=== PATIENT | female | born 1945 | race American Indian/Alaskan Native ===

== ENCOUNTER 2018-07-01 15:45 | Emergency (ER) | payer MEDICARE ==
[2018-07-01] MEDS ORDERED: Furosemide 40 MG Tab PO ONE (15:46)
[2018-07-01] MEDS ORDERED: Sodium Chloride 0.9% 10 ML Syringe FLUSH PRN (16:14)
[2018-07-01 16:41] LABS: ANION GAP 12.5; CHLORIDE,CL 98 mmol/L (101-111); SODIUM,NA 134 mmol/L (135-145)
--- NOTE | 2018-07-01 16:45 | CR ---
Clinical history: 73-year-old female complaining of shortness of breath. Interpretation: No acute new cardiopulmonary abnormality since 13 January 2012 exam. Normal cardiac silhouette without cephalization of flow signs of alveolar edema or dependent pleural fluid accumulation. No lung mass, hilar lymphadenopathy or focal lobar pneumonia. No atelectasis/collapse. No pneumothorax.
[2018-07-01] MEDS ORDERED: Furosemide 40 MG/4 ML VIAL IVPUSH ONE (16:53)
--- NOTE | 2018-07-01 17:31 | EDM.PDOC ---
ED HPI GENERAL MEDICAL PROBLEM - General Chief Complaint: Respiratory Problem Stated Complaint: [facility] Time Seen by Provider: 07/01/18 16:50 Source of Information: Reports: Patient History Limitations: Reports: No Limitations - History of Present Illness INITIAL COMMENTS - FREE TEXT/NARRATIVE: patient comes emergency department today from home with concerns of bilateral lower extremity swelling as well as cough and congestion. The patient has had lower extremity swelling for 2-3 months. She reports that she has very difficult time with depression and very rarely leaves the house and has not been seen for this. The swelling in her lower extremities has gotten worse over the past couple months. In the last month she has been more short of breath coughing and wheezing. She has not had any pain in her chest or palpitations but gets more short of breath with typical indoor physical activity. She denies any fatigue or malaise weakness dizziness lightheadedness. No syncope. No fever no chills. Her family has been trying to get her to be seen in the doctor's office for the last month but she refuses to leave the house. She has no abdominal pain nausea vomiting. No black or tarry stools. patient does have a history of COPDfor which she uses her Advair Diskus a couple of times a week. She has been using her albuterol every 6 hours good she's been so short of breath and coughing. Bilateral Lower Leg Pain Score (Numeric/FACES): 5 - Related Data Allergies Allergy/AdvReac Type Severity Reaction Status Date / Time aspirin Allergy Hives Verified 07/01/18 16:24 azithromycin [From Zithromax] Allergy UNKNOWN Verified 07/01/18 16:24 Penicillins Allergy Hives Verified 07/01/18 16:24 Home Meds: Home Meds Acetaminophen [Acetaminophen 8 Hour] 2 tab PO BID 07/01/18 [History] Albuterol [Ventolin HFA] 2 puff INH Q6H 07/01/18 [History] Cyanocobalamin (Vitamin B-12) [Cyanocobalamin Injection] 1,000 mcg IM ASDIRECTED 07/01/18 [History] DULoxetine HCl [Cymbalta] 60 mg PO DAILY 07/01/18 [History] Fluticasone/Salmeterol [Advair 250-50] 1 puff INH BID 07/01/18 [History] Zolpidem [Ambien] 10 mg PO BEDTIME 07/01/18 [History] buPROPion HCl [Wellbutrin Xl] 150 mg PO DAILY 07/01/18 [History] clonazePAM [Clonazepam] 1 mg PO BID 07/01/18 [History] Past Medical History Cardiovascular History: Reports: Heart Failure Respiratory History: Reports: Asthma, COPD Musculoskeletal History: Reports: Fibromyalgia Psychiatric History: Reports: Depression Hematologic History: Reports: B12 Deficiency ED ROS GENERAL - Review of Systems Review Of Systems: ROS reveals no pertinent complaints other than HPI. ED EXAM, GENERAL - Physical Exam Exam: See Below Exam Limited By: No Limitations General Appearance: Alert, No Apparent Distress Eye Exam: Bilateral Eye: EOMI, Normal Inspection Ears: Normal External Exam, Normal TMs Nose: Normal Inspection, Normal Mucosa Throat/Mouth: Normal Inspection, Normal Lips Head: Atraumatic, Normocephalic Neck: Normal Inspection, Supple, Non-Tender Respiratory/Chest: No Respiratory Distress, No Accessory Muscle Use, Chest Non- Tender, Decreased Breath Sounds (throughout), Wheezing (mild inspiratory and expiratory bilaterally). No: Respiratory Distress (she is able to speak in full sentences), Crackles, Rales, Rhonchi Cardiovascular: Normal Peripheral Pulses, Regular Rate, Rhythm Peripheral Pulses: 2+: Radial (L), Radial (R), Posterior Tibial (L), Posterior Tibial (R), Dorsalis Pedis (L), Dorsalis Pedis (R) GI/Abdominal: Normal Bowel Sounds, Soft, Non-Tender, No Organomegaly Back Exam: Normal Inspection, Full Range of Motion Extremities: Normal Range of Motion, Normal Capillary Refill, Pedal Edema ( there is 3+ pitting edema from the ankle up to the knees bilaterally.There is no increased warmth breaks in the skin. The area on her lower extremities is quite tender by palpation.) Neurological: Alert, Oriented, Normal Cognition, No Motor/Sensory Deficits Psychiatric: Normal Affect, Normal Mood Skin Exam: Warm, Dry, Intact, Normal Color, No Rash EKG INTERPRETATION EKG Date: 07/01/18 Time: 16:01 Rhythm: NSR Rate (Beats/Min): 75 [place]: Normal P-Wave: Present QRS: Normal ST-T: Normal QT: Normal Comparison: NA - No Prior EKG Course - Vital Signs Last Recorded V/S: Last Vital Signs Temp 37.5 C 07/01/18 15:46 Pulse 82 07/01/18 15:46 Resp 19 07/01/18 15:46 BP 170/80 H 07/01/18 15:46 Pulse Ox 97 07/01/18 15:46 - Orders/Labs/Meds Orders: Active Orders 24 hr Category Date Time Status EKG 12 Lead [EKG Documentation Completion] [RC] URGENT Care 07/01/18 16:14 Active Peripheral IV Care [RC] . DIRECTED Care 07/01/18 16:15 Active Peripheral IV Insertion Adult [OM.PC] Stat Oth 07/01/18 16:14 Ordered Labs: Laboratory Tests 07/01/18 07/01/18 07/01/18 Range/Units 16:10 16:10 16:10 WBC 7.2 (5.0-10.0) 10^3/uL RBC 4.28 (4.2-5.4) 10^6/uL Hgb 13.1 (12.0-16.0) g/dL Hct 39.9 (37.0-47.0) % MCV 93.2 (80-100) fL MCH 30.6 (27.0-34.0) pg MCHC 32.8 L (33.0-35.0) g/dL Plt Count 388 (150-450) 10^3/uL Neut % (Auto) 52.4 (42.2-75.2) % Lymph % (Auto) 37.2 (20.5-50.1) % [place] % (Auto) 7.5 (2-8) % Eos % (Auto) 2.8 (1.0-3.0) % Baso % (Auto) 0.1 (0.0-1.0) % D-Dimer, Quantitative (0-400) ng/mL Sodium 134 L (135-145) mmol/L Potassium 3.5 L (3.6-5.0) mmol/L Chloride 98 L (101-111) mmol/L Carbon Dioxide 27.0 (21.0-31.0) mmol/L Anion Gap 12.5 BUN 9 (7-18) mg/dL Creatinine 0.7 (0.6-1.3) mg/dL Est Cr Clr Drug Dosing 61.81 mL/min Estimated GFR (MDRD) > 60 BUN/Creatinine Ratio 12.85 Glucose 102 (74-105) mg/dL Lactic Acid 1.1 (0.5-2.2) mmol/L Calcium 8.6 (8.4-10.2) mg/dl Total Bilirubin 0.6 (0.2-1.0) mg/dL AST 16 (10-42) IU/L ALT 9 L (10-60) IU/L Alkaline Phosphatase 65 (42-121) IU/L Troponin I < 0.02 (0.00-0.02) ng/ml C-Reactive Protein (0.0-1.3) mg/dL B-Natriuretic Peptide 72 (0-100) pg/ml Total Protein 7.4 (6.7-8.2) g/dl Albumin 3.4 (3.2-5.5) g/dl Globulin 4.0 Albumin/Globulin Ratio 0.85 07/01/18 07/01/18 Range/Units 16:10 16:10 WBC (5.0-10.0) 10^3/uL RBC (4.2-5.4) 10^6/uL Hgb (12.0-16.0) g/dL Hct (37.0-47.0) % MCV (80-100) fL MCH (27.0-34.0) pg MCHC (33.0-35.0) g/dL Plt Count (150-450) 10^3/uL Neut % (Auto) (42.2-75.2) % Lymph % (Auto) (20.5-50.1) % [place] % (Auto) (2-8) % Eos % (Auto) (1.0-3.0) % Baso % (Auto) (0.0-1.0) % D-Dimer, Quantitative 269 (0-400) ng/mL Sodium (135-145) mmol/L Potassium (3.6-5.0) mmol/L Chloride (101-111) mmol/L Carbon Dioxide (21.0-31.0) mmol/L Anion Gap BUN (7-18) mg/dL Creatinine (0.6-1.3) mg/dL Est Cr Clr Drug Dosing mL/min Estimated GFR (MDRD) BUN/Creatinine Ratio Glucose (74-105) mg/dL Lactic Acid (0.5-2.2) mmol/L Calcium (8.4-10.2) mg/dl Total Bilirubin (0.2-1.0) mg/dL AST (10-42) IU/L ALT (10-60) IU/L Alkaline Phosphatase (42-121) IU/L Troponin I (0.00-0.02) ng/ml C-Reactive Protein 0.6 (0.0-1.3) mg/dL B-Natriuretic Peptide (0-100) pg/ml Total Protein (6.7-8.2) g/dl Albumin (3.2-5.5) g/dl Globulin Albumin/Globulin Ratio Meds: Medications Discontinued Medications Generic Name Dose Route Start Last Admin Trade Name Freq PRN Reason Stop Dose Admin Doxycycline Hyclate 100 mg 07/01/18 18:07 07/01/18 18:27 Vibramycin PO 07/01/18 18:08 100 mg ONETIME ONE Administration Furosemide 40 mg 07/01/18 16:53 07/01/18 17:22 Lasix IVPUSH 07/01/18 16:54 40 mg NOW ONE Administration Furosemide Confirm 07/01/18 18:21 07/01/18 18:31 Lasix Administered 07/01/18 18:22 Not Given Dose 40 mg .ROUTE .STK-MED ONE Prednisone 40 mg 07/01/18 18:04 07/01/18 18:26 Prednisone PO 07/01/18 18:05 40 mg ONETIME ONE Administration Sodium Chloride 10 ml 07/01/18 16:14 07/01/18 16:10 Saline Flush FLUSH 10 ml ASDIRECTED PRN Administration Keep Vein Open - Radiology Interpretation Free Text/Narrative:: chest x-ray negative per radiology no signs of congestive heart failure. - Re-Assessments/Exams Free Text/Narrative Re-Assessment/Exam: 07/01/18 patient was given a DuoNeb nebulizer with resolutions of her shortness of breath and cough. Her laboratory evaluation is rather unremarkable with a normal troponin as well as BNP. her blood pressure is minimally elevated. She was on a low pressure medication previously but it caused increased pedal edema so she stopped it and was never started on any other medication. I think we have 2 issues going on here. 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 I explained to her at length that she needs to use her Advair Diskus daily to control her symptoms of COPD. She should only be using her albuterol as needed and if she is using her underlying controller medication she should not be using her albuterol as much. The patient wishes not to stay in the hospital as it is very difficult for her to even leave the house. I feel that is fine at this time although she has some rather impressive lower extremity edema. Not sure what's causing this edema other than uncontrolled hypertension right heart failure. Her d-dimer is negative. This really seems like a long- term problem of the lower extremity edema that is just gotten out of control and not manage. I'm not finding any acute emergency issues at this time. We will send her home steroids antibiotics and guidance to use her controller medications for her exacerbation of her COPD. she was given Lasix in the emergency department and we will do a short course of Lasix at home. She needs to keep her legs elevated over the next couple of days to help with venous return.I will not start her on any blood pressure medications at this time I would like to see how she does with the Lasix. I will close follow-up in the clinic on Thursday to reevaluate her COPD exacerbation as well as her pedal edema.She needs laboratory evaluation at that time to evaluate her kidney status as well.The patient is comfortable with this plan and her questions are answered she is very happy with the plan and feels much better on discharge. Departure - Departure Time of Disposition: 18:05 Disposition: Home, Self-Care 01 Clinical Impression: Pedal edema, COPD exacerbation - Discharge Information Referrals: Betsy Villagomez MD [Primary Care Provider] - Forms: ED Department Discharge Additional Instructions: You must use your COPD controller medication every day the advair diskus. Use your albuterol on an add needed basis. With using your daily controller advair you wont need your albuterol as much. Doxycycline, 1 tablet twice daily for the next 7 days. RX given to the patient. Prednisone, 40mg once a day for the next 5 days. RX given to the patient. Start tomorrow. Lasix, 1 tablet daily for the next 4 days. RX given to the patient. Keep your feet elevated as possible over the next few days. Weight yourself daily. YOU MUST BEE SEEN in the clinic on thursday for a recheck in the ED if any problems over the weekend. Return to the ED if new or worsening symptoms. - My Orders Last 24 Hours: My Active Orders 07/01/18 16:14 EKG 12 Lead [EKG Documentation Completion] [RC] URGENT Peripheral IV Insertion Adult [OM.PC] Stat 07/01/18 16:15 Peripheral IV Care [RC] . DIRECTED - Assessment/Plan Last 24 Hours: My Active Orders 07/01/18 16:14 EKG 12 Lead [EKG Documentation Completion] [RC] URGENT Peripheral IV Insertion Adult [OM.PC] Stat 07/01/18 16:15 Peripheral IV Care [RC] . DIRECTED Assessment:: Mild COpd exacerbation in the presence of none compliance with medication regimen. Pedal edema Htn. Depression. Plan: You must use your COPD controller medication every day the advair diskus. Use your albuterol on an add needed basis. With using your daily controller advair you wont need your albuterol as much. Doxycycline, 1 tablet twice daily for the next 7 days. RX given to the patient. Prednisone, 40mg once a day for the next 5 days. RX given to the patient. Start tomorrow. Lasix, 1 tablet daily for the next 4 days. RX given to the patient. Keep your feet elevated as possible over the next few days. Weight yourself daily. YOU MUST BEE SEEN in the clinic on thursday for a recheck in the ED if any problems over the weekend. Return to the ED if new or worsening symptoms.
[2018-07-01] MEDS ORDERED: predniSONE 20 MG Tab PO ONE (18:04)
[2018-07-01] MEDS ORDERED: Doxycycline 100 MG Cap PO ONE (18:07)
[2018-07-01] MEDS ORDERED: Furosemide 40 MG Tab ONE (18:21)
== END 2018-07-01 18:44 | disposition home or self-care (01) ==
LOC: DL.ED 15:45
DX: J44.1 Chronic obstructive pulmonary disease with (acute) exacerbation (principal); R60.0 Localized edema; J44.9 Chronic obstructive pulmonary disease, unspecified; I50.9 Heart failure, unspecified; F32.9 Major depressive disorder, single episode, unspecified; I10 Essential (primary) hypertension; Z79.82 Long term (current) use of aspirin; Z88.1 Allergy status to other antibiotic agents; Z79.899 Other long term (current) drug therapy; Z91.19 Patient's noncompliance with other medical treatment and regimen
CPT/HCPCS: 36415; 71045; 80053; 83605; 83880; 84484; 85025; 85379; 86140; 93005; 96374; 99284-25; A9270-GY; J1940

== ENCOUNTER 2018-07-13 00:09 | Emergency (ER) | payer MEDICARE ==
[2018-07-13] MEDS ORDERED: Zolpidem 5 MG Tab PO ONE (00:10)
[2018-07-13] MEDS ORDERED: ClonazePAM 0.5 MG Tab PO ONE (01:08)
--- NOTE | 2018-07-13 01:21 | EDM.PDOCBH ---
ED HPI GENERAL MEDICAL PROBLEM - General Chief Complaint: Behavioral/Psych Stated Complaint: UNKNOWN-AMBULANCE Time Seen by Provider: 07/13/18 00:50 Source of Information: Reports: Patient, EMS, EMS Notes Reviewed, Family, RN, RN Notes Reviewed History Limitations: Reports: No Limitations - History of Present Illness INITIAL COMMENTS - FREE TEXT/NARRATIVE: Pt to ER per [facility] with c/o anxiety and difficulty breathing. Patient states she has been having a lot of trouble with depression and anxiety. She states she ran out of her medications, and missed her last appointment with her primary provider because is has been hard for her to leave the house. Patient states her has always done the shopping and things outside the house and has recently become very ill. She states this is a great stressor for her and causes a lot of her anxiety. Patient states she was in here about 1-2 weeks ago and was prescribed abx and states she is almost done with them. She was also prescribed Lasix for the swelling in her legs. Patient states she is afraid to take the medication because she thinks it sounds like lisinopril which she has adverse reactions to. Granddaughter present in the room and states they have been trying to encourage her to take the lasix and she refuses. Onset: Gradual Neck Pain Score (Numeric/FACES): 10 - Related Data Allergies Allergy/AdvReac Type Severity Reaction Status Date / Time aspirin Allergy Hives Verified 07/01/18 16:24 azithromycin [From Zithromax] Allergy UNKNOWN Verified 07/01/18 16:24 Penicillins Allergy Hives Verified 07/01/18 16:24 Home Meds: Home Meds Acetaminophen [Acetaminophen 8 Hour] 2 tab PO BID 07/01/18 [History] Albuterol [Ventolin HFA] 2 puff INH Q6H 07/01/18 [History] Cyanocobalamin (Vitamin B-12) [Cyanocobalamin Injection] 1,000 mcg IM ASDIRECTED 07/01/18 [History] DULoxetine HCl [Cymbalta] 60 mg PO DAILY 07/01/18 [History] Fluticasone/Salmeterol [Advair 250-50] 1 puff INH BID 07/01/18 [History] Zolpidem [Ambien] 10 mg PO BEDTIME 07/01/18 [History] buPROPion HCl [Wellbutrin Xl] 150 mg PO DAILY 07/01/18 [History] clonazePAM [Clonazepam] 1 mg PO BID 07/01/18 [History] Past Medical History Cardiovascular History: Reports: Heart Failure Respiratory History: Reports: Asthma, COPD Musculoskeletal History: Reports: Fibromyalgia Psychiatric History: Reports: Depression Hematologic History: Reports: B12 Deficiency Social & Family History - Tobacco Use Smoking Status *Q: Current Every Day Smoker Years of Tobacco use: 55 Packs/Tins Daily: 1 Second Hand Smoke Exposure: Yes - Recreational Drug Use Recreational Drug Use: No ED ROS GENERAL - Review of Systems Review Of Systems: ROS reveals no pertinent complaints other than HPI. ED EXAM, BEHAVIORAL HEALTH - Physical Exam Exam: See Below Exam Limited By: No Limitations General Appearance: Alert, WD/WN, No Apparent Distress, Anxious Eye Exam: Bilateral Eye: EOMI, Normal Inspection Ears: Normal External Exam, Hearing Grossly Normal Nose: Normal Inspection Throat/Mouth: Normal Inspection, Normal Voice, No Airway Compromise Head: Atraumatic, Normocephalic Neck: Normal Inspection, Supple, Non-Tender, Full Range of Motion Respiratory/Chest: No Respiratory Distress, No Accessory Muscle Use, Decreased Breath Sounds Cardiovascular: Normal Peripheral Pulses, Regular Rate, Rhythm, No Gallop, No JVD, No Murmur, No Rub, Other (left anterior chest wall pain with placement of stethoscope) GI/Abdominal: Normal Bowel Sounds, Soft, Non-Tender (Female) Exam: Deferred Rectal (Female) Exam: Deferred Back Exam: Normal Inspection, Full Range of Motion Extremities: Normal Inspection, Normal Range of Motion, Non-Tender, Normal Capillary Refill, Pedal Edema (+2 pitting edema to lower extrem bilaterally), Leg Pain (to touch) Neurological: Alert, Oriented x 3 Psychiatric: Alert, Depressed Mood, Tearful, Poor Eye Contact Skin Exam: Warm, Dry, Intact, Normal color, No rash COURSE, BEHAVIORAL HEALTH COMP - Course Vital Signs: Last Vital Signs Temp 98.7 F 07/13/18 00:09 Pulse 88 07/13/18 00:09 Resp 18 07/13/18 00:09 BP 188/80 H 07/13/18 00:09 Pulse Ox 100 07/13/18 00:09 Orders, Labs, Meds: Medications Discontinued Medications Generic Name Dose Route Start Last Admin Trade Name Freq PRN Reason Stop Dose Admin Clonazepam 0.5 mg 07/13/18 01:08 07/13/18 01:21 Klonopin PO 07/13/18 01:09 0.5 mg ONETIME ONE Administration Zolpidem Tartrate Confirm 07/13/18 01:25 07/13/18 01:41 Ambien Administered 07/13/18 01:26 Not Given Dose 5 mg .ROUTE .STK-MED ONE Departure - Departure Time of Disposition: 01:14 Disposition: Home, Self-Care 01 Condition: Fair Clinical Impression: Depressive disorder, Anxiety, Pedal edema - Discharge Information *PRESCRIPTION DRUG MONITORING PROGRAM REVIEWED*: No *COPY OF PRESCRIPTION DRUG MONITORING REPORT IN PATIENT SONALI: No Instructions: Generalized Anxiety Disorder, Adult, Major Depressive Disorder, Adult, [id number], Panic Attack, [id number], Living With Anxiety, Edema, [id number] Referrals: Betsy Villagomez MD [Primary Care Provider] - Forms: ED Department Discharge Additional Instructions: Take Ambien when you get home Follow up with Dr. Younger for your appointment on Thursday, it is very important that you get your medications refilled Take medications as prescribed.
[2018-07-13] MEDS ORDERED: Zolpidem 5 MG Tab ONE (01:25)
== END 2018-07-13 01:35 | disposition home or self-care (01) ==
LOC: DL.ED 00:09
DX: F32.9 Major depressive disorder, single episode, unspecified (principal); F41.9 Anxiety disorder, unspecified; R60.0 Localized edema; J44.9 Chronic obstructive pulmonary disease, unspecified; I50.9 Heart failure, unspecified; F17.210 Nicotine dependence, cigarettes, uncomplicated; Z79.899 Other long term (current) drug therapy; Z88.8 Allergy status to other drugs, medicaments and biological substances; Z88.1 Allergy status to other antibiotic agents; Z88.0 Allergy status to penicillin
CPT/HCPCS: 99284; A9270

== ENCOUNTER 2018-08-25 14:15 | Inpatient (IN) | payer MEDICARE, OTHER ==
--- NOTE | 2018-08-25 14:28 | EDM.PDOC ---
ED HPI GENERAL MEDICAL PROBLEM - General Chief Complaint: Respiratory Problem Stated Complaint: AMBULANCE Time Seen by Provider: 08/25/18 14:28 Source of Information: Reports: Patient, Family, Old Records, RN, RN Notes Reviewed History Limitations: Reports: No Limitations - History of Present Illness INITIAL COMMENTS - FREE TEXT/NARRATIVE: Pt arrives from home by ambulance with c/o cough with thick mucus production that has become yellowish-green, shortness of breath, and lethargy. The pt's daughter thought the pt was just less active due to grief from the loss of her in July. Pt continues to smoke, and has smoked since she was a "young girl". Denies fever, chills, N/V, or chest pain. She does admit to some sharp pains with coughing. Denies hemoptysis. She reports progressively worsening shortness of breath over the past week. 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, Breathing Treatments Generalized Pain Score (Numeric/FACES): 10 - Related Data Allergies Allergy/AdvReac Type Severity Reaction Status Date / Time aspirin Allergy Hives Verified 07/01/18 16:24 azithromycin [From Zithromax] Allergy UNKNOWN Verified 07/01/18 16:24 Penicillins Allergy Hives Verified 07/01/18 16:24 Home Meds: Home Meds Acetaminophen [Acetaminophen 8 Hour] 2 tab PO BID 07/01/18 [History] Albuterol [Ventolin HFA] 2 puff INH Q6H 07/01/18 [History] Cyanocobalamin (Vitamin B-12) [Cyanocobalamin Injection] 1,000 mcg IM ASDIRECTED 07/01/18 [History] DULoxetine HCl [Cymbalta] 60 mg PO DAILY 07/01/18 [History] Fluticasone/Salmeterol [Advair 250-50] 1 puff INH BID 07/01/18 [History] Zolpidem [Ambien] 10 mg PO BEDTIME 07/01/18 [History] buPROPion HCl [Wellbutrin Xl] 150 mg PO DAILY 07/01/18 [History] clonazePAM [Clonazepam] 1 mg PO BID 07/01/18 [History] Cholecalciferol (Vitamin D3) [Vitamin D3] 3,000 unit PO DAILY 08/25/18 [History] Cyclobenzaprine HCl 5 mg PO TID PRN 08/25/18 [History] Ubidecarenone [Coq-10] 100 mg PO DAILY 08/25/18 [History] Past Medical History Cardiovascular History: Reports: Heart Failure Respiratory History: Reports: Asthma, COPD Musculoskeletal History: Reports: Fibromyalgia Psychiatric History: Reports: Depression Hematologic History: Reports: B12 Deficiency Social & Family History - Family History Respiratory: Reports: TB (Grandparents) Oncologic: Reports: Lung (Mother) - Tobacco Use Smoking Status *Q: Current Every Day Smoker Tobacco Use Within Last Twelve Months: Cigarettes Years of Tobacco use: 50 Packs/Tins Daily: 1 - Alcohol Use Alcohol Use History: No - Recreational Drug Use Recreational Drug Use: No - Living Situation & Occupation Living situation: Reports: , with Family Occupation: Retired ED ROS GENERAL - Review of Systems Review Of Systems: ROS reveals no pertinent complaints other than HPI. ED EXAM, GENERAL - Physical Exam Exam: See Below Exam Limited By: No Limitations General Appearance: Lethargic, Mild Distress, Other (Chronically ill appearing) Eye Exam: Bilateral Eye: Normal Inspection Nose: Normal Inspection, Normal Mucosa, No Blood Throat/Mouth: Normal Lips, Normal Oropharynx, Normal Voice, No Airway Compromise , Other (Dry oral mucosa) Head: Atraumatic, Normocephalic Neck: Normal Inspection, Supple, Non-Tender, Full Range of Motion Respiratory/Chest: No Accessory Muscle Use, Decreased Breath Sounds, Crackles, Rhonchi, Wheezing Cardiovascular: Regular Rate, Rhythm, No Edema GI/Abdominal: Normal Bowel Sounds, Soft, Non-Tender, No Distention Back Exam: Normal Inspection Extremities: Normal Inspection Neurological: Alert, Oriented, No Motor/Sensory Deficits, Other (Generalized weakness/deconditioning) Psychiatric: Depressed Mood, Flat Affect Skin Exam: Warm, Dry, Intact, Pallor Course - Vital Signs Last Recorded V/S: Last Vital Signs Temp 37.7 C 08/25/18 14:16 Pulse 93 08/25/18 14:16 Resp 20 08/25/18 14:16 BP 142/64 H 08/25/18 14:16 Pulse Ox 92 L 08/25/18 14:31 - Orders/Labs/Meds Orders: Active Orders 24 hr Category Date Time Status Peripheral IV Care [RC] . DIRECTED Care 08/25/18 14:35 Active RT Aerosol Therapy [RC] ASDIRECTED Care 08/25/18 14:31 Active RT Aerosol Therapy [RC] ASDIRECTED Care 08/25/18 18:07 Active Chest 2V [CR] Stat Exams 08/25/18 15:32 Taken CULTURE BLOOD [BC] Stat Lab 08/25/18 14:48 Received CULTURE BLOOD [BC] Stat Lab 08/25/18 15:28 Received CULTURE SPUTUM + SMEAR [RM] Stat Lab 08/25/18 14:41 Received QUANTIFERON TB PLUS [REF] Stat Lab 08/25/18 17:25 Received UA RFX BEBE AND CULT IF INDIC [URIN] Stat Lab 08/25/18 14:32 Ordered Sodium Chloride 0.9% [Saline Flush] Med 08/25/18 14:32 Active 10 ml FLUSH ASDIRECTED PRN Blood Culture x2 Reflex Set [OM.PC] Stat Oth 08/25/18 14:32 Ordered Peripheral IV Insertion Adult [OM.PC] Stat Oth 08/25/18 14:32 Ordered Medication Orders Sodium Chloride (Saline Flush) 10 ml FLUSH ASDIRECTED PRN PRN Reason: Keep Vein Open Last Admin: 08/25/18 14:52 Dose: 10 ml Labs: Laboratory Tests 08/25/18 08/25/18 08/25/18 Range/Units 14:48 14:48 14:48 WBC 9.9 (5.0-10.0) 10^3/uL RBC 3.86 L (4.2-5.4) 10^6/uL Hgb 12.2 (12.0-16.0) g/dL Hct 37.1 (37.0-47.0) % MCV 96.1 (80-100) fL MCH 31.6 (27.0-34.0) pg MCHC 32.9 L (33.0-35.0) g/dL Plt Count 306 D (150-450) 10^3/uL Neut % (Auto) 76.5 H (42.2-75.2) % Lymph % (Auto) 13.0 L (20.5-50.1) % [place] % (Auto) 9.2 H (2-8) % Eos % (Auto) 1.2 (1.0-3.0) % Baso % (Auto) 0.1 (0.0-1.0) % Sodium 130 L (135-145) mmol/L Potassium 4.3 (3.6-5.0) mmol/L Chloride 93 L (101-111) mmol/L Carbon Dioxide 24.0 (21.0-31.0) mmol/L Anion Gap 17.3 BUN 8 (7-18) mg/dL Creatinine 0.6 (0.6-1.3) mg/dL Est Cr Clr Drug Dosing 72.11 mL/min Estimated GFR (MDRD) > 60 BUN/Creatinine Ratio 13.33 Glucose 94 (74-105) mg/dL Lactic Acid 0.8 (0.5-2.2) mmol/L Calcium 8.9 (8.4-10.2) mg/dl Total Bilirubin 0.5 (0.2-1.0) mg/dL AST 13 (10-42) IU/L ALT 9 L (10-60) IU/L Alkaline Phosphatase 68 (42-121) IU/L Lactate Dehydrogenase (91-180) IU/L Troponin I 0.00 (0.00-0.08) ng/mL Total Protein 7.9 (6.7-8.2) g/dl Albumin 3.8 (3.2-5.5) g/dl Globulin 4.1 Albumin/Globulin Ratio 0.93 08/25/18 Range/Units 14:48 WBC (5.0-10.0) 10^3/uL RBC (4.2-5.4) 10^6/uL Hgb (12.0-16.0) g/dL Hct (37.0-47.0) % MCV (80-100) fL MCH (27.0-34.0) pg MCHC (33.0-35.0) g/dL Plt Count (150-450) 10^3/uL Neut % (Auto) (42.2-75.2) % Lymph % (Auto) (20.5-50.1) % [place] % (Auto) (2-8) % Eos % (Auto) (1.0-3.0) % Baso % (Auto) (0.0-1.0) % Sodium (135-145) mmol/L Potassium (3.6-5.0) mmol/L Chloride (101-111) mmol/L Carbon Dioxide (21.0-31.0) mmol/L Anion Gap BUN (7-18) mg/dL Creatinine (0.6-1.3) mg/dL Est Cr Clr Drug Dosing mL/min Estimated GFR (MDRD) BUN/Creatinine Ratio Glucose (74-105) mg/dL Lactic Acid (0.5-2.2) mmol/L Calcium (8.4-10.2) mg/dl Total Bilirubin (0.2-1.0) mg/dL AST (10-42) IU/L ALT (10-60) IU/L Alkaline Phosphatase (42-121) IU/L Lactate Dehydrogenase 115 (91-180) IU/L Troponin I (0.00-0.08) ng/mL Total Protein (6.7-8.2) g/dl Albumin (3.2-5.5) g/dl Globulin Albumin/Globulin Ratio Meds: Medications Generic Name Dose Route Start Last Admin Trade Name Fredonta PRN Reason Stop Dose Admin Sodium Chloride 10 ml 08/25/18 14:32 08/25/18 14:52 Saline Flush FLUSH 10 ml ASDIRECTED PRN Administration Keep Vein Open Discontinued Medications Generic Name Dose Route Start Last Admin Trade Name Tellyq PRN Reason Stop Dose Admin Acetaminophen 650 mg 08/25/18 14:31 08/25/18 14:52 Tylenol PO 08/25/18 14:32 650 mg NOW ONE Administration Albuterol/Ipratropium 3 ml 08/25/18 14:30 08/25/18 14:46 Duoneb 3.0-0.5 Mg/3 Ml [facility] 08/25/18 14:31 3 ml ONETIME ONE Administration Albuterol/Ipratropium 3 ml 08/25/18 18:07 08/25/18 18:12 Duoneb 3.0-0.5 Mg/3 Ml NEB 08/25/18 18:08 3 ml ONETIME ONE Administration Levofloxacin/Dextrose 750 mg/ 150 mls @ 100 mls/hr 08/25/18 16:31 08/25/18 17 :16 Premix IV 08/25/18 18:00 100 mls/hr ONETIME ONE Administration Methylprednisolone Sodium Succinate 125 mg 08/25/18 14:30 08/25/18 14:51 Solu-Medrol IVPUSH 08/25/18 14:31 125 mg ONETIME ONE Administration - Radiology Interpretation Free Text/Narrative:: Chest XR: abnormal, RLL/subhilar infiltrate, nodule/mass lesions at RUL/RML, see Rad. report. CT Chest: Multilobar infiltrates, mass-like parenchymal lesion in superior RLL, atelectasis, hilar & mediastinal lymphadenopathy, see Rad. report. Departure - Departure Time of Disposition: 19:20 (admit to Dr. Higuera) Disposition: Admitted As Inpatient 66 Condition: Serious Clinical Impression: Acute exacerbation of chronic obstructive pulmonary disease (COPD), Mass of right lung Pneumonia Qualifiers: Pneumonia type: due to unspecified organism Laterality: bilateral Lung location : lower lobe of lung Qualified Code(s): J18.1 - Lobar pneumonia, unspecified organism - Discharge Information *PRESCRIPTION DRUG MONITORING PROGRAM REVIEWED*: No *COPY OF PRESCRIPTION DRUG MONITORING REPORT IN PATIENT SONALI: No Forms: ED Department Discharge - My Orders Last 24 Hours: My Active Orders 08/25/18 14:31 RT Aerosol Therapy [RC] ASDIRECTED 08/25/18 14:32 UA RFX BEBE AND CULT IF INDIC [URIN] Stat Sodium Chloride 0.9% [Saline Flush] 10 ml FLUSH ASDIRECTED PRN Blood Culture x2 Reflex Set [OM.PC] Stat Peripheral IV Insertion Adult [OM.PC] Stat 08/25/18 14:35 Peripheral IV Care [RC] . DIRECTED 08/25/18 14:41 CULTURE SPUTUM + SMEAR [RM] Stat 08/25/18 14:48 CULTURE BLOOD [BC] Stat 08/25/18 15:28 CULTURE BLOOD [BC] Stat 08/25/18 15:32 Chest 2V [CR] Stat 08/25/18 17:25 QUANTIFERON TB PLUS [REF] Stat 08/25/18 18:07 RT Aerosol Therapy [RC] ASDIRECTED - Assessment/Plan Last 24 Hours: My Active Orders 08/25/18 14:31 RT Aerosol Therapy [RC] ASDIRECTED 08/25/18 14:32 UA RFX BEBE AND CULT IF INDIC [URIN] Stat Sodium Chloride 0.9% [Saline Flush] 10 ml FLUSH ASDIRECTED PRN Blood Culture x2 Reflex Set [OM.PC] Stat Peripheral IV Insertion Adult [OM.PC] Stat 08/25/18 14:35 Peripheral IV Care [RC] . DIRECTED 08/25/18 14:41 CULTURE SPUTUM + SMEAR [RM] Stat 08/25/18 14:48 CULTURE BLOOD [BC] Stat 08/25/18 15:28 CULTURE BLOOD [BC] Stat 08/25/18 15:32 Chest 2V [CR] Stat 08/25/18 17:25 QUANTIFERON TB PLUS [REF] Stat 08/25/18 18:07 RT Aerosol Therapy [RC] ASDIRECTED
[2018-08-25] MEDS ORDERED: Albuterol/Ipratropium 3.0-0.5 MG/3 ML Neb Soln NEB ONE ×2 (14:30→18:07)
[2018-08-25] MEDS ORDERED: methylPREDNISolone Sodium Succinate 125 MG/2 ML SDV IVPUSH ONE (14:30)
[2018-08-25] MEDS ORDERED: Acetaminophen 325 MG Tab PO ONE (14:31)
[2018-08-25] MEDS ORDERED: Sodium Chloride 0.9% 10 ML Syringe FLUSH PRN (14:32)
[2018-08-25 15:31] LABS: ANION GAP 17.3; CHLORIDE,CL 93 mmol/L (101-111); SODIUM,NA 130 mmol/L (135-145)
[2018-08-25] MEDS ORDERED: Levofloxacin/Dextrose 5%-Water 750 MG in Premix Bag 1 BAG IV ONE (16:31)
--- NOTE | 2018-08-25 17:43 | CT ---
Clinical history: 73-year-old female smoker who has been "sick" ( 1 month ago) i.e. cough and hypoxia. Scan technique: Volume acquisition of data emergency unenhanced CT scan of the chest (bony thorax, lungs and mediastinum) obtained while the patient was lying supine on the Siemens multi slice scanner [place], [place]. All data archived in the PACS system for storage, reformatting axial/sagittal/coronal planes and study (lung/mediastinal windows). Interpretation: Markedly abnormal. 1. Multilobar, multinodular "infiltrates" involving the posterior segment right upper, lateral segment right middle, and superior segment right lower lobes (largest masslike parenchymal lesion in superior segment RLL measures 3 cm greatest diameter). 2. Platelike atelectasis in the posterior segment contralateral left lower lobe. 3. Hilar and mediastinal lymphadenopathy. Suggestion of cervical lymphadenopathy. No malignant effusions. 4. Normal cardiac silhouette. Thoracic aorta unremarkable. No pericardial effusion, cephalization of vascular flow, alveolar edema or dependent pleural effusion. Multilevel disc disease and chronic arthritic changes spine. No pathologic skeletal lesion. 5. Unenhanced upper abdominal viscera unremarkable. CONCLUSION: New abnormalities right lung since 01 July 2018 plain chest radiograph. Differential diagnosis includes alveolar cell carcinoma, tuberculosis, and chronic aspiration pneumonia with cystic bronchiectasis.
[2018-08-25] MEDS ORDERED: Cyclobenzaprine 10 MG Tab PO PRN (19:51)
[2018-08-25] MEDS ORDERED: Albuterol/Ipratropium 3.0-0.5 MG/3 ML Neb Soln NEB PRN (19:51)
--- NOTE | 2018-08-25 20:07 | PCM.HP ---
H&P History of Present Illness - General Date of Service: 08/25/18 Source of Information: Patient - History of Present Illness Initial Comments - Free Text/Narative: Presented with cough, moderate, acute on chronic, associated with yellow sputum denies fever. family concerned about more sleepiness h/o chronic pain, anxiety recently started flexeril for neck/back pain c/o sob noted hypoxemia 88% in ER no cp other than "pain all over" had recent leg swelling that has been improving Generalized Pain Score (Numeric/FACES): 10 - Related Data Allergies/Adverse Reactions: Allergies Allergy/AdvReac Type Severity Reaction Status Date / Time aspirin Allergy Hives Verified 07/01/18 16:24 azithromycin [From Zithromax] Allergy UNKNOWN Verified 07/01/18 16:24 Penicillins Allergy Hives Verified 07/01/18 16:24 Home Medications: Home Meds Acetaminophen [Acetaminophen 8 Hour] 2 tab PO BID 07/01/18 [History] Albuterol [Ventolin HFA] 2 puff INH Q6H 07/01/18 [History] Cyanocobalamin (Vitamin B-12) [Cyanocobalamin Injection] 1,000 mcg IM ASDIRECTED 07/01/18 [History] DULoxetine HCl [Cymbalta] 60 mg PO DAILY 07/01/18 [History] Fluticasone/Salmeterol [Advair 250-50] 1 puff INH BID 07/01/18 [History] Zolpidem [Ambien] 10 mg PO BEDTIME 07/01/18 [History] buPROPion HCl [Wellbutrin Xl] 150 mg PO DAILY 07/01/18 [History] clonazePAM [Clonazepam] 1 mg PO BID 07/01/18 [History] Cholecalciferol (Vitamin D3) [Vitamin D3] 3,000 unit PO DAILY 08/25/18 [History] Cyclobenzaprine HCl 5 mg PO TID PRN 08/25/18 [History] Potassium Chloride [Klor-Con 10] 10 meq PO DAILY 08/25/18 [History] Ubidecarenone [Coq-10] 100 mg PO DAILY 08/25/18 [History] Past Medical History Cardiovascular History: Reports: Heart Failure Respiratory History: Reports: Asthma, COPD Musculoskeletal History: Reports: Fibromyalgia Psychiatric History: Reports: Depression Hematologic History: Reports: B12 Deficiency - Infectious Disease History Infectious Disease History: Reports: Shingles - Past Surgical History Female Surgical History: Reports: Tubal Ligation Social & Family History - Family History Respiratory: Reports: TB (Grandparents) Oncologic: Reports: Lung (Mother) - Tobacco Use Smoking Status *Q: Current Every Day Smoker Years of Tobacco use: 50 Packs/Tins Daily: 1 Second Hand Smoke Exposure: Yes - Recreational Drug Use Recreational Drug Use: No - Living Situation & Occupation Living situation: Reports: , with Family Occupation: Retired H&P Review of Systems - Review of Systems: Review Of Systems: See Below General: Reports: Malaise, Weakness, Fatigue. Denies: Fever Pulmonary: Reports: Shortness of Breath, Cough, Sputum. Denies: Wheezing, Hemoptysis Cardiovascular: Reports: Dyspnea on Exertion. Denies: Palpitations Genitourinary: Denies: Dysuria Musculoskeletal: Reports: Neck Pain, Shoulder Pain, Back Pain, Muscle Pain, Muscle Stiffness. Denies: Joint Swelling Psychiatric: Reports: Depression. Denies: Confusion Neurological: Reports: Weakness. Denies: Seizure, Syncope, Trouble Speaking, Difficulty Walking Exam - Exam Exam: See Below - Vital Signs Vital Signs: Last Vital Signs Temp 37.7 C 08/25/18 14:16 Pulse 93 08/25/18 14:16 Resp 20 08/25/18 14:16 BP 142/64 H 08/25/18 14:16 Pulse Ox 92 L 08/25/18 14:31 Weight: 69.4 kg - Exam General: Alert, Oriented Neck: Supple Lungs: Normal Respiratory Effort, Rhonchi (b/l ). No: Wheezing Cardiovascular: Regular Rate, Regular Rhythm GI/Abdominal Exam: Normal Bowel Sounds, Soft, Non-Tender Extremities: Pedal Edema (1+ b/l) - Patient Data Lab Results Last 24 hrs: Laboratory Results - last 24 hr 08/25/18 08/25/18 08/25/18 Range/Units 14:48 14:48 14:48 WBC 9.9 (5.0-10.0) 10^3/uL RBC 3.86 L (4.2-5.4) 10^6/uL Hgb 12.2 (12.0-16.0) g/dL Hct 37.1 (37.0-47.0) % MCV 96.1 (80-100) fL MCH 31.6 (27.0-34.0) pg MCHC 32.9 L (33.0-35.0) g/dL Plt Count 306 D (150-450) 10^3/uL Neut % (Auto) 76.5 H (42.2-75.2) % Lymph % (Auto) 13.0 L (20.5-50.1) % [place] % (Auto) 9.2 H (2-8) % Eos % (Auto) 1.2 (1.0-3.0) % Baso % (Auto) 0.1 (0.0-1.0) % Sodium 130 L (135-145) mmol/L Potassium 4.3 (3.6-5.0) mmol/L Chloride 93 L (101-111) mmol/L Carbon Dioxide 24.0 (21.0-31.0) mmol/L Anion Gap 17.3 BUN 8 (7-18) mg/dL Creatinine 0.6 (0.6-1.3) mg/dL Est Cr Clr Drug Dosing 72.11 mL/min Estimated GFR (MDRD) > 60 BUN/Creatinine Ratio 13.33 Glucose 94 (74-105) mg/dL Lactic Acid 0.8 (0.5-2.2) mmol/L Calcium 8.9 (8.4-10.2) mg/dl Total Bilirubin 0.5 (0.2-1.0) mg/dL AST 13 (10-42) IU/L ALT 9 L (10-60) IU/L Alkaline Phosphatase 68 (42-121) IU/L Lactate Dehydrogenase (91-180) IU/L Troponin I 0.00 (0.00-0.08) ng/mL Total Protein 7.9 (6.7-8.2) g/dl Albumin 3.8 (3.2-5.5) g/dl Globulin 4.1 Albumin/Globulin Ratio 0.93 08/25/18 Range/Units 14:48 WBC (5.0-10.0) 10^3/uL RBC (4.2-5.4) 10^6/uL Hgb (12.0-16.0) g/dL Hct (37.0-47.0) % MCV (80-100) fL MCH (27.0-34.0) pg MCHC (33.0-35.0) g/dL Plt Count (150-450) 10^3/uL Neut % (Auto) (42.2-75.2) % Lymph % (Auto) (20.5-50.1) % [place] % (Auto) (2-8) % Eos % (Auto) (1.0-3.0) % Baso % (Auto) (0.0-1.0) % Sodium (135-145) mmol/L Potassium (3.6-5.0) mmol/L Chloride (101-111) mmol/L Carbon Dioxide (21.0-31.0) mmol/L Anion Gap BUN (7-18) mg/dL Creatinine (0.6-1.3) mg/dL Est Cr Clr Drug Dosing mL/min Estimated GFR (MDRD) BUN/Creatinine Ratio Glucose (74-105) mg/dL Lactic Acid (0.5-2.2) mmol/L Calcium (8.4-10.2) mg/dl Total Bilirubin (0.2-1.0) mg/dL AST (10-42) IU/L ALT (10-60) IU/L Alkaline Phosphatase (42-121) IU/L Lactate Dehydrogenase 115 (91-180) IU/L Troponin I (0.00-0.08) ng/mL Total Protein (6.7-8.2) g/dl Albumin (3.2-5.5) g/dl Globulin Albumin/Globulin Ratio Result Diagrams: 08/25/18 14:48 08/25/18 14:48 Brannon Results Last 24 hrs: Microbiology 08/25/18 14:45 Influenza Type A Antigen Screen - Final Nasal, Unspecified NEGATIVE INFLUENZA A VIRUS AG REFERENCE RANGE: NEGATIVE Influenza Type B Antigen Screen - Final NEGATIVE INFLUENZA B VIRUS AG REFERENCE RANGE: NEGATIVE Imaging Impressions Last 24 hrs: ct described multilobar infiltrates on right side - Problem List (1) Anxiety SNOMED Code(s): 73124028 ICD Code: F41.9 - ANXIETY DISORDER, UNSPECIFIED Status: Acute Current Visit: No (2) Depressive disorder SNOMED Code(s): 62079684 ICD Code: F32.9 - MAJOR DEPRESSIVE DISORDER, SINGLE EPISODE, UNSPECIFIED Status: Acute Current Visit: No (3) Pedal edema SNOMED Code(s): 082775701 ICD Code: R60.0 - LOCALIZED EDEMA Status: Acute Current Visit: No (4) Pneumonia SNOMED Code(s): 902944812 ICD Code: J18.9 - PNEUMONIA, UNSPECIFIED ORGANISM Status: Acute Current Visit: No Qualifiers: Pneumonia type: due to unspecified organism Laterality: bilateral Lung location: lower lobe of lung Qualified Code(s): J18.1 - Lobar pneumonia, unspecified organism Problem List Initiated/Reviewed/Updated: Yes Orders Last 24hrs: Active Orders 24 hr Category Date Time Status Peripheral IV Care [RC] . DIRECTED Care 08/25/18 14:35 Active RT Aerosol Therapy [RC] ASDIRECTED Care 08/25/18 14:31 Active RT Aerosol Therapy [RC] ASDIRECTED Care 08/25/18 18:07 Active RT Aerosol Therapy [RC] ASDIRECTED Care 08/25/18 19:51 Ordered RT Aerosol Therapy [RC] ASDIRECTED Care 08/25/18 19:54 Ordered Chest 2V [CR] Stat Exams 08/25/18 15:32 Taken BASIC METABOLIC PANEL,BMP [CHEM] AM Lab 08/26/18 05:15 Ordered CBC WITH AUTO DIFF [HEME] AM Lab 08/26/18 05:15 Ordered CULTURE BLOOD [BC] Stat Lab 08/25/18 14:48 Received CULTURE BLOOD [BC] Stat Lab 08/25/18 15:28 Received CULTURE SPUTUM + SMEAR [RM] Stat Lab 08/25/18 14:41 Received QUANTIFERON TB PLUS [REF] Stat Lab 08/25/18 17:25 Received UA RFX BRANNON AND CULT IF INDIC [URIN] Stat Lab 08/25/18 14:32 Ordered Albuterol/Ipratropium [DuoNeb 3.0-0.5 MG/3 ML] Med 08/25/18 19:51 Ordered 3 ml NEB Q4HRRT PRN Albuterol/Ipratropium [DuoNeb 3.0-0.5 MG/3 ML] Med 08/25/18 21:00 Ordered 3 ml NEB TID Budesonide [Pulmicort] Med 08/26/18 07:00 Ordered 0.5 mg NEB BIDRT Cyclobenzaprine HCl [Cyclobenzaprine HCl] Med 08/25/18 19:51 Ordered 2.5 mg PO TID PRN DULoxetine HCl [Cymbalta] Med 08/26/18 09:00 Ordered 60 mg PO DAILY Levofloxacin/Dextrose 5%-Water [Levaquin in D5W 750 MG/ Med 08/26/18 20:00 Ordered 150 ML] 750 mg Premix Bag 1 bag IV Q24H Nicotine [Habitrol] Med 08/26/18 09:00 Ordered 14 mg TRDERM DAILY Sodium Chloride 0.9% [Saline Flush] Med 08/25/18 14:32 Active 10 ml FLUSH ASDIRECTED PRN Zolpidem Med 08/25/18 19:51 Ordered 10 mg PO BEDTIME PRN buPROPion [Wellbutrin XL] Med 08/26/18 09:00 Ordered 150 mg PO DAILY clonazePAM [Clonazepam] Med 08/25/18 21:00 Ordered 1 mg PO BID Blood Culture x2 Reflex Set [OM.PC] Stat Oth 08/25/18 14:32 Ordered Peripheral IV Insertion Adult [OM.PC] Stat Oth 08/25/18 14:32 Ordered Medication Orders Albuterol/Ipratropium (Duoneb 3.0-0.5 Mg/3 Ml) 3 ml NEB Q4HRRT PRN PRN Reason: sob Albuterol/Ipratropium (Duoneb 3.0-0.5 Mg/3 Ml) 3 ml NEB TID BLAZE Budesonide (Pulmicort) 0.5 mg NEB BIDRT BLAZE Bupropion HCl (Wellbutrin Xl) 150 mg PO DAILY BLAZE Levofloxacin/Dextrose 750 mg/ (Premix) 150 mls @ 100 mls/hr IV Q24H BLAZE Nicotine (Habitrol) 14 mg TRDERM DAILY BLAZE Non-Formulary Medication (Clonazepam [Clonazepam]) 1 mg PO BID BLAZE Non-Formulary Medication (Cyclobenzaprine Hcl [Cyclobenzaprine Hcl]) 2.5 mg PO TID PRN PRN Reason: Pain Non-Formulary Medication (Duloxetine Hcl [Cymbalta]) 60 mg PO DAILY BLAZE Non-Formulary Medication (Zolpidem) 10 mg PO BEDTIME PRN PRN Reason: Sleep Sodium Chloride (Saline Flush) 10 ml FLUSH ASDIRECTED PRN PRN Reason: Keep Vein Open Last Admin: 08/25/18 14:52 Dose: 10 ml Assessment/Plan Comment:: 73 you with h/o prolonged smoking depression, anxiety, chronic pain presented with sob, cough, yellow sputum # pneumonia community acquired obtain blood cx obtain sputum cx less likely TB - quantiferon pending started on Lvofloxacin #lung infiltrates f/up with imaging after Pneumonia treatment to ensure resolution #h/o copd with h/o smoking treat with pulmicort, scheduled and prn duoneb nicotine patch # chronic pain, depression cont cymbalta, clonazepam, tylenol decrease flexeril re: sleepiness #leg edema use compression stocking #heparin sq for dvt prophylaxis
[2018-08-25] MEDS ORDERED: Ondansetron 4 MG Tab.DIS PO PRN (20:13)
[2018-08-25] MEDS ORDERED: Ibuprofen 400 MG Tab PO PRN (20:13)
[2018-08-25] MEDS: ClonazePAM 0.5 MG Tab PO SCH (21:50)
[2018-08-25] MEDS: Heparin Sodium 5,000 Units/ML Vial SUBCUT SCH (21:53)
[2018-08-25] MEDS: Albuterol/Ipratropium 3.0-0.5 MG/3 ML Neb Soln NEB SCH (21:53)
[2018-08-26] MEDS: Zolpidem 5 MG Tab PO PRN ×2 (00:22→22:34)
[2018-08-26] MEDS: Acetaminophen 325 MG Tab PO PRN ×2 (00:31→09:20)
[2018-08-26] MEDS: Heparin Sodium 5,000 Units/ML Vial SUBCUT SCH ×3 (06:28→21:37)
[2018-08-26 06:40] LABS: ANION GAP 15.6; CHLORIDE,CL 92 mmol/L (101-111); SODIUM,NA 125 mmol/L (135-145)
[2018-08-26] MEDS: Albuterol/Ipratropium 3.0-0.5 MG/3 ML Neb Soln NEB SCH ×3 (07:11→21:22)
[2018-08-26] MEDS: Budesonide 0.5 MG/2 ML Neb Susp NEB SCH ×2 (07:11→17:51)
[2018-08-26] MEDS: ClonazePAM 0.5 MG Tab PO SCH ×2 (09:15→21:24)
[2018-08-26] MEDS: DULoxetine 30 MG Cap PO SCH (09:15)
[2018-08-26] MEDS: buPROPion 150 MG Tab.ER PO SCH (09:16)
[2018-08-26] MEDS: Nicotine 14 MG/24 Hr Patch TRDERM SCH (09:17)
--- NOTE | 2018-08-26 09:51 | PCM.PN ---
- General Info Date of Service: 08/26/18 Subjective Update: Overnight remained stable No fever Continues to have cough and sputum production Feeling weak Has remained on oxygen Functional Status: Reports: Tolerating Diet - Review of Systems General: Reports: Weakness, Fatigue, Malaise. Denies: Fever Pulmonary: Reports: Shortness of Breath, Cough, Sputum, Wheezing. Denies: Hemoptysis Cardiovascular: Denies: Chest Pain, Edema Neurological: Denies: Confusion - Patient Data Vitals - Most Recent: Last Vital Signs Temp 36.8 C 08/26/18 08:00 Pulse 72 08/26/18 08:00 Resp 18 08/26/18 08:00 BP 118/54 L 08/26/18 08:00 Pulse Ox 96 08/26/18 08:00 Weight - Most Recent: 67.449 kg I&O - Last 24 Hours: Intake & Output 08/25/18 08/26/18 08/26/18 22:59 06:59 14:59 Intake Total 300 260 Balance 300 260 Lab Results Last 24 Hours: Laboratory Results - last 24 hr 08/25/18 08/25/18 08/25/18 Range/Units 14:48 14:48 14:48 WBC 9.9 (5.0-10.0) 10^3/uL RBC 3.86 L (4.2-5.4) 10^6/uL Hgb 12.2 (12.0-16.0) g/dL Hct 37.1 (37.0-47.0) % MCV 96.1 (80-100) fL MCH 31.6 (27.0-34.0) pg MCHC 32.9 L (33.0-35.0) g/dL Plt Count 306 D (150-450) 10^3/uL Neut % (Auto) 76.5 H (42.2-75.2) % Lymph % (Auto) 13.0 L (20.5-50.1) % [place] % (Auto) 9.2 H (2-8) % Eos % (Auto) 1.2 (1.0-3.0) % Baso % (Auto) 0.1 (0.0-1.0) % Sodium 130 L (135-145) mmol/L Potassium 4.3 (3.6-5.0) mmol/L Chloride 93 L (101-111) mmol/L Carbon Dioxide 24.0 (21.0-31.0) mmol/L Anion Gap 17.3 BUN 8 (7-18) mg/dL Creatinine 0.6 (0.6-1.3) mg/dL Est Cr Clr Drug Dosing 72.11 mL/min Estimated GFR (MDRD) > 60 BUN/Creatinine Ratio 13.33 Glucose 94 (74-105) mg/dL Lactic Acid 0.8 (0.5-2.2) mmol/L Calcium 8.9 (8.4-10.2) mg/dl Total Bilirubin 0.5 (0.2-1.0) mg/dL AST 13 (10-42) IU/L ALT 9 L (10-60) IU/L Alkaline Phosphatase 68 (42-121) IU/L Lactate Dehydrogenase (91-180) IU/L Troponin I 0.00 (0.00-0.08) ng/mL Total Protein 7.9 (6.7-8.2) g/dl Albumin 3.8 (3.2-5.5) g/dl Globulin 4.1 Albumin/Globulin Ratio 0.93 08/25/18 08/26/18 08/26/18 Range/Units 14:48 05:55 05:55 WBC 6.1 (5.0-10.0) 10^3/uL RBC 3.31 L (4.2-5.4) 10^6/uL Hgb 10.5 L D (12.0-16.0) g/dL Hct 31.6 L (37.0-47.0) % MCV 95.5 (80-100) fL MCH 31.7 (27.0-34.0) pg MCHC 33.2 (33.0-35.0) g/dL Plt Count 308 (150-450) 10^3/uL Neut % (Auto) 86.9 H (42.2-75.2) % Lymph % (Auto) 10.3 L (20.5-50.1) % [place] % (Auto) 2.8 (2-8) % Eos % (Auto) 0.0 L (1.0-3.0) % Baso % (Auto) 0.0 (0.0-1.0) % Sodium 125 L (135-145) mmol/L Potassium 4.6 (3.6-5.0) mmol/L Chloride 92 L (101-111) mmol/L Carbon Dioxide 22.0 (21.0-31.0) mmol/L Anion Gap 15.6 BUN 15 (7-18) mg/dL Creatinine 0.7 (0.6-1.3) mg/dL Est Cr Clr Drug Dosing 61.81 mL/min Estimated GFR (MDRD) > 60 BUN/Creatinine Ratio Glucose 121 H (74-105) mg/dL Lactic Acid (0.5-2.2) mmol/L Calcium 8.2 L (8.4-10.2) mg/dl Total Bilirubin (0.2-1.0) mg/dL AST (10-42) IU/L ALT (10-60) IU/L Alkaline Phosphatase (42-121) IU/L Lactate Dehydrogenase 115 (91-180) IU/L Troponin I (0.00-0.08) ng/mL Total Protein (6.7-8.2) g/dl Albumin (3.2-5.5) g/dl Globulin Albumin/Globulin Ratio Brannon Results Last 24 Hours: Microbiology 08/25/18 14:41 Gram Stain - Final Sputum - Expectorated 08/25/18 14:45 Influenza Type A Antigen Screen - Final Nasal, Unspecified NEGATIVE INFLUENZA A VIRUS AG REFERENCE RANGE: NEGATIVE Influenza Type B Antigen Screen - Final NEGATIVE INFLUENZA B VIRUS AG REFERENCE RANGE: NEGATIVE Med Orders - Current: Current Medications Acetaminophen (Tylenol) 650 mg PO Q6H PRN PRN Reason: pain, fever Last Admin: 08/26/18 09:20 Dose: 650 mg Albuterol/Ipratropium (Duoneb 3.0-0.5 Mg/3 Ml) 3 ml NEB Q4HRRT PRN PRN Reason: sob Albuterol/Ipratropium (Duoneb 3.0-0.5 Mg/3 Ml) 3 ml NEB TIDRT [facility] Last Admin: 08/26/18 07:11 Dose: 3 ml Budesonide (Pulmicort) 0.5 mg NEB BIDRT [facility] Last Admin: 08/26/18 07:11 Dose: 0.5 mg Bupropion HCl (Wellbutrin Xl) 150 mg PO DAILY [facility] Last Admin: 08/26/18 09:16 Dose: 150 mg Clonazepam (Klonopin) 1 mg PO BID [facility] Last Admin: 08/26/18 09:15 Dose: 1 mg Cyclobenzaprine HCl (Flexeril) 2.5 mg PO TID PRN PRN Reason: Muscle Spasm Last Admin: 08/26/18 00:34 Dose: 2.5 mg Docusate Sodium (Colace) 100 mg PO BID PRN PRN Reason: Constipation Duloxetine HCl (Cymbalta) 60 mg PO DAILY [facility] Last Admin: 08/26/18 09:15 Dose: 60 mg Heparin Sodium (Porcine) (Heparin Sodium) 5,000 units SUBCUT Q8HR [facility] Last Admin: 08/26/18 06:28 Dose: 5,000 units Levofloxacin/Dextrose 750 mg/ (Premix) 150 mls @ 100 mls/hr IV Q24H [facility] Methylprednisolone Sodium Succinate (Solu-Medrol) 40 mg IVPUSH Q8H [facility] Nicotine (Habitrol) 14 mg TRDERM DAILY [facility] Last Admin: 08/26/18 09:17 Dose: 14 mg Ondansetron HCl (Zofran Odt) 4 mg PO Q4H PRN PRN Reason: nausea, able to take PO Sodium Chloride (Saline Flush) 10 ml FLUSH ASDIRECTED PRN PRN Reason: Keep Vein Open Last Admin: 08/25/18 14:52 Dose: 10 ml Sodium Chloride (Saline Flush) 10 ml FLUSH ASDIRECTED PRN PRN Reason: Keep Vein Open Zolpidem Tartrate (Ambien) 10 mg PO BEDTIME PRN PRN Reason: Sleep Last Admin: 08/26/18 00:22 Dose: 10 mg Discontinued Medications Acetaminophen (Tylenol) 650 mg PO NOW ONE Stop: 08/25/18 14:32 Last Admin: 08/25/18 14:52 Dose: 650 mg Albuterol/Ipratropium (Duoneb 3.0-0.5 Mg/3 Ml) 3 ml NEB ONETIME ONE Stop: 08/25/18 14:31 Last Admin: 08/25/18 14:46 Dose: 3 ml Albuterol/Ipratropium (Duoneb 3.0-0.5 Mg/3 Ml) 3 ml NEB ONETIME ONE Stop: 08/25/18 18:08 Last Admin: 08/25/18 18:12 Dose: 3 ml Levofloxacin/Dextrose 750 mg/ (Premix) 150 mls @ 100 mls/hr IV ONETIME ONE Stop: 08/25/18 18:00 Last Admin: 08/25/18 17:16 Dose: 100 mls/hr Ibuprofen (Motrin) 400 mg PO Q6H PRN PRN Reason: Pain (moderate 4-6) Methylprednisolone Sodium Succinate (Solu-Medrol) 125 mg IVPUSH ONETIME ONE Stop: 08/25/18 14:31 Last Admin: 08/25/18 14:51 Dose: 125 mg - Exam Quality Assessment: Supplemental Oxygen General: Alert, Oriented Neck: Supple Lungs: Normal Respiratory Effort, Wheezing Cardiovascular: Regular Rate, Regular Rhythm GI/Abdominal Exam: Normal Bowel Sounds, Soft, Non-Tender Extremities: Pedal Edema (Trace) - Problem List & Annotations (1) Anxiety SNOMED Code(s): 86921888 Code(s): F41.9 - ANXIETY DISORDER, UNSPECIFIED Status: Acute Current Visit: No (2) Depressive disorder SNOMED Code(s): 70960966 Code(s): F32.9 - MAJOR DEPRESSIVE DISORDER, SINGLE EPISODE, UNSPECIFIED Status: Acute Current Visit: No (3) Pedal edema SNOMED Code(s): 513470616 Code(s): R60.0 - LOCALIZED EDEMA Status: Acute Current Visit: No (4) Pneumonia SNOMED Code(s): 252653531 Code(s): J18.9 - PNEUMONIA, UNSPECIFIED ORGANISM Status: Acute Current Visit: No Qualifiers: Pneumonia type: due to unspecified organism Laterality: bilateral Lung location: lower lobe of lung Qualified Code(s): J18.1 - Lobar pneumonia, unspecified organism (5) COPD exacerbation SNOMED Code(s): 364785996 Code(s): J44.1 - CHRONIC OBSTRUCTIVE PULMONARY DISEASE W (ACUTE) EXACERBATION Status: Acute Current Visit: Yes - Problem List Review Problem List Initiated/Reviewed/Updated: Yes - My Orders Last 24 Hours: My Active Orders 08/25/18 19:51 RT Aerosol Therapy [RC] ASDIRECTED Albuterol/Ipratropium [DuoNeb 3.0-0.5 MG/3 ML] 3 ml NEB Q4HRRT PRN Cyclobenzaprine [Flexeril] 2.5 mg PO TID PRN Zolpidem [Ambien] 10 mg PO BEDTIME PRN 08/25/18 19:54 RT Aerosol Therapy [RC] ASDIRECTED 08/25/18 20:07 Acetaminophen [Tylenol] 650 mg PO Q6H PRN 08/25/18 20:08 Patient Status [ADT] Routine Oxygen Therapy [RC] PRN VTE/DVT Education [RC] PER UNIT ROUTINE Vital Signs [RC] 00,04,08,12,16,20 Resuscitation Status Routine 08/25/18 20:13 Up With Assistance [RC] ASDIRECTED Docusate Sodium [Colace] 100 mg PO BID PRN Ondansetron [Zofran ODT] 4 mg PO Q4H PRN Sodium Chloride 0.9% [Saline Flush] 10 ml FLUSH ASDIRECTED PRN Saline Lock Insert [OM.PC] Routine 08/25/18 20:16 Antiembolic Hose [OM.PC] Per Unit Routine 08/25/18 20:17 Antiembolic Devices [RC] PER UNIT ROUTINE 08/25/18 21:00 Albuterol/Ipratropium [DuoNeb 3.0-0.5 MG/3 ML] 3 ml NEB TIDRT ClonazePAM [KlonoPIN] 1 mg PO BID 08/25/18 22:00 Heparin Sodium 5,000 units SUBCUT Q8HR 08/26/18 07:00 Budesonide [Pulmicort] 0.5 mg NEB BIDRT 08/26/18 09:00 DULoxetine [Cymbalta] 60 mg PO DAILY Nicotine [Habitrol] 14 mg TRDERM DAILY buPROPion [Wellbutrin XL] 150 mg PO DAILY 08/26/18 09:45 methylPREDNISolone Sod Succ [Solu-MEDROL] 40 mg IVPUSH Q8H 08/26/18 16:00 Levofloxacin/Dextrose 5%-Water [Levaquin in D5W 750 MG/150 ML] 750 mg Premix Bag 1 bag IV Q24H 08/27/18 05:15 BASIC METABOLIC PANEL,BMP [CHEM] AM CBC WITH AUTO DIFF [HEME] AM - Plan Plan:: 73 you with h/o prolonged smoking depression, anxiety, chronic pain presented with sob, cough, yellow sputum # pneumonia community acquired blood cx: Pending sputum cx: Pending less likely TB - quantiferon pending started on Levofloxacin #lung infiltrates f/up with imaging after Pneumonia treatment to ensure resolution #h/o copd with h/o smoking treat with pulmicort, scheduled and prn duoneb Still continues to have wheezing Start Solu-Medrol nicotine patch # chronic pain, depression cont cymbalta, clonazepam, tylenol decreased flexeril re: sleepiness # Hyponatremia Will give a dose of Lasix and salt supplement #leg edema use compression stocking #heparin sq for dvt prophylaxis When I dictate something with Luciana.
[2018-08-26] MEDS: Sodium Chloride 0.9% 10 ML Syringe FLUSH PRN ×5 (10:15→21:34)
[2018-08-26] MEDS: methylPREDNISolone Sodium Succinate 40 MG/1 ML SDV IVPUSH SCH ×3 (10:18→21:28)
[2018-08-26] MEDS: Sodium Chloride 1 GM Tab PO SCH ×2 (12:09→21:24)
[2018-08-26] MEDS: Furosemide 20 MG Tab PO SCH (12:09)
[2018-08-26] MEDS: Levofloxacin/Dextrose 5%-Water 750 MG in Premix Bag 1 BAG IV SCH (15:43)
[2018-08-26] MEDS: Check Patch TRDERM SCH (21:25)
[2018-08-27] MEDS: Heparin Sodium 5,000 Units/ML Vial SUBCUT SCH ×3 (06:07→21:26)
[2018-08-27] MEDS: Sodium Chloride 0.9% 10 ML Syringe FLUSH PRN ×4 (06:33→21:22)
[2018-08-27] MEDS: methylPREDNISolone Sodium Succinate 40 MG/1 ML SDV IVPUSH SCH ×3 (06:33→21:28)
[2018-08-27 06:56] LABS: ANION GAP 16.2; CHLORIDE,CL 93 mmol/L (101-111); SODIUM,NA 128 mmol/L (135-145)
[2018-08-27] MEDS: Albuterol/Ipratropium 3.0-0.5 MG/3 ML Neb Soln NEB SCH ×3 (07:24→20:55)
[2018-08-27] MEDS: Budesonide 0.5 MG/2 ML Neb Susp NEB SCH ×2 (07:24→18:12)
[2018-08-27] MEDS: Nicotine 14 MG/24 Hr Patch TRDERM SCH (09:24)
[2018-08-27] MEDS: buPROPion 150 MG Tab.ER PO SCH (09:24)
[2018-08-27] MEDS: ClonazePAM 0.5 MG Tab PO SCH ×2 (09:24→20:54)
[2018-08-27] MEDS: Furosemide 20 MG Tab PO SCH (09:25)
[2018-08-27] MEDS: Sodium Chloride 1 GM Tab PO SCH ×2 (09:25→20:54)
[2018-08-27] MEDS: DULoxetine 30 MG Cap PO SCH (09:25)
--- NOTE | 2018-08-27 12:17 | PCM.PN ---
- General Info Date of Service: 08/27/18 Subjective Update: Overnight remained stable low graded fever Continues to have cough and sputum production - yellow, less thick Feeling weak Has remained on oxygen Functional Status: Reports: Tolerating Diet - Review of Systems General: Reports: Fever (low grade) Pulmonary: Reports: Shortness of Breath Cardiovascular: Denies: Edema Genitourinary: Denies: Dysuria Neurological: Denies: Confusion - Patient Data Vitals - Most Recent: Last Vital Signs Temp 36.9 C 08/27/18 08:35 Pulse 73 08/27/18 08:35 Resp 20 08/27/18 08:35 BP 131/61 08/27/18 08:35 Pulse Ox 96 08/27/18 08:35 Weight - Most Recent: 66.497 kg I&O - Last 24 Hours: Intake & Output 08/26/18 08/27/18 08/27/18 22:59 06:59 14:59 Intake Total 800 100 200 Output Total 700 Balance 100 100 200 Lab Results Last 24 Hours: Laboratory Results - last 24 hr 08/27/18 08/27/18 Range/Units 06:06 06:06 WBC 5.9 (5.0-10.0) 10^3/uL RBC 3.42 L (4.2-5.4) 10^6/uL Hgb 10.8 L (12.0-16.0) g/dL Hct 32.2 L (37.0-47.0) % MCV 94.2 (80-100) fL MCH 31.6 (27.0-34.0) pg MCHC 33.5 (33.0-35.0) g/dL Plt Count 355 (150-450) 10^3/uL Neut % (Auto) 81.0 H (42.2-75.2) % Lymph % (Auto) 12.2 L (20.5-50.1) % [place] % (Auto) 6.8 (2-8) % Eos % (Auto) 0.0 L (1.0-3.0) % Baso % (Auto) 0.0 (0.0-1.0) % Sodium 128 L (135-145) mmol/L Potassium 4.2 (3.6-5.0) mmol/L Chloride 93 L (101-111) mmol/L Carbon Dioxide 23.0 (21.0-31.0) mmol/L Anion Gap 16.2 BUN 17 (7-18) mg/dL Creatinine 0.6 (0.6-1.3) mg/dL Est Cr Clr Drug Dosing 72.11 mL/min Estimated GFR (MDRD) > 60 Glucose 138 H (74-105) mg/dL Calcium 8.6 (8.4-10.2) mg/dl Brannon Results Last 24 Hours: Microbiology 08/25/18 14:41 Gram Stain - Final Sputum - Expectorated Sputum Culture - Preliminary Normal Janelle 08/25/18 15:28 Aerobic Blood Culture - Preliminary Blood - Venous - Lab Draw NO GROWTH AFTER 1 DAY Anaerobic Blood Culture - Preliminary NO GROWTH AFTER 1 DAY 08/25/18 14:48 Aerobic Blood Culture - Preliminary Blood - Venous NO GROWTH AFTER 1 DAY Anaerobic Blood Culture - Preliminary NO GROWTH AFTER 1 DAY Med Orders - Current: Current Medications Acetaminophen (Tylenol) 650 mg PO Q6H PRN PRN Reason: pain, fever Last Admin: 08/26/18 09:20 Dose: 650 mg Albuterol/Ipratropium (Duoneb 3.0-0.5 Mg/3 Ml) 3 ml NEB Q4HRRT PRN PRN Reason: sob Albuterol/Ipratropium (Duoneb 3.0-0.5 Mg/3 Ml) 3 ml NEB TIDRT [facility] Last Admin: 08/27/18 07:24 Dose: 3 ml Budesonide (Pulmicort) 0.5 mg NEB BIDRT [facility] Last Admin: 08/27/18 07:24 Dose: 0.5 mg Bupropion HCl (Wellbutrin Xl) 150 mg PO DAILY [facility] Last Admin: 08/27/18 09:24 Dose: 150 mg Clonazepam (Klonopin) 1 mg PO BID [facility] Last Admin: 08/27/18 09:24 Dose: 1 mg Cyclobenzaprine HCl (Flexeril) 2.5 mg PO TID PRN PRN Reason: Muscle Spasm Last Admin: 08/26/18 00:34 Dose: 2.5 mg Docusate Sodium (Colace) 100 mg PO BID PRN PRN Reason: Constipation Duloxetine HCl (Cymbalta) 60 mg PO DAILY [facility] Last Admin: 08/27/18 09:25 Dose: 60 mg Furosemide (Lasix) 20 mg PO DAILY [facility] Last Admin: 08/27/18 09:25 Dose: 20 mg Heparin Sodium (Porcine) (Heparin Sodium) 5,000 units SUBCUT Q8HR [facility] Last Admin: 08/27/18 06:07 Dose: 5,000 units Levofloxacin/Dextrose 750 mg/ (Premix) 150 mls @ 100 mls/hr IV Q24H [facility] Last Infusion: 08/26/18 17:15 Dose: Infused Methylprednisolone Sodium Succinate (Solu-Medrol) 40 mg IVPUSH Q8HR [facility] Last Admin: 08/27/18 06:33 Dose: 40 mg Miscellaneous Information (Check Patch) 1 ea TRDERM BEDTIME [facility] Last Admin: 08/26/18 21:25 Dose: Not Given Nicotine (Habitrol) 14 mg TRDERM DAILY [facility] Last Admin: 08/27/18 09:24 Dose: 14 mg Ondansetron HCl (Zofran Odt) 4 mg PO Q4H PRN PRN Reason: nausea, able to take PO Sodium Chloride (Saline Flush) 10 ml FLUSH ASDIRECTED PRN PRN Reason: Keep Vein Open Last Admin: 08/27/18 06:38 Dose: 10 ml Sodium Chloride (Sodium Chloride) 1 gm PO BID [facility] Last Admin: 08/27/18 09:25 Dose: 1 gm Zolpidem Tartrate (Ambien) 10 mg PO BEDTIME PRN PRN Reason: Sleep Last Admin: 08/26/18 22:34 Dose: 10 mg Discontinued Medications Acetaminophen (Tylenol) 650 mg PO NOW ONE Stop: 08/25/18 14:32 Last Admin: 08/25/18 14:52 Dose: 650 mg Albuterol/Ipratropium (Duoneb 3.0-0.5 Mg/3 Ml) 3 ml NEB ONETIME ONE Stop: 08/25/18 14:31 Last Admin: 08/25/18 14:46 Dose: 3 ml Albuterol/Ipratropium (Duoneb 3.0-0.5 Mg/3 Ml) 3 ml NEB ONETIME ONE Stop: 08/25/18 18:08 Last Admin: 08/25/18 18:12 Dose: 3 ml Levofloxacin/Dextrose 750 mg/ (Premix) 150 mls @ 100 mls/hr IV ONETIME ONE Stop: 08/25/18 18:00 Last Admin: 08/25/18 17:16 Dose: 100 mls/hr Ibuprofen (Motrin) 400 mg PO Q6H PRN PRN Reason: Pain (moderate 4-6) Methylprednisolone Sodium Succinate (Solu-Medrol) 125 mg IVPUSH ONETIME ONE Stop: 08/25/18 14:31 Last Admin: 08/25/18 14:51 Dose: 125 mg Sodium Chloride (Saline Flush) 10 ml FLUSH ASDIRECTED PRN PRN Reason: Keep Vein Open Last Admin: 08/25/18 14:52 Dose: 10 ml - Exam General: Alert, Oriented Neck: Supple Lungs: Normal Respiratory Effort, Rhonchi, Wheezing Cardiovascular: Regular Rate, Regular Rhythm GI/Abdominal Exam: Normal Bowel Sounds, Soft, Non-Tender Extremities: No Pedal Edema Skin: Warm, Dry Neurological: No New Focal Deficit Psy/Mental Status: Alert, Normal Affect, Normal Mood - Problem List & Annotations (1) Anxiety SNOMED Code(s): 91258284 Code(s): F41.9 - ANXIETY DISORDER, UNSPECIFIED Status: Acute Current Visit: No (2) Depressive disorder SNOMED Code(s): 90984610 Code(s): F32.9 - MAJOR DEPRESSIVE DISORDER, SINGLE EPISODE, UNSPECIFIED Status: Acute Current Visit: No (3) Pedal edema SNOMED Code(s): 491636713 Code(s): R60.0 - LOCALIZED EDEMA Status: Acute Current Visit: No (4) Pneumonia SNOMED Code(s): 025415319 Code(s): J18.9 - PNEUMONIA, UNSPECIFIED ORGANISM Status: Acute Current Visit: No Qualifiers: Pneumonia type: due to unspecified organism Laterality: bilateral Lung location: lower lobe of lung Qualified Code(s): J18.1 - Lobar pneumonia, unspecified organism (5) COPD exacerbation SNOMED Code(s): 283923193 Code(s): J44.1 - CHRONIC OBSTRUCTIVE PULMONARY DISEASE W (ACUTE) EXACERBATION Status: Acute Current Visit: Yes - Problem List Review Problem List Initiated/Reviewed/Updated: Yes - My Orders Last 24 Hours: My Active Orders 08/26/18 16:00 Levofloxacin/Dextrose 5%-Water [Levaquin in D5W 750 MG/150 ML] 750 mg Premix Bag 1 bag IV Q24H 08/26/18 21:00 Check Patch 1 ea TRDERM BEDTIME - Plan Plan:: 73 you with h/o prolonged smoking depression, anxiety, chronic pain presented with sob, cough, yellow sputum # pneumonia community acquired blood cx: Pending sputum cx: neg less likely TB - quantiferon pending started on Levofloxacin #lung infiltrates f/up with imaging after Pneumonia treatment to ensure resolution #h/o copd with h/o smoking treat with pulmicort, scheduled and prn duoneb Still continues to have mild wheezing cont Solu-Medrol nicotine patch # chronic pain, depression cont cymbalta, clonazepam, tylenol decreased flexeril re: sleepiness # Hyponatremia treat with Lasix and salt supplement #leg edema use compression stocking, lasix #heparin sq for dvt prophylaxis
[2018-08-27] MEDS: Levofloxacin/Dextrose 5%-Water 750 MG in Premix Bag 1 BAG IV SCH (16:00)
[2018-08-27] MEDS: Check Patch TRDERM SCH (20:53)
[2018-08-27] MEDS: Docusate Sodium 100 MG Cap PO PRN (20:54)
[2018-08-27] MEDS: Acetaminophen 325 MG Tab PO PRN (21:21)
[2018-08-28] MEDS: Zolpidem 5 MG Tab PO PRN (00:33)
[2018-08-28] MEDS: methylPREDNISolone Sodium Succinate 40 MG/1 ML SDV IVPUSH SCH (05:53)
[2018-08-28] MEDS: Sodium Chloride 0.9% 10 ML Syringe FLUSH PRN ×2 (05:53→16:16)
[2018-08-28] MEDS: Heparin Sodium 5,000 Units/ML Vial SUBCUT SCH ×3 (06:01→22:03)
[2018-08-28] MEDS: Budesonide 0.5 MG/2 ML Neb Susp NEB SCH ×2 (07:08→18:15)
[2018-08-28] MEDS: Albuterol/Ipratropium 3.0-0.5 MG/3 ML Neb Soln NEB SCH ×3 (07:08→22:04)
[2018-08-28 07:11] LABS: ANION GAP 16.1; CHLORIDE,CL 92 mmol/L (101-111); SODIUM,NA 128 mmol/L (135-145)
[2018-08-28] MEDS: Nicotine 14 MG/24 Hr Patch TRDERM SCH (09:03)
[2018-08-28] MEDS: buPROPion 150 MG Tab.ER PO SCH (09:03)
[2018-08-28] MEDS: Furosemide 20 MG Tab PO SCH (09:03)
[2018-08-28] MEDS: ClonazePAM 0.5 MG Tab PO SCH ×2 (09:04→22:04)
[2018-08-28] MEDS: DULoxetine 30 MG Cap PO SCH (09:04)
[2018-08-28] MEDS: Sodium Chloride 1 GM Tab PO SCH ×2 (09:04→22:04)
[2018-08-28] MEDS: Acetaminophen 325 MG Tab PO PRN (09:08)
--- NOTE | 2018-08-28 11:42 | PCM.PN ---
- General Info Date of Service: 08/28/18 Subjective Update: Overnight remained stable minimal fever Continues to have cough and sputum production - yellow, less thick Feeling weak Has remained on low dose oxygen Functional Status: Reports: Pain Controlled, Tolerating Diet - Review of Systems General: Reports: Fever Pulmonary: Reports: Cough, Sputum. Denies: Shortness of Breath, Hemoptysis Cardiovascular: Denies: Chest Pain Gastrointestinal: Reports: Abdominal Pain Neurological: Denies: Confusion Psychiatric: Reports: Depression - Patient Data Vitals - Most Recent: Last Vital Signs Temp 37.1 C 08/28/18 08:28 Pulse 68 08/28/18 08:28 Resp 20 08/28/18 08:28 BP 124/57 L 08/28/18 08:28 Pulse Ox 97 08/28/18 08:28 Weight - Most Recent: 66.497 kg I&O - Last 24 Hours: Intake & Output 08/27/18 08/28/18 08/28/18 22:59 06:59 14:59 Intake Total 430 600 320 Balance 430 600 320 Lab Results Last 24 Hours: Laboratory Results - last 24 hr 08/28/18 08/28/18 Range/Units 06:31 06:31 WBC 6.2 (5.0-10.0) 10^3/uL RBC 3.31 L (4.2-5.4) 10^6/uL Hgb 10.4 L (12.0-16.0) g/dL Hct 31.3 L (37.0-47.0) % MCV 94.6 (80-100) fL MCH 31.4 (27.0-34.0) pg MCHC 33.2 (33.0-35.0) g/dL Plt Count 363 (150-450) 10^3/uL Neut % (Auto) 78.7 H (42.2-75.2) % Lymph % (Auto) 14.3 L (20.5-50.1) % [place] % (Auto) 7.0 (2-8) % Eos % (Auto) 0.0 L (1.0-3.0) % Baso % (Auto) 0.0 (0.0-1.0) % Sodium 128 L (135-145) mmol/L Potassium 4.1 (3.6-5.0) mmol/L Chloride 92 L (101-111) mmol/L Carbon Dioxide 24.0 (21.0-31.0) mmol/L Anion Gap 16.1 BUN 16 (7-18) mg/dL Creatinine 0.6 (0.6-1.3) mg/dL Est Cr Clr Drug Dosing 72.11 mL/min Estimated GFR (MDRD) > 60 Glucose 124 H (74-105) mg/dL Calcium 8.7 (8.4-10.2) mg/dl Brannon Results Last 24 Hours: Microbiology 08/25/18 15:28 Aerobic Blood Culture - Preliminary Blood - Venous - Lab Draw NO GROWTH AFTER 2 DAYS Anaerobic Blood Culture - Preliminary NO GROWTH AFTER 2 DAYS 08/25/18 14:48 Aerobic Blood Culture - Preliminary Blood - Venous NO GROWTH AFTER 2 DAYS Anaerobic Blood Culture - Preliminary NO GROWTH AFTER 2 DAYS Med Orders - Current: Current Medications Acetaminophen (Tylenol) 650 mg PO Q6H PRN PRN Reason: pain, fever Last Admin: 08/28/18 09:08 Dose: 650 mg Albuterol/Ipratropium (Duoneb 3.0-0.5 Mg/3 Ml) 3 ml NEB Q4HRRT PRN PRN Reason: sob Albuterol/Ipratropium (Duoneb 3.0-0.5 Mg/3 Ml) 3 ml NEB TIDRT [facility] Last Admin: 08/28/18 07:08 Dose: 3 ml Budesonide (Pulmicort) 0.5 mg NEB BIDRT [facility] Last Admin: 08/28/18 07:08 Dose: 0.5 mg Bupropion HCl (Wellbutrin Xl) 150 mg PO DAILY [facility] Last Admin: 08/28/18 09:03 Dose: 150 mg Clonazepam (Klonopin) 1 mg PO BID [facility] Last Admin: 08/28/18 09:04 Dose: 1 mg Cyclobenzaprine HCl (Flexeril) 2.5 mg PO TID PRN PRN Reason: Muscle Spasm Last Admin: 08/26/18 00:34 Dose: 2.5 mg Docusate Sodium (Colace) 100 mg PO BID PRN PRN Reason: Constipation Last Admin: 08/27/18 20:54 Dose: 100 mg Duloxetine HCl (Cymbalta) 60 mg PO DAILY [facility] Last Admin: 08/28/18 09:04 Dose: 60 mg Furosemide (Lasix) 20 mg PO DAILY [facility] Last Admin: 08/28/18 09:03 Dose: 20 mg Heparin Sodium (Porcine) (Heparin Sodium) 5,000 units SUBCUT Q8HR [facility] Last Admin: 08/28/18 06:01 Dose: 5,000 units Levofloxacin/Dextrose 750 mg/ (Premix) 150 mls @ 100 mls/hr IV Q24H [facility] Last Infusion: 08/27/18 17:35 Dose: Infused Methylprednisolone Sodium Succinate (Solu-Medrol) 40 mg IVPUSH Q8HR [facility] Last Admin: 08/28/18 05:53 Dose: 40 mg Miscellaneous Information (Check Patch) 1 ea TRDERM BEDTIME [facility] Last Admin: 08/27/18 20:53 Dose: Not Given Nicotine (Habitrol) 14 mg TRDERM DAILY [facility] Last Admin: 08/28/18 09:03 Dose: 14 mg Ondansetron HCl (Zofran Odt) 4 mg PO Q4H PRN PRN Reason: nausea, able to take PO Sodium Chloride (Saline Flush) 10 ml FLUSH ASDIRECTED PRN PRN Reason: Keep Vein Open Last Admin: 08/28/18 05:53 Dose: 10 ml Sodium Chloride (Sodium Chloride) 1 gm PO BID [facility] Last Admin: 08/28/18 09:04 Dose: 1 gm Zolpidem Tartrate (Ambien) 10 mg PO BEDTIME PRN PRN Reason: Sleep Last Admin: 08/28/18 00:33 Dose: 10 mg Discontinued Medications Acetaminophen (Tylenol) 650 mg PO NOW ONE Stop: 08/25/18 14:32 Last Admin: 08/25/18 14:52 Dose: 650 mg Albuterol/Ipratropium (Duoneb 3.0-0.5 Mg/3 Ml) 3 ml NEB ONETIME ONE Stop: 08/25/18 14:31 Last Admin: 08/25/18 14:46 Dose: 3 ml Albuterol/Ipratropium (Duoneb 3.0-0.5 Mg/3 Ml) 3 ml NEB ONETIME ONE Stop: 08/25/18 18:08 Last Admin: 08/25/18 18:12 Dose: 3 ml Levofloxacin/Dextrose 750 mg/ (Premix) 150 mls @ 100 mls/hr IV ONETIME ONE Stop: 08/25/18 18:00 Last Admin: 08/25/18 17:16 Dose: 100 mls/hr Ibuprofen (Motrin) 400 mg PO Q6H PRN PRN Reason: Pain (moderate 4-6) Methylprednisolone Sodium Succinate (Solu-Medrol) 125 mg IVPUSH ONETIME ONE Stop: 08/25/18 14:31 Last Admin: 08/25/18 14:51 Dose: 125 mg Sodium Chloride (Saline Flush) 10 ml FLUSH ASDIRECTED PRN PRN Reason: Keep Vein Open Last Admin: 08/25/18 14:52 Dose: 10 ml - Exam Quality Assessment: Supplemental Oxygen General: Alert, Oriented Neck: Supple Lungs: Normal Respiratory Effort, Decreased Breath Sounds Cardiovascular: Regular Rate, Regular Rhythm GI/Abdominal Exam: Normal Bowel Sounds, Soft, Non-Tender Extremities: No Pedal Edema Neurological: No New Focal Deficit Psy/Mental Status: Alert, Depressed - Problem List & Annotations (1) Anxiety SNOMED Code(s): 53842122 Code(s): F41.9 - ANXIETY DISORDER, UNSPECIFIED Status: Acute Current Visit: No (2) Depressive disorder SNOMED Code(s): 59713118 Code(s): F32.9 - MAJOR DEPRESSIVE DISORDER, SINGLE EPISODE, UNSPECIFIED Status: Acute Current Visit: No (3) Pedal edema SNOMED Code(s): 031869919 Code(s): R60.0 - LOCALIZED EDEMA Status: Acute Current Visit: No (4) Pneumonia SNOMED Code(s): 747872233 Code(s): J18.9 - PNEUMONIA, UNSPECIFIED ORGANISM Status: Acute Current Visit: No Qualifiers: Pneumonia type: due to unspecified organism Laterality: bilateral Lung location: lower lobe of lung Qualified Code(s): J18.1 - Lobar pneumonia, unspecified organism (5) COPD exacerbation SNOMED Code(s): 763409053 Code(s): J44.1 - CHRONIC OBSTRUCTIVE PULMONARY DISEASE W (ACUTE) EXACERBATION Status: Acute Current Visit: Yes - Problem List Review Problem List Initiated/Reviewed/Updated: Yes - Plan Plan:: 73 you with h/o prolonged smoking depression, anxiety, chronic pain presented with sob, cough, yellow sputum # pneumonia community acquired blood cx: Pending sputum cx: neg less likely TB - quantiferon pending continue on Levofloxacin #lung infiltrates f/up with imaging after Pneumonia treatment to ensure resolution #h/o copd with h/o smoking treat with pulmicort, scheduled and prn duoneb no more wheezing switch Solu-Medrol to prednisone PO nicotine patch # chronic pain, depression cont cymbalta, clonazepam, tylenol decreased flexeril re: sleepiness # Hyponatremia treat with Lasix and salt supplement #leg edema use compression stocking, lasix #heparin sq for dvt prophylaxis
[2018-08-28] MEDS ORDERED: Cyanocobalamin (Vitamin B12) 1,000 MCG/ML SDV IM ONE (11:45)
[2018-08-28] MEDS: Levofloxacin/Dextrose 5%-Water 750 MG in Premix Bag 1 BAG IV SCH (16:15)
[2018-08-28] MEDS: Check Patch TRDERM SCH (22:11)
[2018-08-29] MEDS: Acetaminophen 325 MG Tab PO PRN ×2 (01:10→08:41)
[2018-08-29] MEDS: Zolpidem 5 MG Tab PO PRN (01:11)
[2018-08-29] MEDS: Heparin Sodium 5,000 Units/ML Vial SUBCUT SCH ×2 (05:53→15:22)
[2018-08-29] MEDS: Budesonide 0.5 MG/2 ML Neb Susp NEB SCH (07:10)
[2018-08-29] MEDS: Albuterol/Ipratropium 3.0-0.5 MG/3 ML Neb Soln NEB SCH ×2 (07:10→15:22)
[2018-08-29] MEDS ORDERED: predniSONE 20 MG Tab PO SCH (08:00)
[2018-08-29] MEDS: DULoxetine 30 MG Cap PO SCH (08:39)
[2018-08-29] MEDS: ClonazePAM 0.5 MG Tab PO SCH (08:39)
[2018-08-29] MEDS: Docusate Sodium 100 MG Cap PO PRN (08:40)
[2018-08-29] MEDS: Furosemide 20 MG Tab PO SCH (08:40)
[2018-08-29] MEDS: Sodium Chloride 1 GM Tab PO SCH (08:40)
[2018-08-29] MEDS: buPROPion 150 MG Tab.ER PO SCH (08:40)
[2018-08-29] MEDS: Nicotine 14 MG/24 Hr Patch TRDERM SCH (08:41)
--- NOTE | 2018-08-29 11:59 | PCM.DCSUM1 ---
Discharge Summary - Hospital Course Free Text/Narrative:: 73 you with h/o prolonged smoking depression, anxiety, chronic pain presented with sob, cough, yellow sputum # pneumonia community acquired blood cx: neg sputum cx: neg less likely TB - quantiferon pending treated with Levofloxacin #lung infiltrates f/up with imaging after Pneumonia treatment to ensure resolution #h/o copd with h/o smoking treated with pulmicort, duoneb no more wheezing switched Solu-Medrol to prednisone PO cont symbicort, albuterol at home smoking cessation # chronic pain, depression cont cymbalta, clonazepam, tylenol stopped flexeril # Hyponatremia, edema treat with Lasix and salt supplement #leg edema use compression stocking, lasix Diagnosis: Stroke: No - Discharge Data Discharge Date: 08/29/18 Discharge Disposition: Home, Self-Care 01 Condition: Stable - Discharge Diagnosis/Problem(s) (1) Anxiety SNOMED Code(s): 41326779 ICD Code: F41.9 - ANXIETY DISORDER, UNSPECIFIED Status: Acute Current Visit: No (2) Depressive disorder SNOMED Code(s): 26649882 ICD Code: F32.9 - MAJOR DEPRESSIVE DISORDER, SINGLE EPISODE, UNSPECIFIED Status: Acute Current Visit: No (3) Pedal edema SNOMED Code(s): 194824593 ICD Code: R60.0 - LOCALIZED EDEMA Status: Acute Current Visit: No (4) Pneumonia SNOMED Code(s): 703847732 ICD Code: J18.9 - PNEUMONIA, UNSPECIFIED ORGANISM Status: Acute Current Visit: No Qualifiers: Pneumonia type: due to unspecified organism Laterality: bilateral Lung location: lower lobe of lung Qualified Code(s): J18.1 - Lobar pneumonia, unspecified organism (5) COPD exacerbation SNOMED Code(s): 710444390 ICD Code: J44.1 - CHRONIC OBSTRUCTIVE PULMONARY DISEASE W (ACUTE) EXACERBATION Status: Acute Current Visit: Yes - Discharge Plan *PRESCRIPTION DRUG MONITORING PROGRAM REVIEWED*: No *COPY OF PRESCRIPTION DRUG MONITORING REPORT IN PATIENT SONALI: No Prescriptions/Med Rec: Budesonide/Formoterol [Symbicort 160-4.5 MCG] 1 puff INH BID #1 inhaler Furosemide [Lasix] 20 mg PO DAILY #30 tablet Levofloxacin 750 mg PO DAILY #5 tablet predniSONE 10 mg PO WITHBREAKFAST #10 tablet Sodium Chloride 1 gm PO BID #60 tablet Home Medications: Home Meds Acetaminophen [Acetaminophen 8 Hour] 2 tab PO BID 07/01/18 [History] Cyanocobalamin (Vitamin B-12) [Cyanocobalamin Injection] 1,000 mcg IM ASDIRECTED 07/01/18 [History] DULoxetine HCl [Cymbalta] 60 mg PO DAILY 07/01/18 [History] Fluticasone/Salmeterol [Advair 250-50] 1 puff INH BID 07/01/18 [History] Zolpidem [Ambien] 10 mg PO BEDTIME 07/01/18 [History] buPROPion HCl [Wellbutrin Xl] 150 mg PO DAILY 07/01/18 [History] clonazePAM [Clonazepam] 1 mg PO BID 07/01/18 [History] Cholecalciferol (Vitamin D3) [Vitamin D3] 3,000 unit PO DAILY 08/25/18 [History] Potassium Chloride [Klor-Con 10] 10 meq PO DAILY 08/25/18 [History] Ubidecarenone [Coq-10] 100 mg PO DAILY 08/25/18 [History] Albuterol [Ventolin HFA] 2 puff INH Q6H PRN #1 08/29/18 [Rx] Budesonide/Formoterol [Symbicort 160-4.5 MCG] 1 puff INH BID #1 inhaler [Rx] Furosemide [Lasix] 20 mg PO DAILY #30 tablet 08/29/18 [Rx] Levofloxacin 750 mg PO DAILY #5 tablet 08/29/18 [Rx] Sodium Chloride 1 gm PO BID #60 tablet 08/29/18 [Rx] predniSONE 10 mg PO WITHBREAKFAST #10 tablet 08/29/18 [Rx] Patient Handouts: Chronic Obstructive Pulmonary Disease Exacerbation, Easy-to- Read, Steps to Quit Smoking, [id number], Coping With Loss, Adult, Community- Acquired Pneumonia, Adult, [id number] Referrals: PCP,None [Primary Care Provider] - (dr. Villagomez in 2-3 days) - Discharge Summary/Plan Comment DC Time >30 min.: No - General Info Date of Service: 08/29/18 Admission Dx/Problem (Free Text: pneumonia Subjective Update: Overnight remained stable no fever minimal cough stronger off oxygen - Patient Data Vitals - Most Recent: Last Vital Signs Temp 36.4 C 08/29/18 08:05 Pulse 82 08/29/18 08:05 Resp 20 08/29/18 08:05 BP 114/59 L 08/29/18 08:05 Pulse Ox 92 L 08/29/18 08:05 Weight - Most Recent: 68.492 kg I&O - Last 24 hours: Intake & Output 08/28/18 08/29/18 08/29/18 22:59 06:59 14:59 Intake Total 600 600 Balance 600 600 Lab Results - Last 24 hrs: Laboratory Results - last 24 hr 08/25/18 Range/Units 17:25 TB (QFT) Gold In Tube Negative (Negative) TB Test (QFT) Nil 0.04 IU/mL TB Test (QFT) Mitogen >10.00 IU/mL TB Test (QFT) Antigen 0.03 IU/mL TB Test (QFT) 0.02 IU/mL TB Positive Criteria Comment BEBE Results - Last 24 hrs: Microbiology 08/25/18 14:41 Gram Stain - Final Sputum - Expectorated Sputum Culture - Final Normal Janelle 08/25/18 15:28 Aerobic Blood Culture - Preliminary Blood - Venous - Lab Draw NO GROWTH AFTER 3 DAYS Anaerobic Blood Culture - Preliminary NO GROWTH AFTER 3 DAYS 08/25/18 14:48 Aerobic Blood Culture - Preliminary Blood - Venous NO GROWTH AFTER 3 DAYS Anaerobic Blood Culture - Preliminary NO GROWTH AFTER 3 DAYS Med Orders - Current: Current Medications Acetaminophen (Tylenol) 650 mg PO Q6H PRN PRN Reason: pain, fever Last Admin: 08/29/18 08:41 Dose: 650 mg Albuterol/Ipratropium (Duoneb 3.0-0.5 Mg/3 Ml) 3 ml NEB Q4HRRT PRN PRN Reason: sob Last Admin: 08/29/18 01:10 Dose: 3 ml Albuterol/Ipratropium (Duoneb 3.0-0.5 Mg/3 Ml) 3 ml NEB TIDRT [facility] Last Admin: 08/29/18 07:10 Dose: 3 ml Budesonide (Pulmicort) 0.5 mg NEB BIDRT [facility] Last Admin: 08/29/18 07:10 Dose: 0.5 mg Bupropion HCl (Wellbutrin Xl) 150 mg PO DAILY [facility] Last Admin: 08/29/18 08:40 Dose: 150 mg Clonazepam (Klonopin) 1 mg PO BID [facility] Last Admin: 08/29/18 08:39 Dose: 1 mg Cyclobenzaprine HCl (Flexeril) 2.5 mg PO TID PRN PRN Reason: Muscle Spasm Last Admin: 08/26/18 00:34 Dose: 2.5 mg Docusate Sodium (Colace) 100 mg PO BID PRN PRN Reason: Constipation Last Admin: 08/29/18 08:40 Dose: 100 mg Duloxetine HCl (Cymbalta) 60 mg PO DAILY [facility] Last Admin: 08/29/18 08:39 Dose: 60 mg Furosemide (Lasix) 20 mg PO DAILY [facility] Last Admin: 08/29/18 08:40 Dose: 20 mg Heparin Sodium (Porcine) (Heparin Sodium) 5,000 units SUBCUT Q8HR [facility] Last Admin: 08/29/18 05:53 Dose: 5,000 units Levofloxacin/Dextrose 750 mg/ (Premix) 150 mls @ 100 mls/hr IV Q24H [facility] Last Infusion: 08/28/18 17:45 Dose: Infused Miscellaneous Information (Check Patch) 1 ea TRDERM BEDTIME [facility] Last Admin: 08/28/18 22:11 Dose: 1 ea Nicotine (Habitrol) 14 mg TRDERM DAILY [facility] Last Admin: 08/29/18 08:41 Dose: 14 mg Ondansetron HCl (Zofran Odt) 4 mg PO Q4H PRN PRN Reason: nausea, able to take PO Prednisone (Prednisone) 40 mg PO WITHBREAKFAST [facility] Last Admin: 08/29/18 08:40 Dose: 40 mg Sodium Chloride (Saline Flush) 10 ml FLUSH ASDIRECTED PRN PRN Reason: Keep Vein Open Last Admin: 08/28/18 16:16 Dose: 10 ml Sodium Chloride (Sodium Chloride) 1 gm PO BID [facility] Last Admin: 08/29/18 08:40 Dose: 1 gm Zolpidem Tartrate (Ambien) 10 mg PO BEDTIME PRN PRN Reason: Sleep Last Admin: 08/29/18 01:11 Dose: 10 mg Discontinued Medications Acetaminophen (Tylenol) 650 mg PO NOW ONE Stop: 08/25/18 14:32 Last Admin: 08/25/18 14:52 Dose: 650 mg Albuterol/Ipratropium (Duoneb 3.0-0.5 Mg/3 Ml) 3 ml NEB ONETIME ONE Stop: 08/25/18 14:31 Last Admin: 08/25/18 14:46 Dose: 3 ml Albuterol/Ipratropium (Duoneb 3.0-0.5 Mg/3 Ml) 3 ml NEB ONETIME ONE Stop: 08/25/18 18:08 Last Admin: 08/25/18 18:12 Dose: 3 ml Cyanocobalamin (Vitamin B12) 1,000 mcg IM ONETIME ONE Stop: 08/28/18 11:46 Last Admin: 08/28/18 12:21 Dose: 1,000 mcg Levofloxacin/Dextrose 750 mg/ (Premix) 150 mls @ 100 mls/hr IV ONETIME ONE Stop: 08/25/18 18:00 Last Admin: 08/25/18 17:16 Dose: 100 mls/hr Ibuprofen (Motrin) 400 mg PO Q6H PRN PRN Reason: Pain (moderate 4-6) Methylprednisolone Sodium Succinate (Solu-Medrol) 125 mg IVPUSH ONETIME ONE Stop: 08/25/18 14:31 Last Admin: 08/25/18 14:51 Dose: 125 mg Methylprednisolone Sodium Succinate (Solu-Medrol) 40 mg IVPUSH Q8HR BLAZE Last Admin: 08/28/18 05:53 Dose: 40 mg Sodium Chloride (Saline Flush) 10 ml FLUSH ASDIRECTED PRN PRN Reason: Keep Vein Open Last Admin: 08/25/18 14:52 Dose: 10 ml - Exam General: Reports: Alert, Oriented Lungs: Reports: Clear to Auscultation, Normal Respiratory Effort. Denies: Wheezing Cardiovascular: Reports: Regular Rate, Regular Rhythm GI/Abdominal Exam: Normal Bowel Sounds, Soft, Non-Tender Extremities: No Pedal Edema
== END 2018-08-29 13:55 | disposition home or self-care (01) | DRG 194 ==
LOC: DL.ED 14:15 → DL.MS 19:28 → UNDOADMIN 19:28 → DL.MS 20:08
PROVIDERS: ADMIT Internal Medicine; ATTEND Internal Medicine
DX: J18.1 Lobar pneumonia, unspecified organism (principal); J44.1 Chronic obstructive pulmonary disease with (acute) exacerbation; E87.1 Hypo-osmolality and hyponatremia; F41.9 Anxiety disorder, unspecified; G89.29 Other chronic pain; F32.9 Major depressive disorder, single episode, unspecified; J44.9 Chronic obstructive pulmonary disease, unspecified; M79.7 Fibromyalgia; I50.9 Heart failure, unspecified; E53.8 Deficiency of other specified B group vitamins; F17.210 Nicotine dependence, cigarettes, uncomplicated; Z79.899 Other long term (current) drug therapy; Z88.6 Allergy status to analgesic agent; Z88.0 Allergy status to penicillin
CPT/HCPCS: 36415; 71046; 71250; 80048; 80053; 83605; 83615; 84484; 85025; 86480; 87040; 87070; 87205; 87804; 94010; 94640; 96365; 96375; 99284; 99285-25; A4217; A9270-GY; J1644; J1956; J2920; J2930; J3420; J7620-GY

== ENCOUNTER 2018-10-20 12:54 | Emergency (ER) | payer MEDICARE, OTHER ==
[2018-10-20] MEDS ORDERED: Albuterol/Ipratropium 3.0-0.5 MG/3 ML Neb Soln NEB ONE (13:09)
--- NOTE | 2018-10-20 13:09 | EDM.PDOC ---
ED HPI GENERAL MEDICAL PROBLEM - General Chief Complaint: Respiratory Problem Stated Complaint: CONFUSED, COUGH, WHEEZING Time Seen by Provider: 10/20/18 13:09 Source of Information: Reports: Patient, EMS, Old Records, RN, RN Notes Reviewed History Limitations: Reports: No Limitations - History of Present Illness INITIAL COMMENTS - FREE TEXT/NARRATIVE: Pt arrives from home by ambulance with c/o productive cough, shortness of breath , wheezing, and subjective fevers (pt did not measure her temperature). Pt's daughter reports the symptoms began a few days ago, but this morning the pt was confused and "delirious" so she called 911. Pt denies chest pain, edema, N/V, or orthopnea. She admits to decreased appetite. Pt states Hx of COPD, and pneumonia. She continues to smoke cigarettes. Onset: Unknown/Unsure Duration: Day(s): (3-5), Constant, Getting Worse Location: Reports: Chest Quality: Reports: Other (Denies pain) Severity: Severe Improves with: Reports: None Worsens with: Reports: Other (Activity/exertion) Treatments [employer]: Reports: Breathing Treatments - Related Data Allergies Allergy/AdvReac Type Severity Reaction Status Date / Time aspirin Allergy Hives Verified 07/01/18 16:24 azithromycin [From Zithromax] Allergy UNKNOWN Verified 07/01/18 16:24 Penicillins Allergy Hives Verified 07/01/18 16:24 Home Meds: Home Meds Acetaminophen [Acetaminophen 8 Hour] 2 tab PO BID 07/01/18 [History] Cyanocobalamin (Vitamin B-12) [Cyanocobalamin Injection] 1,000 mcg IM ASDIRECTED 07/01/18 [History] DULoxetine HCl [Cymbalta] 60 mg PO DAILY 07/01/18 [History] Fluticasone/Salmeterol [Advair 250-50] 1 puff INH BID 07/01/18 [History] Zolpidem [Ambien] 10 mg PO BEDTIME 07/01/18 [History] buPROPion HCl [Wellbutrin Xl] 150 mg PO DAILY 07/01/18 [History] clonazePAM [Clonazepam] 1 mg PO BID 07/01/18 [History] Cholecalciferol (Vitamin D3) [Vitamin D3] 3,000 unit PO DAILY 08/25/18 [History] Potassium Chloride [Klor-Con 10] 10 meq PO DAILY 08/25/18 [History] Ubidecarenone [Coq-10] 100 mg PO DAILY 08/25/18 [History] Albuterol [Ventolin HFA] 2 puff INH Q6H PRN #1 08/29/18 [Rx] Budesonide/Formoterol [Symbicort 160-4.5 MCG] 1 puff INH BID #1 inhaler [Rx] Furosemide [Lasix] 20 mg PO DAILY #30 tablet 08/29/18 [Rx] Levofloxacin 750 mg PO DAILY #5 tablet 08/29/18 [Rx] Sodium Chloride 1 gm PO BID #60 tablet 08/29/18 [Rx] predniSONE 10 mg PO WITHBREAKFAST #10 tablet 08/29/18 [Rx] Past Medical History Cardiovascular History: Reports: Heart Failure Respiratory History: Reports: Asthma, COPD, Pneumonia, Recurrent Musculoskeletal History: Reports: Fibromyalgia Psychiatric History: Reports: Depression Hematologic History: Reports: B12 Deficiency - Infectious Disease History Infectious Disease History: Reports: Shingles - Past Surgical History Female Surgical History: Reports: Tubal Ligation Social & Family History - Family History Family Medical History: Noncontributory Respiratory: Reports: TB (Grandparents) Oncologic: Reports: Lung (Mother) - Tobacco Use Smoking Status *Q: Current Every Day Smoker Tobacco Use Within Last Twelve Months: Cigarettes Years of Tobacco use: 61 Packs/Tins Daily: 1 Used Tobacco, but Quit: No Smoking Cessation Information Provided To Patient: Patient Refused Second Hand Smoke Exposure: Yes - Living Situation & Occupation Living situation: Reports: , with Family Occupation: Retired ED ROS GENERAL - Review of Systems Review Of Systems: ROS reveals no pertinent complaints other than HPI. ED EXAM, GENERAL - Physical Exam Exam: See Below Exam Limited By: No Limitations General Appearance: Alert, No Apparent Distress, Other (Chronically ill, but non -toxic appearing) Eye Exam: Bilateral Eye: Normal Inspection Nose: Normal Inspection, Normal Mucosa, No Blood Throat/Mouth: Normal Lips, Normal Oropharynx, Normal Voice, No Airway Compromise , Other (Dry oral mucus membranes) Head: Atraumatic, Normocephalic Neck: Normal Inspection, Supple, Non-Tender, Full Range of Motion Respiratory/Chest: No Accessory Muscle Use, Chest Non-Tender, Respiratory Distress (Increased work of breathing), Decreased Breath Sounds, Crackles, Rhonchi (Rt chest), Wheezing, Prolonged Expiration. No: Rales, Stridor Cardiovascular: Regular Rate, Rhythm, No Edema GI/Abdominal: Normal Bowel Sounds, Soft, Non-Tender, No Organomegaly, No Distention, No Abnormal Bruit, No Mass Back Exam: Normal Inspection Extremities: Normal Inspection, Normal Range of Motion, Non-Tender, Normal Capillary Refill, No Pedal Edema Neurological: Alert, Oriented (to person, place, and month), No Motor/Sensory Deficits Psychiatric: Depressed Mood, Flat Affect Skin Exam: Warm, Dry, Intact, Normal Color, No Rash EKG INTERPRETATION EKG Date: 10/20/18 Time: 13:36 Rhythm: Other (SR) Rate (Beats/Min): 96 [place]: LAD-Left Angwin Deviation P-Wave: Present QRS: Other (LAFB, late precordial R/S transition) ST-T: Normal QT: Normal Comparison: No Change EKG Interpretation Comments: No acute ischemic changes. Course - Vital Signs Last Recorded V/S: Last Vital Signs Temp 97.8 F 10/20/18 12:57 Pulse 98 10/20/18 13:46 Resp 26 H 10/20/18 12:57 BP 123/63 10/20/18 12:57 Pulse Ox 99 10/20/18 12:57 - Orders/Labs/Meds Orders: Active Orders 24 hr Category Date Time Status Blood Glucose Check, Bedside [RC] ONETIME Care 10/20/18 13:11 Active EKG 12 Lead [EKG Documentation Completion] [RC] STAT Care 10/20/18 13:10 Active Peripheral IV Care [RC] . DIRECTED Care 10/20/18 13:10 Active RT Aerosol Therapy [RC] ASDIRECTED Care 10/20/18 13:09 Active RT Aerosol Therapy [RC] ASDIRECTED Care 10/20/18 13:51 Active CULTURE BLOOD [BC] Stat Lab 10/20/18 13:23 Received CULTURE BLOOD [BC] Stat Lab 10/20/18 13:26 Received CULTURE SPUTUM + SMEAR [RM] Stat Lab 10/20/18 14:15 Received DRUG SCREEN URINE BIORAD [URCHEM] Stat Lab 10/20/18 13:10 Ordered UA RFX BEBE AND CULT IF INDIC [URIN] Stat Lab 10/20/18 13:10 Ordered Levofloxacin/Dextrose 5%-Water [Levaquin in D5W 500 MG/ Med 10/20/18 15:24 Ordered 100 ML] 500 mg Premix Bag 1 bag IV ONETIME Sodium Chloride 0.9% [Saline Flush] Med 10/20/18 13:10 Active 10 ml FLUSH ASDIRECTED PRN Blood Culture x2 Reflex Set [OM.PC] Stat Oth 10/20/18 13:10 Ordered Peripheral IV Insertion Adult [OM.PC] Stat Oth 10/20/18 13:10 Ordered Medication Orders Sodium Chloride (Saline Flush) 10 ml FLUSH ASDIRECTED PRN PRN Reason: Keep Vein Open Last Admin: 10/20/18 14:00 Dose: 10 ml Labs: Laboratory Tests 10/20/18 10/20/18 10/20/18 Range/Units 13:23 13:23 13:23 WBC 11.2 H (5.0-10.0) 10^3/uL RBC 3.83 L (4.2-5.4) 10^6/uL Hgb 12.2 D (12.0-16.0) g/dL Hct 36.5 L (37.0-47.0) % MCV 95.3 (80-100) fL MCH 31.9 (27.0-34.0) pg MCHC 33.4 (33.0-35.0) g/dL Plt Count 340 (150-450) 10^3/uL Neut % (Auto) 78.3 H (42.2-75.2) % Lymph % (Auto) 7.8 L (20.5-50.1) % [place] % (Auto) 13.5 H (2-8) % Eos % (Auto) 0.4 L (1.0-3.0) % Baso % (Auto) 0.0 (0.0-1.0) % ABG pH (7.35-7.45) ABG pCO2 (35-45) mmHg ABG pO2 (70-100) mmHg ABG HCO3 (22-26) mmol/L ABG O2 Saturation (95-100) % ABG Base Excess ((-2)-(+3)) mmol/L O2 Delivery Device Sodium 124 L (135-145) mmol/L Potassium 3.7 (3.6-5.0) mmol/L Chloride 90 L (101-111) mmol/L Carbon Dioxide 22.0 (21.0-31.0) mmol/L Anion Gap 15.7 BUN 9 (7-18) mg/dL Creatinine 0.6 (0.6-1.3) mg/dL Est Cr Clr Drug Dosing TNP Estimated GFR (MDRD) > 60 BUN/Creatinine Ratio 15.00 Glucose 102 (74-105) mg/dL Lactic Acid (0.5-2.2) mmol/L Calcium 8.8 (8.4-10.2) mg/dl Total Bilirubin 0.7 (0.2-1.0) mg/dL AST 18 (10-42) IU/L ALT 12 (10-60) IU/L Alkaline Phosphatase 83 (42-121) IU/L Ammonia 9 L (11-35) umol/L Troponin I < 0.02 (0.00-0.02) ng/ml Total Protein 7.4 (6.7-8.2) g/dl Albumin 3.5 (3.2-5.5) g/dl Globulin 3.9 Albumin/Globulin Ratio 0.90 Ethyl Alcohol < 5 mg/dL 10/20/18 10/20/18 Range/Units 13:23 14:45 WBC (5.0-10.0) 10^3/uL RBC (4.2-5.4) 10^6/uL Hgb (12.0-16.0) g/dL Hct (37.0-47.0) % MCV (80-100) fL MCH (27.0-34.0) pg MCHC (33.0-35.0) g/dL Plt Count (150-450) 10^3/uL Neut % (Auto) (42.2-75.2) % Lymph % (Auto) (20.5-50.1) % [place] % (Auto) (2-8) % Eos % (Auto) (1.0-3.0) % Baso % (Auto) (0.0-1.0) % ABG pH 7.37 (7.35-7.45) ABG pCO2 39 (35-45) mmHg ABG pO2 81 (70-100) mmHg ABG HCO3 22.0 (22-26) mmol/L ABG O2 Saturation 97 (95-100) % ABG Base Excess -2 ((-2)-(+3)) mmol/L O2 Delivery Device Nasal cannula Sodium (135-145) mmol/L Potassium (3.6-5.0) mmol/L Chloride (101-111) mmol/L Carbon Dioxide (21.0-31.0) mmol/L Anion Gap BUN (7-18) mg/dL Creatinine (0.6-1.3) mg/dL Est Cr Clr Drug Dosing Estimated GFR (MDRD) BUN/Creatinine Ratio Glucose (74-105) mg/dL Lactic Acid 0.7 (0.5-2.2) mmol/L Calcium (8.4-10.2) mg/dl Total Bilirubin (0.2-1.0) mg/dL AST (10-42) IU/L ALT (10-60) IU/L Alkaline Phosphatase (42-121) IU/L Ammonia (11-35) umol/L Troponin I (0.00-0.02) ng/ml Total Protein (6.7-8.2) g/dl Albumin (3.2-5.5) g/dl Globulin Albumin/Globulin Ratio Ethyl Alcohol mg/dL Meds: Medications Generic Name Dose Route Start Last Admin Trade Name Freq PRN Reason Stop Dose Admin Sodium Chloride 10 ml 10/20/18 13:10 10/20/18 14:00 Saline Flush FLUSH 10 ml ASDIRECTED PRN Administration Keep Vein Open Discontinued Medications Generic Name Dose Route Start Last Admin Trade Name Freq PRN Reason Stop Dose Admin Albuterol 7.5 mg 10/20/18 13:51 10/20/18 14:00 Proventil Neb Soln NEB 10/20/18 13:52 7.5 mg ONETIME ONE Administration Albuterol/Ipratropium 3 ml 10/20/18 13:09 10/20/18 13:30 Duoneb 3.0-0.5 Mg/3 Ml NEB 10/20/18 13:10 3 ml ONETIME ONE Administration Sodium Chloride 1,000 mls @ 999 mls/hr 10/20/18 13:11 10/20/18 14:05 Normal Saline IV 10/20/18 14:11 999 mls/hr .BOLUS ONE Administration Methylprednisolone Sodium Succinate 125 mg 10/20/18 13:11 10/20/18 14:11 Solu-Medrol IVPUSH 10/20/18 13:12 125 mg ONETIME ONE Administration - Radiology Interpretation Free Text/Narrative:: [facility] [place] [facility] Final Radiology Report Call: [phone] assistance Online chat: [email or web address] Name: TOPHER FISHER Age: 73Years F Date: 10/20/2018 SSN: -- : 1945 Study: XR CHEST 1 VIEW FRONTAL Requesting Physician: CRISTINA LOZANO Images: 1 Addl Studies: Provided Clinical History: Contrast: Contrast Medium: Contrast Amount: Contrast Method: Page 1 of 2 EXAM: XR Chest, 1 View EXAM DATE/TIME: 10/20/2018 2:25 PM CLINICAL HISTORY: 73 years old, female; Cough and fever and wheezing and other: COPD TECHNIQUE: Imaging protocol: XR of the chest, 1 view. Other technique: Frontal portable upright view of the chest. COMPARISON: CR Chest 2V 08/25/2018 3:[address] - Chest wo Cont 08/25/2018 5:07:07 PM FINDINGS: Tubes, catheters and devices: EKG leads are present overlying the chest. Lungs: Improved but incompletely resolved RIGHT lung infiltrates. Mild LEFT medial basilar subsegmental atelectasis. The pulmonary vasculature is less congested and better defined. Pleural space: No pleural effusion. No pneumothorax. Heart/Mediastinum: The heart is normal in size and contour. Mediastinum: Stable. Bones/joints: Stable. IMPRESSION: 1. Improved but incompletely resolved RIGHT lung infiltrates. Additional followup recommended. 2. Mild LEFT medial basilar subsegmental atelectasis. 3. Improved pulmonary vascular congestion. TOPHER FISHER | Final Radiology Report CONFIDENTIALITY STATEMENT This report is intended only for use by the referring physician, and only in accordance with law. If you received this in error, call [phone]. Page 2 of 2 Thank you for allowing us to participate in the care of your patient. Dictated and Authenticated by: James Enrique MD 10/20/2018 2:34 PM Central Time ([place] & [place]) - Re-Assessments/Exams Free Text/Narrative Re-Assessment/Exam: 10/20/18 15:26 Pt initially accepted for admission by Dr. Fritz, who then changed his mind and decided the pt should be transferred to a higher level of care. Departure - Departure Time of Disposition: 15:24 Disposition: DC/Tfer to [facility] 02 Condition: Serious, Critical Clinical Impression: Acute exacerbation of chronic obstructive pulmonary disease (COPD) Acute and chronic respiratory failure ([id number]) Qualifiers: Respiratory failure complication: hypoxia Qualified Code(s): J96.21 - Acute and chronic respiratory failure with hypoxia - Discharge Information *PRESCRIPTION DRUG MONITORING PROGRAM REVIEWED*: No *COPY OF PRESCRIPTION DRUG MONITORING REPORT IN PATIENT SONALI: No Forms: ED Department Discharge, Interfacility Transfer EMTALA - My Orders Last 24 Hours: My Active Orders 10/20/18 13:09 RT Aerosol Therapy [RC] ASDIRECTED 10/20/18 13:10 EKG 12 Lead [EKG Documentation Completion] [RC] STAT Peripheral IV Care [RC] . DIRECTED DRUG SCREEN URINE BIORAD [URCHEM] Stat UA RFX BEBE AND CULT IF INDIC [URIN] Stat Sodium Chloride 0.9% [Saline Flush] 10 ml FLUSH ASDIRECTED PRN Blood Culture x2 Reflex Set [OM.PC] Stat Peripheral IV Insertion Adult [OM.PC] Stat 10/20/18 13:11 Blood Glucose Check, Bedside [RC] ONETIME 10/20/18 13:23 CULTURE BLOOD [BC] Stat 10/20/18 13:26 CULTURE BLOOD [BC] Stat 10/20/18 13:51 RT Aerosol Therapy [RC] ASDIRECTED 10/20/18 14:15 CULTURE SPUTUM + SMEAR [RM] Stat 10/20/18 15:24 Levofloxacin/Dextrose 5%-Water [Levaquin in D5W 500 MG/100 ML] 500 mg Premix Bag 1 bag IV ONETIME - Assessment/Plan Last 24 Hours: My Active Orders 10/20/18 13:09 RT Aerosol Therapy [RC] ASDIRECTED 10/20/18 13:10 EKG 12 Lead [EKG Documentation Completion] [RC] STAT Peripheral IV Care [RC] . DIRECTED DRUG SCREEN URINE BIORAD [URCHEM] Stat UA RFX BEBE AND CULT IF INDIC [URIN] Stat Sodium Chloride 0.9% [Saline Flush] 10 ml FLUSH ASDIRECTED PRN Blood Culture x2 Reflex Set [OM.PC] Stat Peripheral IV Insertion Adult [OM.PC] Stat 10/20/18 13:11 Blood Glucose Check, Bedside [RC] ONETIME 10/20/18 13:23 CULTURE BLOOD [BC] Stat 10/20/18 13:26 CULTURE BLOOD [BC] Stat 10/20/18 13:51 RT Aerosol Therapy [RC] ASDIRECTED 10/20/18 14:15 CULTURE SPUTUM + SMEAR [RM] Stat 10/20/18 15:24 Levofloxacin/Dextrose 5%-Water [Levaquin in D5W 500 MG/100 ML] 500 mg Premix Bag 1 bag IV ONETIME
[2018-10-20] MEDS ORDERED: Sodium Chloride 0.9% 10 ML Syringe FLUSH PRN (13:10)
[2018-10-20] MEDS ORDERED: methylPREDNISolone Sodium Succinate 125 MG/2 ML SDV IVPUSH ONE (13:11)
[2018-10-20] MEDS ORDERED: Sodium Chloride 0.9% 1,000 ML IV ONE (13:11)
[2018-10-20] MEDS ORDERED: Albuterol 0.083% 2.5 MG/3 ML Neb Soln NEB ONE (13:51)
[2018-10-20 13:55] LABS: ANION GAP 15.7; CHLORIDE,CL 90 mmol/L (101-111); SODIUM,NA 124 mmol/L (135-145)
[2018-10-20 14:48] LABS: BASE EXCESS ARTERIAL -2 mmol/L ((-2)-(+3)); O2 DELIVERY DEVICE NASAL CANNULA; O2 SATURATION ARTERIAL 97 % (95-100); PCO2 ARTERIAL 39 mmHg (35-45); PO2 ARTERIAL 81 mmHg (70-100)
[2018-10-20] MEDS ORDERED: Levofloxacin/Dextrose 5%-Water 500 MG in Premix Bag 1 BAG IV ONE (15:24)
== END 2018-10-20 16:00 ==
LOC: DL.ED 12:54
DX: J96.21 Acute and chronic respiratory failure with hypoxia (principal); J44.1 Chronic obstructive pulmonary disease with (acute) exacerbation; F17.210 Nicotine dependence, cigarettes, uncomplicated; Z88.8 Allergy status to other drugs, medicaments and biological substances; Z88.1 Allergy status to other antibiotic agents; Z88.0 Allergy status to penicillin
CPT/HCPCS: 36415; 36600; 71045; 80053; 80305-QW; 81001; 82140; 82803; 82962; 83605; 84484; 85025; 87040; 87070; 87086; 87205; 93005; 94640; 96361; 96365; 96375; 99285-25; A4217; G0480; J1956; J2930; J7030; J7613-GY; J7620-GY

== ENCOUNTER 2019-08-27 21:10 | Emergency (ER) | payer MEDICARE, OTHER ==
--- NOTE | 2019-08-27 21:50 | EDM.PDOC ---
ED HPI GENERAL MEDICAL PROBLEM - General Stated Complaint: AMBULANCE Time Seen by Provider: 08/27/19 21:10 Source of Information: Reports: EMS History Limitations: Reports: Altered Mental Status - History of Present Illness INITIAL COMMENTS - FREE TEXT/NARRATIVE: ED via [facility]. Patient reported to have fallen from 3 foot stool while hanging curtain, initially alert then unresponsive, responding to pain on arrival of EMS. Reported to have periods of alert and oriented enroute then unresponsive. C/o pain to neck with movement. Not on anticoag, No hx ETOH use, witnessed fall and unresponsive period by daughter. [facility] initially called for [facility] fro tiered response then called [facility] to notify they would be bringing patient to ED. [facility] here on arrival of patient. Patient on long board and c collared. Lethargic No respiratory distress, moaning, slow to respond to command, Off long board with tx to ED cart. - Related Data Allergies Allergy/AdvReac Type Severity Reaction Status Date / Time aspirin Allergy Hives Verified 08/27/19 22:38 azithromycin [From Zithromax] Allergy UNKNOWN Verified 08/27/19 22:38 Penicillins Allergy Hives Verified 08/27/19 22:38 Home Meds: Home Meds Acetaminophen [Acetaminophen 8 Hour] 2 tab PO BID 07/01/18 [History] Cyanocobalamin (Vitamin B-12) [Cyanocobalamin Injection] 1,000 mcg IM ASDIRECTED 07/01/18 [History] DULoxetine HCl [Cymbalta] 60 mg PO DAILY 07/01/18 [History] Fluticasone/Salmeterol [Advair 250-50] 1 puff INH BID 07/01/18 [History] Zolpidem [Ambien] 10 mg PO BEDTIME 07/01/18 [History] buPROPion HCL [Wellbutrin Xl] 150 mg PO DAILY 07/01/18 [History] clonazePAM [Clonazepam] 1 mg PO BID 07/01/18 [History] Cholecalciferol (Vitamin D3) [Vitamin D3] 3,000 unit PO DAILY 08/25/18 [History] Potassium Chloride [Klor-Con 10] 10 meq PO DAILY 08/25/18 [History] Ubidecarenone [Coq-10] 100 mg PO DAILY 08/25/18 [History] Albuterol [Ventolin HFA] 2 puff INH Q6H PRN #1 08/29/18 [Rx] Budesonide/Formoterol [Symbicort 160-4.5 MCG] 1 puff INH BID #1 inhaler [Rx] Furosemide [Lasix] 20 mg PO DAILY #30 tablet 08/29/18 [Rx] Levofloxacin 750 mg PO DAILY #5 tablet 08/29/18 [Rx] Sodium Chloride 1 gm PO BID #60 tablet 08/29/18 [Rx] predniSONE 10 mg PO WITHBREAKFAST #10 tablet 08/29/18 [Rx] Past Medical History HEENT History: Reports: Impaired Vision Cardiovascular History: Reports: Heart Failure Respiratory History: Reports: Asthma, COPD, Pneumonia, Recurrent Gastrointestinal History: Reports: None Genitourinary History: Reports: None 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 Musculoskeletal History: Reports: Fibromyalgia Neurological History: Reports: None Psychiatric History: Reports: Depression Endocrine/Metabolic History: Reports: None Hematologic History: Reports: B12 Deficiency Immunologic History: Reports: None Oncologic (Cancer) History: Reports: None - Infectious Disease History Infectious Disease History: Reports: Shingles - Past Surgical History Female Surgical History: Reports: Tubal Ligation Social & Family History - Family History Family Medical History: Noncontributory Respiratory: Reports: TB Oncologic: Reports: Lung - Living Situation & Occupation Living situation: Reports: , with Family Occupation: Retired Review of Systems - Review of Systems Review Of Systems: Unable To Obtain Reason Not Obtained: altered mental state ED EXAM, GENERAL - Physical Exam Exam: See Below Exam Limited By: No Limitations General Appearance: Obese Eye Exam: Right Eye: PERRL (left slightly sluggish, slight irregular shape), Bilateral Eye: EOMI Ears: Normal External Exam, Normal Canal Nose: Normal Inspection Throat/Mouth: Normal Inspection, Normal Lips Head: Normocephalic, Facial Tenderness (light swelling and early discoloration to left upper cheek bluish tint lower portion upper eyelid) Respiratory/Chest: No Respiratory Distress, Lungs Clear, Other (reare loose cough) Cardiovascular: Normal Peripheral Pulses, Regular Rate, Rhythm, Other ( compression socks bilateral, 1+) GI/Abdominal: Normal Bowel Sounds, Soft, Pelvis Stable. No: Distended, Guarding Back Exam: Paraspinal Tenderness (cervical upper back) Extremities: Other (moaning with palpation of left shoulder) Neurological: Slow to Respond, Other (weak hand grasp bilateral , slow to follow command, rare verbalization occasional moaning, ) Skin Exam: Warm, Dry, Intact, Normal Color Course - Orders/Labs/Meds Labs: Laboratory Tests 08/27/19 08/27/19 08/27/19 Range/Units 21:18 21:22 21:22 WBC 6.9 (5.0-10.0) 10^3/uL RBC 3.77 L (4.2-5.4) 10^6/uL Hgb 11.8 L (12.0-16.0) g/dL Hct 35.9 L (37.0-47.0) % MCV 95.2 (80-100) fL MCH 31.3 (27.0-34.0) pg MCHC 32.9 L (33.0-35.0) g/dL Plt Count 295 (150-450) 10^3/uL Neut % (Auto) 60.4 (42.2-75.2) % Lymph % (Auto) 25.4 (20.5-50.1) % [place] % (Auto) 11.1 H (2-8) % Eos % (Auto) 3.0 (1.0-3.0) % Baso % (Auto) 0.1 (0.0-1.0) % PT 9.7 (9.0-12.0) SEC INR 1.0 (0.9-1.2) Sodium (136-145) mmol/L Potassium (3.5-5.1) mmol/L Chloride (98-107) mmol/L Carbon Dioxide (21-32) mmol/L Anion Gap (7-13) mEq/L BUN (7-18) mg/dL Creatinine (0.55-1.02) mg/dL Est Cr Clr Drug Dosing Estimated GFR (MDRD) BUN/Creatinine Ratio (No establ ref range) Glucose (74-99) mg/dL Calcium (8.5-10.1) mg/dL Total Bilirubin (0.2-1.0) mg/dL AST (15-37) U/L ALT (14-59) U/L Alkaline Phosphatase (46-116) U/L Troponin I (0.000-0.056) ng/mL B-Natriuretic Peptide (0-100) pg/ml Total Protein (6.4-8.2) g/dL Albumin (3.4-5.0) g/dL Globulin Albumin/Globulin Ratio Amylase (25-115) U/L Lipase (73-393) U/L SARS-CoV-2 RNA (RT-PCR) Negative (NEGATIVE) 08/27/19 08/27/19 Range/Units 21:22 21:22 WBC (5.0-10.0) 10^3/uL RBC (4.2-5.4) 10^6/uL Hgb (12.0-16.0) g/dL Hct (37.0-47.0) % MCV (80-100) fL MCH (27.0-34.0) pg MCHC (33.0-35.0) g/dL Plt Count (150-450) 10^3/uL Neut % (Auto) (42.2-75.2) % Lymph % (Auto) (20.5-50.1) % [place] % (Auto) (2-8) % Eos % (Auto) (1.0-3.0) % Baso % (Auto) (0.0-1.0) % PT (9.0-12.0) SEC INR (0.9-1.2) Sodium 137 (136-145) mmol/L Potassium 3.9 (3.5-5.1) mmol/L Chloride 100 (98-107) mmol/L Carbon Dioxide 31 (21-32) mmol/L Anion Gap 9.9 (7-13) mEq/L BUN 8 (7-18) mg/dL Creatinine 0.76 (0.55-1.02) mg/dL Est Cr Clr Drug Dosing TNP Estimated GFR (MDRD) > 60 BUN/Creatinine Ratio 10.5 (No establ ref range) Glucose 80 (74-99) mg/dL Calcium 8.9 (8.5-10.1) mg/dL Total Bilirubin 0.2 (0.2-1.0) mg/dL AST 16 (15-37) U/L ALT 16 (14-59) U/L Alkaline Phosphatase 73 (46-116) U/L Troponin I 0.026 (0.000-0.056) ng/mL B-Natriuretic Peptide 46 (0-100) pg/ml Total Protein 7.0 (6.4-8.2) g/dL Albumin 3.7 (3.4-5.0) g/dL Globulin 3.3 Albumin/Globulin Ratio 1.1 Amylase 47 (25-115) U/L Lipase 109 (73-393) U/L SARS-CoV-2 RNA (RT-PCR) (NEGATIVE) - Re-Assessments/Exams Free Text/Narrative Re-Assessment/Exam: [facility]. Accepting patient. Tx via [facility]. Request tx not be delayed for imaging. Pat remains in C collar. GCS 12. VS stable pupils unchanged, continues slow responses, rare verbalization. Departure - Departure Time of Disposition: 21:45 Disposition: DC/Tfer to Acute Hospital 02 Condition: Undetermined Clinical Impression: Altered mental status Qualifiers: Altered mental status type: transient alteration of awareness Qualified Code(s) : R40.4 - Transient alteration of awareness Fall at home Qualifiers: Encounter type: initial encounter Qualified Code(s): W19.XXXA - Unspecified fall, initial encounter; Y92.009 - Unspecified place in unspecified non- institutional (private) residence as the place of occurrence of the external cause - Discharge Information Referrals: PCP,None [Primary Care Provider] - Forms: ED Department Discharge Sepsis Event Note - Focused Exam Date Exam was Performed: 08/28/19 Time Exam was Performed: 05:22
[2019-08-27 21:58] LABS: ANION GAP 9.9 mEq/L (7-13); CHLORIDE,CL 100 mmol/L (98-107); SODIUM,NA 137 mmol/L (136-145)
== END 2019-08-27 21:45 ==
LOC: DL.ED 21:10
DX: R41.82 Altered mental status, unspecified (principal); I50.9 Heart failure, unspecified; J44.9 Chronic obstructive pulmonary disease, unspecified; F32.9 Major depressive disorder, single episode, unspecified; Z88.6 Allergy status to analgesic agent; Z88.0 Allergy status to penicillin; Z88.1 Allergy status to other antibiotic agents; Z79.899 Other long term (current) drug therapy; W19.XXXA Unspecified fall, initial encounter; Y92.009 Unspecified place in unspecified non-institutional (private) residence as the place of occurrence of the external cause
CPT/HCPCS: 36415; 80053; 82150; 82962; 83690; 83880; 84484; 85025; 85610; 99285; U0002; 99284

== ENCOUNTER 2019-10-04 04:32 | Emergency (ER) | payer MEDICARE, OTHER ==
--- NOTE | 2019-10-04 05:02 | EDM.PDOC ---
ED HPI GENERAL MEDICAL PROBLEM - General Chief Complaint: Lower Extremity Injury/Pain Stated Complaint: AMBULANCE Time Seen by Provider: 10/04/19 04:50 Source of Information: Reports: Patient History Limitations: Reports: No Limitations - History of Present Illness INITIAL COMMENTS - FREE TEXT/NARRATIVE: This 74 yo female patient was brought to the ED by [facility] due to 1) left lower extremity pain for about 1 month, 2) left lower extremity swelling for about 1 month, 3) shortness of breath which is chronic, 4) anxiety with a change in medications about 1 month ago, 5) elevated blood pressure which has been looked at by EMS and 6) depression. The patient reports she has been seen by her provider at [facility] about 1 month ago and evaluated for left leg swelling and pain (including lab work, an x-ray and ultrasound). The patient reports she has not been back to the [facility] since that time. The patient reports she did take Tylenol at about 0300 today, but continues to have pain. The patient reports she has had shortness of breath, but used her inhaler and now feels pretty good. The patient reports she has anxiety and feels like she is going through withdrawals from stopping Trazodone about 1 month ago. The patient reports the ambulance has been to her house numerous times and have advised her that her blood pressure is elevated. The patient reports she lives with her sister and has been having difficulties since her passed. The patient reports she fell about 1 month ago, was sent to [facility] and has been nervous about falling since that time. Onset: Unknown/Unsure Duration: Constant Location: Reports: Chest (shortness of breath), Lower Extremity, Left (swelling , redness and pain), Generalized (anxiety) Quality: Reports: Ache (left lower leg) Severity: Moderate Improves with: Reports: None Worsens with: Reports: None Context: Reports: Other Associated Symptoms: Reports: Shortness of Breath (intermittent) Left Leg Pain Score (Numeric/FACES): 10 - Related Data Allergies Allergy/AdvReac Type Severity Reaction Status Date / Time aspirin Allergy Hives Verified 10/04/19 04:37 azithromycin [From Zithromax] Allergy UNKNOWN Verified 10/04/19 04:37 Penicillins Allergy Hives Verified 10/04/19 04:37 Home Meds: Home Meds Acetaminophen [Acetaminophen 8 Hour] 2 tab PO BID 07/01/18 [History] Cyanocobalamin (Vitamin B-12) [Cyanocobalamin Injection] 1,000 mcg IM ASDIRECTED 07/01/18 [History] DULoxetine HCl [Cymbalta] 60 mg PO DAILY 07/01/18 [History] Fluticasone/Salmeterol [Advair 250-50] 1 puff INH BID 07/01/18 [History] Zolpidem [Ambien] 10 mg PO BEDTIME 07/01/18 [History] buPROPion HCL [Wellbutrin Xl] 150 mg PO DAILY 07/01/18 [History] clonazePAM [Clonazepam] 1 mg PO BID 07/01/18 [History] Cholecalciferol (Vitamin D3) [Vitamin D3] 3,000 unit PO DAILY 08/25/18 [History] Potassium Chloride [Klor-Con 10] 10 meq PO DAILY 08/25/18 [History] Ubidecarenone [Coq-10] 100 mg PO DAILY 08/25/18 [History] Albuterol [Ventolin HFA] 2 puff INH Q6H PRN #1 08/29/18 [Rx] Budesonide/Formoterol [Symbicort 160-4.5 MCG] 1 puff INH BID #1 inhaler [Rx] Furosemide [Lasix] 20 mg PO DAILY #30 tablet 08/29/18 [Rx] Levofloxacin 750 mg PO DAILY #5 tablet 08/29/18 [Rx] Sodium Chloride 1 gm PO BID #60 tablet 08/29/18 [Rx] predniSONE 10 mg PO WITHBREAKFAST #10 tablet 08/29/18 [Rx] Past Medical History HEENT History: Reports: Impaired Vision Cardiovascular History: Reports: Heart Failure Respiratory History: Reports: Asthma, COPD, Pneumonia, Recurrent Gastrointestinal History: Reports: None Genitourinary History: Reports: None 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 Musculoskeletal History: Reports: Fibromyalgia Neurological History: Reports: None Psychiatric History: Reports: Anxiety, Depression Endocrine/Metabolic History: Reports: None Hematologic History: Reports: B12 Deficiency Immunologic History: Reports: None Oncologic (Cancer) History: Reports: None - Infectious Disease History Infectious Disease History: Reports: Shingles - Past Surgical History Female Surgical History: Reports: Tubal Ligation Social & Family History - Family History Family Medical History: Noncontributory Respiratory: Reports: TB Oncologic: Reports: Lung - Tobacco Use Smoking Status *Q: Current Every Day Smoker Years of Tobacco use: 60 Packs/Tins Daily: 0.5 - Caffeine Use Caffeine Use: Reports: Coffee, Soda - Recreational Drug Use Recreational Drug Use: No - Living Situation & Occupation Living situation: Reports: , with Family Occupation: Retired Review of Systems - Review of Systems Review Of Systems: Comprehensive ROS is negative, except as noted in HPI. ED EXAM, GENERAL - Physical Exam Exam: See Below Exam Limited By: No Limitations General Appearance: Alert, WD/WN, Anxious, Moderate Distress Eye Exam: Bilateral Eye: EOMI, Normal Inspection, PERRL Ears: Normal External Exam, Normal Canal, Hearing Grossly Normal, Normal TMs Nose: Normal Inspection, Normal Mucosa, No Blood Throat/Mouth: Normal Inspection, Normal Lips Head: Atraumatic Neck: Normal Inspection, Supple, Full Range of Motion Respiratory/Chest: No Respiratory Distress, Lungs Clear, Normal Breath Sounds, No Accessory Muscle Use, Chest Non-Tender Cardiovascular: Normal Peripheral Pulses, Regular Rate, Rhythm, No Gallop, No JVD, No Murmur, No Rub GI/Abdominal: Normal Bowel Sounds, Soft, Non-Tender, No Organomegaly, No Distention, No Abnormal Bruit (Female) Exam: Deferred Rectal (Female) Exam: Deferred Extremities: Leg Pain (left lower leg), Redness (left lower leg) Neurological: Alert, Oriented, CN II-XII Intact, Normal Cognition Psychiatric: Anxious Skin Exam: Warm, Dry, Intact, Erythema (left lower leg) Lymphatic: No Adenopathy Course - Vital Signs Last Recorded V/S: Last Vital Signs Temp 36.9 C 10/04/19 04:37 Pulse 68 10/04/19 04:37 Resp 16 10/04/19 04:37 BP 172/67 H 10/04/19 04:37 Pulse Ox 99 10/04/19 04:37 - Orders/Labs/Meds Orders: Active Orders 24 hr Category Date Time Status CULTURE BLOOD [BC] Stat Lab 10/04/19 05:01 Received CULTURE STREP A CONFIRMATION [RM] Stat Lab 10/04/19 05:06 Results CULTURE URINE [RM] Urgent Lab 10/04/19 05:17 Received STREP SCRN A RAPID W CULT CONF [RM] Stat Lab 10/04/19 05:06 Results Labs: Laboratory Tests 10/04/19 10/04/19 10/04/19 Range/Units 05:01 05:01 05:01 WBC 5.5 (5.0-10.0) 10^3/uL RBC 3.35 L (4.2-5.4) 10^6/uL Hgb 10.5 L (12.0-16.0) g/dL Hct 31.5 L (37.0-47.0) % MCV 94.0 (80-100) fL MCH 31.3 (27.0-34.0) pg MCHC 33.3 (33.0-35.0) g/dL Plt Count 333 (150-450) 10^3/uL Neut % (Auto) 64.3 (42.2-75.2) % Lymph % (Auto) 21.8 (20.5-50.1) % [place] % (Auto) 12.2 H (2-8) % Eos % (Auto) 1.5 (1.0-3.0) % Baso % (Auto) 0.2 (0.0-1.0) % D-Dimer, Quantitative (0-400) ng/mL Sodium 131 L (136-145) mmol/L Potassium 3.6 (3.5-5.1) mmol/L Chloride 96 L (98-107) mmol/L Carbon Dioxide 28 (21-32) mmol/L Anion Gap 10.6 (7-13) mEq/L BUN 7 (7-18) mg/dL Creatinine 0.80 (0.55-1.02) mg/dL Est Cr Clr Drug Dosing 53.28 mL/min Estimated GFR (MDRD) > 60 BUN/Creatinine Ratio 8.8 (No establ ref range) Glucose 88 (74-99) mg/dL Lactic Acid 1.0 (0.4-2.0) mmol/L Calcium 8.4 L (8.5-10.1) mg/dL Total Bilirubin 0.3 (0.2-1.0) mg/dL AST 22 (15-37) U/L ALT 20 (14-59) U/L Alkaline Phosphatase 67 (46-116) U/L Total Protein 6.9 (6.4-8.2) g/dL Albumin 3.3 L (3.4-5.0) g/dL Globulin 3.6 Albumin/Globulin Ratio 0.92 Urine Color (YELLOW) Urine Appearance (CLEAR) Urine pH (5.0-9.0) Ur Specific [place] (1.005-1.030) Urine Protein (NEGATIVE) Urine Glucose (UA) (NEGATIVE) Urine Ketones (NEGATIVE) Urine Occult Blood (NEGATIVE) Urine Nitrite (NEGATIVE) Urine Bilirubin (NEGATIVE) Urine Urobilinogen (0.2-1.0) mg/dL Ur Leukocyte Esterase (NEGATIVE) Urine RBC /HPF Urine WBC (0-5/HPF) /HPF Ur Epithelial Cells (NOT SEEN) /HPF Urine Bacteria (0-FEW/HPF) /HPF Urine Mucus (NOT SEEN) /LPF 10/04/19 10/04/19 Range/Units 05:01 05:17 WBC (5.0-10.0) 10^3/uL RBC (4.2-5.4) 10^6/uL Hgb (12.0-16.0) g/dL Hct (37.0-47.0) % MCV (80-100) fL MCH (27.0-34.0) pg MCHC (33.0-35.0) g/dL Plt Count (150-450) 10^3/uL Neut % (Auto) (42.2-75.2) % Lymph % (Auto) (20.5-50.1) % [place] % (Auto) (2-8) % Eos % (Auto) (1.0-3.0) % Baso % (Auto) (0.0-1.0) % D-Dimer, Quantitative 194 (0-400) ng/mL Sodium (136-145) mmol/L Potassium (3.5-5.1) mmol/L Chloride (98-107) mmol/L Carbon Dioxide (21-32) mmol/L Anion Gap (7-13) mEq/L BUN (7-18) mg/dL Creatinine (0.55-1.02) mg/dL Est Cr Clr Drug Dosing mL/min Estimated GFR (MDRD) BUN/Creatinine Ratio (No establ ref range) Glucose (74-99) mg/dL Lactic Acid (0.4-2.0) mmol/L Calcium (8.5-10.1) mg/dL Total Bilirubin (0.2-1.0) mg/dL AST (15-37) U/L ALT (14-59) U/L Alkaline Phosphatase (46-116) U/L Total Protein (6.4-8.2) g/dL Albumin (3.4-5.0) g/dL Globulin Albumin/Globulin Ratio Urine Color Light yellow (YELLOW) Urine Appearance Slightly cloudy (CLEAR) Urine pH 6.5 (5.0-9.0) Ur Specific [place] 1.010 (1.005-1.030) Urine Protein Negative (NEGATIVE) Urine Glucose (UA) Negative (NEGATIVE) Urine Ketones Negative (NEGATIVE) Urine Occult Blood Negative (NEGATIVE) Urine Nitrite Negative (NEGATIVE) Urine Bilirubin Negative (NEGATIVE) Urine Urobilinogen 0.2 (0.2-1.0) mg/dL Ur Leukocyte Esterase Trace H (NEGATIVE) Urine RBC Not seen /HPF Urine WBC 0-5 (0-5/HPF) /HPF Ur Epithelial Cells Few (NOT SEEN) /HPF Urine Bacteria Rare (0-FEW/HPF) /HPF Urine Mucus Few H (NOT SEEN) /LPF Meds: Medications Discontinued Medications Generic Name Dose Route Start Last Admin Trade Name Freq PRN Reason Stop Dose Admin Cephalexin 500 mg 10/04/19 05:45 Keflex PO 10/04/19 05:46 ONETIME ONE Departure - Departure Time of Disposition: 05:46 Disposition: Home, Self-Care 01 Condition: Fair Clinical Impression: Anxiety, Cellulitis of left lower extremity - Discharge Information *PRESCRIPTION DRUG MONITORING PROGRAM REVIEWED*: Not Applicable *COPY OF PRESCRIPTION DRUG MONITORING REPORT IN PATIENT SONALI: Not Applicable Instructions: Cellulitis, Adult, [id number], Living With Anxiety Forms: ED Department Discharge Care Plan Goals: The patient was advised of the examination and lab results during the visit. The patient was encouraged to take her medications as prescribed. The patient was advised to follow-up with her primary care facility for continued evaluation and further treatment. The patient was given an oral dose of Keflex while in the ED and discharged with a script for Keflex (500 mg) to take 1 by mouth 3 times per day for 10 days for cellulitis in her left lower extremity. If the patient has any additional symptoms or concerns, the patient should either return to the emergency department or visit her primary care facility. Sepsis Event Note (ED) - Evaluation Sepsis Screening Result: No Definite Risk - Focused Exam Vital Signs: Vital Signs Temp Pulse Resp BP Pulse Ox 10/04/19 04:37 36.9 C 68 16 172/67 H 99 - My Orders Last 24 Hours: My Active Orders 10/04/19 05:01 CULTURE BLOOD [BC] Stat 10/04/19 05:06 CULTURE STREP A CONFIRMATION [RM] Stat STREP SCRN A RAPID W CULT CONF [RM] Stat 10/04/19 05:17 CULTURE URINE [RM] Urgent - Assessment/Plan Last 24 Hours: My Active Orders 10/04/19 05:01 CULTURE BLOOD [BC] Stat 10/04/19 05:06 CULTURE STREP A CONFIRMATION [RM] Stat STREP SCRN A RAPID W CULT CONF [RM] Stat 10/04/19 05:17 CULTURE URINE [RM] Urgent
[2019-10-04 05:29] LABS: ANION GAP 10.6 mEq/L (7-13); CHLORIDE,CL 96 mmol/L (98-107); SODIUM,NA 131 mmol/L (136-145)
[2019-10-04] MEDS ORDERED: Cephalexin 500 MG Cap PO ONE (05:45)
== END 2019-10-04 06:38 | disposition home or self-care (01) ==
LOC: DL.ED 04:32
DX: L03.116 Cellulitis of left lower limb (principal); F41.9 Anxiety disorder, unspecified; I50.9 Heart failure, unspecified; J44.9 Chronic obstructive pulmonary disease, unspecified; F32.9 Major depressive disorder, single episode, unspecified; F17.210 Nicotine dependence, cigarettes, uncomplicated; Z88.0 Allergy status to penicillin; Z88.1 Allergy status to other antibiotic agents; Z88.8 Allergy status to other drugs, medicaments and biological substances; Z79.899 Other long term (current) drug therapy
CPT/HCPCS: 36415; 80053; 81001; 83605; 85025; 85379; 87040; 87081; 87086; 87430; 99283; A9270

== ENCOUNTER 2019-12-21 13:17 | Observation (INO) | payer MEDICARE, OTHER ==
--- NOTE | 2019-12-21 13:17 | EDM.PDOC ---
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 EMS reports a substantial amount of blood loss from the scalp wound. The fall was reported to have only been from about 18" of the floor, but she struck the left occipital scalp on the corner of a coffee table. Pt is not on blood thinners or Aspirin. Denies LOC, N/V, visual changes, seizures, motor or sensory deficits. Pt also c/o shortness of breath, but she states that she has COPD that is severe. Onset: Today, Sudden Location: Reports: Head, Neck Quality: Reports: Ache Severity: Moderate Improves with: Reports: None Worsens with: Reports: None Context: Reports: Other (Fall) Associated Symptoms: Reports: No Other Symptoms Generalized Pain Score (Numeric/FACES): 5 - Related Data Allergies Allergy/AdvReac Type Severity Reaction Status Date / Time aspirin Allergy Hives Verified 12/21/19 13:31 azithromycin [From Zithromax] Allergy UNKNOWN Verified 12/21/19 13:31 Penicillins Allergy Hives Verified 12/21/19 13:31 Home Meds: Home Meds Acetaminophen [Acetaminophen 8 Hour] 650 mg PO BID 07/01/18 [History] Cyanocobalamin (Vitamin B-12) [Cyanocobalamin Injection] 1,000 mcg IM ASDIRECTED 07/01/18 [History] DULoxetine HCl [Cymbalta] 60 mg PO BID 07/01/18 [History] Fluticasone/Salmeterol [Advair 250-50] 1 puff INH BID 07/01/18 [History] Zolpidem [Ambien] 10 mg PO BEDTIME 07/01/18 [History] buPROPion HCL [Wellbutrin Xl] 150 mg PO DAILY 07/01/18 [History] clonazePAM [Clonazepam] 1 mg PO BID 07/01/18 [History] Cholecalciferol (Vitamin D3) [Vitamin D3] 3,000 unit PO DAILY 08/25/18 [History] Potassium Chloride [Klor-Con 10] 10 meq PO DAILY 08/25/18 [History] Ubidecarenone [Coq-10] 100 mg PO DAILY 08/25/18 [History] Albuterol [Ventolin HFA] 2 puff INH Q6H PRN #1 08/29/18 [Rx] Budesonide/Formoterol [Symbicort 160-4.5 MCG] 1 puff INH BID #1 inhaler 08/29/18 [Rx] Furosemide [Lasix] 20 mg PO DAILY #30 tablet 08/29/18 [Rx] Levofloxacin 750 mg PO DAILY #5 tablet 08/29/18 [Rx] Sodium Chloride 1 gm PO BID #60 tablet 08/29/18 [Rx] predniSONE 10 mg PO WITHBREAKFAST #10 tablet 08/29/18 [Rx] hydrOXYzine HCL [Atarax] 25 mg PO TID PRN 12/21/19 [History] Past Medical History HEENT History: Reports: Impaired Vision Cardiovascular History: Reports: Heart Failure Respiratory History: Reports: Asthma, COPD, Pneumonia, Recurrent Gastrointestinal History: Reports: None Genitourinary History: Reports: None POWERED BRIDGE SPECIALIST History: Reports: None Musculoskeletal History: Reports: Fibromyalgia Neurological History: Reports: None Psychiatric History: Reports: Depression Endocrine/Metabolic History: Reports: None Hematologic History: Reports: B12 Deficiency Immunologic History: Reports: None Oncologic (Cancer) History: Reports: None - Infectious Disease History Infectious Disease History: Reports: Shingles - Past Surgical History Female Surgical History: Reports: Tubal Ligation Social & Family History - Family History Family Medical History: Noncontributory Respiratory: Reports: TB Oncologic: Reports: Lung - Tobacco Use Smoking Status *Q: Current Every Day Smoker Tobacco Use Within Last Twelve Months: Cigarettes Years of Tobacco use: 55 - Alcohol Use Alcohol Use History: No - Recreational Drug Use Recreational Drug Use: No - Living Situation & Occupation Living situation: Reports: , with Family Occupation: Retired ED ROS GENERAL - Review of Systems Review Of Systems: Comprehensive ROS is negative, except as noted in HPI. ED EXAM, GENERAL - Physical Exam Exam: See Below Exam Limited By: No Limitations General Appearance: Alert, No Apparent Distress, Other (Chronically ill appearing) Eye Exam: Bilateral Eye: EOMI, Normal Inspection, PERRL Ears: Normal External Exam, Normal Canal, Hearing Grossly Normal, Normal TMs Nose: Normal Inspection, Normal Mucosa, No Blood Throat/Mouth: Normal Lips, Normal Oropharynx, Normal Voice, No Airway Compromise, Other (poor dentition, several missing teeth) Head: Normocephalic, Other (2.0cm laceration to depth of deep subcutaneous tissue at left occipital scalp with persistent active bleeding) Neck: Normal Inspection, Supple, Non-Tender, Full Range of Motion, Other (C- spine cleared by CT scan, C-collar removed by RN at 1439HRS.) Respiratory/Chest: No Respiratory Distress, No Accessory Muscle Use, Chest Non- Tender, Decreased Breath Sounds, Other (coarse breath sounds) Cardiovascular: Regular Rate, Rhythm GI/Abdominal: Normal Bowel Sounds, Soft, Non-Tender Back Exam: Normal Inspection, Full Range of Motion Extremities: Normal Inspection, Normal Range of Motion, Non-Tender, Normal Capillary Refill, No Pedal Edema Neurological: Alert, Oriented, CN II-XII Intact, Normal Cognition, No Motor/Sensory Deficits Psychiatric: Depressed Mood, Flat Affect Skin Exam: Warm, Dry ED GENERAL MEDICAL PROCEDURES - Laceration/Wound Repair Left Occipital Head Lac/wound length in cm: 2.0 Appearance: Linear, Clean Distal NVT: Neuro & Vascular Intact Anesthetic Type: Local Local Anesthesia - Lidocaine (Xylocaine): 1% with EPI Local Anesthetic Volume: Other (10cc) Skin Prep: Chlorhexidine (Hibiciens), Saline, Sterile Drape Saline irrigation (cc's): 1,000 Exploration/Debridement/Repair: Wound Explored, In a Bloodless Field, Explored to Base, Minimal Debridement, Minimally Undermined, No Foreign Material Found Closed with: Sutures Suture Size: 2-0 # of Sutures: 6 Suture Type: Prolene, Running Drain Placement: No Sterile Dressing Applied: Nurse Tetanus Status Addressed: Yes Complications: No EKG INTERPRETATION EKG Date: 12/21/19 Time: 14:19 Rhythm: Other (SR) Rate (Beats/Min): 90 [place]: LAD-Left [place] Deviation P-Wave: Present QRS: Other (LAFB) ST-T: Other (Borderline Ant/Lat. nonspecific changes.) QT: Prolonged (Borderline prolonged QT) Comparison: NA - No Prior EKG Course - Vital Signs Last Recorded V/S: Last Vital Signs Temp 96.1 F L 09/02/20 15:25 Pulse 96 12/21/19 15:25 Resp 18 12/21/19 15:25 BP 83/59 L 12/21/19 15:25 Pulse Ox 91 L 12/21/19 14:16 - Orders/Labs/Meds Orders: Active Orders 24 hr Category Date Time Status Blood Glucose Check, Bedside [RC] ONETIME Care 12/21/19 13:31 Active EKG 12 Lead [EKG Documentation Completion] [RC] STAT Care 12/21/19 13:30 Active Peripheral IV Care [RC] . DIRECTED Care 12/21/19 13:31 Active RT Aerosol Therapy [RC] ASDIRECTED Care 12/21/19 14:16 Active Vaccines to be Administered [RC] PER UNIT ROUTINE Care 12/21/19 14:16 Active Verify Patient Consent Obtain [RC] ASDIRECTED Care 12/21/19 13:46 Active RED BLOOD CELLS LP [BBK] Stat Lab 12/21/19 13:27 Results TYPE AND SCREEN [BBK] Stat Lab 12/21/19 13:27 Results Sodium Chloride 0.9% [Saline Flush] Med 12/21/19 13:30 Active 10 ml FLUSH ASDIRECTED PRN Blood Transfusion Reflex Orders [OM.PC] Routine Oth 12/21/19 13:28 Ordered Blood Transfusion Reflex Orders [OM.PC] Routine Oth 12/21/19 13:45 Ordered Peripheral IV Insertion Adult [OM.PC] Stat Oth 12/21/19 13:30 Ordered Transfuse Red Blood Cells [COMM] Stat Oth 12/21/19 13:45 Ordered Medication Orders Sodium Chloride (Saline Flush) 10 ml FLUSH ASDIRECTED PRN PRN Reason: Keep Vein Open Last Admin: 12/21/19 14:14 Dose: 10 ml Documented by: SJ Labs: Laboratory Tests 12/21/19 12/21/19 12/21/19 Range/Units 13:27 13:27 13:27 WBC 5.4 (5.0-10.0) 10^3/uL RBC 2.39 L (4.2-5.4) 10^6/uL Hgb 7.4 L D (12.0-16.0) g/dL Hct 22.4 L (37.0-47.0) % MCV 93.7 (80-100) fL MCH 31.0 (27.0-34.0) pg MCHC 33.0 (33.0-35.0) g/dL Plt Count 352 (150-450) 10^3/uL Neut % (Auto) 68.2 (42.2-75.2) % Lymph % (Auto) 19.0 L (20.5-50.1) % [place] % (Auto) 11.5 H (2-8) % Eos % (Auto) 1.1 (1.0-3.0) % Baso % (Auto) 0.2 (0.0-1.0) % PT 9.6 (9.0-12.0) SEC INR 1.0 (0.9-1.2) APTT 39.8 H (22.0-34.0) SEC ABG pH (7.35-7.45) ABG pCO2 (35-45) mmHg ABG pO2 (70-100) mmHg ABG HCO3 (22-26) mmol/L ABG O2 Saturation (95-100) % ABG Base Excess ((-2)-(+3)) mmol/L Arian Test O2 Delivery Device Sodium 130 L (136-145) mmol/L Potassium 3.5 (3.5-5.1) mmol/L Chloride 97 L (98-107) mmol/L Carbon Dioxide 27 (21-32) mmol/L Anion Gap 9.5 (7-13) mEq/L BUN 12 (7-18) mg/dL Creatinine 0.98 (0.55-1.02) mg/dL Est Cr Clr Drug Dosing 43.49 mL/min Estimated GFR (MDRD) 55 BUN/Creatinine Ratio 12.2 (No establ ref range) Glucose 134 H (74-99) mg/dL Calcium 7.8 L (8.5-10.1) mg/dL Total Bilirubin 0.2 (0.2-1.0) mg/dL AST 15 (15-37) U/L ALT 15 (14-59) U/L Alkaline Phosphatase 55 (46-116) U/L B-Natriuretic Peptide 36 (0-100) pg/ml Total Protein 5.7 L (6.4-8.2) g/dL Albumin 2.5 L (3.4-5.0) g/dL Globulin 3.2 Albumin/Globulin Ratio 0.78 Urine Color (YELLOW) Urine Appearance (CLEAR) Urine pH (5.0-9.0) Ur Specific [place] (1.005-1.030) Urine Protein (NEGATIVE) Urine Glucose (UA) (NEGATIVE) Urine Ketones (NEGATIVE) Urine Occult Blood (NEGATIVE) Urine Nitrite (NEGATIVE) Urine Bilirubin (NEGATIVE) Urine Urobilinogen (0.2-1.0) mg/dL Ur Leukocyte Esterase (NEGATIVE) Urine Opiates Screen (NEGATIVE) Ur Oxycodone Screen (NEGATIVE) Urine Methadone Screen (NEGATIVE) Ur Barbiturates Screen (NEGATIVE) U Tricyclic Antidepress (NEGATIVE) Ur Phencyclidine Scrn (NEGATIVE) Ur Amphetamine Screen (NEGATIVE) U Methamphetamines Scrn (NEGATIVE) Urine MDMA Screen (NEGATIVE) U Benzodiazepines Scrn (NEGATIVE) Urine Cocaine Screen (NEGATIVE) U Marijuana (THC) Screen (NEGATIVE) Ethyl Alcohol < 3 (0) mg/dL Blood Type Gel Antibody Screen Crossmatch 12/21/19 12/21/19 12/21/19 Range/Units 13:27 14:13 14:47 WBC (5.0-10.0) 10^3/uL RBC (4.2-5.4) 10^6/uL Hgb (12.0-16.0) g/dL Hct (37.0-47.0) % MCV (80-100) fL MCH (27.0-34.0) pg MCHC (33.0-35.0) g/dL Plt Count (150-450) 10^3/uL Neut % (Auto) (42.2-75.2) % Lymph % (Auto) (20.5-50.1) % [place] % (Auto) (2-8) % Eos % (Auto) (1.0-3.0) % Baso % (Auto) (0.0-1.0) % PT (9.0-12.0) SEC INR (0.9-1.2) APTT (22.0-34.0) SEC ABG pH 7.40 (7.35-7.45) ABG pCO2 34 L (35-45) mmHg ABG pO2 171 H (70-100) mmHg ABG HCO3 20.7 L (22-26) mmol/L ABG O2 Saturation 101 H (95-100) % ABG Base Excess -3 L ((-2)-(+3)) mmol/L Arian Test Performed O2 Delivery Device Non rebr mask Sodium (136-145) mmol/L Potassium (3.5-5.1) mmol/L Chloride (98-107) mmol/L Carbon Dioxide (21-32) mmol/L Anion Gap (7-13) mEq/L BUN (7-18) mg/dL Creatinine (0.55-1.02) mg/dL Est Cr Clr Drug Dosing mL/min Estimated GFR (MDRD) BUN/Creatinine Ratio (No establ ref range) Glucose (74-99) mg/dL Calcium (8.5-10.1) mg/dL Total Bilirubin (0.2-1.0) mg/dL AST (15-37) U/L ALT (14-59) U/L Alkaline Phosphatase (46-116) U/L B-Natriuretic Peptide (0-100) pg/ml Total Protein (6.4-8.2) g/dL Albumin (3.4-5.0) g/dL Globulin Albumin/Globulin Ratio Urine Color Yellow (YELLOW) Urine Appearance Clear (CLEAR) Urine pH 6.0 (5.0-9.0) Ur Specific [place] 1.015 (1.005-1.030) Urine Protein Negative (NEGATIVE) Urine Glucose (UA) Negative (NEGATIVE) Urine Ketones Negative (NEGATIVE) Urine Occult Blood Negative (NEGATIVE) Urine Nitrite Negative (NEGATIVE) Urine Bilirubin Negative (NEGATIVE) Urine Urobilinogen 0.2 (0.2-1.0) mg/dL Ur Leukocyte Esterase Negative (NEGATIVE) Urine Opiates Screen (NEGATIVE) Ur Oxycodone Screen (NEGATIVE) Urine Methadone Screen (NEGATIVE) Ur Barbiturates Screen (NEGATIVE) U Tricyclic Antidepress (NEGATIVE) Ur Phencyclidine Scrn (NEGATIVE) Ur Amphetamine Screen (NEGATIVE) U Methamphetamines Scrn (NEGATIVE) Urine MDMA Screen (NEGATIVE) U Benzodiazepines Scrn (NEGATIVE) Urine Cocaine Screen (NEGATIVE) U Marijuana (THC) Screen (NEGATIVE) Ethyl Alcohol (0) mg/dL Blood Type A POSITIVE Gel Antibody Screen Negative Crossmatch See Detail 12/21/19 Range/Units 14:47 WBC (5.0-10.0) 10^3/uL RBC (4.2-5.4) 10^6/uL Hgb (12.0-16.0) g/dL Hct (37.0-47.0) % MCV (80-100) fL MCH (27.0-34.0) pg MCHC (33.0-35.0) g/dL Plt Count (150-450) 10^3/uL Neut % (Auto) (42.2-75.2) % Lymph % (Auto) (20.5-50.1) % [place] % (Auto) (2-8) % Eos % (Auto) (1.0-3.0) % Baso % (Auto) (0.0-1.0) % PT (9.0-12.0) SEC INR (0.9-1.2) APTT (22.0-34.0) SEC ABG pH (7.35-7.45) ABG pCO2 (35-45) mmHg ABG pO2 (70-100) mmHg ABG HCO3 (22-26) mmol/L ABG O2 Saturation (95-100) % ABG Base Excess ((-2)-(+3)) mmol/L Arian Test O2 Delivery Device Sodium (136-145) mmol/L Potassium (3.5-5.1) mmol/L Chloride (98-107) mmol/L Carbon Dioxide (21-32) mmol/L Anion Gap (7-13) mEq/L BUN (7-18) mg/dL Creatinine (0.55-1.02) mg/dL Est Cr Clr Drug Dosing mL/min Estimated GFR (MDRD) BUN/Creatinine Ratio (No establ ref range) Glucose (74-99) mg/dL Calcium (8.5-10.1) mg/dL Total Bilirubin (0.2-1.0) mg/dL AST (15-37) U/L ALT (14-59) U/L Alkaline Phosphatase (46-116) U/L B-Natriuretic Peptide (0-100) pg/ml Total Protein (6.4-8.2) g/dL Albumin (3.4-5.0) g/dL Globulin Albumin/Globulin Ratio Urine Color (YELLOW) Urine Appearance (CLEAR) Urine pH (5.0-9.0) Ur Specific [place] (1.005-1.030) Urine Protein (NEGATIVE) Urine Glucose (UA) (NEGATIVE) Urine Ketones (NEGATIVE) Urine Occult Blood (NEGATIVE) Urine Nitrite (NEGATIVE) Urine Bilirubin (NEGATIVE) Urine Urobilinogen (0.2-1.0) mg/dL Ur Leukocyte Esterase (NEGATIVE) Urine Opiates Screen Negative (NEGATIVE) Ur Oxycodone Screen Negative (NEGATIVE) Urine Methadone Screen Negative (NEGATIVE) Ur Barbiturates Screen Negative (NEGATIVE) U Tricyclic Antidepress Negative (NEGATIVE) Ur Phencyclidine Scrn Negative (NEGATIVE) Ur Amphetamine Screen Negative (NEGATIVE) U Methamphetamines Scrn Negative (NEGATIVE) Urine MDMA Screen Negative (NEGATIVE) U Benzodiazepines Scrn Negative (NEGATIVE) Urine Cocaine Screen Negative (NEGATIVE) U Marijuana (THC) Screen Negative (NEGATIVE) Ethyl Alcohol (0) mg/dL Blood Type Gel Antibody Screen Crossmatch Hemoccult Stool: negative Meds: Medications Generic Name Dose Route Start Last Admin Trade Name Freq PRN Reason Stop Dose Admin Sodium Chloride 10 ml 12/21/19 13:30 12/21/19 14:14 Saline Flush FLUSH 10 ml ASDIRECTED PRN Administration Keep Vein Open Discontinued Medications Generic Name Dose Route Start Last Admin Trade Name Freq PRN Reason Stop Dose Admin Acetaminophen 650 mg 12/21/19 13:45 12/21/19 14:11 Tylenol PO 12/21/19 13:46 650 mg NOW ONE Administration Albuterol/Ipratropium 3 ml 12/21/19 14:16 12/21/19 14:42 Duoneb 3.0-0.5 Mg/3 Ml NEB 12/21/19 14:17 3 ml ONETIME ONE Administration Diphtheria/Tetanus/Acell Pertussis 0.5 ml 12/21/19 14:15 12/21/19 14:42 Adacel IM 12/21/19 14:16 0.5 ml .ONCE ONE Administration Sodium Chloride 1,000 mls @ 999 mls/hr 12/21/19 13:27 12/21/19 15:05 Normal Saline IV 12/21/19 14:27 Infused .BOLUS ONE Infusion Lidocaine/Epinephrine 20 ml 12/21/19 15:14 12/21/19 15:39 Xylocaine 1% With Epinephrine 1:100,000 INJECT 12/21/19 15:15 20 ml ONETIME ONE Administration Methylprednisolone Sodium Succinate 125 mg 12/21/19 13:45 12/21/19 14:11 Solu-Medrol IV 12/21/19 13:46 125 mg ONETIME ONE Administration Tranexamic Acid 500 mg 12/21/19 13:35 12/21/19 13:37 Cyklokapron TOP 12/21/19 13:36 500 mg ONETIME ONE Administration Tranexamic Acid Confirm 12/21/19 13:36 12/21/19 13:43 Cyklokapron Administered 12/21/19 13:37 Not Given Dose 1,000 mg .ROUTE .STK-MED ONE - Radiology Interpretation Free Text/Narrative:: CT Head: no acute I.C. hemorrhage per Rad. report. CT C-Spine: no acute fractures per Rad. report. XR Chest: no acute process per Rad. report. - Re-Assessments/Exams Free Text/Narrative Re-Assessment/Exam: 12/21/19 15:55 Pt with significant blood loss from scalp laceration. Initially hypotensive, now 111/88, and 91/71. Stool hemoccult negative. Head and C-spine CT clear. I see no indication to transfer the pt at this time. Plan to admit to observation with Dr. Higuera accepting. Departure - Departure Time of Disposition: 15:57 (admitted to Dr. Higuera) Disposition: Refer to Observation Condition: Fair Clinical Impression: Anemia due to acute blood loss, History of chronic obstructive pulmonary disease Scalp laceration Qualifiers: Encounter type: initial encounter Qualified Code(s): S01.01XA - Laceration without foreign body of scalp, initial encounter Fall as cause of accidental injury at home as place of occurrence Qualifiers: Encounter type: initial encounter Qualified Code(s): W19.XXXA - Unspecified fall, initial encounter; Y92.009 - Unspecified place in unspecified non- institutional (private) residence as the place of occurrence of the external cause - Discharge Information *PRESCRIPTION DRUG MONITORING PROGRAM REVIEWED*: Not Applicable *COPY OF PRESCRIPTION DRUG MONITORING REPORT IN PATIENT SONALI: Not Applicable Forms: ED Department Discharge Sepsis Event Note (ED) - Focused Exam Vital Signs: Vital Signs Temp Temp Pulse Resp BP Pulse Ox Pulse Ox 12/21/19 15:25 96.1 F L 96 18 83/59 L 12/21/19 15:10 96.7 F L 91 18 111/88 12/21/19 14:56 96.3 F L 94 18 104/87 12/21/19 14:16 94 20 92/49 L 90 L 91 L 12/21/19 13:20 96.1 F L 104 H 20 59/41 L 88 L - My Orders Last 24 Hours: My Active Orders 12/21/19 13:27 RED BLOOD CELLS LP [BBK] Stat TYPE AND SCREEN [BBK] Stat 12/21/19 13:28 Blood Transfusion Reflex Orders [OM.PC] Routine 12/21/19 13:30 EKG 12 Lead [EKG Documentation Completion] [RC] STAT Sodium Chloride 0.9% [Saline Flush] 10 ml FLUSH ASDIRECTED PRN Peripheral IV Insertion Adult [OM.PC] Stat 12/21/19 13:31 Blood Glucose Check, Bedside [RC] ONETIME Peripheral IV Care [RC] . DIRECTED 12/21/19 13:45 Blood Transfusion Reflex Orders [OM.PC] Routine Transfuse Red Blood Cells [COMM] Stat 12/21/19 13:46 Verify Patient Consent Obtain [RC] ASDIRECTED 12/21/19 14:16 RT Aerosol Therapy [RC] ASDIRECTED Vaccines to be Administered [RC] PER UNIT ROUTINE - Assessment/Plan Last 24 Hours: My Active Orders 12/21/19 13:27 RED BLOOD CELLS LP [BBK] Stat TYPE AND SCREEN [BBK] Stat 12/21/19 13:28 Blood Transfusion Reflex Orders [OM.PC] Routine 12/21/19 13:30 EKG 12 Lead [EKG Documentation Completion] [RC] STAT Sodium Chloride 0.9% [Saline Flush] 10 ml FLUSH ASDIRECTED PRN Peripheral IV Insertion Adult [OM.PC] Stat 12/21/19 13:31 Blood Glucose Check, Bedside [RC] ONETIME Peripheral IV Care [RC] . DIRECTED 12/21/19 13:45 Blood Transfusion Reflex Orders [OM.PC] Routine Transfuse Red Blood Cells [COMM] Stat 12/21/19 13:46 Verify Patient Consent Obtain [RC] ASDIRECTED 12/21/19 14:16 RT Aerosol Therapy [RC] ASDIRECTED Vaccines to be Administered [RC] PER UNIT ROUTINE
[2019-12-21] MEDS ORDERED: Sodium Chloride 0.9% 1,000 ML IV ONE (13:27)
[2019-12-21] MEDS ORDERED: Sodium Chloride 0.9% 10 ML Syringe FLUSH PRN (13:30)
[2019-12-21] MEDS ORDERED: methylPREDNISolone Sodium Succinate 125 MG/2 ML SDV IV ONE (13:45)
[2019-12-21] MEDS ORDERED: Acetaminophen 325 MG Tab PO ONE (13:45)
[2019-12-21 13:54] LABS: ANION GAP 9.5 mEq/L (7-13); CHLORIDE,CL 97 mmol/L (98-107); SODIUM,NA 130 mmol/L (136-145)
[2019-12-21 14:12] LABS: PTT,PARTIAL THROMBOPLSTIN TIME 39.8 SEC (22.0-34.0)
[2019-12-21] MEDS ORDERED: Diphtheria,Pertussis(Acell),Tetanus Vaccine 0.5 ML SDV IM ONE (14:15)
[2019-12-21] MEDS ORDERED: Albuterol/Ipratropium 3.0-0.5 MG/3 ML Neb Soln NEB ONE (14:16)
--- NOTE | 2019-12-21 14:25 | CT ---
EXAMINATION: Head wo Cont SEX: Female AGE: 74 years CLINICAL HISTORY: 74-year-old female injured in fall (posterior scalp laceration with large blood loss). Scan technique: Volume acquisition of data emergency unenhanced CT scan of the head and brain obtained with patient lying supine Siemens multislice scanner [place], [place]. All data archived in the PACS system for storage, reformatting axial/sagittal/coronal planes and study (bone/brain windows). Positional/rotational artifact present. Comparison CT head December 2018. Interpretation: 1. Large compression bandage posterior laterally on the left. No sign of underlying skull fracture, brain contusion or intracranial contrecoup injury. No extracerebral/intracranial epidural or subdural hematoma. 2. Decreased attenuation periventricular white matter particularly left cerebral hemisphere (ischemic infarcts that appear to been present on previous comparison exam 28 December 2018.). 3. Atrophy. No new evidence supratentorial or posterior fossa mass lesion. No hydrocephalus. 4. No sign of acute intracerebral, intraventricular or subarachnoid bleed. 5. Cerebellum and brainstem unremarkable. 6. No foreign bodies. Large retention cyst right maxillary antrum. Otherwise symmetric clear pneumatization of the paranasal and mastoid sinuses. CONCLUSION: No sign of skull fracture or closed head injury. Large bandage over the convexity bony calvarium, posterior laterally on the left.
--- NOTE | 2019-12-21 14:27 | CR ---
EXAMINATION: Chest 1V Frontal SEX: Female AGE: 74 years CLINICAL HISTORY: 74-year-old female COPD, shortness of breath and recent fall (head injury). Interpretation: No acute new cardiopulmonary abnormality identified in the interval since 28 December 2018 exam. Normal cardiac silhouette. External monitor technician leads. No pulmonary vascular congestion, cephalization of flow, alveolar edema or dependent effusion. No lung mass or hilar lymphadenopathy. No focal lobar infiltrate, atelectasis or collapse. No pneumothorax or pneumomediastinum. CONCLUSION: No acute new cardiopulmonary abnormality.
--- NOTE | 2019-12-21 14:32 | CT ---
EXAMINATION: Cervical Spine wo Cont SEX: Female AGE: 74 years CLINICAL HISTORY: 74-year-old hypoxic female with COPD, head injury and neck pain associated with fall. Scan technique: Volume acquisition of data emergency unenhanced CT scan of the cervical spine obtained with patient lying supine on the Siemens multislice scanner [facility]. All data archived in the PACS system for storage, reformatting axial/sagittal/coronal planes and study. Interpretation: Straightening of usual cervical lordosis and mild anterolisthesis C3 vertebral body. Asymmetric exuberant reactive sclerosis and arthritic degenerative changes articulating facets C2-C3, C3-4 upper cervical spine, on the right. Dense reactive atlantoaxial sclerosis. Chronic disc disease i.e. interspace narrowing and hypertrophic marginal spondylosis C5-6, C6-7 levels. No prevertebral soft tissue swelling, cervical fracture, jumped locked facet or other signs of dislocation. 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 No sign of acute cervical fracture or dislocation (mild spondylolisthesis C3).
[2019-12-21 14:46] LABS: O2 DELIVERY DEVICE NON REBR MASK
[2019-12-21 14:47] LABS: ALLEN TEST PERFORMED; BASE EXCESS ARTERIAL -3 mmol/L ((-2)-(+3)); BICARBONATE,ARTERIAL 20.7 mmol/L (22-26); O2 SATURATION ARTERIAL 101 % (95-100); PCO2 ARTERIAL 34 mmHg (35-45); PO2 ARTERIAL 171 mmHg (70-100)
[2019-12-21] MEDS ORDERED: Lidocaine 1% with EPINEPHrine 1:100,000 20 ML MDV INJECT ONE (15:14)
[2019-12-21] MEDS ORDERED: Non-Formulary Medication 1 Each (Zolpidem 10 MG) PO PRN (16:40)
[2019-12-21] MEDS ORDERED: Albuterol/Ipratropium 3.0-0.5 MG/3 ML Neb Soln NEB PRN (16:48)
[2019-12-21] MEDS ORDERED: Ondansetron 4 MG Tab.DIS PO PRN (16:55)
[2019-12-21] MEDS ORDERED: Ibuprofen 400 MG Tab PO PRN (16:55)
[2019-12-21] MEDS ORDERED: Ondansetron 4 MG/2 ML SDV IVPUSH PRN (16:55)
--- NOTE | 2019-12-21 17:04 | PCM.HP ---
H&P History of Present Illness - General Date of Service: 12/21/19 Admit Problem/Dx: Admission Diagnosis/Problem Admission Diagnosis/Problem Anemia Source of Information: Patient - History of Present Illness Initial Comments - Free Text/Narative: History of COPD, chronic pain, anxiety. The patient presented after a fall. Apparently was laying on the sole fall and fell off of that. The height was not very much but there was a side table that she heat to the back of the head. Developed significant bleeding. Required stitches in the emergency room. Noted to have significant anemia. The patient reports lightheadedness when getting up. Oxygen saturations were low in the emergency room. Generalized Pain Score (Numeric/FACES): 5 - Related Data Allergies/Adverse Reactions: Allergies Allergy/AdvReac Type Severity Reaction Status Date / Time aspirin Allergy Hives Verified 12/21/19 13:31 azithromycin [From Zithromax] Allergy UNKNOWN Verified 12/21/19 13:31 Penicillins Allergy Hives Verified 12/21/19 13:31 Home Medications: Home Meds Acetaminophen [Acetaminophen 8 Hour] 650 mg PO BID 07/01/18 [History] Cyanocobalamin (Vitamin B-12) [Cyanocobalamin Injection] 1,000 mcg IM ASDIRECTED 07/01/18 [History] DULoxetine HCl [Cymbalta] 60 mg PO BID 07/01/18 [History] Fluticasone/Salmeterol [Advair 250-50] 1 puff INH BID 07/01/18 [History] Zolpidem [Ambien] 10 mg PO BEDTIME 07/01/18 [History] buPROPion HCL [Wellbutrin Xl] 150 mg PO DAILY 07/01/18 [History] clonazePAM [Clonazepam] 1 mg PO BID 07/01/18 [History] Cholecalciferol (Vitamin D3) [Vitamin D3] 3,000 unit PO DAILY 08/25/18 [History] Potassium Chloride [Klor-Con 10] 10 meq PO DAILY 08/25/18 [History] Ubidecarenone [Coq-10] 100 mg PO DAILY 08/25/18 [History] Albuterol [Ventolin HFA] 2 puff INH Q6H PRN #1 08/29/18 [Rx] Budesonide/Formoterol [Symbicort 160-4.5 MCG] 1 puff INH BID #1 inhaler 08/29/18 [Rx] Furosemide [Lasix] 20 mg PO DAILY #30 tablet 08/29/18 [Rx] Levofloxacin 750 mg PO DAILY #5 tablet 08/29/18 [Rx] Sodium Chloride 1 gm PO BID #60 tablet 08/29/18 [Rx] predniSONE 10 mg PO WITHBREAKFAST #10 tablet 08/29/18 [Rx] hydrOXYzine HCL [Atarax] 25 mg PO TID PRN 12/21/19 [History] Past Medical History HEENT History: Reports: Impaired Vision Cardiovascular History: Reports: Heart Failure Respiratory History: Reports: Asthma, COPD, Pneumonia, Recurrent Gastrointestinal History: Reports: None Genitourinary History: Reports: None 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 Musculoskeletal History: Reports: Fibromyalgia Neurological History: Reports: None Psychiatric History: Reports: Depression Endocrine/Metabolic History: Reports: None Hematologic History: Reports: B12 Deficiency Immunologic History: Reports: None Oncologic (Cancer) History: Reports: None - Infectious Disease History Infectious Disease History: Reports: Shingles - Past Surgical History Female Surgical History: Reports: Tubal Ligation Social & Family History - Family History Family Medical History: Noncontributory Respiratory: Reports: TB Oncologic: Reports: Lung - Tobacco Use Smoking Status *Q: Current Every Day Smoker Years of Tobacco use: 40 Packs/Tins Daily: 0.5 - Caffeine Use Caffeine Use: Reports: None - Recreational Drug Use Recreational Drug Use: No - Living Situation & Occupation Living situation: Reports: , with Family Occupation: Retired H&P Review of Systems - Review of Systems: Review Of Systems: See Below General: Denies: Fever, Chills Pulmonary: Reports: Cough (Occasional). Denies: Shortness of Breath, Wheezing Cardiovascular: Reports: Edema, Lightheadedness. Denies: Chest Pain, Palpitations Gastrointestinal: Denies: Abdominal Pain Genitourinary: Denies: Hematuria Musculoskeletal: Reports: Neck Pain, Back Pain Psychiatric: Reports: Depression. Denies: Confusion Hematologic/Lymphatic: Reports: Anemia Exam - Exam Exam: See Below - Vital Signs Vital Signs: Last Vital Signs Temp 96.3 F L 12/21/19 16:30 Pulse 100 12/21/19 16:30 Resp 18 12/21/19 16:30 BP 116/62 12/21/19 16:30 Pulse Ox 88 L 12/21/19 16:30 Weight: 145 lb 12.8 oz - Exam General: Alert, Oriented HEENT: Other (Sutured laceration) Lungs: Normal Respiratory Effort, Decreased Breath Sounds. No: Wheezing Cardiovascular: Regular Rate, Regular Rhythm GI/Abdominal Exam: Normal Bowel Sounds, Soft, Non-Tender Extremities: Pedal Edema (1+ bilateral) Neuro Extensive - Mental Status: Alert, Oriented x3, Normal Mood/Affect - Patient Data Lab Results Last 24 hrs: Laboratory Results - last 24 hr 12/21/19 12/21/19 12/21/19 Range/Units 13:27 13:27 13:27 WBC 5.4 (5.0-10.0) 10^3/uL RBC 2.39 L (4.2-5.4) 10^6/uL Hgb 7.4 L D (12.0-16.0) g/dL Hct 22.4 L (37.0-47.0) % MCV 93.7 (80-100) fL MCH 31.0 (27.0-34.0) pg MCHC 33.0 (33.0-35.0) g/dL Plt Count 352 (150-450) 10^3/uL Neut % (Auto) 68.2 (42.2-75.2) % Lymph % (Auto) 19.0 L (20.5-50.1) % Dawes % (Auto) 11.5 H (2-8) % Eos % (Auto) 1.1 (1.0-3.0) % Baso % (Auto) 0.2 (0.0-1.0) % PT 9.6 (9.0-12.0) SEC INR 1.0 (0.9-1.2) APTT 39.8 H (22.0-34.0) SEC ABG pH (7.35-7.45) ABG pCO2 (35-45) mmHg ABG pO2 (70-100) mmHg ABG HCO3 (22-26) mmol/L ABG O2 Saturation (95-100) % ABG Base Excess ((-2)-(+3)) mmol/L Arian Test O2 Delivery Device Sodium 130 L (136-145) mmol/L Potassium 3.5 (3.5-5.1) mmol/L Chloride 97 L (98-107) mmol/L Carbon Dioxide 27 (21-32) mmol/L Anion Gap 9.5 (7-13) mEq/L BUN 12 (7-18) mg/dL Creatinine 0.98 (0.55-1.02) mg/dL Est Cr Clr Drug Dosing 43.49 mL/min Estimated GFR (MDRD) 55 BUN/Creatinine Ratio 12.2 (No establ ref range) Glucose 134 H (74-99) mg/dL Calcium 7.8 L (8.5-10.1) mg/dL Total Bilirubin 0.2 (0.2-1.0) mg/dL AST 15 (15-37) U/L ALT 15 (14-59) U/L Alkaline Phosphatase 55 (46-116) U/L B-Natriuretic Peptide 36 (0-100) pg/ml Total Protein 5.7 L (6.4-8.2) g/dL Albumin 2.5 L (3.4-5.0) g/dL Globulin 3.2 Albumin/Globulin Ratio 0.78 Urine Color (YELLOW) Urine Appearance (CLEAR) Urine pH (5.0-9.0) Ur Specific Peel (1.005-1.030) Urine Protein (NEGATIVE) Urine Glucose (UA) (NEGATIVE) Urine Ketones (NEGATIVE) Urine Occult Blood (NEGATIVE) Urine Nitrite (NEGATIVE) Urine Bilirubin (NEGATIVE) Urine Urobilinogen (0.2-1.0) mg/dL Ur Leukocyte Esterase (NEGATIVE) Urine Opiates Screen (NEGATIVE) Ur Oxycodone Screen (NEGATIVE) Urine Methadone Screen (NEGATIVE) Ur Barbiturates Screen (NEGATIVE) U Tricyclic Antidepress (NEGATIVE) Ur Phencyclidine Scrn (NEGATIVE) Ur Amphetamine Screen (NEGATIVE) U Methamphetamines Scrn (NEGATIVE) Urine MDMA Screen (NEGATIVE) U Benzodiazepines Scrn (NEGATIVE) Urine Cocaine Screen (NEGATIVE) U Marijuana (THC) Screen (NEGATIVE) Ethyl Alcohol < 3 (0) mg/dL Blood Type Gel Antibody Screen Crossmatch 12/21/19 12/21/19 12/21/19 Range/Units 13:27 14:13 14:47 WBC (5.0-10.0) 10^3/uL RBC (4.2-5.4) 10^6/uL Hgb (12.0-16.0) g/dL Hct (37.0-47.0) % MCV (80-100) fL MCH (27.0-34.0) pg MCHC (33.0-35.0) g/dL Plt Count (150-450) 10^3/uL Neut % (Auto) (42.2-75.2) % Lymph % (Auto) (20.5-50.1) % Dawes % (Auto) (2-8) % Eos % (Auto) (1.0-3.0) % Baso % (Auto) (0.0-1.0) % PT (9.0-12.0) SEC INR (0.9-1.2) APTT (22.0-34.0) SEC ABG pH 7.40 (7.35-7.45) ABG pCO2 34 L (35-45) mmHg ABG pO2 171 H (70-100) mmHg ABG HCO3 20.7 L (22-26) mmol/L ABG O2 Saturation 101 H (95-100) % ABG Base Excess -3 L ((-2)-(+3)) mmol/L Arian Test Performed O2 Delivery Device Non rebr mask Sodium (136-145) mmol/L Potassium (3.5-5.1) mmol/L Chloride (98-107) mmol/L Carbon Dioxide (21-32) mmol/L Anion Gap (7-13) mEq/L BUN (7-18) mg/dL Creatinine (0.55-1.02) mg/dL Est Cr Clr Drug Dosing mL/min Estimated GFR (MDRD) BUN/Creatinine Ratio (No establ ref range) Glucose (74-99) mg/dL Calcium (8.5-10.1) mg/dL Total Bilirubin (0.2-1.0) mg/dL AST (15-37) U/L ALT (14-59) U/L Alkaline Phosphatase (46-116) U/L B-Natriuretic Peptide (0-100) pg/ml Total Protein (6.4-8.2) g/dL Albumin (3.4-5.0) g/dL Globulin Albumin/Globulin Ratio Urine Color Yellow (YELLOW) Urine Appearance Clear (CLEAR) Urine pH 6.0 (5.0-9.0) Ur Specific Peel 1.015 (1.005-1.030) Urine Protein Negative (NEGATIVE) Urine Glucose (UA) Negative (NEGATIVE) Urine Ketones Negative (NEGATIVE) Urine Occult Blood Negative (NEGATIVE) Urine Nitrite Negative (NEGATIVE) Urine Bilirubin Negative (NEGATIVE) Urine Urobilinogen 0.2 (0.2-1.0) mg/dL Ur Leukocyte Esterase Negative (NEGATIVE) Urine Opiates Screen (NEGATIVE) Ur Oxycodone Screen (NEGATIVE) Urine Methadone Screen (NEGATIVE) Ur Barbiturates Screen (NEGATIVE) U Tricyclic Antidepress (NEGATIVE) Ur Phencyclidine Scrn (NEGATIVE) Ur Amphetamine Screen (NEGATIVE) U Methamphetamines Scrn (NEGATIVE) Urine MDMA Screen (NEGATIVE) U Benzodiazepines Scrn (NEGATIVE) Urine Cocaine Screen (NEGATIVE) U Marijuana (THC) Screen (NEGATIVE) Ethyl Alcohol (0) mg/dL Blood Type A POSITIVE Gel Antibody Screen Negative Crossmatch See Detail 12/21/19 Range/Units 14:47 WBC (5.0-10.0) 10^3/uL RBC (4.2-5.4) 10^6/uL Hgb (12.0-16.0) g/dL Hct (37.0-47.0) % MCV (80-100) fL MCH (27.0-34.0) pg MCHC (33.0-35.0) g/dL Plt Count (150-450) 10^3/uL Neut % (Auto) (42.2-75.2) % Lymph % (Auto) (20.5-50.1) % Dawes % (Auto) (2-8) % Eos % (Auto) (1.0-3.0) % Baso % (Auto) (0.0-1.0) % PT (9.0-12.0) SEC INR (0.9-1.2) APTT (22.0-34.0) SEC ABG pH (7.35-7.45) ABG pCO2 (35-45) mmHg ABG pO2 (70-100) mmHg ABG HCO3 (22-26) mmol/L ABG O2 Saturation (95-100) % ABG Base Excess ((-2)-(+3)) mmol/L Arian Test O2 Delivery Device Sodium (136-145) mmol/L Potassium (3.5-5.1) mmol/L Chloride (98-107) mmol/L Carbon Dioxide (21-32) mmol/L Anion Gap (7-13) mEq/L BUN (7-18) mg/dL Creatinine (0.55-1.02) mg/dL Est Cr Clr Drug Dosing mL/min Estimated GFR (MDRD) BUN/Creatinine Ratio (No establ ref range) Glucose (74-99) mg/dL Calcium (8.5-10.1) mg/dL Total Bilirubin (0.2-1.0) mg/dL AST (15-37) U/L ALT (14-59) U/L Alkaline Phosphatase (46-116) U/L B-Natriuretic Peptide (0-100) pg/ml Total Protein (6.4-8.2) g/dL Albumin (3.4-5.0) g/dL Globulin Albumin/Globulin Ratio Urine Color (YELLOW) Urine Appearance (CLEAR) Urine pH (5.0-9.0) Ur Specific Peel (1.005-1.030) Urine Protein (NEGATIVE) Urine Glucose (UA) (NEGATIVE) Urine Ketones (NEGATIVE) Urine Occult Blood (NEGATIVE) Urine Nitrite (NEGATIVE) Urine Bilirubin (NEGATIVE) Urine Urobilinogen (0.2-1.0) mg/dL Ur Leukocyte Esterase (NEGATIVE) Urine Opiates Screen Negative (NEGATIVE) Ur Oxycodone Screen Negative (NEGATIVE) Urine Methadone Screen Negative (NEGATIVE) Ur Barbiturates Screen Negative (NEGATIVE) U Tricyclic Antidepress Negative (NEGATIVE) Ur Phencyclidine Scrn Negative (NEGATIVE) Ur Amphetamine Screen Negative (NEGATIVE) U Methamphetamines Scrn Negative (NEGATIVE) Urine MDMA Screen Negative (NEGATIVE) U Benzodiazepines Scrn Negative (NEGATIVE) Urine Cocaine Screen Negative (NEGATIVE) U Marijuana (THC) Screen Negative (NEGATIVE) Ethyl Alcohol (0) mg/dL Blood Type Gel Antibody Screen Crossmatch Result Diagrams: 12/21/19 13:27 12/21/19 13:27 Brannon Results Last 24 hrs: Microbiology 12/21/19 15:00 Stool Occult Blood (BRANNON) - Final Stool / Feces NEGATIVE OCCULT BLOOD REFERENCE RANGE: NEGATIVE - Problem List (1) COPD (chronic obstructive pulmonary disease) SNOMED Code(s): 07662732 ICD Code: J44.9 - CHRONIC OBSTRUCTIVE PULMONARY DISEASE, UNSPECIFIED Status: Resolved Current Visit: Yes (2) Hyponatremia SNOMED Code(s): 94505899 ICD Code: E87.1 - HYPO-OSMOLALITY AND HYPONATREMIA Status: Acute Current Visit: Yes (3) Anemia due to acute blood loss SNOMED Code(s): 911121883 ICD Code: D62 - ACUTE POSTHEMORRHAGIC ANEMIA Status: Acute Current Visit: Yes (4) Fall as cause of accidental injury at home as place of occurrence SNOMED Code(s): 27392268 ICD Code: W19.XXXA - UNSPECIFIED FALL, INITIAL ENCOUNTER; Y92.009 - UNSP P LACE IN UNSP NON-INSTITUT (PRIVATE) RESIDENCE PLACE Status: Acute Current Visit: Yes Qualifiers: Encounter type: initial encounter Qualified Code(s): W19.XXXA - Unspecified fall, initial encounter; Y92.009 - Unspecified place in unspecified non- institutional (private) residence as the place of occurrence of the external cause (5) Scalp laceration SNOMED Code(s): 372886763 ICD Code: S01.01XA - LACERATION WITHOUT FOREIGN BODY OF SCALP, INITIAL ENCOUNTER Status: Acute Current Visit: Yes Qualifiers: Encounter type: initial encounter Qualified Code(s): S01.01XA - Laceration without foreign body of scalp, initial encounter (6) Anxiety SNOMED Code(s): 86102183 ICD Code: F41.9 - ANXIETY DISORDER, UNSPECIFIED Status: Acute Current Visit: No Problem List Initiated/Reviewed/Updated: Yes Orders Last 24hrs: Active Orders 24 hr Category Date Time Status Patient Status [ADT] Routine ADT 12/21/19 16:55 Active Antiembolic Devices [RC] PER UNIT ROUTINE Care 12/21/19 16:57 Active Oxygen Therapy [RC] PRN Care 12/21/19 16:55 Active RT Aerosol Therapy [RC] ASDIRECTED Care 12/21/19 14:16 Active RT Aerosol Therapy [RC] ASDIRECTED Care 12/21/19 16:48 Active RT Aerosol Therapy [RC] ASDIRECTED Care 12/21/19 16:53 Active Up With Assistance [RC] ASDIRECTED Care 12/21/19 16:55 Active VTE/DVT Education [RC] PER UNIT ROUTINE Care 12/21/19 16:55 Active Vital Signs [RC] Q4H Care 12/21/19 16:55 Active Regular Diet [DIET] Diet 12/21/19 Dinner Active BASIC METABOLIC PANEL,BMP [CHEM] AM Lab 12/22/19 05:11 Ordered CBC WITH AUTO DIFF [HEME] AM Lab 12/22/19 05:11 Ordered RED BLOOD CELLS LP [BBK] Stat Lab 12/21/19 13:27 Results TYPE AND SCREEN [BBK] Stat Lab 12/21/19 13:27 Results Acetaminophen [TylenoL] Med 12/21/19 16:55 Ordered 650 mg PO Q4H PRN Albuterol/Ipratropium [DuoNeb 3.0-0.5 MG/3 ML] Med 12/21/19 16:48 Ordered 3 ml NEB Q4HRRT PRN Albuterol/Ipratropium [DuoNeb 3.0-0.5 MG/3 ML] Med 12/21/19 21:00 Ordered 3 ml NEB TID Budesonide [Pulmicort] Med 12/21/19 18:00 Ordered 0.5 mg NEB BIDRT DULoxetine HCl [Cymbalta] Med 12/21/19 21:00 Ordered 60 mg PO BID Furosemide [Lasix] Med 12/22/19 09:00 Ordered 20 mg PO DAILY Heparin Sodium Med 12/21/19 22:00 Ordered 5,000 units SUBCUT Q8HR Ibuprofen [Motrin] Med 12/21/19 16:55 Ordered 400 mg PO Q6H PRN Ondansetron [Zofran ODT] Med 12/21/19 16:55 Ordered 4 mg PO Q6H PRN Ondansetron [Zofran] Med 12/21/19 16:55 Ordered 4 mg IVPUSH Q6H PRN Sodium Chloride Med 12/21/19 21:00 Ordered 1 gm PO BID Sodium Chloride 0.9% [Saline Flush] Med 12/21/19 13:30 Active 10 ml FLUSH ASDIRECTED PRN Zolpidem Med 12/21/19 16:40 Ordered 10 mg PO BEDTIME PRN buPROPion [Wellbutrin XL] Med 12/22/19 09:00 Ordered 150 mg PO DAILY clonazePAM [Clonazepam] Med 12/21/19 21:00 Ordered 1 mg PO BID Blood Transfusion Reflex Orders [OM.PC] Routine Oth 12/21/19 13:28 Ordered Blood Transfusion Reflex Orders [OM.PC] Routine Oth 12/21/19 13:45 Ordered Peripheral IV Insertion Adult [OM.PC] Stat Oth 12/21/19 13:30 Ordered Sequential Compression Device [OM.PC] Per Unit Routine Oth 12/21/19 16:57 Ordered Transfuse Red Blood Cells [COMM] Stat Oth 12/21/19 13:45 Ordered Resuscitation Status Routine Resus Stat 12/21/19 16:55 Ordered Medication Orders Acetaminophen (Tylenol) 650 mg PO Q4H PRN PRN Reason: Pain (Mild 1-3)/fever Albuterol/Ipratropium (Duoneb 3.0-0.5 Mg/3 Ml) 3 ml NEB Q4HRRT PRN PRN Reason: sob Albuterol/Ipratropium (Duoneb 3.0-0.5 Mg/3 Ml) 3 ml NEB TID BLAZE Budesonide (Pulmicort) 0.5 mg NEB BIDRT BLAZE Bupropion HCl (Wellbutrin Xl) 150 mg PO DAILY BLAZE Furosemide (Lasix) 20 mg PO DAILY BLAZE Heparin Sodium (Porcine) (Heparin Sodium) 5,000 units SUBCUT Q8HR BLAZE Ibuprofen (Motrin) 400 mg PO Q6H PRN PRN Reason: Pain (moderate 4-6) Non-Formulary Medication (Zolpidem) 10 mg PO BEDTIME PRN PRN Reason: Sleep Non-Formulary Medication (Duloxetine Hcl [Cymbalta]) 60 mg PO BID BLAZE Non-Formulary Medication (Clonazepam [Clonazepam]) 1 mg PO BID BLAZE Ondansetron HCl (Zofran Odt) 4 mg PO Q6H PRN PRN Reason: nausea, able to take PO Ondansetron HCl (Zofran) 4 mg IVPUSH Q6H PRN PRN Reason: Nausea/Vomiting Sodium Chloride (Saline Flush) 10 ml FLUSH ASDIRECTED PRN PRN Reason: Keep Vein Open Last Admin: 12/21/19 14:14 Dose: 10 ml Documented by: SJ Sodium Chloride (Sodium Chloride) 1 gm PO BID [facility] Assessment/Plan Comment:: Presented after a fall The patient reported lightheadedness [facility]ell [facility], hit head on the side table Required lacerations in the emergency room No apparent intracranial injury Will need suture removal in 2 weeks Severe symptomatic anemia with lightheadedness Acute blood loss component with scallop bleeding 2 units of PRBC will be transfused Consent obtained in the emergency room Fall No apparent head and neck injury other than laceration Laceration was repaired in the emergency room Hyponatremia with associated lower extremity edema With history of chronic hyponatremia Continue sodium supplement Continue Lasix The patient received IV fluids Well be receiving blood Well recheck electrolytes and sodium in the morning Hypoxemia Suspect chronic hypoxemic respiratory failure due to COPD Well supplement oxygen as needed We will evaluate for possible home oxygen need COPD Use Pulmicort, DuoNeb nebulizers Depression, anxiety, chronic pain Continue clonazepam, Cymbalta Will have physical and occupational therapy see the patient to ensure safe discharge
[2019-12-21] MEDS: Budesonide 0.5 MG/2 ML Neb Susp NEB SCH (19:28)
[2019-12-21] MEDS ORDERED: Albuterol/Ipratropium 3.0-0.5 MG/3 ML Neb Soln NEB SCH (21:00)
[2019-12-21] MEDS ORDERED: CLONAZEPAM 1 MG PO SCH (21:00)
[2019-12-21] MEDS: DULoxetine 30 MG Cap PO SCH (22:07)
[2019-12-21] MEDS: Heparin Sodium 5,000 Units/ML Vial SUBCUT SCH (22:08)
[2019-12-21] MEDS: Albuterol/Ipratropium 3.0-0.5 MG/3 ML Neb Soln NEB SCH (22:08)
[2019-12-21] MEDS: Sodium Chloride 1 GM Tab PO SCH (22:08)
[2019-12-22] MEDS: Acetaminophen 325 MG Tab PO PRN ×2 (02:44→11:24)
[2019-12-22] MEDS: Heparin Sodium 5,000 Units/ML Vial SUBCUT SCH (06:19)
[2019-12-22 07:06] LABS: ANION GAP 11.1 mEq/L (7-13); CHLORIDE,CL 100 mmol/L (98-107); SODIUM,NA 133 mmol/L (136-145)
[2019-12-22] MEDS: Budesonide 0.5 MG/2 ML Neb Susp NEB SCH (07:15)
[2019-12-22] MEDS: Albuterol/Ipratropium 3.0-0.5 MG/3 ML Neb Soln NEB SCH (07:15)
[2019-12-22] MEDS: ClonazePAM 0.5 MG Tab PO SCH ×2 (07:57→07:59)
[2019-12-22] MEDS ORDERED: Sodium Chloride 0.9% 10 ML Syringe FLUSH PRN (08:59)
[2019-12-22] MEDS ORDERED: Nicotine 14 MG/24 Hr Patch TRDERM SCH (09:00)
[2019-12-22] MEDS ORDERED: buPROPion 150 MG Tab.ER PO SCH (09:00)
[2019-12-22] MEDS ORDERED: Potassium Chloride 10 MEQ Tab.ER PO SCH (09:00)
[2019-12-22] MEDS ORDERED: Furosemide 20 MG Tab PO SCH (09:00)
[2019-12-22] MEDS: DULoxetine 30 MG Cap PO SCH (09:59)
[2019-12-22] MEDS: Sodium Chloride 1 GM Tab PO SCH (10:00)
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
== END 2019-12-22 13:30 | disposition home or self-care (01) ==
LOC: DL.ED 13:17 → DL.MS 15:59 → UNDOADMOB 15:59 → DL.MS 16:55
PROVIDERS: ADMIT Internal Medicine; ATTEND Internal Medicine
DX: R42 Dizziness and giddiness (principal); S01.01XA Laceration without foreign body of scalp, initial encounter; I50.9 Heart failure, unspecified; J44.9 Chronic obstructive pulmonary disease, unspecified; M79.7 Fibromyalgia; R60.0 Localized edema; R09.02 Hypoxemia; F17.210 Nicotine dependence, cigarettes, uncomplicated; G89.29 Other chronic pain; F41.9 Anxiety disorder, unspecified; F32.9 Major depressive disorder, single episode, unspecified; E87.1 Hypo-osmolality and hyponatremia; D62 Acute posthemorrhagic anemia; Z88.6 Allergy status to analgesic agent; Z88.1 Allergy status to other antibiotic agents; Z88.0 Allergy status to penicillin; Z79.899 Other long term (current) drug therapy; Z23 Encounter for immunization; W17.89XA Other fall from one level to another, initial encounter; Y92.009 Unspecified place in unspecified non-institutional (private) residence as the place of occurrence of the external cause
CPT/HCPCS: 12001; 36415; 36430; 36600; 70450; 71045; 72125; 80048; 80053; 80305; 80307; 81003; 82272; 82803; 82962; 83880; 85025; 85610; 85730; 86850; 86900; 86901; 86920; 86922; 90471; 90715; 93005; 94640; 96361; 96372; 96374; 97162; 97165; 99285; A9270; G0378; J1644; J2930; J7030; P9016; J7620-GY

== ENCOUNTER 2019-12-28 15:35 | Observation (INO) | payer MEDICARE, OTHER ==
--- NOTE | 2019-12-28 15:28 | EDM.PDOC ---
ED HPI GENERAL MEDICAL PROBLEM - General Chief Complaint: Neuro Symptoms/Deficits Stated Complaint: STROKE - AMBULANCE Time Seen by Provider: 12/28/19 15:28 Source of Information: Reports: Patient, EMS, Old Records, RN, RN Notes Reviewed History Limitations: Reports: Altered Mental Status - History of Present Illness INITIAL COMMENTS - FREE TEXT/NARRATIVE: Pt arrives to ER from home by ambulance with c/o "possible stroke". Family reported calling 911 due to right sided facial droop. Pt states she fell early this morning and family helped her back into bed. She states her right elbow hurts to move since falling this morning. Family states she also falls frequent, and has fallen at least four times since being d/c'd home on 12/22/19. EMS stated pt told them she took "some Benadryl" about one hour ago and now is feeling very drowsy. Denies drugs, alcohol, or narcotic pain medication use. Denies lateralizing motor weakness or numbness, headache, acute visual changes, diffi culty with speech or swallowing, slurred speech, chest pain, or palpitations. Onset: Unknown/Unsure Duration: Constant Location: Reports: Face, Generalized Improves with: Reports: None Worsens with: Reports: None Associated Symptoms: Reports: No Other Symptoms Right Elbow Pain Score (Numeric/FACES): 0 - Related Data Allergies Allergy/AdvReac Type Severity Reaction Status Date / Time aspirin Allergy Hives Verified 12/21/19 17:02 azithromycin [From Zithromax] Allergy UNKNOWN Verified 12/21/19 17:02 Penicillins Allergy Hives Verified 12/21/19 17:02 Home Meds: Home Meds Acetaminophen [Acetaminophen 8 Hour] 650 mg PO BID 07/01/18 [History] Cyanocobalamin (Vitamin B-12) [Cyanocobalamin Injection] 1,000 mcg IM Q30D 07/01/18 [History] DULoxetine HCl [Cymbalta] 60 mg PO BID 07/01/18 [History] buPROPion HCL [Wellbutrin Xl] 150 mg PO DAILY 07/01/18 [History] clonazePAM [Clonazepam] 1 mg PO BID 07/01/18 [History] Cholecalciferol (Vitamin D3) [Vitamin D3] 3,000 unit PO DAILY 08/25/18 [History] Potassium Chloride [Klor-Con 10] 10 meq PO DAILY 08/25/18 [History] Ubidecarenone [Coq-10] 100 mg PO DAILY 08/25/18 [History] Albuterol [Ventolin HFA] 2 puff INH Q6H PRN #1 08/29/18 [Rx] Budesonide/Formoterol [Symbicort 160-4.5 MCG] 1 puff INH BID #1 inhaler 08/29/18 [Rx] Furosemide [Lasix] 20 mg PO DAILY #30 tablet 08/29/18 [Rx] Levofloxacin 750 mg PO DAILY #5 tablet 08/29/18 [Rx] Sodium Chloride 1 gm PO BID #60 tablet 08/29/18 [Rx] predniSONE 10 mg PO WITHBREAKFAST #10 tablet 08/29/18 [Rx] hydrOXYzine HCL [hydrOXYzine] 25 mg PO TID PRN 12/21/19 [History] Past Medical History HEENT History: Reports: Impaired Vision Cardiovascular History: Reports: Heart Failure Respiratory History: Reports: Asthma, COPD, Pneumonia, Recurrent Gastrointestinal History: Reports: None Genitourinary History: Reports: None FREIGHT REPRESENTATIVE History: Reports: None Musculoskeletal History: Reports: Fibromyalgia Neurological History: Reports: None Psychiatric History: Reports: Depression Endocrine/Metabolic History: Reports: None Hematologic History: Reports: B12 Deficiency Immunologic History: Reports: None Oncologic (Cancer) History: Reports: None - Infectious Disease History Infectious Disease History: Reports: Shingles - Past Surgical History Female Surgical History: Reports: Tubal Ligation Social & Family History - Family History Family Medical History: Noncontributory Respiratory: Reports: TB Oncologic: Reports: Lung - Caffeine Use Caffeine Use: Reports: None - Living Situation & Occupation Living situation: Reports: , with Family Occupation: Retired ED ROS GENERAL - Review of Systems Review Of Systems: Comprehensive ROS is negative, except as noted in HPI. ED EXAM, NEURO - Physical Exam Exam: See Below Exam Limited By: Other (Drowsiness) General Appearance: No Apparent Distress, Lethargic Eye Exam: Bilateral Eye: Abnormal Pupil (Right pupil 2mm, Left pupil 3+mm, both reactive to light), Vision Changes (subjective blurred vision, not acute per pt.) Ears: Normal External Exam, Hearing Grossly Normal Nose: Normal Inspection, Normal Mucosa, No Blood Throat/Mouth: Normal Lips, Normal Voice, No Airway Compromise Head Exam: Atraumatic, Normocephalic Neck: Normal Inspection, Supple, Non-Tender, Full Range of Motion Respiratory/Chest: No Respiratory Distress, Lungs Clear, No Accessory Muscle Use, Chest Non-Tender, Decreased Breath Sounds Cardiovascular: Normal Peripheral Pulses, Regular Rate, Rhythm GI/Abdominal: Normal Bowel Sounds, Soft, Non-Tender Neurological: Normal Dorsiflexion, CN II-XII Intact, No Motor/Sensory Deficits, Oriented x 3, Other (Generalized weakness. Sedate, but answers questions appropriately.) Extremities: Normal Range of Motion, No Pedal Edema, Normal Capillary Refill, Arm Pain (Mildly tender at right elbow with full ROM, no visible swelling or bruising.). No: Joint Swelling Psychiatric: Depressed Mood, Flat Affect Skin Exam: Warm, Dry, Intact, No Rash, Pallor. No: Ecchymosis, Jaundice, Petechiae, Rash EKG INTERPRETATION EKG Date: 12/28/19 Time: 15:39 Rhythm: Other (sinus rhythm) Rate (Beats/Min): 80 [place]: Normal P-Wave: Present QRS: Other (left anterior fascicular block.) ST-T: Other (nonspecific T abnormalities, lateral leads.) QT: Normal Comparison: No Change Course - Vital Signs Last Recorded V/S: Last Vital Signs Temp 96.8 F L 12/28/19 15:28 Pulse 82 12/28/19 15:28 Resp 15 12/28/19 15:28 BP 103/55 L 12/28/19 15:28 Pulse Ox 100 12/28/19 15:28 - Orders/Labs/Meds Orders: Active Orders 24 hr Category Date Time Status Blood Glucose Check, Bedside [RC] ONETIME Care 12/28/19 15:28 Active EKG 12 Lead [EKG Documentation Completion] [RC] STAT Care 12/28/19 15:32 Active NIH Stroke Scale [RC] ASDIRECTED Care 12/28/19 15:34 Active Peripheral IV Care [RC] . DIRECTED Care 12/28/19 15:33 Active Sodium Chloride 0.9% [Normal Saline] 1,000 ml Med 12/28/19 16:45 Active IV ASDIRECTED Sodium Chloride 0.9% [Saline Flush] Med 12/28/19 15:32 Active 10 ml FLUSH ASDIRECTED PRN Peripheral IV Insertion Adult [OM.PC] Stat Oth 12/28/19 15:32 Ordered Medication Orders Sodium Chloride (Normal Saline) 1,000 mls @ 150 mls/hr IV ASDIRECTED BLAZE Last Admin: 12/28/19 17:21 Dose: 150 mls/hr Documented by: MENDOZA Sodium Chloride (Saline Flush) 10 ml FLUSH ASDIRECTED PRN PRN Reason: Keep Vein Open Labs: Laboratory Tests 12/28/19 12/28/19 12/28/19 Range/Units 15:31 15:46 15:46 WBC 5.6 (5.0-10.0) 10^3/uL RBC 2.82 L (4.2-5.4) 10^6/uL Hgb 8.4 L (12.0-16.0) g/dL Hct 25.8 L (37.0-47.0) % MCV 91.5 D (80-100) fL MCH 29.8 (27.0-34.0) pg MCHC 32.6 L (33.0-35.0) g/dL Plt Count 314 D (150-450) 10^3/uL Neut % (Auto) 75.2 (42.2-75.2) % Lymph % (Auto) 14.8 L (20.5-50.1) % [place] % (Auto) 7.1 (2-8) % Eos % (Auto) 2.7 (1.0-3.0) % Baso % (Auto) 0.2 (0.0-1.0) % PT 9.8 (9.0-12.0) SEC INR 1.0 (0.9-1.2) APTT 41.2 H (22.0-34.0) SEC Sodium (136-145) mmol/L Potassium (3.5-5.1) mmol/L Chloride (98-107) mmol/L Carbon Dioxide (21-32) mmol/L Anion Gap (7-13) mEq/L BUN (7-18) mg/dL Creatinine (0.55-1.02) mg/dL Est Cr Clr Drug Dosing mL/min Estimated GFR (MDRD) BUN/Creatinine Ratio (No establ ref range) Glucose (74-99) mg/dL POC Glucose 62 L (83-110) mg/dl Calcium (8.5-10.1) mg/dL Total Bilirubin (0.2-1.0) mg/dL AST (15-37) U/L ALT (14-59) U/L Alkaline Phosphatase (46-116) U/L Troponin I (0.000-0.056) ng/mL Total Protein (6.4-8.2) g/dL Albumin (3.4-5.0) g/dL Globulin Albumin/Globulin Ratio Urine Color (YELLOW) Urine Appearance (CLEAR) Urine pH (5.0-9.0) Ur Specific [place] (1.005-1.030) Urine Protein (NEGATIVE) Urine Glucose (UA) (NEGATIVE) Urine Ketones (NEGATIVE) Urine Occult Blood (NEGATIVE) Urine Nitrite (NEGATIVE) Urine Bilirubin (NEGATIVE) Urine Urobilinogen (0.2-1.0) mg/dL Ur Leukocyte Esterase (NEGATIVE) Urine Opiates Screen (NEGATIVE) Ur Oxycodone Screen (NEGATIVE) Urine Methadone Screen (NEGATIVE) Ur Barbiturates Screen (NEGATIVE) U Tricyclic Antidepress (NEGATIVE) Ur Phencyclidine Scrn (NEGATIVE) Ur Amphetamine Screen (NEGATIVE) U Methamphetamines Scrn (NEGATIVE) Urine MDMA Screen (NEGATIVE) U Benzodiazepines Scrn (NEGATIVE) Urine Cocaine Screen (NEGATIVE) U Marijuana (THC) Screen (NEGATIVE) Ethyl Alcohol (0) mg/dL 12/28/19 12/28/19 12/28/19 Range/Units 15:46 16:03 17:08 WBC (5.0-10.0) 10^3/uL RBC (4.2-5.4) 10^6/uL Hgb (12.0-16.0) g/dL Hct (37.0-47.0) % MCV (80-100) fL MCH (27.0-34.0) pg MCHC (33.0-35.0) g/dL Plt Count (150-450) 10^3/uL Neut % (Auto) (42.2-75.2) % Lymph % (Auto) (20.5-50.1) % [place] % (Auto) (2-8) % Eos % (Auto) (1.0-3.0) % Baso % (Auto) (0.0-1.0) % PT (9.0-12.0) SEC INR (0.9-1.2) APTT (22.0-34.0) SEC Sodium 128 L (136-145) mmol/L Potassium 3.5 (3.5-5.1) mmol/L Chloride 94 L (98-107) mmol/L Carbon Dioxide 28 (21-32) mmol/L Anion Gap 9.5 (7-13) mEq/L BUN 8 (7-18) mg/dL Creatinine 0.91 (0.55-1.02) mg/dL Est Cr Clr Drug Dosing 54.71 mL/min Estimated GFR (MDRD) > 60 BUN/Creatinine Ratio 8.8 (No establ ref range) Glucose 242 H (74-99) mg/dL POC Glucose 149 H (83-110) mg/dl Calcium 7.9 L (8.5-10.1) mg/dL Total Bilirubin 0.2 (0.2-1.0) mg/dL AST 13 L (15-37) U/L ALT 14 (14-59) U/L Alkaline Phosphatase 64 (46-116) U/L Troponin I < 0.017 (0.000-0.056) ng/mL Total Protein 6.0 L (6.4-8.2) g/dL Albumin 2.6 L (3.4-5.0) g/dL Globulin 3.4 Albumin/Globulin Ratio 0.76 Urine Color Yellow (YELLOW) Urine Appearance Clear (CLEAR) Urine pH 6.5 (5.0-9.0) Ur Specific [place] 1.010 (1.005-1.030) Urine Protein Negative (NEGATIVE) Urine Glucose (UA) 100 H (NEGATIVE) Urine Ketones Negative (NEGATIVE) Urine Occult Blood Negative (NEGATIVE) Urine Nitrite Negative (NEGATIVE) Urine Bilirubin Negative (NEGATIVE) Urine Urobilinogen 0.2 (0.2-1.0) mg/dL Ur Leukocyte Esterase Negative (NEGATIVE) Urine Opiates Screen (NEGATIVE) Ur Oxycodone Screen (NEGATIVE) Urine Methadone Screen (NEGATIVE) Ur Barbiturates Screen (NEGATIVE) U Tricyclic Antidepress (NEGATIVE) Ur Phencyclidine Scrn (NEGATIVE) Ur Amphetamine Screen (NEGATIVE) U Methamphetamines Scrn (NEGATIVE) Urine MDMA Screen (NEGATIVE) U Benzodiazepines Scrn (NEGATIVE) Urine Cocaine Screen (NEGATIVE) U Marijuana (THC) Screen (NEGATIVE) Ethyl Alcohol < 3 (0) mg/dL 12/28/19 Range/Units 17:08 WBC (5.0-10.0) 10^3/uL RBC (4.2-5.4) 10^6/uL Hgb (12.0-16.0) g/dL Hct (37.0-47.0) % MCV (80-100) fL MCH (27.0-34.0) pg MCHC (33.0-35.0) g/dL Plt Count (150-450) 10^3/uL Neut % (Auto) (42.2-75.2) % Lymph % (Auto) (20.5-50.1) % [place] % (Auto) (2-8) % Eos % (Auto) (1.0-3.0) % Baso % (Auto) (0.0-1.0) % PT (9.0-12.0) SEC INR (0.9-1.2) APTT (22.0-34.0) SEC Sodium (136-145) mmol/L Potassium (3.5-5.1) mmol/L Chloride (98-107) mmol/L Carbon Dioxide (21-32) mmol/L Anion Gap (7-13) mEq/L BUN (7-18) mg/dL Creatinine (0.55-1.02) mg/dL Est Cr Clr Drug Dosing mL/min Estimated GFR (MDRD) BUN/Creatinine Ratio (No establ ref range) Glucose (74-99) mg/dL POC Glucose (83-110) mg/dl Calcium (8.5-10.1) mg/dL Total Bilirubin (0.2-1.0) mg/dL AST (15-37) U/L ALT (14-59) U/L Alkaline Phosphatase (46-116) U/L Troponin I (0.000-0.056) ng/mL Total Protein (6.4-8.2) g/dL Albumin (3.4-5.0) g/dL Globulin Albumin/Globulin Ratio Urine Color (YELLOW) Urine Appearance (CLEAR) Urine pH (5.0-9.0) Ur Specific [place] (1.005-1.030) Urine Protein (NEGATIVE) Urine Glucose (UA) (NEGATIVE) Urine Ketones (NEGATIVE) Urine Occult Blood (NEGATIVE) Urine Nitrite (NEGATIVE) Urine Bilirubin (NEGATIVE) Urine Urobilinogen (0.2-1.0) mg/dL Ur Leukocyte Esterase (NEGATIVE) Urine Opiates Screen Negative (NEGATIVE) Ur Oxycodone Screen Negative (NEGATIVE) Urine Methadone Screen Negative (NEGATIVE) Ur Barbiturates Screen Negative (NEGATIVE) U Tricyclic Antidepress Negative (NEGATIVE) Ur Phencyclidine Scrn Negative (NEGATIVE) Ur Amphetamine Screen Negative (NEGATIVE) U Methamphetamines Scrn Negative (NEGATIVE) Urine MDMA Screen Negative (NEGATIVE) U Benzodiazepines Scrn Negative (NEGATIVE) Urine Cocaine Screen Negative (NEGATIVE) U Marijuana (THC) Screen Negative (NEGATIVE) Ethyl Alcohol (0) mg/dL Meds: Medications Generic Name Dose Route Start Last Admin Trade Name Freq PRN Reason Stop Dose Admin Sodium Chloride 1,000 mls @ 150 mls/hr 12/28/19 16:45 12/28/19 17:21 Normal Saline IV 150 mls/hr ASDIRECTED BLAZE Administration Sodium Chloride 10 ml 12/28/19 15:32 Saline Flush FLUSH ASDIRECTED PRN Keep Vein Open Discontinued Medications Generic Name Dose Route Start Last Admin Trade Name Freq PRN Reason Stop Dose Admin Dextrose/Water 50 ml 12/28/19 15:31 12/28/19 15:34 Dextrose 50% In Water IVPUSH 12/28/19 15:32 50 ml ONETIME ONE Administration Dextrose/Water Confirm 12/28/19 15:32 12/28/19 16:27 Dextrose 50% In Water Administered 12/28/19 15:33 Not Given Dose 50 ml .ROUTE .STK-MED ONE - Radiology Interpretation Free Text/Narrative:: [facility] Final Radiology Report Call: [phone] assistance Online chat: [email or web address] Name: TOPHER FISHER Age: 74Years F Date: 12/28/2019 SSN: -- : [id number] Study: CT HEAD WO CONT Requesting Physician: CRISTINA LOZANO Images: 134 Addl Studies: Provided Clinical History: STROKE CODE: acute Rt facial droop Contrast: Without Contrast Medium: Contrast Amount: Contrast Method: Page 1 of 2 PROCEDURE INFORMATION: Exam: CT Head Without Contrast Exam date and time: 12/28/2019 3:28 PM Age: 74 years old Clinical indication: Pain; Headache; Additional info: Stroke code: Acute RT facial droop TECHNIQUE: Imaging protocol: Computed tomography of the head without contrast. Radiation optimization: All CT scans at this facility use at least one of these dose optimization techniques: automated exposure control; mA and/or kV adjustment per patient size (includes targeted exams where dose is matched to clinical indication); or iterative reconstruction. Other technique: STROKE PROTOCOL was implemented. COMPARISON: CT Head wo Cont 12/21/2019 1:40 PM FINDINGS: Brain: There is nonspecific white matter disease, likely related to chronic ischemic demyelination. No intracranial hemorrhage is seen. No acute arterial territory stroke is noted. Ventricles: Normal. No ventriculomegaly. Bones/joints: Unremarkable. No acute fracture. Sinuses: Retention cyst in the right maxillary sinus. Mastoid air cells: Visualized mastoid air cells are well aerated. Soft tissues: Unremarkable. IMPRESSION: No intracranial hemorrhage is seen. No acute arterial territory stroke is noted. ASSESSMENT: ASPECTS ([place] Stroke Program Early CT Score) is 10. TOPHER FISHER | Final Radiology Report CONFIDENTIALITY STATEMENT This report is intended only for use by the referring physician, and only in accordance with law. If you received this in error, call [phone]. Page 2 of 2 Thank you for allowing us to participate in the care of your patient. Dictated and Authenticated by: Socrates Dumas MD 12/28/2019 3:48 PM Central Time ([place] & [place]) Departure - Departure Time of Disposition: 19:01 (admitted to Dr. Daigle) Disposition: Refer to Observation Condition: Undetermined Clinical Impression: Frequent falls, Sedated due to medication - Discharge Information *PRESCRIPTION DRUG MONITORING PROGRAM REVIEWED*: No *COPY OF PRESCRIPTION DRUG MONITORING REPORT IN PATIENT SONALI: No Forms: ED Department Discharge Sepsis Event Note (ED) - Focused Exam Vital Signs: Vital Signs Temp Pulse Resp BP Pulse Ox 12/28/19 15:28 96.8 F L 82 15 103/55 L 100 - My Orders Last 24 Hours: My Active Orders 12/28/19 15:28 Blood Glucose Check, Bedside [RC] ONETIME 12/28/19 15:32 EKG 12 Lead [EKG Documentation Completion] [RC] STAT Sodium Chloride 0.9% [Saline Flush] 10 ml FLUSH ASDIRECTED PRN Peripheral IV Insertion Adult [OM.PC] Stat 12/28/19 15:33 Peripheral IV Care [RC] . DIRECTED 12/28/19 15:34 NIH Stroke Scale [RC] ASDIRECTED 12/28/19 16:45 Sodium Chloride 0.9% [Normal Saline] 1,000 ml IV ASDIRECTED - Assessment/Plan Last 24 Hours: My Active Orders 12/28/19 15:28 Blood Glucose Check, Bedside [RC] ONETIME 12/28/19 15:32 EKG 12 Lead [EKG Documentation Completion] [RC] STAT Sodium Chloride 0.9% [Saline Flush] 10 ml FLUSH ASDIRECTED PRN Peripheral IV Insertion Adult [OM.PC] Stat 12/28/19 15:33 Peripheral IV Care [RC] . DIRECTED 12/28/19 15:34 NIH Stroke Scale [RC] ASDIRECTED 12/28/19 16:45 Sodium Chloride 0.9% [Normal Saline] 1,000 ml IV ASDIRECTED
[~2019-12-28 15:35] MED LIST: 50% Dextrose in Water 50 ML Syringe IVPUSH ONE; 50% Dextrose in Water 50 ML Syringe ONE; Heparin Sodium 5,000 Units/ML Vial SUBCUT ONE; Omeprazole 20 MG Cap.CR PO ONE
--- NOTE | 2019-12-28 15:48 | CT ---
PROCEDURE INFORMATION: Exam: CT Head Without Contrast Exam date and time: 12/28/2019 3:28 PM Age: 74 years old Clinical indication: Pain; Headache; Additional info: Stroke code: Acute RT facial droop TECHNIQUE: Imaging protocol: Computed tomography of the head without contrast. Radiation optimization: All CT scans at this facility use at least one of these dose optimization techniques: automated exposure control; mA and/or kV adjustment per patient size (includes targeted exams where dose is matched to clinical indication); or iterative reconstruction. Other technique: STROKE PROTOCOL was implemented. COMPARISON: CT Head wo Cont 12/21/2019 1:40 PM FINDINGS: Brain: There is nonspecific white matter disease, likely related to chronic ischemic demyelination. No intracranial hemorrhage is seen. No acute arterial territory stroke is noted. Ventricles: Normal. No ventriculomegaly. Bones/joints: Unremarkable. No acute fracture. Sinuses: Retention cyst in the right maxillary sinus. Mastoid air cells: Visualized mastoid air cells are well aerated. Soft tissues: Unremarkable. IMPRESSION: No intracranial hemorrhage is seen. No acute arterial territory stroke is noted. ASSESSMENT: ASPECTS ([place] Stroke Program Early CT Score) is 10.
[2019-12-28 16:22] LABS: ANION GAP 9.5 mEq/L (7-13); CHLORIDE,CL 94 mmol/L (98-107); SODIUM,NA 128 mmol/L (136-145)
[2019-12-28 16:37] LABS: PTT,PARTIAL THROMBOPLSTIN TIME 41.2 SEC (22.0-34.0)
[2019-12-28] MEDS: Sodium Chloride 0.9% 1,000 ML IV SCH (17:21)
[2019-12-28] MEDS ORDERED: Ondansetron 4 MG/2 ML SDV IVPUSH PRN (19:24)
[2019-12-28] MEDS ORDERED: Lactated Ringers 1,000 ML IV SCH (19:30)
--- NOTE | 2019-12-28 21:59 | PCM.HP ---
H&P History of Present Illness - General Date of Service: 12/28/19 Admit Problem/Dx: Admission Diagnosis/Problem Admission Diagnosis/Problem Weakness Source of Information: Patient, EMS Notes Reviewed - History of Present Illness Initial Comments - Free Text/Narative: This is a 74-year-old female with medical history of COPD, congestive heart failure, hypertension. The patient was recently in the hospital because of of recurrent falls at which point she sustained a scalp laceration that resulted in significant bleeding. The patient had to be transfused with multiple units of packed red blood cell. This evening, patient was stated to have developed droopy right side of the face. Family felt that she probably was coming down with a stroke and called 911. She told EMS she had taken some Benadryl earlier. Patient was stated to have had a fall elevated today also. She tells me that she feels d [place] especially when she stands up on that often results in a fall. This has been going on for more than 2 years. Denies headache or blurring of vision. Denies chest pain. No dysuria and no frequency or micturition. No diarrhea or constipation Right Elbow Pain Score (Numeric/FACES): 0 - Related Data Allergies/Adverse Reactions: Allergies Allergy/AdvReac Type Severity Reaction Status Date / Time aspirin Allergy Hives Verified 12/28/19 19:55 azithromycin [From Zithromax] Allergy UNKNOWN Verified 12/28/19 19:55 Penicillins Allergy Hives Verified 12/28/19 19:55 Home Medications: Home Meds Acetaminophen [Acetaminophen 8 Hour] 650 mg PO BID 07/01/18 [History] Cyanocobalamin (Vitamin B-12) [Cyanocobalamin Injection] 1,000 mcg IM Q30D 07/01/18 [History] DULoxetine HCl [Cymbalta] 60 mg PO BID 07/01/18 [History] buPROPion HCL [Wellbutrin Xl] 150 mg PO DAILY 07/01/18 [History] Cholecalciferol (Vitamin D3) [Vitamin D3] 3,000 unit PO DAILY 08/25/18 [History] Albuterol [Ventolin HFA] 2 puff INH Q6H PRN #1 08/29/18 [Rx] Budesonide/Formoterol [Symbicort 160-4.5 MCG] 1 puff INH BID #1 inhaler 08/29/18 [Rx] Furosemide [Lasix] 20 mg PO DAILY #30 tablet 08/29/18 [Rx] hydrOXYzine HCL [hydrOXYzine] 25 mg PO TID PRN 12/21/19 [History] Pantoprazole Sodium [Protonix] 20 mg PO DAILY 12/28/19 [History] Past Medical History HEENT History: Reports: Impaired Vision Cardiovascular History: Reports: Heart Failure Respiratory History: Reports: Asthma, COPD, Pneumonia, Recurrent Gastrointestinal History: Reports: None Genitourinary History: Reports: None 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 Musculoskeletal History: Reports: Fibromyalgia Neurological History: Reports: None Psychiatric History: Reports: Anxiety, Depression Endocrine/Metabolic History: Reports: None Hematologic History: Reports: B12 Deficiency Immunologic History: Reports: None Oncologic (Cancer) History: Reports: None - Infectious Disease History Infectious Disease History: Reports: Shingles - Past Surgical History Female Surgical History: Reports: Tubal Ligation Social & Family History - Family History Family Medical History: Noncontributory Respiratory: Reports: TB Oncologic: Reports: Lung - Tobacco Use Smoking Status *Q: Current Every Day Smoker Years of Tobacco use: 54 Packs/Tins Daily: 0.5 Used Tobacco, but Quit: No Second Hand Smoke Exposure: No - Caffeine Use Caffeine Use: Reports: None - Recreational Drug Use Recreational Drug Use: No - Living Situation & Occupation Living situation: Reports: , with Family Occupation: Retired H&P Review of Systems - Review of Systems: Review Of Systems: See Below General: Reports: Malaise, Weakness HEENT: Reports: No Symptoms Pulmonary: Reports: No Symptoms Cardiovascular: Reports: No Symptoms Gastrointestinal: Reports: No Symptoms Genitourinary: Reports: No Symptoms Musculoskeletal: Reports: No Symptoms Exam - Exam Exam: See Below - Vital Signs Vital Signs: Last Vital Signs Temp 35.6 C L 12/28/19 20:20 Pulse 75 12/28/19 20:20 Resp 18 12/28/19 20:20 BP 143/50 H 12/28/19 20:20 Pulse Ox 100 12/28/19 20:20 Weight: 65.045 kg - Exam General: Alert, Oriented, Cooperative HEENT: PERRLA, Hearing Intact, Mucosa Moist & [place], Nares Patent, Normal Nasal Septum, Posterior Pharynx Clear, Conjunctiva Clear, EOMI, EACs Clear, TMs Clear Lungs: Clear to Auscultation, Normal Respiratory Effort Cardiovascular: Regular Rate, Regular Rhythm GI/Abdominal Exam: Normal Bowel Sounds, Soft, Non-Tender, No Organomegaly, No Distention, No Abnormal Bruit, No Mass, Pelvis Stable Back Exam: Normal Inspection, Full Range of Motion, NT - Patient Data Lab Results Last 24 hrs: Laboratory Results - last 24 hr 12/28/19 12/28/19 12/28/19 Range/Units 15:31 15:46 15:46 WBC 5.6 (5.0-10.0) 10^3/uL RBC 2.82 L (4.2-5.4) 10^6/uL Hgb 8.4 L (12.0-16.0) g/dL Hct 25.8 L (37.0-47.0) % MCV 91.5 D (80-100) fL MCH 29.8 (27.0-34.0) pg MCHC 32.6 L (33.0-35.0) g/dL Plt Count 314 D (150-450) 10^3/uL Neut % (Auto) 75.2 (42.2-75.2) % Lymph % (Auto) 14.8 L (20.5-50.1) % [place] % (Auto) 7.1 (2-8) % Eos % (Auto) 2.7 (1.0-3.0) % Baso % (Auto) 0.2 (0.0-1.0) % PT 9.8 (9.0-12.0) SEC INR 1.0 (0.9-1.2) APTT 41.2 H (22.0-34.0) SEC Sodium (136-145) mmol/L Potassium (3.5-5.1) mmol/L Chloride (98-107) mmol/L Carbon Dioxide (21-32) mmol/L Anion Gap (7-13) mEq/L BUN (7-18) mg/dL Creatinine (0.55-1.02) mg/dL Est Cr Clr Drug Dosing mL/min Estimated GFR (MDRD) BUN/Creatinine Ratio (No establ ref range) Glucose (74-99) mg/dL POC Glucose 62 L (83-110) mg/dl Calcium (8.5-10.1) mg/dL Total Bilirubin (0.2-1.0) mg/dL AST (15-37) U/L ALT (14-59) U/L Alkaline Phosphatase (46-116) U/L Troponin I (0.000-0.056) ng/mL Total Protein (6.4-8.2) g/dL Albumin (3.4-5.0) g/dL Globulin Albumin/Globulin Ratio Urine Color (YELLOW) Urine Appearance (CLEAR) Urine pH (5.0-9.0) Ur Specific [place] (1.005-1.030) Urine Protein (NEGATIVE) Urine Glucose (UA) (NEGATIVE) Urine Ketones (NEGATIVE) Urine Occult Blood (NEGATIVE) Urine Nitrite (NEGATIVE) Urine Bilirubin (NEGATIVE) Urine Urobilinogen (0.2-1.0) mg/dL Ur Leukocyte Esterase (NEGATIVE) Urine Opiates Screen (NEGATIVE) Ur Oxycodone Screen (NEGATIVE) Urine Methadone Screen (NEGATIVE) Ur Barbiturates Screen (NEGATIVE) U Tricyclic Antidepress (NEGATIVE) Ur Phencyclidine Scrn (NEGATIVE) Ur Amphetamine Screen (NEGATIVE) U Methamphetamines Scrn (NEGATIVE) Urine MDMA Screen (NEGATIVE) U Benzodiazepines Scrn (NEGATIVE) Urine Cocaine Screen (NEGATIVE) U Marijuana (THC) Screen (NEGATIVE) Ethyl Alcohol (0) mg/dL 12/28/19 12/28/19 12/28/19 Range/Units 15:46 16:03 17:08 WBC (5.0-10.0) 10^3/uL RBC (4.2-5.4) 10^6/uL Hgb (12.0-16.0) g/dL Hct (37.0-47.0) % MCV (80-100) fL MCH (27.0-34.0) pg MCHC (33.0-35.0) g/dL Plt Count (150-450) 10^3/uL Neut % (Auto) (42.2-75.2) % Lymph % (Auto) (20.5-50.1) % [place] % (Auto) (2-8) % Eos % (Auto) (1.0-3.0) % Baso % (Auto) (0.0-1.0) % PT (9.0-12.0) SEC INR (0.9-1.2) APTT (22.0-34.0) SEC Sodium 128 L (136-145) mmol/L Potassium 3.5 (3.5-5.1) mmol/L Chloride 94 L (98-107) mmol/L Carbon Dioxide 28 (21-32) mmol/L Anion Gap 9.5 (7-13) mEq/L BUN 8 (7-18) mg/dL Creatinine 0.91 (0.55-1.02) mg/dL Est Cr Clr Drug Dosing 54.71 mL/min Estimated GFR (MDRD) > 60 BUN/Creatinine Ratio 8.8 (No establ ref range) Glucose 242 H (74-99) mg/dL POC Glucose 149 H (83-110) mg/dl Calcium 7.9 L (8.5-10.1) mg/dL Total Bilirubin 0.2 (0.2-1.0) mg/dL AST 13 L (15-37) U/L ALT 14 (14-59) U/L Alkaline Phosphatase 64 (46-116) U/L Troponin I < 0.017 (0.000-0.056) ng/mL Total Protein 6.0 L (6.4-8.2) g/dL Albumin 2.6 L (3.4-5.0) g/dL Globulin 3.4 Albumin/Globulin Ratio 0.76 Urine Color Yellow (YELLOW) Urine Appearance Clear (CLEAR) Urine pH 6.5 (5.0-9.0) Ur Specific [place] 1.010 (1.005-1.030) Urine Protein Negative (NEGATIVE) Urine Glucose (UA) 100 H (NEGATIVE) Urine Ketones Negative (NEGATIVE) Urine Occult Blood Negative (NEGATIVE) Urine Nitrite Negative (NEGATIVE) Urine Bilirubin Negative (NEGATIVE) Urine Urobilinogen 0.2 (0.2-1.0) mg/dL Ur Leukocyte Esterase Negative (NEGATIVE) Urine Opiates Screen (NEGATIVE) Ur Oxycodone Screen (NEGATIVE) Urine Methadone Screen (NEGATIVE) Ur Barbiturates Screen (NEGATIVE) U Tricyclic Antidepress (NEGATIVE) Ur Phencyclidine Scrn (NEGATIVE) Ur Amphetamine Screen (NEGATIVE) U Methamphetamines Scrn (NEGATIVE) Urine MDMA Screen (NEGATIVE) U Benzodiazepines Scrn (NEGATIVE) Urine Cocaine Screen (NEGATIVE) U Marijuana (THC) Screen (NEGATIVE) Ethyl Alcohol < 3 (0) mg/dL 12/28/19 12/28/19 Range/Units 17:08 20:25 WBC (5.0-10.0) 10^3/uL RBC (4.2-5.4) 10^6/uL Hgb (12.0-16.0) g/dL Hct (37.0-47.0) % MCV (80-100) fL MCH (27.0-34.0) pg MCHC (33.0-35.0) g/dL Plt Count (150-450) 10^3/uL Neut % (Auto) (42.2-75.2) % Lymph % (Auto) (20.5-50.1) % [place] % (Auto) (2-8) % Eos % (Auto) (1.0-3.0) % Baso % (Auto) (0.0-1.0) % PT (9.0-12.0) SEC INR (0.9-1.2) APTT (22.0-34.0) SEC Sodium (136-145) mmol/L Potassium (3.5-5.1) mmol/L Chloride (98-107) mmol/L Carbon Dioxide (21-32) mmol/L Anion Gap (7-13) mEq/L BUN (7-18) mg/dL Creatinine (0.55-1.02) mg/dL Est Cr Clr Drug Dosing mL/min Estimated GFR (MDRD) BUN/Creatinine Ratio (No establ ref range) Glucose (74-99) mg/dL POC Glucose (83-110) mg/dl Calcium (8.5-10.1) mg/dL Total Bilirubin (0.2-1.0) mg/dL AST (15-37) U/L ALT (14-59) U/L Alkaline Phosphatase (46-116) U/L Troponin I < 0.017 (0.000-0.056) ng/mL Total Protein (6.4-8.2) g/dL Albumin (3.4-5.0) g/dL Globulin Albumin/Globulin Ratio Urine Color (YELLOW) Urine Appearance (CLEAR) Urine pH (5.0-9.0) Ur Specific [place] (1.005-1.030) Urine Protein (NEGATIVE) Urine Glucose (UA) (NEGATIVE) Urine Ketones (NEGATIVE) Urine Occult Blood (NEGATIVE) Urine Nitrite (NEGATIVE) Urine Bilirubin (NEGATIVE) Urine Urobilinogen (0.2-1.0) mg/dL Ur Leukocyte Esterase (NEGATIVE) Urine Opiates Screen Negative (NEGATIVE) Ur Oxycodone Screen Negative (NEGATIVE) Urine Methadone Screen Negative (NEGATIVE) Ur Barbiturates Screen Negative (NEGATIVE) U Tricyclic Antidepress Negative (NEGATIVE) Ur Phencyclidine Scrn Negative (NEGATIVE) Ur Amphetamine Screen Negative (NEGATIVE) U Methamphetamines Scrn Negative (NEGATIVE) Urine MDMA Screen Negative (NEGATIVE) U Benzodiazepines Scrn Negative (NEGATIVE) Urine Cocaine Screen Negative (NEGATIVE) U Marijuana (THC) Screen Negative (NEGATIVE) Ethyl Alcohol (0) mg/dL Result Diagrams: 12/28/19 15:46 12/28/19 15:46 Problem List Initiated/Reviewed/Updated: Yes Orders Last 24hrs: Active Orders 24 hr Category Date Time Status Patient Status [ADT] Routine ADT 12/28/19 19:24 Active Cardiac Monitoring [RC] , Care 12/28/19 19:29 Active Oxygen Therapy [RC] PRN Care 12/28/19 19:24 Active Peripheral IV Care [RC] Care 12/28/19 15:33 Active RT Post Treatment Assessment [RC] Click to Edit Care 12/28/19 21:52 Ordered RT Pre-Treatment Assessment [RC] Click to Edit Care 12/28/19 21:52 Ordered Up With Assistance [RC] ASDIRECTED Care 12/28/19 19:24 Active VTE/DVT Education [RC] PER UNIT ROUTINE Care 12/28/19 19:24 Active Vital Signs [RC] 00,04,08,12,16,20 Care 12/28/19 19:24 Active Regular Diet [DIET] Diet 12/28/19 Dinner Active TROPONIN I [CHEM] Q6H Lab 12/29/19 01:24 Ordered Acetaminophen [Acetaminophen 8 Hour] Med 12/29/19 09:00 Ordered 650 mg PO BID Albuterol [Proventil HFA] Med 12/28/19 21:52 Ordered 2 puff INH Q6H PRN Budesonide/Formoterol Med 12/29/19 09:00 Ordered 1 puff INH BID Cholecalciferol (Vitamin D3) [Vitamin D3] Med 12/29/19 09:00 Ordered 3,000 unit PO DAILY Cyanocobalamin (Vitamin B12) [Vitamin B12] Med 12/28/19 22:00 Ordered 1,000 mcg IM Q30D DULoxetine HCl [Cymbalta] Med 12/29/19 09:00 Ordered 60 mg PO BID Furosemide [Lasix] Med 12/29/19 09:00 Ordered 20 mg PO DAILY Heparin Sodium Med 12/28/19 22:00 Active 5,000 units SUBCUT Q8HR Lactated Ringers [Ringers, Lactated] 1,000 ml Med 12/28/19 19:30 Active IV ASDIRECTED Ondansetron [Zofran] Med 12/28/19 19:24 Active 4 mg IVPUSH Q6H PRN Pantoprazole Sodium [Protonix] Med 12/29/19 09:00 Ordered 20 mg PO DAILY Sodium Chloride 0.9% [Normal Saline] 1,000 ml Med 12/28/19 16:45 Active IV ASDIRECTED Sodium Chloride 0.9% [Saline Flush] Med 12/28/19 15:32 Active 10 ml FLUSH ASDIRECTED PRN buPROPion [Wellbutrin XL] Med 12/29/19 09:00 Ordered 150 mg PO DAILY hydrOXYzine HCL [Atarax] Med 12/28/19 21:52 Ordered 25 mg PO TID PRN Peripheral IV Insertion Adult [OM.PC] Stat Oth 12/28/19 15:32 Ordered Resuscitation Status Routine Resus Stat 12/28/19 19:24 Ordered Medication Orders Albuterol (Proventil Hfa) gm INH Q6H PRN PRN Reason: Shortness of Breath Bupropion HCl (Wellbutrin Xl) 150 mg PO DAILY BLAZE Cyanocobalamin (Vitamin B12) 1,000 mcg IM Q30D BLAZE Furosemide (Lasix) 20 mg PO DAILY BLAZE Heparin Sodium (Porcine) (Heparin Sodium) 5,000 units SUBCUT Q8HR BLAZE Hydroxyzine HCl (Atarax) 25 mg PO TID PRN PRN Reason: Anxiety Sodium Chloride (Normal Saline) 1,000 mls @ 150 mls/hr IV ASDIRECTED BLAZE Last Admin: 12/28/19 17:21 Dose: 150 mls/hr Documented by: [email or web address] Lactated Ringer's (Ringers, Lactated) 1,000 mls @ 75 mls/hr IV ASDIRECTED BLAZE Last Admin: 12/28/19 20:16 Dose: 75 mls/hr Documented by: DEBI Non-Formulary Medication (Acetaminophen [Acetaminophen 8 Hour]) 650 mg PO BID [facility] Non-Formulary Medication (Budesonide/Formoterol) 1 puff INH BID [facility] Non-Formulary Medication (Duloxetine Hcl [Cymbalta]) 60 mg PO BID [facility] Non-Formulary Medication (Pantoprazole Sodium [Protonix]) 20 mg PO DAILY [facility] Non-Formulary Medication (Cholecalciferol (Vitamin D3) [Vitamin D3]) 3,000 unit PO DAILY [facility]ZE Ondansetron HCl (Zofran) 4 mg IVPUSH Q6H PRN PRN Reason: Nausea/Vomiting Sodium Chloride (Saline Flush) 10 ml FLUSH ASDIRECTED PRN PRN Reason: Keep Vein Open Assessment/Plan Comment:: #. Recurrent falls Patient has fallen multiple times Reason for this is not obvious. States that she feels dizzy prior to the falls. Raises concern about orthostatic hypotension #. Anemia Hemoglobin is at 8.4 She denies active bleeding Blood and locked a few days ago and required transfusion of packed red blood cell #. Hyponatremia Serum sodium at 128 It is unclear how much discomfort. For #. History of congestive heart failure Does not appear decompensated at this point #. COPD Bronchodilators Plan: Admit patient to medical floor DuoNeb 3 times a day Albuterol every 4 hours Consult physical therapy Consult occupational therapy Check orthostatic vital signs Fall precautions Obtain repeat basic metabolic panel Intravenous normal saline going at 50 mL an hour
[2019-12-28] MEDS ORDERED: Cyanocobalamin (Vitamin B12) 1,000 MCG/ML SDV IM SCH (22:00)
[2019-12-28] MEDS ORDERED: Sodium Chloride 0.9% 250 ML IV SCH (22:15)
[2019-12-28] MEDS: hydrOXYzine HCl 25 MG Tab PO PRN (22:27)
[2019-12-28] MEDS: Heparin Sodium 5,000 Units/ML Vial SUBCUT SCH (22:27)
[2019-12-29 01:43] LABS: ANION GAP 8.8 mEq/L (7-13); CHLORIDE,CL 99 mmol/L (98-107); SODIUM,NA 134 mmol/L (136-145)
[2019-12-29] MEDS: Heparin Sodium 5,000 Units/ML Vial SUBCUT SCH ×3 (07:34→22:33)
[2019-12-29] MEDS: Omeprazole 20 MG Cap.CR PO SCH (07:35)
[2019-12-29] MEDS: Albuterol 6.7 GM Inhaler INH PRN (07:38)
[2019-12-29] MEDS: Sodium Chloride 0.9% 1,000 ML IV SCH (08:54)
[2019-12-29] MEDS: buPROPion 150 MG Tab.ER PO SCH (08:56)
[2019-12-29] MEDS: Cholecalciferol (Vitamin D3) 25 MCG Tab PO SCH (08:56)
[2019-12-29] MEDS: DULoxetine 30 MG Cap PO SCH ×3 (08:56→23:19)
[2019-12-29] MEDS: Furosemide 20 MG Tab PO SCH (08:58)
[2019-12-29] MEDS ORDERED: Acetaminophen 325 MG Tab PO SCH (09:00)
[2019-12-29] MEDS ORDERED: Non-Formulary Medication 1 Each (Budesonide/Formoterol 1 PUFF) INH SCH (09:00)
--- NOTE | 2019-12-29 10:00 | PCM.PN ---
- General Info Date of Service: 12/29/19 Subjective Update: Patient has multiple complaints related. She complains of pain right upper extremity which she describes as achy in nature. Also complains of pain at the back of her head. Still has sutures in place from her recent fall. No fever and no chills. Denies chest pain - Review of Systems General: Reports: Malaise Pulmonary: Reports: No Symptoms Cardiovascular: Reports: No Symptoms Gastrointestinal: Reports: No Symptoms Musculoskeletal: Reports: No Symptoms Skin: Reports: No Symptoms - Patient Data Vitals - Most Recent: Last Vital Signs Temp 37.0 C 12/29/19 08:03 Pulse 89 12/29/19 08:03 Resp 20 12/29/19 08:03 BP 143/65 H 12/29/19 08:03 Pulse Ox 98 12/29/19 08:03 Orthostatic Blood Pressure [ 129/53 Standing] Orthostatic Blood Pressure [ 134/57 Sitting] Orthostatic Blood Pressure [ 134/54 Supine] Weight - Most Recent: 65.034 kg I&O - Last 24 Hours: Intake & Output 12/28/19 12/29/19 12/29/19 22:59 06:59 14:59 Intake Total 1540 510 175 Output Total 800 450 500 Balance 740 60 -325 Lab Results Last 24 Hours: Laboratory Results - last 24 hr 12/28/19 12/28/19 12/28/19 Range/Units 15:31 15:46 15:46 WBC 5.6 (5.0-10.0) 10^3/uL RBC 2.82 L (4.2-5.4) 10^6/uL Hgb 8.4 L (12.0-16.0) g/dL Hct 25.8 L (37.0-47.0) % MCV 91.5 D (80-100) fL MCH 29.8 (27.0-34.0) pg MCHC 32.6 L (33.0-35.0) g/dL Plt Count 314 D (150-450) 10^3/uL Neut % (Auto) 75.2 (42.2-75.2) % Lymph % (Auto) 14.8 L (20.5-50.1) % Fleming % (Auto) 7.1 (2-8) % Eos % (Auto) 2.7 (1.0-3.0) % Baso % (Auto) 0.2 (0.0-1.0) % PT 9.8 (9.0-12.0) SEC INR 1.0 (0.9-1.2) APTT 41.2 H (22.0-34.0) SEC Sodium (136-145) mmol/L Potassium (3.5-5.1) mmol/L Chloride (98-107) mmol/L Carbon Dioxide (21-32) mmol/L Anion Gap (7-13) mEq/L BUN (7-18) mg/dL Creatinine (0.55-1.02) mg/dL Est Cr Clr Drug Dosing mL/min Estimated GFR (MDRD) BUN/Creatinine Ratio (No establ ref range) Glucose (74-99) mg/dL POC Glucose 62 L (83-110) mg/dl Calcium (8.5-10.1) mg/dL Total Bilirubin (0.2-1.0) mg/dL AST (15-37) U/L ALT (14-59) U/L Alkaline Phosphatase (46-116) U/L Troponin I (0.000-0.056) ng/mL Total Protein (6.4-8.2) g/dL Albumin (3.4-5.0) g/dL Globulin Albumin/Globulin Ratio Urine Color (YELLOW) Urine Appearance (CLEAR) Urine pH (5.0-9.0) Ur Specific [place] (1.005-1.030) Urine Protein (NEGATIVE) Urine Glucose (UA) (NEGATIVE) Urine Ketones (NEGATIVE) Urine Occult Blood (NEGATIVE) Urine Nitrite (NEGATIVE) Urine Bilirubin (NEGATIVE) Urine Urobilinogen (0.2-1.0) mg/dL Ur Leukocyte Esterase (NEGATIVE) Urine Opiates Screen (NEGATIVE) Ur Oxycodone Screen (NEGATIVE) Urine Methadone Screen (NEGATIVE) Ur Barbiturates Screen (NEGATIVE) U Tricyclic Antidepress (NEGATIVE) Ur Phencyclidine Scrn (NEGATIVE) Ur Amphetamine Screen (NEGATIVE) U Methamphetamines Scrn (NEGATIVE) Urine MDMA Screen (NEGATIVE) U Benzodiazepines Scrn (NEGATIVE) Urine Cocaine Screen (NEGATIVE) U Marijuana (THC) Screen (NEGATIVE) Ethyl Alcohol (0) mg/dL 12/28/19 12/28/19 12/28/19 Range/Units 15:46 16:03 17:08 WBC (5.0-10.0) 10^3/uL RBC (4.2-5.4) 10^6/uL Hgb (12.0-16.0) g/dL Hct (37.0-47.0) % MCV (80-100) fL MCH (27.0-34.0) pg MCHC (33.0-35.0) g/dL Plt Count (150-450) 10^3/uL Neut % (Auto) (42.2-75.2) % Lymph % (Auto) (20.5-50.1) % Fleming % (Auto) (2-8) % Eos % (Auto) (1.0-3.0) % Baso % (Auto) (0.0-1.0) % PT (9.0-12.0) SEC INR (0.9-1.2) APTT (22.0-34.0) SEC Sodium 128 L (136-145) mmol/L Potassium 3.5 (3.5-5.1) mmol/L Chloride 94 L (98-107) mmol/L Carbon Dioxide 28 (21-32) mmol/L Anion Gap 9.5 (7-13) mEq/L BUN 8 (7-18) mg/dL Creatinine 0.91 (0.55-1.02) mg/dL Est Cr Clr Drug Dosing 54.71 mL/min Estimated GFR (MDRD) > 60 BUN/Creatinine Ratio 8.8 (No establ ref range) Glucose 242 H (74-99) mg/dL POC Glucose 149 H (83-110) mg/dl Calcium 7.9 L (8.5-10.1) mg/dL Total Bilirubin 0.2 (0.2-1.0) mg/dL AST 13 L (15-37) U/L ALT 14 (14-59) U/L Alkaline Phosphatase 64 (46-116) U/L Troponin I < 0.017 (0.000-0.056) ng/mL Total Protein 6.0 L (6.4-8.2) g/dL Albumin 2.6 L (3.4-5.0) g/dL Globulin 3.4 Albumin/Globulin Ratio 0.76 Urine Color Yellow (YELLOW) Urine Appearance Clear (CLEAR) Urine pH 6.5 (5.0-9.0) Ur Specific [place] 1.010 (1.005-1.030) Urine Protein Negative (NEGATIVE) Urine Glucose (UA) 100 H (NEGATIVE) Urine Ketones Negative (NEGATIVE) Urine Occult Blood Negative (NEGATIVE) Urine Nitrite Negative (NEGATIVE) Urine Bilirubin Negative (NEGATIVE) Urine Urobilinogen 0.2 (0.2-1.0) mg/dL Ur Leukocyte Esterase Negative (NEGATIVE) Urine Opiates Screen (NEGATIVE) Ur Oxycodone Screen (NEGATIVE) Urine Methadone Screen (NEGATIVE) Ur Barbiturates Screen (NEGATIVE) U Tricyclic Antidepress (NEGATIVE) Ur Phencyclidine Scrn (NEGATIVE) Ur Amphetamine Screen (NEGATIVE) U Methamphetamines Scrn (NEGATIVE) Urine MDMA Screen (NEGATIVE) U Benzodiazepines Scrn (NEGATIVE) Urine Cocaine Screen (NEGATIVE) U Marijuana (THC) Screen (NEGATIVE) Ethyl Alcohol < 3 (0) mg/dL 12/28/19 12/28/19 12/29/19 Range/Units 17:08 20:25 01:23 WBC (5.0-10.0) 10^3/uL RBC (4.2-5.4) 10^6/uL Hgb (12.0-16.0) g/dL Hct (37.0-47.0) % MCV (80-100) fL MCH (27.0-34.0) pg MCHC (33.0-35.0) g/dL Plt Count (150-450) 10^3/uL Neut % (Auto) (42.2-75.2) % Lymph % (Auto) (20.5-50.1) % Fleming % (Auto) (2-8) % Eos % (Auto) (1.0-3.0) % Baso % (Auto) (0.0-1.0) % PT (9.0-12.0) SEC INR (0.9-1.2) APTT (22.0-34.0) SEC Sodium (136-145) mmol/L Potassium (3.5-5.1) mmol/L Chloride (98-107) mmol/L Carbon Dioxide (21-32) mmol/L Anion Gap (7-13) mEq/L BUN (7-18) mg/dL Creatinine (0.55-1.02) mg/dL Est Cr Clr Drug Dosing mL/min Estimated GFR (MDRD) BUN/Creatinine Ratio (No establ ref range) Glucose (74-99) mg/dL POC Glucose (83-110) mg/dl Calcium (8.5-10.1) mg/dL Total Bilirubin (0.2-1.0) mg/dL AST (15-37) U/L ALT (14-59) U/L Alkaline Phosphatase (46-116) U/L Troponin I < 0.017 < 0.017 (0.000-0.056) ng/mL Total Protein (6.4-8.2) g/dL Albumin (3.4-5.0) g/dL Globulin Albumin/Globulin Ratio Urine Color (YELLOW) Urine Appearance (CLEAR) Urine pH (5.0-9.0) Ur Specific [place] (1.005-1.030) Urine Protein (NEGATIVE) Urine Glucose (UA) (NEGATIVE) Urine Ketones (NEGATIVE) Urine Occult Blood (NEGATIVE) Urine Nitrite (NEGATIVE) Urine Bilirubin (NEGATIVE) Urine Urobilinogen (0.2-1.0) mg/dL Ur Leukocyte Esterase (NEGATIVE) Urine Opiates Screen Negative (NEGATIVE) Ur Oxycodone Screen Negative (NEGATIVE) Urine Methadone Screen Negative (NEGATIVE) Ur Barbiturates Screen Negative (NEGATIVE) U Tricyclic Antidepress Negative (NEGATIVE) Ur Phencyclidine Scrn Negative (NEGATIVE) Ur Amphetamine Screen Negative (NEGATIVE) U Methamphetamines Scrn Negative (NEGATIVE) Urine MDMA Screen Negative (NEGATIVE) U Benzodiazepines Scrn Negative (NEGATIVE) Urine Cocaine Screen Negative (NEGATIVE) U Marijuana (THC) Screen Negative (NEGATIVE) Ethyl Alcohol (0) mg/dL 12/29/19 12/29/19 Range/Units 01:23 01:23 WBC 5.8 (5.0-10.0) 10^3/uL RBC 3.12 L (4.2-5.4) 10^6/uL Hgb 9.2 L (12.0-16.0) g/dL Hct 28.5 L (37.0-47.0) % MCV 91.3 (80-100) fL MCH 29.5 (27.0-34.0) pg MCHC 32.3 L (33.0-35.0) g/dL Plt Count 331 (150-450) 10^3/uL Neut % (Auto) (42.2-75.2) % Lymph % (Auto) (20.5-50.1) % Fleming % (Auto) (2-8) % Eos % (Auto) (1.0-3.0) % Baso % (Auto) (0.0-1.0) % PT (9.0-12.0) SEC INR (0.9-1.2) APTT (22.0-34.0) SEC Sodium 134 L (136-145) mmol/L Potassium 3.8 (3.5-5.1) mmol/L Chloride 99 (98-107) mmol/L Carbon Dioxide 30 (21-32) mmol/L Anion Gap 8.8 (7-13) mEq/L BUN 7 (7-18) mg/dL Creatinine 0.66 (0.55-1.02) mg/dL Est Cr Clr Drug Dosing 64.58 mL/min Estimated GFR (MDRD) > 60 BUN/Creatinine Ratio (No establ ref range) Glucose 114 H (74-99) mg/dL POC Glucose (83-110) mg/dl Calcium 8.7 (8.5-10.1) mg/dL Total Bilirubin (0.2-1.0) mg/dL AST (15-37) U/L ALT (14-59) U/L Alkaline Phosphatase (46-116) U/L Troponin I (0.000-0.056) ng/mL Total Protein (6.4-8.2) g/dL Albumin (3.4-5.0) g/dL Globulin Albumin/Globulin Ratio Urine Color (YELLOW) Urine Appearance (CLEAR) Urine pH (5.0-9.0) Ur Specific [place] (1.005-1.030) Urine Protein (NEGATIVE) Urine Glucose (UA) (NEGATIVE) Urine Ketones (NEGATIVE) Urine Occult Blood (NEGATIVE) Urine Nitrite (NEGATIVE) Urine Bilirubin (NEGATIVE) Urine Urobilinogen (0.2-1.0) mg/dL Ur Leukocyte Esterase (NEGATIVE) Urine Opiates Screen (NEGATIVE) Ur Oxycodone Screen (NEGATIVE) Urine Methadone Screen (NEGATIVE) Ur Barbiturates Screen (NEGATIVE) U Tricyclic Antidepress (NEGATIVE) Ur Phencyclidine Scrn (NEGATIVE) Ur Amphetamine Screen (NEGATIVE) U Methamphetamines Scrn (NEGATIVE) Urine MDMA Screen (NEGATIVE) U Benzodiazepines Scrn (NEGATIVE) Urine Cocaine Screen (NEGATIVE) U Marijuana (THC) Screen (NEGATIVE) Ethyl Alcohol (0) mg/dL Med Orders - Current: Current Medications Acetaminophen (Tylenol) 650 mg PO BID [facility] Last Admin: 12/29/19 08:56 Dose: 650 mg Documented by: Albuterol (Proventil Hfa) 0 gm INH Q6H PRN PRN Reason: Shortness of Breath Last Admin: 12/29/19 07:38 Dose: 2 puff Documented by: Bupropion HCl (Wellbutrin Xl) 150 mg PO DAILY [facility] Last Admin: 12/29/19 08:56 Dose: 150 mg Documented by: Cholecalciferol (Vitamin D3) 75 mcg PO DAILY [facility] Last Admin: 12/29/19 08:56 Dose: 75 mcg Documented by: Cyanocobalamin (Vitamin B12) 1,000 mcg IM Q30D [facility] Duloxetine HCl (Cymbalta) 60 mg PO BID [facility] Last Admin: 12/29/19 08:56 Dose: 60 mg Documented by: Furosemide (Lasix) 20 mg PO DAILY [facility] Last Admin: 12/29/19 08:58 Dose: 20 mg Documented by: Heparin Sodium (Porcine) (Heparin Sodium) 5,000 units SUBCUT Q8HR [facility] Last Admin: 12/29/19 07:34 Dose: Not Given Documented by: Hydroxyzine HCl (Atarax) 25 mg PO TID PRN PRN Reason: Anxiety Last Admin: 12/28/19 22:27 Dose: 25 mg Documented by: Sodium Chloride (Normal Saline) 1,000 mls @ 150 mls/hr IV ASDIRECTED [facility] Last Admin: 12/29/19 08:54 Dose: 150 mls/hr Documented by: Sodium Chloride (Normal Saline) 250 mls @ 50 mls/hr IV ASDIRECTED [facility] Non-Formulary Medication (Budesonide/Formoterol) 1 puff INH BID [facility] Omeprazole (Omeprazole) 20 mg PO ACBREAKFAST [facility] Last Admin: 12/29/19 07:35 Dose: Not Given Documented by: Ondansetron HCl (Zofran) 4 mg IVPUSH Q6H PRN PRN Reason: Nausea/Vomiting Sodium Chloride (Saline Flush) 10 ml FLUSH ASDIRECTED PRN PRN Reason: Keep Vein Open Discontinued Medications Dextrose/Water (Dextrose 50% In Water) 50 ml IVPUSH ONETIME ONE Stop: 12/28/19 15:32 Last Admin: 12/28/19 15:34 Dose: 50 ml Documented by: Dextrose/Water (Dextrose 50% In Water) Confirm Administered Dose 50 ml .ROUTE .STK-MED ONE Stop: 12/28/19 15:33 Last Admin: 12/28/19 16:27 Dose: Not Given Documented by: Heparin Sodium (Porcine) (Heparin Sodium) 5,000 units SUBCUT .STK-MED ONE Stop: 12/28/19 06:01 Lactated Ringer's (Ringers, Lactated) 1,000 mls @ 75 mls/hr IV ASDIRECTED [facility] Last Admin: 12/28/19 20:16 Dose: 75 mls/hr Documented by: Omeprazole (Omeprazole) 20 mg PO .STK-MED ONE Stop: 12/28/19 06:01 - Exam General: Alert, Oriented Neck: Supple Lungs: Clear to Auscultation, Normal Respiratory Effort Cardiovascular: Regular Rate, Regular Rhythm Extremities: Normal Inspection, Normal Range of Motion, Non-Tender, No Pedal Edema, Normal Capillary Refill Skin: Warm, Dry, Intact Sepsis Event Note - Evaluation Sepsis Screening Result: No Definite Risk - Focused Exam Vital Signs: Vital Signs Temp Pulse Resp BP Pulse Ox 12/29/19 08:03 37.0 C 89 20 143/65 H 98 - Problem List Review Problem List Initiated/Reviewed/Updated: Yes - My Orders Last 24 Hours: My Active Orders 12/28/19 Dinner Regular Diet [DIET] 12/28/19 19:24 Patient Status [ADT] Routine Oxygen Therapy [RC] PRN Up With Assistance [RC] ASDIRECTED VTE/DVT Education [RC] PER UNIT ROUTINE Vital Signs [RC] 00,04,08,12,16,20 Ondansetron [Zofran] 4 mg IVPUSH Q6H PRN Resuscitation Status Routine 12/28/19 19:29 Cardiac Monitoring [RC] 12/28/19 21:52 RT Post Treatment Assessment [RC] Click to Edit RT Pre-Treatment Assessment [RC] Click to Edit Albuterol [Proventil HFA] 0 gm INH Q6H PRN hydrOXYzine HCL [Atarax] 25 mg PO TID PRN 12/28/19 22:00 Cyanocobalamin (Vitamin B12) [Vitamin B12] 1,000 mcg IM Q30D Heparin Sodium 5,000 units SUBCUT Q8HR 12/28/19 22:15 Sodium Chloride 0.9% [Normal Saline] 250 ml IV ASDIRECTED 12/29/19 06:00 Omeprazole 20 mg PO ACBREAKFAST 12/29/19 09:00 Acetaminophen [TylenoL] 650 mg PO BID Budesonide/Formoterol 1 puff INH BID Cholecalciferol (Vitamin D3) [Vitamin D3] 75 mcg PO DAILY DULoxetine [Cymbalta] 60 mg PO BID Furosemide [Lasix] 20 mg PO DAILY buPROPion [Wellbutrin XL] 150 mg PO DAILY - Plan Plan:: #. Recurrent falls Patient has fallen multiple times Reason for this is not obvious. States that she feels dizzy prior to the falls. Raises concern about orthostatic hypotension Patient is not orthostatic #. Anemia Likely due to recent bleeding from occipital scalp injury #. Hyponatremia Improving #. History of congestive heart failure Does not appear decompensated at this point #. COPD Bronchodilators #. Question of overdose with Benadryl She denies it. Plan: Discontinue IV fluid Obtain repeat basic metabolic panel Obtain repeat complete blood count Surgical sutures Start patient on scheduled Tylenol 1 g 2 times a day Physical therapy Occupational therapy Patient may require placement due to recurrent falls. This was discussed with the patient.
[2019-12-29] MEDS ORDERED: Acetaminophen 325 MG Tab PO PRN ×2 (10:02→14:00)
[2019-12-29] MEDS: Acetaminophen 500 MG Tab PO SCH ×2 (11:29→22:32)
[2019-12-29] MEDS: Albuterol/Ipratropium 3.0-0.5 MG/3 ML Neb Soln NEB SCH ×2 (13:34→18:09)
[2019-12-29] MEDS: Sodium Chloride 0.9% 10 ML Syringe FLUSH PRN ×2 (15:20→22:35)
[2019-12-29] MEDS: hydrOXYzine HCl 25 MG Tab PO PRN (22:44)
[2019-12-30] MEDS: Omeprazole 20 MG Cap.CR PO SCH (05:45)
[2019-12-30] MEDS: Heparin Sodium 5,000 Units/ML Vial SUBCUT SCH (05:45)
[2019-12-30 06:38] LABS: ANION GAP 9.2 mEq/L (7-13); CHLORIDE,CL 98 mmol/L (98-107); SODIUM,NA 134 mmol/L (136-145)
[2019-12-30] MEDS: Albuterol 6.7 GM Inhaler INH PRN (07:18)
[2019-12-30] MEDS: Albuterol/Ipratropium 3.0-0.5 MG/3 ML Neb Soln NEB SCH ×2 (07:24→13:06)
[2019-12-30] MEDS: buPROPion 150 MG Tab.ER PO SCH (08:05)
[2019-12-30] MEDS: Furosemide 20 MG Tab PO SCH (08:05)
[2019-12-30] MEDS: DULoxetine 30 MG Cap PO SCH (08:06)
[2019-12-30] MEDS: Cholecalciferol (Vitamin D3) 25 MCG Tab PO SCH (08:06)
[2019-12-30] MEDS: Sodium Chloride 0.9% 10 ML Syringe FLUSH PRN (08:11)
[2019-12-30] MEDS: Acetaminophen 500 MG Tab PO SCH (09:18)
--- NOTE | 2019-12-30 09:25 | PCM.DCSUM1 ---
Discharge Summary - Hospital Course Free Text/Narrative:: Patient is a 74-year-old female with medical history of COPD and congestive heart failure. The patient fell at home and was admitted because of that. She had hyponatremia and this was corrected with intravenous fluids. She was not orthostatic. We recommended that the patient should go to swing bed facility but she declined. Family also adamantly declined. Patient is feeling better I will be discharged home. #. Recurrent falls Patient has fallen multiple times #. Anemia Likely due to recent bleeding from occipital scalp injury #. Hyponatremia Improved #. History of congestive heart failure Does not appear decompensated at this point #. COPD Bronchodilators Diagnosis: Stroke: No - Discharge Data Discharge Date: 12/30/19 Discharge Disposition: Home, W Home Health Agency Condition: Stable - Referral to Home Health Date of Face to Face Encounter: 12/30/19 Reason for Homebound Status: Patient has great difficulty getting out of the house. Requires help doing so. Primary Care Physician: Betsy Villagomez MD Skilled Need: PT/OT/ and Nursing - Patient Summary/Data Consults: Consultations 12/29/19 10:00 OT Evaluation and Treatment [CONS] Routine PT Evaluation and Treatment [CONS] Routine - Patient Instructions Activity: As Tolerated Showering/Bathing: May Shower Notify Provider of: Fever, Swelling and Redness, Nausea and/or Vomiting Other/Special Instructions: F/up with PMD in one week - Discharge Plan *PRESCRIPTION DRUG MONITORING PROGRAM REVIEWED*: No *COPY OF PRESCRIPTION DRUG MONITORING REPORT IN PATIENT SONALI: No Home Medications: Home Meds Acetaminophen [Acetaminophen 8 Hour] 650 mg PO BID 07/01/18 [History] Cyanocobalamin (Vitamin B-12) [Cyanocobalamin Injection] 1,000 mcg IM Q30D 07/01/18 [History] DULoxetine HCl [Cymbalta] 60 mg PO BID 07/01/18 [History] buPROPion HCL [Wellbutrin Xl] 150 mg PO DAILY 07/01/18 [History] Cholecalciferol (Vitamin D3) [Vitamin D3] 3,000 unit PO DAILY 08/25/18 [History] Albuterol [Ventolin HFA] 2 puff INH Q6H PRN #1 08/29/18 [Rx] Budesonide/Formoterol [Symbicort 160-4.5 MCG] 1 puff INH BID #1 inhaler 08/29/18 [Rx] Furosemide [Lasix] 20 mg PO DAILY #30 tablet 08/29/18 [Rx] hydrOXYzine HCL [hydrOXYzine] 25 mg PO TID PRN 12/21/19 [History] Pantoprazole Sodium [Protonix] 20 mg PO DAILY 12/28/19 [History] Oxygen Therapy Mode: Room Air Patient Handouts: Fall Prevention in the Home, Adult Referrals: Betsy Villagomez MD [Primary Care Provider] - - Discharge Summary/Plan Comment DC Time >30 min.: No - Review of Systems General: Reports: Weakness, Malaise Pulmonary: Reports: No Symptoms Cardiovascular: Reports: No Symptoms Gastrointestinal: Reports: No Symptoms Musculoskeletal: Reports: No Symptoms - Patient Data Vitals - Most Recent: Last Vital Signs Temp 36.6 C 12/30/19 07:50 Pulse 97 12/30/19 07:50 Resp 16 12/30/19 07:50 BP 138/61 12/30/19 07:50 Pulse Ox 94 L 12/30/19 07:50 Orthostatic Blood Pressure [ 120/49 Standing] Orthostatic Blood Pressure [ 116/76 Sitting] Orthostatic Blood Pressure [ 119/45 Supine] Weight - Most Recent: 65.68 kg I&O - Last 24 hours: Intake & Output 12/29/19 12/30/19 12/30/19 22:59 06:59 14:59 Intake Total 860 200 400 Output Total 500 Balance 860 -300 400 Lab Results - Last 24 hrs: Laboratory Results - last 24 hr 12/30/19 12/30/19 Range/Units 05:55 05:55 WBC 5.1 (5.0-10.0) 10^3/uL RBC 3.07 L (4.2-5.4) 10^6/uL Hgb 9.1 L (12.0-16.0) g/dL Hct 28.2 L (37.0-47.0) % MCV 91.9 (80-100) fL MCH 29.6 (27.0-34.0) pg MCHC 32.3 L (33.0-35.0) g/dL Plt Count 388 (150-450) 10^3/uL Sodium 134 L (136-145) mmol/L Potassium 4.2 (3.5-5.1) mmol/L Chloride 98 (98-107) mmol/L Carbon Dioxide 31 (21-32) mmol/L Anion Gap 9.2 (7-13) mEq/L BUN 8 (7-18) mg/dL Creatinine 0.67 (0.55-1.02) mg/dL Est Cr Clr Drug Dosing 63.61 mL/min Estimated GFR (MDRD) > 60 Glucose 88 (74-99) mg/dL Calcium 8.4 L (8.5-10.1) mg/dL Med Orders - Current: Current Medications Acetaminophen (Tylenol Extra Strength) 1,000 mg PO Q12H [facility] Last Admin: 12/30/19 09:18 Dose: 1,000 mg Documented by: Acetaminophen (Tylenol) 650 mg PO TID PRN PRN Reason: Pain (mild 1-3) Last Admin: 12/29/19 14:22 Dose: 650 mg Documented by: Albuterol (Proventil Hfa) 0 gm INH Q6H PRN PRN Reason: Shortness of Breath Last Admin: 12/30/19 07:18 Dose: 2 puff Documented by: Albuterol/Ipratropium (Duoneb 3.0-0.5 Mg/3 Ml) 3 ml NEB TIDRT [facility] Last Admin: 12/30/19 07:24 Dose: 3 ml Documented by: Bupropion HCl (Wellbutrin Xl) 150 mg PO DAILY [facility] Last Admin: 12/30/19 08:05 Dose: 150 mg Documented by: Cholecalciferol (Vitamin D3) 75 mcg PO DAILY [facility] Last Admin: 12/30/19 08:06 Dose: 75 mcg Documented by: Duloxetine HCl (Cymbalta) 60 mg PO BID [facility] Last Admin: 12/30/19 08:06 Dose: 60 mg Documented by: Furosemide (Lasix) 20 mg PO DAILY [facility] Last Admin: 12/30/19 08:05 Dose: 20 mg Documented by: Heparin Sodium (Porcine) (Heparin Sodium) 5,000 units SUBCUT Q8HR [facility] Last Admin: 12/30/19 05:45 Dose: 5,000 units Documented by: Hydroxyzine HCl (Atarax) 25 mg PO TID PRN PRN Reason: Anxiety Last Admin: 12/29/19 22:44 Dose: 25 mg Documented by: Omeprazole (Omeprazole) 20 mg PO ACBREAKFAST [facility] Last Admin: 12/30/19 05:45 Dose: 20 mg Documented by: Ondansetron HCl (Zofran) 4 mg IVPUSH Q6H PRN PRN Reason: Nausea/Vomiting Last Admin: 12/29/19 15:20 Dose: 4 mg Documented by: Sodium Chloride (Saline Flush) 10 ml FLUSH ASDIRECTED PRN PRN Reason: Keep Vein Open Last Admin: 12/30/19 08:11 Dose: 10 ml Documented by: Discontinued Medications Acetaminophen (Tylenol) 650 mg PO BID [facility] Last Admin: 12/29/19 08:56 Dose: 650 mg Documented by: Acetaminophen (Tylenol) 650 mg PO TID PRN PRN Reason: Pain Dextrose/Water (Dextrose 50% In Water) 50 ml IVPUSH ONETIME ONE Stop: 12/28/19 15:32 Last Admin: 12/28/19 15:34 Dose: 50 ml Documented by: Dextrose/Water (Dextrose 50% In Water) Confirm Administered Dose 50 ml .ROUTE .STK-MED ONE Stop: 12/28/19 15:33 Last Admin: 12/28/19 16:27 Dose: Not Given Documented by: Duloxetine HCl (Cymbalta) 60 mg PO BID [facility] Last Admin: 12/29/19 23:19 Dose: Not Given Documented by: Heparin Sodium (Porcine) (Heparin Sodium) 5,000 units SUBCUT .STK-MED ONE Stop: 12/28/19 06:01 Sodium Chloride (Normal Saline) 1,000 mls @ 150 mls/hr IV ASDIRECTED [facility] Last Admin: 12/29/19 08:54 Dose: 150 mls/hr Documented by: Lactated Ringer's (Ringers, Lactated) 1,000 mls @ 75 mls/hr IV ASDIRECTED [facility] Last Admin: 12/28/19 20:16 Dose: 75 mls/hr Documented by: Sodium Chloride (Normal Saline) 250 mls @ 50 mls/hr IV ASDIRECTED [facility] Omeprazole (Omeprazole) 20 mg PO .STK-MED ONE Stop: 12/28/19 06:01 - Exam General: Reports: Alert, Oriented Lungs: Reports: Clear to Auscultation, Normal Respiratory Effort Cardiovascular: Reports: Regular Rate, Regular Rhythm GI/Abdominal Exam: Normal Bowel Sounds, Soft, Non-Tender, No Organomegaly, No Distention, No Abnormal Bruit, No Mass, Pelvis Stable Back Exam: Reports: Normal Inspection, Full Range of Motion Extremities: Pedal Edema
== END 2019-12-30 13:20 | disposition home health service (06) ==
LOC: DL.ED 15:35 → DL.MS 19:24
PROVIDERS: ADMIT Hospitalist; ATTEND Hospitalist
DX: S01.91XA Laceration without foreign body of unspecified part of head, initial encounter (principal); R29.6 Repeated falls; I11.0 Hypertensive heart disease with heart failure; I50.9 Heart failure, unspecified; J44.9 Chronic obstructive pulmonary disease, unspecified; F32.9 Major depressive disorder, single episode, unspecified; M79.7 Fibromyalgia; F41.9 Anxiety disorder, unspecified; F17.210 Nicotine dependence, cigarettes, uncomplicated; D64.9 Anemia, unspecified; E87.1 Hypo-osmolality and hyponatremia; Z79.899 Other long term (current) drug therapy; Z88.0 Allergy status to penicillin; Z88.6 Allergy status to analgesic agent; Z88.1 Allergy status to other antibiotic agents; W19.XXXA Unspecified fall, initial encounter; Y92.009 Unspecified place in unspecified non-institutional (private) residence as the place of occurrence of the external cause
CPT/HCPCS: 36415; 70450; 80048; 80053; 80305; 80307; 81003; 82962; 84484; 85025; 85027; 85610; 85730; 93005; 94640; 96361; 96374; 97162; 97165; 99285; A9270; J1644; J2405; J7030; J7120; 96372; 96375; G0378; J7620-GY

== ENCOUNTER 2020-03-23 17:31 | Inpatient (IN) | payer MEDICARE, OTHER ==
--- NOTE | 2020-03-23 18:10 | EDM.PDOC ---
<Bell Bowden - Last Filed: 03/23/20 18:51> ED HPI GENERAL MEDICAL PROBLEM - General Chief Complaint: General Stated Complaint: WEAK LEGS, UTI, CONFUSED, SORE ON HER LEG Time Seen by Provider: 03/23/20 17:45 Source of Information: Reports: Patient, Family, RN, RN Notes Reviewed History Limitations: Reports: Altered Mental Status (confused at times) - History of Present Illness INITIAL COMMENTS - FREE TEXT/NARRATIVE: pt arrives via w/c brought daughter with numerous complaints. reports lethargy/weakness, confusion, dark colored urine, incontinence, constipation, open sore to left medial malleolus, cough, chills, and generalized pain. pt unable to ambulate as she normally does d/t weakness. pt thought she had a BM today, but daughter states she has not. states symptoms have been gradually worsening over the last week, being more pronounced the last two days. pt admitted in December after fall with head laceration. pt does not leave home, is cared for by family. states she has not been exposed to COVID that she is aware, family is selective about who enters the home. daughter reports patient sliding off of couch this am @ 5am and laid on floor for about 4 hours. denies injury, hitting head, or LOC. when asked about pain, pt states she has pain all over, has hx of fibromyalgia. reports hx of COPD and HTN. Onset: Gradual Generalized Pain Score (Numeric/FACES): 6 - Related Data Allergies Allergy/AdvReac Type Severity Reaction Status Date / Time aspirin Allergy Hives Verified 03/23/20 21:52 azithromycin [From Zithromax] Allergy UNKNOWN Verified 03/23/20 21:52 Penicillins Allergy Hives Verified 03/23/20 21:52 Home Meds: Home Meds Acetaminophen [Acetaminophen 8 Hour] 650 mg PO BID 07/01/18 [History] DULoxetine HCl [Cymbalta] 60 mg PO BID 07/01/18 [History] buPROPion HCL [Wellbutrin Xl] 150 mg PO DAILY 07/01/18 [History] Cholecalciferol (Vitamin D3) [Vitamin D3] 3,000 unit PO DAILY 08/25/18 [History] Albuterol [Ventolin HFA] 2 puff INH Q6H PRN #1 08/29/18 [Rx] Budesonide/Formoterol [Symbicort 160-4.5 MCG] 1 puff INH BID #1 inhaler 08/29/18 [Rx] Cyclobenzaprine [Flexeril] 5 mg PO Q8H PRN 03/23/20 [History] Furosemide [Lasix] 40 mg PO Q48H 03/23/20 [History] Zolpidem Tartrate [Ambien] 10 mg PO DAILY PRN 03/23/20 [History] Past Medical History HEENT History: Reports: Impaired Vision Cardiovascular History: Reports: Heart Failure Respiratory History: Reports: Asthma, COPD, Pneumonia, Recurrent Gastrointestinal History: Reports: None Genitourinary History: Reports: None [employer] History: Reports: None Musculoskeletal History: Reports: Fibromyalgia Neurological History: Reports: None Psychiatric History: Reports: Depression Endocrine/Metabolic History: Reports: None Hematologic History: Reports: B12 Deficiency Immunologic History: Reports: None Oncologic (Cancer) History: Reports: None - Infectious Disease History Infectious Disease History: Reports: Shingles - Past Surgical History Female Surgical History: Reports: Tubal Ligation Social & Family History - Family History Family Medical History: No Pertinent Family History Respiratory: Reports: TB Oncologic: Reports: Lung - Tobacco Use Tobacco Use Status *Q: Current Every Day Tobacco User Years of Tobacco use: 30 Packs/Tins Daily: 0.5 - Caffeine Use Caffeine Use: Reports: Coffee - Recreational Drug Use Recreational Drug Use: No - Living Situation & Occupation Living situation: Reports: , with Family Occupation: Retired ED ROS GENERAL - Review of Systems Review Of Systems: Comprehensive ROS is negative, except as noted in HPI. ED EXAM, GENERAL - Physical Exam Exam: See Below Exam Limited By: No Limitations General Appearance: Alert, Mild Distress Eye Exam: Right Eye: PERRL (left pupil abnormal since hitting head in December), Bilateral Eye: Other (keeps eyes closed during conversation) Ears: Normal External Exam, Hearing Grossly Normal Nose: Normal Inspection Throat/Mouth: Normal Inspection, Normal Voice, No Airway Compromise Head: Atraumatic, Normocephalic Neck: Normal Inspection Respiratory/Chest: No Respiratory Distress, Rhonchi (bilateral bases, clears wit h coughing) Cardiovascular: Normal Peripheral Pulses, Regular Rate, Rhythm, No Edema, No Murmur GI/Abdominal: Normal Bowel Sounds, Soft, Non-Tender (Female) Exam: Deferred Rectal (Female) Exam: Deferred Back Exam: Normal Inspection Extremities: Normal Inspection, Redness, Other (ulcer to left medial malleolus) Neurological: Alert, Oriented. No: Normal Gait (unable to ambulate) Psychiatric: Normal Affect, Normal Mood Skin Exam: Warm, Dry, Other (2x3cm ulcer wound bed to left medial malleolus with yellow wound bed, surrounding erythema) Lymphatic: No Adenopathy Departure - Departure Disposition: Refer to Observation Clinical Impression: Hyponatremia, Weakness - Discharge Information Sepsis Event Note (ED) - Evaluation Sepsis Screening Result: No Definite Risk <Olivia Landa - Last Filed: 03/24/20 05:53> Course - Radiology Interpretation Free Text/Narrative:: Head CT wo contrast: PROCEDURE INFORMATION: Exam: CT Head Without Contrast Exam date and time: 03/23/2020 7:28 PM Age: 74 years old Clinical indication: Other: Confusion; Additional info: Confusion, restlesness, weakness TECHNIQUE: Imaging protocol: Computed tomography of the head without contrast. Radiation optimization: All CT scans at this facility use at least one of these dose optimization techniques: automated exposure control; mA and/or kV adjustment per patient size (includes targeted exams where dose is matched to clinical indication); or iterative reconstruction. COMPARISON: CT Head wo Cont 12/28/2019 3:28 PM FINDINGS: Brain: Moderate brain volume loss similar to prior study. Deep white matter hypodensity compatible with chronic small vessel ischemic change. Tiny lacunar infarct right caudate unchanged. Cerebral ventricles: No ventriculomegaly. Bones/joints: Unremarkable. No acute fracture. Paranasal sinuses: Polyp/retention cyst in the right maxillary sinus again noted. Mastoid air cells: Visualized mastoid air cells are well aerated. Soft tissues: Unremarkable. IMPRESSION: No acute intracranial process. Thank you for allowing us to participate in the care of your patient. Dictated and Authenticated by: Rigo Clemente MD 03/23/2020 8:24 PM Central Time ([place] & [place]) Chest CT with contrast: PROCEDURE INFORMATION: Exam: CT Chest With Contrast; Diagnostic Exam date and time: 03/23/2020 7:21 PM Age: 74 years old Clinical indication: Other: D-dimer 1310--shes unable to raisw arms above head; Patient HX: Iv blew; Additional info: Elevated ddimer TECHNIQUE: Imaging protocol: Diagnostic computed tomography of the chest with intravenous contrast. Radiation optimization: All CT scans at this facility use at least one of these dose optimization techniques: automated exposure control; mA and/or kV adjustment per patient size (includes targeted exams where dose is matched to clinical indication); or iterative reconstruction. Contrast material: [id number]; Contrast volume: 74 ml; Contrast route: INTRAVENOUS (IV); COMPARISON: CT Chest wo Cont 08/25/2018 5:07 PM FINDINGS: Limitations: The patient's IV blew. Bolus is limited. Images are degraded by motion. Beam hardening artifact from the patient's arms at her sides. Lungs: There is mild emphysema. There is bilateral apical pleural-parenchymal lung scarring. No significant ground-glass densities, linear interstitial pulmonary thickening, or consolidation. Dependent atelectasis or scarring left lung base. Pleural space: No pneumothorax, pleural effusion, pleural plaque, mass, or calcification. Heart: There are atherosclerotic calcifications inclusive of the coronary arteries. Heart is normal in size. No pericardial effusion. Pulmonary arteries: Main, right, and left pulmonary arteries are is normal in caliber and free of thrombi. Aorta: No aortic aneurysm. Lymph nodes: No enlarged axillary, mediastinal, or hilar lymph nodes. Kidneys and ureters: 2 cm cortical cyst right kidney. No further workup required. Bones/joints: Age appropriate. No acute fracture. No suspicious lytic or osteosclerotic lesions. Soft tissues: Unremarkable. IMPRESSION: 1. No central pulmonary emboli are seen. 2. Dependent atelectasis or scarring left lung base. COMMENTS: Consistent with the [employer]'s Incidental Findings Committee white paper (J Am Jeana Radiol 2018): Any incidental renal lesion less than 1 cm or classified as too small to characterize, or any incidental cystic renal lesion characterized as simple- appearing, is likely benign. No follow-up imaging is recommended for these lesions per consensus recommendations based on imaging criteria. Thank you for allowing us to participate in the care of your patient. Dictated and Authenticated by: Arian Kelly MD 03/23/2020 8:25 PM Central Time ([place] & [place]) See rad report - Re-Assessments/Exams Free Text/Narrative Re-Assessment/Exam: 03/23/20 21:00 Pt case discussed with Dr. Fan who agreed to accept the patient for observation admission. Departure - Departure Time of Disposition: 21:01 Condition: Fair - Discharge Information *PRESCRIPTION DRUG MONITORING PROGRAM REVIEWED*: No *COPY OF PRESCRIPTION DRUG MONITORING REPORT IN PATIENT SONALI: No <Solitario Soto - Last Filed: 03/24/20 07:31> Course - Vital Signs Last Recorded V/S: Last Vital Signs Temp 99.1 F 03/24/20 03:00 Pulse 97 03/24/20 03:00 Resp 18 03/24/20 03:00 BP 137/56 L 03/24/20 03:00 Pulse Ox 100 03/23/20 21:58 - Orders/Labs/Meds Orders: Active Orders 24 hr Category Date Time Status Admission Diagnosis [ADT] Stat ADT 03/23/20 21:07 Ordered Admission Status [Patient Status] [ADT] Routine ADT 03/23/20 21:07 Active CULTURE BLOOD [BC] Stat Lab 03/23/20 17:50 Received Blood Culture x2 Reflex Set [OM.PC] Stat Oth 03/23/20 17:37 Ordered Medication Orders Acetaminophen (Tylenol) 650 mg PO Q6H PRN PRN Reason: Pain Last Admin: 03/24/20 04:29 Dose: 650 mg Documented by: LOVE Acetaminophen (Tylenol) 650 mg PO BID BLAZE Albuterol (Proventil Hfa) 0 gm INH Q6H PRN PRN Reason: Shortness of Breath Bupropion HCl (Wellbutrin Xl) 150 mg PO DAILY [facility]ZE Cholecalciferol (Vitamin D3) 75 mcg PO DAILY [facility]LAZE Cyclobenzaprine HCl (Flexeril) 5 mg PO Q8H PRN PRN Reason: Muscle Spasm Heparin Sodium (Porcine) (Heparin Sodium) 5,000 units SUBCUT Q8HR [facility] Last Admin: 03/24/20 05:38 Dose: 5,000 units Documented by: Admin: 03/23/20 22:49 Dose: 5,000 units Documented by: HALIMA Cefepime HCl 2 gm/ Sodium (Chloride) 50 mls @ 100 mls/hr IV Q8HR BLAZE Vancomycin HCl 1 gm/ Sodium (Chloride) 250 mls @ 166.667 mls/hr IV Q24H [facility] Last Admin: 03/23/20 23:21 Dose: 166.667 mls/hr Documented by: HALIMA Sodium Chloride (Normal Saline) 1,000 mls @ 75 mls/hr IV ASDIRECTED [facility] Last Admin: 03/24/20 01:19 Dose: 75 mls/hr Documented by: EISODETTE Mometasone Furoate/Formoterol Fumar (Dulera 200-5 Mcg) 2 puff IH BIDRT BLAZE Ondansetron HCl (Zofran Odt) 4 mg PO Q6H PRN PRN Reason: nausea, able to take PO Ondansetron HCl (Zofran) 4 mg IVPUSH Q6H PRN PRN Reason: Nausea/Vomiting Senna/Docusate Sodium (Senna Plus) 1 tab PO BEDTIME PRN PRN Reason: Constipation Vancomycin HCl (Pharmacy To Dose - Vancomycin) 1 dose .XX ASDIRECTED [facility] Zolpidem Tartrate (Ambien) 10 mg PO BEDTIME PRN PRN Reason: Insomnia Labs: Laboratory Tests 03/23/20 03/23/20 03/23/20 Range/Units 17:50 17:50 17:50 WBC 7.5 (5.0-10.0) 10^3/uL RBC 3.27 L (4.2-5.4) 10^6/uL Hgb 9.2 L (12.0-16.0) g/dL Hct 27.9 L (37.0-47.0) % MCV 85.3 D (80-100) fL MCH 28.1 (27.0-34.0) pg MCHC 33.0 (33.0-35.0) g/dL Plt Count 411 (150-450) 10^3/uL Neut % (Auto) 73.2 (42.2-75.2) % Lymph % (Auto) 14.4 L (20.5-50.1) % [place] % (Auto) 11.6 H (2-8) % Eos % (Auto) 0.5 L (1.0-3.0) % Baso % (Auto) 0.3 (0.0-1.0) % D-Dimer, Quantitative (0-400) ng/mL Sodium 126 L (136-145) mmol/L Potassium 3.3 L (3.5-5.1) mmol/L Chloride 91 L (98-107) mmol/L Carbon Dioxide 26 (21-32) mmol/L Anion Gap 12.3 (7-13) mEq/L BUN 17 (7-18) mg/dL Creatinine 0.85 (0.55-1.02) mg/dL Est Cr Clr Drug Dosing 48.03 mL/min Estimated GFR (MDRD) > 60 BUN/Creatinine Ratio 20.0 (No establ ref range) Glucose 94 (74-99) mg/dL Lactic Acid 0.9 (0.4-2.0) mmol/L Calcium 8.6 (8.5-10.1) mg/dL Total Bilirubin 0.2 (0.2-1.0) mg/dL AST 20 (15-37) U/L ALT 16 (14-59) U/L Alkaline Phosphatase 77 (46-116) U/L Lactate Dehydrogenase (81-234) U/L B-Natriuretic Peptide (0-100) pg/ml Total Protein 7.3 (6.4-8.2) g/dL Albumin 3.1 L (3.4-5.0) g/dL Globulin 4.2 Albumin/Globulin Ratio 0.74 Urine Color (YELLOW) Urine Appearance (CLEAR) Urine pH (5.0-9.0) Ur Specific [place] (1.005-1.030) Urine Protein (NEGATIVE) Urine Glucose (UA) (NEGATIVE) Urine Ketones (NEGATIVE) Urine Occult Blood (NEGATIVE) Urine Nitrite (NEGATIVE) Urine Bilirubin (NEGATIVE) Urine Urobilinogen (0.2-1.0) mg/dL Ur Leukocyte Esterase (NEGATIVE) Ur Random Sodium (No establ.ref range) mmol/L SARS-CoV-2 RNA (SKY) (NEGATIVE) 03/23/20 03/23/20 03/23/20 Range/Units 17:50 17:50 17:50 WBC (5.0-10.0) 10^3/uL RBC (4.2-5.4) 10^6/uL Hgb (12.0-16.0) g/dL Hct (37.0-47.0) % MCV (80-100) fL MCH (27.0-34.0) pg MCHC (33.0-35.0) g/dL Plt Count (150-450) 10^3/uL Neut % (Auto) (42.2-75.2) % Lymph % (Auto) (20.5-50.1) % [place] % (Auto) (2-8) % Eos % (Auto) (1.0-3.0) % Baso % (Auto) (0.0-1.0) % D-Dimer, Quantitative 1310 H (0-400) ng/mL Sodium (136-145) mmol/L Potassium (3.5-5.1) mmol/L Chloride (98-107) mmol/L Carbon Dioxide (21-32) mmol/L Anion Gap (7-13) mEq/L BUN (7-18) mg/dL Creatinine (0.55-1.02) mg/dL Est Cr Clr Drug Dosing mL/min Estimated GFR (MDRD) BUN/Creatinine Ratio (No establ ref range) Glucose (74-99) mg/dL Lactic Acid (0.4-2.0) mmol/L Calcium (8.5-10.1) mg/dL Total Bilirubin (0.2-1.0) mg/dL AST (15-37) U/L ALT (14-59) U/L Alkaline Phosphatase (46-116) U/L Lactate Dehydrogenase 156 (81-234) U/L B-Natriuretic Peptide 63 (0-100) pg/ml Total Protein (6.4-8.2) g/dL Albumin (3.4-5.0) g/dL Globulin Albumin/Globulin Ratio Urine Color (YELLOW) Urine Appearance (CLEAR) Urine pH (5.0-9.0) Ur Specific [place] (1.005-1.030) Urine Protein (NEGATIVE) Urine Glucose (UA) (NEGATIVE) Urine Ketones (NEGATIVE) Urine Occult Blood (NEGATIVE) Urine Nitrite (NEGATIVE) Urine Bilirubin (NEGATIVE) Urine Urobilinogen (0.2-1.0) mg/dL Ur Leukocyte Esterase (NEGATIVE) Ur Random Sodium (No establ.ref range) mmol/L SARS-CoV-2 RNA (SKY) (NEGATIVE) 03/23/20 03/23/20 03/23/20 Range/Units 18:05 18:36 18:40 WBC (5.0-10.0) 10^3/uL RBC (4.2-5.4) 10^6/uL Hgb (12.0-16.0) g/dL Hct (37.0-47.0) % MCV (80-100) fL MCH (27.0-34.0) pg MCHC (33.0-35.0) g/dL Plt Count (150-450) 10^3/uL Neut % (Auto) (42.2-75.2) % Lymph % (Auto) (20.5-50.1) % [place] % (Auto) (2-8) % Eos % (Auto) (1.0-3.0) % Baso % (Auto) (0.0-1.0) % D-Dimer, Quantitative (0-400) ng/mL Sodium (136-145) mmol/L Potassium (3.5-5.1) mmol/L Chloride (98-107) mmol/L Carbon Dioxide (21-32) mmol/L Anion Gap (7-13) mEq/L BUN (7-18) mg/dL Creatinine (0.55-1.02) mg/dL Est Cr Clr Drug Dosing mL/min Estimated GFR (MDRD) BUN/Creatinine Ratio (No establ ref range) Glucose (74-99) mg/dL Lactic Acid (0.4-2.0) mmol/L Calcium (8.5-10.1) mg/dL Total Bilirubin (0.2-1.0) mg/dL AST (15-37) U/L ALT (14-59) U/L Alkaline Phosphatase (46-116) U/L Lactate Dehydrogenase (81-234) U/L B-Natriuretic Peptide (0-100) pg/ml Total Protein (6.4-8.2) g/dL Albumin (3.4-5.0) g/dL Globulin Albumin/Globulin Ratio Urine Color Dark yellow (YELLOW) Urine Appearance Slightly cloudy (CLEAR) Urine pH 6.0 (5.0-9.0) Ur Specific [place] 1.020 (1.005-1.030) Urine Protein Negative (NEGATIVE) Urine Glucose (UA) Negative (NEGATIVE) Urine Ketones 15 H (NEGATIVE) Urine Occult Blood Negative (NEGATIVE) Urine Nitrite Negative (NEGATIVE) Urine Bilirubin Negative (NEGATIVE) Urine Urobilinogen 1.0 (0.2-1.0) mg/dL Ur Leukocyte Esterase Negative (NEGATIVE) Ur Random Sodium 63 (No establ.ref range) mmol/L SARS-CoV-2 RNA (SKY) Negative (NEGATIVE) Meds: Medications Generic Name Dose Route Start Last Admin Trade Name Freq PRN Reason Stop Dose Admin Acetaminophen 650 mg 03/23/20 21:58 12/05/20 04:29 Tylenol PO 650 mg Q6H PRN Administration Pain Acetaminophen 650 mg 03/24/20 09:00 Tylenol PO BID [facility] Albuterol 0 gm 03/23/20 22:03 Proventil Hfa INH Q6H PRN Shortness of Breath Bupropion HCl 150 mg 03/24/20 09:00 Wellbutrin Xl PO DAILY [facility] Cholecalciferol 75 mcg 03/24/20 09:00 Vitamin D3 PO DAILY [facility] Cyclobenzaprine HCl 5 mg 03/23/20 22:09 Flexeril PO Q8H PRN Muscle Spasm Heparin Sodium (Porcine) 5,000 units 03/23/20 22:00 03/24/20 05:38 Heparin Sodium SUBCUT 5,000 units Q8HR [facility] Administration Cefepime HCl 2 gm/ Sodium 50 mls @ 100 mls/hr 03/24/20 06:00 Chloride IV Q8HR BLAZE Vancomycin HCl 1 gm/ Sodium 250 mls @ 166.667 mls/hr 03/23/20 23:00 03/23/20 23:21 Chloride IV 166.667 mls/hr Q24H BLAZE Administration Sodium Chloride 1,000 mls @ 75 mls/hr 03/24/20 00:15 03/24/20 01:19 Normal Saline IV 75 mls/hr ASDIRECTED [facility] Administration Mometasone Furoate/Formoterol Fumar 2 puff 03/24/20 07:00 Dulera 200-5 Mcg IH BIDRT [facility] Ondansetron HCl 4 mg 03/23/20 21:58 Zofran Odt PO Q6H PRN nausea, able to take PO Ondansetron HCl 4 mg 03/23/20 21:58 Zofran IVPUSH Q6H PRN Nausea/Vomiting Senna/Docusate Sodium 1 tab 03/23/20 21:58 Senna Plus PO BEDTIME PRN Constipation Vancomycin HCl 1 dose 03/23/20 22:30 Pharmacy To Dose - Vancomycin .XX ASDIRECTED [facility] Zolpidem Tartrate 10 mg 03/23/20 22:09 Ambien PO BEDTIME PRN Insomnia Discontinued Medications Generic Name Dose Route Start Last Admin Trade Name Freq PRN Reason Stop Dose Admin Sodium Chloride 1,000 mls @ 999 mls/hr 03/23/20 18:43 03/23/20 18:49 Normal Saline IV 03/23/20 19:43 999 mls/hr .BOLUS ONE Administration Cefepime HCl 2 gm/ Sodium 50 mls @ 100 mls/hr 03/23/20 22:45 03/23/20 22:45 Chloride IV 03/23/20 23:14 100 mls/hr ONETIME ONE Administration Cefepime HCl 2 gm/ Sodium 50 mls @ 100 mls/hr 03/24/20 06:00 03/24/20 05:38 Chloride IV 03/24/20 06:29 100 mls/hr Q8HR [facility]LAZE Administration Iopamidol 100 ml 03/23/20 19:18 03/23/20 19:23 [id number] (76%) IVPUSH 03/23/20 19:19 100 ml ONETIME ONE Administration Morphine Sulfate 2 mg 03/23/20 20:37 03/23/20 20:42 Morphine IVPUSH 03/23/20 20:38 2 mg ONETIME ONE Administration - Re-Assessments/Exams Free Text/Narrative Re-Assessment/Exam: 03/24/20 07:31 I personally performed or re-performed the physical examination and medical decision making. I have verified all student documentation or findings, including history, physical exam and/or medical decision making. Sepsis Event Note (ED) - Focused Exam Vital Signs: Vital Signs Pulse Resp BP Pulse Ox 03/23/20 20:58 88 19 119/59 L 100
[2020-03-23 18:33] LABS: ANION GAP 12.3 mEq/L (7-13); CHLORIDE,CL 91 mmol/L (98-107); SODIUM,NA 126 mmol/L (136-145)
[2020-03-23] MEDS ORDERED: Sodium Chloride 0.9% 1,000 ML IV ONE (18:43)
[2020-03-23] MEDS ORDERED: Iopamidol 755 Mg/ML 100 ML Bottle IVPUSH ONE (19:18)
--- NOTE | 2020-03-23 20:25 | CT ---
PROCEDURE INFORMATION: Exam: CT Chest With Contrast; Diagnostic Exam date and time: 03/23/2020 7:21 PM Age: 74 years old Clinical indication: Other: D-dimer 1310--shes unable to raisw arms above head; Patient HX: Iv blew; Additional info: Elevated ddimer TECHNIQUE: Imaging protocol: Diagnostic computed tomography of the chest with intravenous contrast. Radiation optimization: All CT scans at this facility use at least one of these dose optimization techniques: automated exposure control; mA and/or kV adjustment per patient size (includes targeted exams where dose is matched to clinical indication); or iterative reconstruction. Contrast material: [id number]; Contrast volume: 74 ml; Contrast route: INTRAVENOUS (IV); COMPARISON: CT Chest wo Cont 08/25/2018 5:07 PM FINDINGS: Limitations: The patient's IV blew. Bolus is limited. Images are degraded by motion. Beam hardening artifact from the patient's arms at her sides. Lungs: There is mild emphysema. There is bilateral apical pleural-parenchymal lung scarring. No significant ground-glass densities, linear interstitial pulmonary thickening, or consolidation. Dependent atelectasis or scarring left lung base. Pleural space: No pneumothorax, pleural effusion, pleural plaque, mass, or calcification. Heart: There are atherosclerotic calcifications inclusive of the coronary arteries. Heart is normal in size. No pericardial effusion. Pulmonary arteries: Main, right, and left pulmonary arteries are is normal in caliber and free of thrombi. Aorta: No aortic aneurysm. Lymph nodes: No enlarged axillary, mediastinal, or hilar lymph nodes. Kidneys and ureters: 2 cm cortical cyst right kidney. No further workup required. Bones/joints: Age appropriate. No acute fracture. No suspicious lytic or osteosclerotic lesions. Soft tissues: Unremarkable. IMPRESSION: 1. No central pulmonary emboli are seen. 2. Dependent atelectasis or scarring left lung base. COMMENTS: Consistent with the [employer]'s Incidental Findings Committee white paper (J Am Jeana Radiol 2018): Any incidental renal lesion less than 1 cm or classified as too small to characterize, or any incidental cystic renal lesion characterized as simple-appearing, is likely benign. No follow-up imaging is recommended for these lesions per consensus recommendations based on imaging criteria.
--- NOTE | 2020-03-23 20:25 | CT ---
PROCEDURE INFORMATION: Exam: CT Head Without Contrast Exam date and time: 03/23/2020 7:28 PM Age: 74 years old Clinical indication: Other: Confusion; Additional info: Confusion, restlesness, weakness TECHNIQUE: Imaging protocol: Computed tomography of the head without contrast. Radiation optimization: All CT scans at this facility use at least one of these dose optimization techniques: automated exposure control; mA and/or kV adjustment per patient size (includes targeted exams where dose is matched to clinical indication); or iterative reconstruction. COMPARISON: CT Head wo Cont 12/28/2019 3:28 PM FINDINGS: Brain: Moderate brain volume loss similar to prior study. Deep white matter hypodensity compatible with chronic small vessel ischemic change. Tiny lacunar infarct right caudate unchanged. Cerebral ventricles: No ventriculomegaly. Bones/joints: Unremarkable. No acute fracture. Paranasal sinuses: Polyp/retention cyst in the right maxillary sinus again noted. Mastoid air cells: Visualized mastoid air cells are well aerated. Soft tissues: Unremarkable. IMPRESSION: No acute intracranial process.
[2020-03-23] MEDS ORDERED: Morphine 2 MG/ML SYRINGE IVPUSH ONE (20:37)
[2020-03-23] MEDS ORDERED: Ondansetron 4 MG Tab.DIS PO PRN (21:58)
[2020-03-23] MEDS ORDERED: Ondansetron 4 MG/2 ML SDV IVPUSH PRN (21:58)
[2020-03-23] MEDS ORDERED: Albuterol 6.7 GM Inhaler INH PRN (22:03)
[2020-03-23] MEDS ORDERED: Cyclobenzaprine 10 MG Tab PO PRN (22:09)
--- NOTE | 2020-03-23 22:33 | PCM.HP ---
H&P History of Present Illness - General Date of Service: 03/23/20 Admit Problem/Dx: Admission Diagnosis/Problem Admission Diagnosis/Problem Weakness Source of Information: Patient, Family, Old Records, Provider - History of Present Illness Initial Comments - Free Text/Narative: Patient is a 74-year-old female with medical history significant for COPD, hyperlipidemia, chronic low back pain, postherpetic neuralgia, tobacco abuse, shingles, and fall from stool with head trauma and anterolisthesis at C3-C4 status post [place] collar, and fibromyalgia who was brought today ED by family with complaints of altered mental status, lethargy, weakness, dark-colored urine, incontinence, constipation, and chronic open sore on the left medial lower leg. Patient's granddaughter at bedside report that patient has been more more confused over the past 3 days. States that patient has refused coming to the emergency department. Reports that they have been trying to make an appointment with PCP but they were unsuccessful so today, family literally picked patient up and put her in the vehicle and brought her to the ED. Granddaughter at bedside report that patient had a bowel movement yesterday. She reports that patient developed a sore in the medial left lower leg and was placed on antibiotics about a month ago but saw remains open. Patient denies any pain but states that she has pain all over. Unable to quantify her pain. Daughter reported in the emergency department the patient slipped out of bed about 5 AM was on the floor for about 4 hours. However, granddaughter at bedside reports this did not happen. States that this was about several weeks ago. Patient reports constipation. However, she denies nausea, vomiting, diarrhea, chest pain, shortness of air, dysuria, hematuria, or any new symptoms. Generalized Pain Score (Numeric/FACES): 6 - Related Data Allergies/Adverse Reactions: Allergies Allergy/AdvReac Type Severity Reaction Status Date / Time aspirin Allergy Hives Verified 03/23/20 21:52 azithromycin [From Zithromax] Allergy UNKNOWN Verified 03/23/20 21:52 Penicillins Allergy Hives Verified 03/23/20 21:52 Home Medications: Home Meds Acetaminophen [Acetaminophen 8 Hour] 650 mg PO BID 07/01/18 [History] DULoxetine HCl [Cymbalta] 60 mg PO BID 07/01/18 [History] buPROPion HCL [Wellbutrin Xl] 150 mg PO DAILY 07/01/18 [History] Cholecalciferol (Vitamin D3) [Vitamin D3] 3,000 unit PO DAILY 08/25/18 [History] Albuterol [Ventolin HFA] 2 puff INH Q6H PRN #1 08/29/18 [Rx] Budesonide/Formoterol [Symbicort 160-4.5 MCG] 1 puff INH BID #1 inhaler 08/29/18 [Rx] Cyclobenzaprine [Flexeril] 5 mg PO Q8H PRN 03/23/20 [History] Furosemide [Lasix] 40 mg PO Q48H 03/23/20 [History] Zolpidem Tartrate [Ambien] 10 mg PO DAILY PRN 03/23/20 [History] Past Medical History HEENT History: Reports: Impaired Vision Cardiovascular History: Reports: Heart Failure Respiratory History: Reports: Asthma, COPD, Pneumonia, Recurrent Gastrointestinal History: Reports: None Genitourinary History: Reports: None DIRECTOR OF CAREER RESOURCES History: Reports: None Musculoskeletal History: Reports: Fibromyalgia Neurological History: Reports: None Psychiatric History: Reports: Depression Endocrine/Metabolic History: Reports: None Hematologic History: Reports: B12 Deficiency Immunologic History: Reports: None Oncologic (Cancer) History: Reports: None - Infectious Disease History Infectious Disease History: Reports: Shingles - Past Surgical History Female Surgical History: Reports: Tubal Ligation Social & Family History - Family History Family Medical History: No Pertinent Family History Respiratory: Reports: TB Oncologic: Reports: Lung - Tobacco Use Tobacco Use Status *Q: Current Every Day Tobacco User Years of Tobacco use: 30 Packs/Tins Daily: 0.5 - Caffeine Use Caffeine Use: Reports: Coffee - Recreational Drug Use Recreational Drug Use: No - Living Situation & Occupation Living situation: Reports: , with Family Occupation: Retired H&P Review of Systems - Review of Systems: Review Of Systems: Comprehensive ROS is negative, except as noted in HPI. Exam - Exam Exam: See Below - Vital Signs Vital Signs: Last Vital Signs Temp 98 F 03/23/20 21:39 Pulse 87 03/23/20 21:39 Resp 18 03/23/20 21:39 BP 135/64 03/23/20 21:39 Pulse Ox 100 03/23/20 21:58 Weight: 138 lb 8 oz - Exam General: Alert, Oriented, Cooperative, Mild Distress HEENT: Conjunctiva Clear, Hearing Intact, Mucosa Moist & Smiley Neck: Supple, Trachea Midline Lungs: Clear to Auscultation, Normal Respiratory Effort Cardiovascular: Regular Rate, Regular Rhythm, Normal S1, Normal S2 GI/Abdominal Exam: Normal Bowel Sounds, Soft, Non-Tender Extremities: Other (About a quarter sized wound on the anterior medial lower leg about 5 cm above the ankle with surrounding erythema and swelling, tender to touch. Chronic stasis changes of bilateral lower legs.) Peripheral Pulses: 1+: Dorsalis Pedis (L), Dorsalis Pedis (R), 2+: Radial (L), Radial (R) Skin: Warm, Dry, Wound (As for extremity above) Neuro Extensive - Mental Status: Alert, Oriented x3, Normal Mood/Affect, Normal Cognition Psychiatric: Alert, Normal Affect, Normal Mood - Patient Data Lab Results Last 24 hrs: Laboratory Results - last 24 hr 03/23/20 03/23/20 03/23/20 Range/Units 17:50 17:50 17:50 WBC 7.5 (5.0-10.0) 10^3/uL RBC 3.27 L (4.2-5.4) 10^6/uL Hgb 9.2 L (12.0-16.0) g/dL Hct 27.9 L (37.0-47.0) % MCV 85.3 D (80-100) fL MCH 28.1 (27.0-34.0) pg MCHC 33.0 (33.0-35.0) g/dL Plt Count 411 (150-450) 10^3/uL Neut % (Auto) 73.2 (42.2-75.2) % Lymph % (Auto) 14.4 L (20.5-50.1) % [place] % (Auto) 11.6 H (2-8) % Eos % (Auto) 0.5 L (1.0-3.0) % Baso % (Auto) 0.3 (0.0-1.0) % D-Dimer, Quantitative (0-400) ng/mL Sodium 126 L (136-145) mmol/L Potassium 3.3 L (3.5-5.1) mmol/L Chloride 91 L (98-107) mmol/L Carbon Dioxide 26 (21-32) mmol/L Anion Gap 12.3 (7-13) mEq/L BUN 17 (7-18) mg/dL Creatinine 0.85 (0.55-1.02) mg/dL Est Cr Clr Drug Dosing 48.03 mL/min Estimated GFR (MDRD) > 60 BUN/Creatinine Ratio 20.0 (No establ ref range) Glucose 94 (74-99) mg/dL Lactic Acid 0.9 (0.4-2.0) mmol/L Calcium 8.6 (8.5-10.1) mg/dL Total Bilirubin 0.2 (0.2-1.0) mg/dL AST 20 (15-37) U/L ALT 16 (14-59) U/L Alkaline Phosphatase 77 (46-116) U/L Lactate Dehydrogenase (81-234) U/L B-Natriuretic Peptide (0-100) pg/ml Total Protein 7.3 (6.4-8.2) g/dL Albumin 3.1 L (3.4-5.0) g/dL Globulin 4.2 Albumin/Globulin Ratio 0.74 Urine Color (YELLOW) Urine Appearance (CLEAR) Urine pH (5.0-9.0) Ur Specific [place] (1.005-1.030) Urine Protein (NEGATIVE) Urine Glucose (UA) (NEGATIVE) Urine Ketones (NEGATIVE) Urine Occult Blood (NEGATIVE) Urine Nitrite (NEGATIVE) Urine Bilirubin (NEGATIVE) Urine Urobilinogen (0.2-1.0) mg/dL Ur Leukocyte Esterase (NEGATIVE) SARS-CoV-2 RNA (SKY) (NEGATIVE) 03/23/20 03/23/20 03/23/20 Range/Units 17:50 17:50 17:50 WBC (5.0-10.0) 10^3/uL RBC (4.2-5.4) 10^6/uL Hgb (12.0-16.0) g/dL Hct (37.0-47.0) % MCV (80-100) fL MCH (27.0-34.0) pg MCHC (33.0-35.0) g/dL Plt Count (150-450) 10^3/uL Neut % (Auto) (42.2-75.2) % Lymph % (Auto) (20.5-50.1) % [place] % (Auto) (2-8) % Eos % (Auto) (1.0-3.0) % Baso % (Auto) (0.0-1.0) % D-Dimer, Quantitative 1310 H (0-400) ng/mL Sodium (136-145) mmol/L Potassium (3.5-5.1) mmol/L Chloride (98-107) mmol/L Carbon Dioxide (21-32) mmol/L Anion Gap (7-13) mEq/L BUN (7-18) mg/dL Creatinine (0.55-1.02) mg/dL Est Cr Clr Drug Dosing mL/min Estimated GFR (MDRD) BUN/Creatinine Ratio (No establ ref range) Glucose (74-99) mg/dL Lactic Acid (0.4-2.0) mmol/L Calcium (8.5-10.1) mg/dL Total Bilirubin (0.2-1.0) mg/dL AST (15-37) U/L ALT (14-59) U/L Alkaline Phosphatase (46-116) U/L Lactate Dehydrogenase 156 (81-234) U/L B-Natriuretic Peptide 63 (0-100) pg/ml Total Protein (6.4-8.2) g/dL Albumin (3.4-5.0) g/dL Globulin Albumin/Globulin Ratio Urine Color (YELLOW) Urine Appearance (CLEAR) Urine pH (5.0-9.0) Ur Specific [place] (1.005-1.030) Urine Protein (NEGATIVE) Urine Glucose (UA) (NEGATIVE) Urine Ketones (NEGATIVE) Urine Occult Blood (NEGATIVE) Urine Nitrite (NEGATIVE) Urine Bilirubin (NEGATIVE) Urine Urobilinogen (0.2-1.0) mg/dL Ur Leukocyte Esterase (NEGATIVE) SARS-CoV-2 RNA (SKY) (NEGATIVE) 03/23/20 03/23/20 Range/Units 18:05 18:36 WBC (5.0-10.0) 10^3/uL RBC (4.2-5.4) 10^6/uL Hgb (12.0-16.0) g/dL Hct (37.0-47.0) % MCV (80-100) fL MCH (27.0-34.0) pg MCHC (33.0-35.0) g/dL Plt Count (150-450) 10^3/uL Neut % (Auto) (42.2-75.2) % Lymph % (Auto) (20.5-50.1) % [place] % (Auto) (2-8) % Eos % (Auto) (1.0-3.0) % Baso % (Auto) (0.0-1.0) % D-Dimer, Quantitative (0-400) ng/mL Sodium (136-145) mmol/L Potassium (3.5-5.1) mmol/L Chloride (98-107) mmol/L Carbon Dioxide (21-32) mmol/L Anion Gap (7-13) mEq/L BUN (7-18) mg/dL Creatinine (0.55-1.02) mg/dL Est Cr Clr Drug Dosing mL/min Estimated GFR (MDRD) BUN/Creatinine Ratio (No establ ref range) Glucose (74-99) mg/dL Lactic Acid (0.4-2.0) mmol/L Calcium (8.5-10.1) mg/dL Total Bilirubin (0.2-1.0) mg/dL AST (15-37) U/L ALT (14-59) U/L Alkaline Phosphatase (46-116) U/L Lactate Dehydrogenase (81-234) U/L B-Natriuretic Peptide (0-100) pg/ml Total Protein (6.4-8.2) g/dL Albumin (3.4-5.0) g/dL Globulin Albumin/Globulin Ratio Urine Color Dark yellow (YELLOW) Urine Appearance Slightly cloudy (CLEAR) Urine pH 6.0 (5.0-9.0) Ur Specific [place] 1.020 (1.005-1.030) Urine Protein Negative (NEGATIVE) Urine Glucose (UA) Negative (NEGATIVE) Urine Ketones 15 H (NEGATIVE) Urine Occult Blood Negative (NEGATIVE) Urine Nitrite Negative (NEGATIVE) Urine Bilirubin Negative (NEGATIVE) Urine Urobilinogen 1.0 (0.2-1.0) mg/dL Ur Leukocyte Esterase Negative (NEGATIVE) SARS-CoV-2 RNA (SKY) Negative (NEGATIVE) Result Diagrams: 03/23/20 17:50 03/23/20 17:50 - Problem List (1) Altered mental status SNOMED Code(s): 558347438 ICD Code: R41.82 - ALTERED MENTAL STATUS, UNSPECIFIED Status: Acute Current Visit: No Qualifiers: Altered mental status type: transient alteration of awareness Qualified Code(s): R40.4 - Transient alteration of awareness (2) Anxiety SNOMED Code(s): 33546234 ICD Code: F41.9 - ANXIETY DISORDER, UNSPECIFIED Status: Acute Current Visit: No (3) Cellulitis of left lower extremity SNOMED Code(s): 069948408 ICD Code: L03.116 - CELLULITIS OF LEFT LOWER LIMB Status: Acute Current Visit: No (4) Depression SNOMED Code(s): 55410428 ICD Code: F32.9 - MAJOR DEPRESSIVE DISORDER, SINGLE EPISODE, UNSPECIFIED Status: Acute Current Visit: No Qualifiers: Depression Type: unspecified Qualified Code(s): F32.9 - Major depressive disorder, single episode, unspecified (5) Frequent falls SNOMED Code(s): 722701679 ICD Code: R29.6 - REPEATED FALLS Status: Acute Current Visit: No (6) Peripheral neurogenic pain SNOMED Code(s): 827695469 ICD Code: M79.2 - NEURALGIA AND NEURITIS, UNSPECIFIED Status: Acute Current Visit: No (7) Weakness SNOMED Code(s): 16298242 ICD Code: R53.1 - WEAKNESS Status: Acute Current Visit: No Problem List Initiated/Reviewed/Updated: Yes Orders Last 24hrs: Active Orders 24 hr Category Date Time Status Admission Diagnosis [ADT] Stat ADT 03/23/20 21:07 Ordered Admission Status [Patient Status] [ADT] Routine ADT 03/23/20 21:07 Active Intake and Output [RC] QSHIFT Care 03/23/20 21:59 Ordered Oxygen Therapy [RC] PRN Care 03/23/20 21:58 Ordered RT Post Treatment Assessment [RC] Click to Edit Care 03/23/20 22:04 Ordered RT Pre-Treatment Assessment [RC] Click to Edit Care 03/23/20 22:04 Ordered Up With Assistance [RC] ASDIRECTED Care 03/23/20 21:58 Ordered VTE/DVT Education [RC] PER UNIT ROUTINE Care 03/23/20 21:58 Ordered Vital Signs [RC] Q4H Care 03/23/20 21:58 Ordered 2 Gram Sodium Diet [DIET] Diet 03/23/20 Dinner Ordered BASIC METABOLIC PANEL,BMP [CHEM] AM Lab 03/24/20 05:11 Ordered CRP [C-REACTIVE PROTEIN] [CHEM] Routine Lab 03/23/20 22:15 Ordered CULTURE BLOOD [BC] Stat Lab 03/23/20 17:50 Received CULTURE BLOOD [BC] Stat Lab 03/23/20 22:16 Ordered CULTURE BLOOD [BC] Stat Lab 03/23/20 22:16 Ordered MAGNESIUM [CHEM] AM Lab 03/24/20 05:11 Ordered OSMOLALITY - SERUM [REF] Routine Lab 03/23/20 22:05 Ordered OSMOLALITY - URINE Routine Lab 03/23/20 22:05 Ordered PHOSPHORUS [CHEM] AM Lab 03/24/20 05:11 Ordered SEDIMENTATION RATE MANUAL [HEME] Routine Lab 03/23/20 22:15 Ordered SODIUM,NA [CHEM] Routine Lab 03/23/20 22:05 Ordered SODIUM,URINE RANDOM [URCHEM] Routine Lab 03/23/20 22:05 Ordered TSH ULTRASENSITIVE [CHEM] Routine Lab 03/23/20 22:17 Ordered Acetaminophen [Acetaminophen 8 Hour] Med 03/24/20 09:00 Ordered 650 mg PO BID Acetaminophen [TylenoL] Med 03/23/20 21:58 Ordered 650 mg PO Q6H PRN Albuterol [Proventil HFA] Med 03/23/20 22:03 Ordered 2 puff INH Q6H PRN Budesonide/Formoterol Med 03/24/20 09:00 Ordered 1 puff INH BID Cefepime [Maxipime] 2 gm Med 03/24/20 06:00 Ordered Sodium Chloride 0.9% [Normal Saline] 50 ml IV Q8HR Cholecalciferol (Vitamin D3) [Vitamin D3] Med 03/24/20 09:00 Ordered 3,000 unit PO DAILY Cyclobenzaprine [Flexeril] Med 03/23/20 22:03 Ordered 5 mg PO Q8H PRN Docusate Sodium/Sennosides [Senna Plus] Med 03/23/20 21:58 Ordered 1 tab PO BEDTIME PRN Heparin Sodium Med 03/23/20 22:00 Ordered 5,000 units SUBCUT Q8HR Ondansetron [Zofran ODT] Med 03/23/20 21:58 Ordered 4 mg PO Q6H PRN Ondansetron [Zofran] Med 03/23/20 21:58 Ordered 4 mg IVPUSH Q6H PRN Pharmacy to Dose - Vancomycin Med 03/23/20 22:30 Ordered 1 dose .XX ASDIRECTED Zolpidem Tartrate Med 03/23/20 22:03 Ordered 10 mg PO DAILY PRN buPROPion [Wellbutrin XL] Med 03/24/20 09:00 Ordered 150 mg PO DAILY Blood Culture x2 Reflex Set [OM.PC] Stat Oth 03/23/20 17:37 Ordered Blood Culture x2 Reflex Set [OM.PC] Stat Oth 03/23/20 22:16 Ordered Resuscitation Status Routine Resus Stat 03/23/20 21:58 Ordered Medication Orders Acetaminophen (Tylenol) 650 mg PO Q6H PRN PRN Reason: Pain Acetaminophen (Tylenol) 650 mg PO BID BLAZE Albuterol (Proventil Hfa) 0 gm INH Q6H PRN PRN Reason: Shortness of Breath Bupropion HCl (Wellbutrin Xl) 150 mg PO DAILY BLAZE Cholecalciferol (Vitamin D3) 75 mcg PO DAILY BLAZE Cyclobenzaprine HCl (Flexeril) 5 mg PO Q8H PRN PRN Reason: Muscle Spasm Heparin Sodium (Porcine) (Heparin Sodium) 5,000 units SUBCUT Q8HR BLAZE Cefepime HCl 2 gm/ Sodium (Chloride) 50 mls @ 100 mls/hr IV Q8HR BLAZE Mometasone Furoate/Formoterol Fumar (Dulera 200-5 Mcg) 2 puff IH BIDRT BLAZE Ondansetron HCl (Zofran Odt) 4 mg PO Q6H PRN PRN Reason: nausea, able to take PO Ondansetron HCl (Zofran) 4 mg IVPUSH Q6H PRN PRN Reason: Nausea/Vomiting Senna/Docusate Sodium (Senna Plus) 1 tab PO BEDTIME PRN PRN Reason: Constipation Vancomycin HCl (Pharmacy To Dose - Vancomycin) 1 dose .XX ASDIRECTED BLAZE Zolpidem Tartrate (Ambien) 10 mg PO BEDTIME PRN PRN Reason: Insomnia Assessment/Plan Comment:: #Altered mental status: Likely multifactorial, etiologies could include hyponatremia, constipation, or infection. Patient sodium of 126, reports constipation, and chronic wound of left anterior medial lower leg that appears infected. Delirium prevention precautions #Hyponatremia: Sodium of 126. Received a bolus of fluid in the ED Repeat sodium Check urine sodium level Check urine and serum osmolarity We will decide on fluid resuscitation after repeat sodium level Hold Lasix and duloxetine Check TSH #Probable osteo versus cellulitis of the left lower extremity Check ESR and CRP Obtain blood cultures Start on vancomycin and cefepime due to chronicity of wound. May need advanced imaging #Hypokalemia: Potassium of 3.3 Low potassium replacement #Depression Continue home medications #COPD: Not in exacerbation Continue home breathing treatments #Fibromyalgia Continue home medications #Weakness: Fall precautions Ambulate with assistance If weakness does not improve with treatment of other medical issues, who obtain PT and OT evaluation DVT prophylaxis: Heparin GI prophylaxis: Cardiac diet CODE STATUS: Full code per patient and family preference
[2020-03-23] MEDS ORDERED: Cefepime 2 GM in Sodium Chloride 0.9% 50 ML IV ONE (22:45)
[2020-03-23] MEDS: Heparin Sodium 5,000 Units/ML Vial SUBCUT SCH (22:49)
[2020-03-24] MEDS: Sodium Chloride 0.9% 1,000 ML IV SCH ×2 (01:19→14:53)
[2020-03-24] MEDS: Acetaminophen 325 MG Tab PO PRN (04:29)
[2020-03-24] MEDS: Heparin Sodium 5,000 Units/ML Vial SUBCUT SCH ×3 (05:38→21:23)
[2020-03-24] MEDS ORDERED: Cefepime 2 GM in Sodium Chloride 0.9% 50 ML IV SCH ×4 (06:00)
[2020-03-24 06:51] LABS: ANION GAP 10.4 mEq/L (7-13); CHLORIDE,CL 94 mmol/L (98-107); SODIUM,NA 129 mmol/L (136-145)
[2020-03-24] MEDS: Formoterol/Mometasone 200-5 MCG 8.8 GM Inhaler IH SCH ×2 (09:23→18:29)
[2020-03-24] MEDS: Cholecalciferol (Vitamin D3) 25 MCG Tab PO SCH (09:26)
[2020-03-24] MEDS: buPROPion 150 MG Tab.ER PO SCH (09:26)
[2020-03-24] MEDS: Acetaminophen 325 MG Tab PO SCH ×2 (09:27→21:21)
[2020-03-24] MEDS ORDERED: Sodium Chloride 0.9% 10 ML Syringe FLUSH PRN (10:38)
--- NOTE | 2020-03-24 11:45 | CR ---
PROCEDURE INFORMATION: Exam: XR Left Tibia and Fibula Exam date and time: 03/24/2020 11:13 AM Age: 74 years old Clinical indication: Other: Non-healing wound, concern for osteo TECHNIQUE: Imaging protocol: XR Left tibia and fibula. Views: 2 views. COMPARISON: No relevant prior studies available. FINDINGS: Bones/joints: There is anatomic alignment. There is no fracture or dislocation. There is no aggressive osseous process or bony osteolysis. Soft tissues: There is a oval 2.4 cm subcutaneous soft tissue radiolucency adjacent to the posteromedial distal tibial diaphysis. Vascular or dystrophic soft tissue calcifications are identified posterior to the distal fibular midshaft. IMPRESSION: 1. No acute osseous abnormality. 2. Soft tissue focal soft tissue ulcer distal tibial diaphysis.
[2020-03-24] MEDS ORDERED: Potassium Chloride 10 MEQ Tab.ER PO ONE (12:00)
--- NOTE | 2020-03-24 12:13 | PCM.PN ---
- General Info Date of Service: 03/24/20 Admission Dx/Problem (Free Text): Admission Diagnosis/Problem Admission Diagnosis/Problem Weakness Subjective Update: Patient more alert today. However, reports continued pain in the left lower leg. Reports she continues to be weak and cannot stay awake. States she is still grieving her who in July. Does not recall taking her medications this morning. Denies f/c, n/v/c/d, chest pain, or shortness of br eath. - Patient Data Vitals - Most Recent: Last Vital Signs Temp 97.4 F 03/24/20 08:04 Pulse 138 H 03/24/20 08:04 Resp 20 03/24/20 08:04 BP 136/86 03/24/20 08:04 Pulse Ox 91 L 03/24/20 08:04 Weight - Most Recent: 138 lb 8 oz I&O - Last 24 Hours: Intake & Output 03/23/20 03/24/20 03/24/20 22:59 06:59 14:59 Intake Total 143 Output Total 700 Balance -557 Lab Results Last 24 Hours: Laboratory Results - last 24 hr 03/23/20 03/23/20 03/23/20 Range/Units 17:50 17:50 17:50 WBC 7.5 (5.0-10.0) 10^3/uL RBC 3.27 L (4.2-5.4) 10^6/uL Hgb 9.2 L (12.0-16.0) g/dL Hct 27.9 L (37.0-47.0) % MCV 85.3 D (80-100) fL MCH 28.1 (27.0-34.0) pg MCHC 33.0 (33.0-35.0) g/dL Plt Count 411 (150-450) 10^3/uL Neut % (Auto) 73.2 (42.2-75.2) % Lymph % (Auto) 14.4 L (20.5-50.1) % [place] % (Auto) 11.6 H (2-8) % Eos % (Auto) 0.5 L (1.0-3.0) % Baso % (Auto) 0.3 (0.0-1.0) % ESR (0-20) mm/hr D-Dimer, Quantitative (0-400) ng/mL Sodium 126 L (136-145) mmol/L Potassium 3.3 L (3.5-5.1) mmol/L Chloride 91 L (98-107) mmol/L Carbon Dioxide 26 (21-32) mmol/L Anion Gap 12.3 (7-13) mEq/L BUN 17 (7-18) mg/dL Creatinine 0.85 (0.55-1.02) mg/dL Est Cr Clr Drug Dosing 48.03 mL/min Estimated GFR (MDRD) > 60 BUN/Creatinine Ratio 20.0 (No establ ref range) Glucose 94 (74-99) mg/dL Lactic Acid 0.9 (0.4-2.0) mmol/L Calcium 8.6 (8.5-10.1) mg/dL Phosphorus (2.6-4.7) mg/dL Magnesium (1.8-2.4) mg/dL Total Bilirubin 0.2 (0.2-1.0) mg/dL AST 20 (15-37) U/L ALT 16 (14-59) U/L Alkaline Phosphatase 77 (46-116) U/L Lactate Dehydrogenase (81-234) U/L C-Reactive Protein (0.0-0.9) mg/dL B-Natriuretic Peptide (0-100) pg/ml Total Protein 7.3 (6.4-8.2) g/dL Albumin 3.1 L (3.4-5.0) g/dL Globulin 4.2 Albumin/Globulin Ratio 0.74 TSH, Ultra Sensitive (0.36-3.74) uIU/mL Urine Color (YELLOW) Urine Appearance (CLEAR) Urine pH (5.0-9.0) Ur Specific [place] (1.005-1.030) Urine Protein (NEGATIVE) Urine Glucose (UA) (NEGATIVE) Urine Ketones (NEGATIVE) Urine Occult Blood (NEGATIVE) Urine Nitrite (NEGATIVE) Urine Bilirubin (NEGATIVE) Urine Urobilinogen (0.2-1.0) mg/dL Ur Leukocyte Esterase (NEGATIVE) Ur Random Sodium (No establ.ref range) mmol/L SARS-CoV-2 RNA (SKY) (NEGATIVE) 03/23/20 03/23/20 03/23/20 Range/Units 17:50 17:50 17:50 WBC (5.0-10.0) 10^3/uL RBC (4.2-5.4) 10^6/uL Hgb (12.0-16.0) g/dL Hct (37.0-47.0) % MCV (80-100) fL MCH (27.0-34.0) pg MCHC (33.0-35.0) g/dL Plt Count (150-450) 10^3/uL Neut % (Auto) (42.2-75.2) % Lymph % (Auto) (20.5-50.1) % [place] % (Auto) (2-8) % Eos % (Auto) (1.0-3.0) % Baso % (Auto) (0.0-1.0) % ESR (0-20) mm/hr D-Dimer, Quantitative 1310 H (0-400) ng/mL Sodium (136-145) mmol/L Potassium (3.5-5.1) mmol/L Chloride (98-107) mmol/L Carbon Dioxide (21-32) mmol/L Anion Gap (7-13) mEq/L BUN (7-18) mg/dL Creatinine (0.55-1.02) mg/dL Est Cr Clr Drug Dosing mL/min Estimated GFR (MDRD) BUN/Creatinine Ratio (No establ ref range) Glucose (74-99) mg/dL Lactic Acid (0.4-2.0) mmol/L Calcium (8.5-10.1) mg/dL Phosphorus (2.6-4.7) mg/dL Magnesium (1.8-2.4) mg/dL Total Bilirubin (0.2-1.0) mg/dL AST (15-37) U/L ALT (14-59) U/L Alkaline Phosphatase (46-116) U/L Lactate Dehydrogenase 156 (81-234) U/L C-Reactive Protein (0.0-0.9) mg/dL B-Natriuretic Peptide 63 (0-100) pg/ml Total Protein (6.4-8.2) g/dL Albumin (3.4-5.0) g/dL Globulin Albumin/Globulin Ratio TSH, Ultra Sensitive (0.36-3.74) uIU/mL Urine Color (YELLOW) Urine Appearance (CLEAR) Urine pH (5.0-9.0) Ur Specific [place] (1.005-1.030) Urine Protein (NEGATIVE) Urine Glucose (UA) (NEGATIVE) Urine Ketones (NEGATIVE) Urine Occult Blood (NEGATIVE) Urine Nitrite (NEGATIVE) Urine Bilirubin (NEGATIVE) Urine Urobilinogen (0.2-1.0) mg/dL Ur Leukocyte Esterase (NEGATIVE) Ur Random Sodium (No establ.ref range) mmol/L SARS-CoV-2 RNA (SKY) (NEGATIVE) 03/23/20 03/23/20 03/23/20 Range/Units 18:05 18:36 18:40 WBC (5.0-10.0) 10^3/uL RBC (4.2-5.4) 10^6/uL Hgb (12.0-16.0) g/dL Hct (37.0-47.0) % MCV (80-100) fL MCH (27.0-34.0) pg MCHC (33.0-35.0) g/dL Plt Count (150-450) 10^3/uL Neut % (Auto) (42.2-75.2) % Lymph % (Auto) (20.5-50.1) % [place] % (Auto) (2-8) % Eos % (Auto) (1.0-3.0) % Baso % (Auto) (0.0-1.0) % ESR (0-20) mm/hr D-Dimer, Quantitative (0-400) ng/mL Sodium (136-145) mmol/L Potassium (3.5-5.1) mmol/L Chloride (98-107) mmol/L Carbon Dioxide (21-32) mmol/L Anion Gap (7-13) mEq/L BUN (7-18) mg/dL Creatinine (0.55-1.02) mg/dL Est Cr Clr Drug Dosing mL/min Estimated GFR (MDRD) BUN/Creatinine Ratio (No establ ref range) Glucose (74-99) mg/dL Lactic Acid (0.4-2.0) mmol/L Calcium (8.5-10.1) mg/dL Phosphorus (2.6-4.7) mg/dL Magnesium (1.8-2.4) mg/dL Total Bilirubin (0.2-1.0) mg/dL AST (15-37) U/L ALT (14-59) U/L Alkaline Phosphatase (46-116) U/L Lactate Dehydrogenase (81-234) U/L C-Reactive Protein (0.0-0.9) mg/dL B-Natriuretic Peptide (0-100) pg/ml Total Protein (6.4-8.2) g/dL Albumin (3.4-5.0) g/dL Globulin Albumin/Globulin Ratio TSH, Ultra Sensitive (0.36-3.74) uIU/mL Urine Color Dark yellow (YELLOW) Urine Appearance Slightly cloudy (CLEAR) Urine pH 6.0 (5.0-9.0) Ur Specific [place] 1.020 (1.005-1.030) Urine Protein Negative (NEGATIVE) Urine Glucose (UA) Negative (NEGATIVE) Urine Ketones 15 H (NEGATIVE) Urine Occult Blood Negative (NEGATIVE) Urine Nitrite Negative (NEGATIVE) Urine Bilirubin Negative (NEGATIVE) Urine Urobilinogen 1.0 (0.2-1.0) mg/dL Ur Leukocyte Esterase Negative (NEGATIVE) Ur Random Sodium 63 (No establ.ref range) mmol/L SARS-CoV-2 RNA (SKY) Negative (NEGATIVE) 03/23/20 03/23/20 03/23/20 Range/Units 22:20 22:20 23:05 WBC (5.0-10.0) 10^3/uL RBC (4.2-5.4) 10^6/uL Hgb (12.0-16.0) g/dL Hct (37.0-47.0) % MCV (80-100) fL MCH (27.0-34.0) pg MCHC (33.0-35.0) g/dL Plt Count (150-450) 10^3/uL Neut % (Auto) (42.2-75.2) % Lymph % (Auto) (20.5-50.1) % [place] % (Auto) (2-8) % Eos % (Auto) (1.0-3.0) % Baso % (Auto) (0.0-1.0) % ESR 86 H (0-20) mm/hr D-Dimer, Quantitative (0-400) ng/mL Sodium 128 L (136-145) mmol/L Potassium (3.5-5.1) mmol/L Chloride (98-107) mmol/L Carbon Dioxide (21-32) mmol/L Anion Gap (7-13) mEq/L BUN (7-18) mg/dL Creatinine (0.55-1.02) mg/dL Est Cr Clr Drug Dosing mL/min Estimated GFR (MDRD) BUN/Creatinine Ratio (No establ ref range) Glucose (74-99) mg/dL Lactic Acid (0.4-2.0) mmol/L Calcium (8.5-10.1) mg/dL Phosphorus (2.6-4.7) mg/dL Magnesium (1.8-2.4) mg/dL Total Bilirubin (0.2-1.0) mg/dL AST (15-37) U/L ALT (14-59) U/L Alkaline Phosphatase (46-116) U/L Lactate Dehydrogenase (81-234) U/L C-Reactive Protein 5.4 H (0.0-0.9) mg/dL B-Natriuretic Peptide (0-100) pg/ml Total Protein (6.4-8.2) g/dL Albumin (3.4-5.0) g/dL Globulin Albumin/Globulin Ratio TSH, Ultra Sensitive 1.56 (0.36-3.74) uIU/mL Urine Color (YELLOW) Urine Appearance (CLEAR) Urine pH (5.0-9.0) Ur Specific [place] (1.005-1.030) Urine Protein (NEGATIVE) Urine Glucose (UA) (NEGATIVE) Urine Ketones (NEGATIVE) Urine Occult Blood (NEGATIVE) Urine Nitrite (NEGATIVE) Urine Bilirubin (NEGATIVE) Urine Urobilinogen (0.2-1.0) mg/dL Ur Leukocyte Esterase (NEGATIVE) Ur Random Sodium (No establ.ref range) mmol/L SARS-CoV-2 RNA (SKY) (NEGATIVE) 03/24/20 Range/Units 05:55 WBC (5.0-10.0) 10^3/uL RBC (4.2-5.4) 10^6/uL Hgb (12.0-16.0) g/dL Hct (37.0-47.0) % MCV (80-100) fL MCH (27.0-34.0) pg MCHC (33.0-35.0) g/dL Plt Count (150-450) 10^3/uL Neut % (Auto) (42.2-75.2) % Lymph % (Auto) (20.5-50.1) % [place] % (Auto) (2-8) % Eos % (Auto) (1.0-3.0) % Baso % (Auto) (0.0-1.0) % ESR (0-20) mm/hr D-Dimer, Quantitative (0-400) ng/mL Sodium 129 L (136-145) mmol/L Potassium 3.4 L (3.5-5.1) mmol/L Chloride 94 L (98-107) mmol/L Carbon Dioxide 28 (21-32) mmol/L Anion Gap 10.4 (7-13) mEq/L BUN 10 (7-18) mg/dL Creatinine 0.72 (0.55-1.02) mg/dL Est Cr Clr Drug Dosing 61.68 mL/min Estimated GFR (MDRD) > 60 BUN/Creatinine Ratio (No establ ref range) Glucose 124 H (74-99) mg/dL Lactic Acid (0.4-2.0) mmol/L Calcium 8.1 L (8.5-10.1) mg/dL Phosphorus 3.6 (2.6-4.7) mg/dL Magnesium 1.7 L (1.8-2.4) mg/dL Total Bilirubin (0.2-1.0) mg/dL AST (15-37) U/L ALT (14-59) U/L Alkaline Phosphatase (46-116) U/L Lactate Dehydrogenase (81-234) U/L C-Reactive Protein (0.0-0.9) mg/dL B-Natriuretic Peptide (0-100) pg/ml Total Protein (6.4-8.2) g/dL Albumin (3.4-5.0) g/dL Globulin Albumin/Globulin Ratio TSH, Ultra Sensitive (0.36-3.74) uIU/mL Urine Color (YELLOW) Urine Appearance (CLEAR) Urine pH (5.0-9.0) Ur Specific [place] (1.005-1.030) Urine Protein (NEGATIVE) Urine Glucose (UA) (NEGATIVE) Urine Ketones (NEGATIVE) Urine Occult Blood (NEGATIVE) Urine Nitrite (NEGATIVE) Urine Bilirubin (NEGATIVE) Urine Urobilinogen (0.2-1.0) mg/dL Ur Leukocyte Esterase (NEGATIVE) Ur Random Sodium (No establ.ref range) mmol/L SARS-CoV-2 RNA (SKY) (NEGATIVE) Med Orders - Current: Current Medications Acetaminophen (Tylenol) 650 mg PO Q6H PRN PRN Reason: Pain Last Admin: 03/24/20 04:29 Dose: 650 mg Documented by: Acetaminophen (Tylenol) 650 mg PO BID [facility] Last Admin: 03/24/20 09:27 Dose: 650 mg Documented by: Albuterol (Proventil Hfa) 0 gm INH Q6H PRN PRN Reason: Shortness of Breath Bupropion HCl (Wellbutrin Xl) 150 mg PO DAILY [facility] Last Admin: 03/24/20 09:26 Dose: 150 mg Documented by: Cholecalciferol (Vitamin D3) 75 mcg PO DAILY [facility] Last Admin: 03/24/20 09:26 Dose: 75 mcg Documented by: Cyclobenzaprine HCl (Flexeril) 5 mg PO Q8H PRN PRN Reason: Muscle Spasm Heparin Sodium (Porcine) (Heparin Sodium) 5,000 units SUBCUT Q8HR [facility] Last Admin: 03/24/20 05:38 Dose: 5,000 units Documented by: Vancomycin HCl 1 gm/ Sodium (Chloride) 250 mls @ 166.667 mls/hr IV Q24H [facility] Last Admin: 03/23/20 23:21 Dose: 166.667 mls/hr Documented by: Sodium Chloride (Normal Saline) 1,000 mls @ 75 mls/hr IV ASDIRECTED [facility] Last Admin: 03/24/20 01:19 Dose: 75 mls/hr Documented by: Cefepime HCl 2 gm/ Sodium (Chloride) 50 mls @ 100 mls/hr IV Q12HR [facility] Magnesium Oxide (Magnesium Oxide) 250 mg PO WITHBREAKFAST [facility] Stop: 03/25/20 08:01 Mometasone Furoate/Formoterol Fumar (Dulera 200-5 Mcg) 2 puff IH BIDRT [facility] Last Admin: 03/24/20 09:23 Dose: 2 puff Documented by: Ondansetron HCl (Zofran Odt) 4 mg PO Q6H PRN PRN Reason: nausea, able to take PO Ondansetron HCl (Zofran) 4 mg IVPUSH Q6H PRN PRN Reason: Nausea/Vomiting Senna/Docusate Sodium (Senna Plus) 1 tab PO BEDTIME PRN PRN Reason: Constipation Sodium Chloride (Saline Flush) 10 ml FLUSH ASDIRECTED PRN PRN Reason: Keep Vein Open Vancomycin HCl (Pharmacy To Dose - Vancomycin) 1 dose .XX ASDIRECTED BLAZE Zolpidem Tartrate (Ambien) 10 mg PO BEDTIME PRN PRN Reason: Insomnia Discontinued Medications Sodium Chloride (Normal Saline) 1,000 mls @ 999 mls/hr IV .BOLUS ONE Stop: 03/23/20 19:43 Last Admin: 03/23/20 18:49 Dose: 999 mls/hr Documented by: Cefepime HCl 2 gm/ Sodium (Chloride) 50 mls @ 100 mls/hr IV Q8HR [facility] Last Admin: 03/24/20 10:33 Dose: Not Given Documented by: Cefepime HCl 2 gm/ Sodium (Chloride) 50 mls @ 100 mls/hr IV ONETIME ONE Stop: 03/23/20 23:14 Last Admin: 03/23/20 22:45 Dose: 100 mls/hr Documented by: Cefepime HCl 2 gm/ Sodium (Chloride) 50 mls @ 100 mls/hr IV Q8HR [facility] Stop: 03/24/20 06:29 Last Admin: 03/24/20 05:38 Dose: 100 mls/hr Documented by: Iopamidol (Isovue-370 (76%)) 100 ml IVPUSH ONETIME ONE Stop: 03/23/20 19:19 Last Admin: 03/23/20 19:23 Dose: 100 ml Documented by: Morphine Sulfate (Morphine) 2 mg IVPUSH ONETIME ONE Stop: 03/23/20 20:38 Last Admin: 03/23/20 20:42 Dose: 2 mg Documented by: Potassium Chloride (Klor-Con 10) 40 meq PO ONETIME ONE Stop: 03/24/20 12:01 - Exam General: Alert, Oriented, Cooperative, Moderate Distress HEENT: Pupils Equal, Pupils Reactive, Mucous Membr. Moist/[place] Neck: Supple Lungs: Clear to Auscultation, Normal Respiratory Effort Cardiovascular: Regular Rate, Regular Rhythm, No Murmurs GI/Abdominal Exam: Normal Bowel Sounds, Soft, Non-Tender, No Distention Extremities: Pedal Edema (Bilateral lower legs; worse on left. Chronic stasis changes of extremities. Quarter sized ulcer of left lower leg) Skin: Warm, Dry Wound/Incisions: Other (as per extremity above) Neurological: No New Focal Deficit Psy/Mental Status: Alert, Normal Affect, Normal Mood Sepsis Event Note - Evaluation Sepsis Screening Result: No Definite Risk - Focused Exam Vital Signs: Vital Signs Temp Pulse Resp BP Pulse Ox 03/24/20 08:04 97.4 F 138 H 20 136/86 91 L 03/24/20 03:00 99.1 F 97 18 137/56 L - Problem List & Annotations (1) Altered mental status SNOMED Code(s): 138518881 Code(s): R41.82 - ALTERED MENTAL STATUS, UNSPECIFIED Status: Acute Current Visit: No Qualifiers: Altered mental status type: transient alteration of awareness Qualified Code(s): R40.4 - Transient alteration of awareness (2) Anxiety SNOMED Code(s): 37718949 Code(s): F41.9 - ANXIETY DISORDER, UNSPECIFIED Status: Acute Current Visit: No (3) Cellulitis of left lower extremity SNOMED Code(s): 626522473 Code(s): L03.116 - CELLULITIS OF LEFT LOWER LIMB Status: Acute Current Visit: No (4) Depression SNOMED Code(s): 12095201 Code(s): F32.9 - MAJOR DEPRESSIVE DISORDER, SINGLE EPISODE, UNSPECIFIED Status: Acute Current Visit: No Qualifiers: Depression Type: unspecified Qualified Code(s): F32.9 - Major depressive disorder, single episode, unspecified (5) Frequent falls SNOMED Code(s): 555926942 Code(s): R29.6 - REPEATED FALLS Status: Acute Current Visit: No (6) Peripheral neurogenic pain SNOMED Code(s): 028323387 Code(s): M79.2 - NEURALGIA AND NEURITIS, UNSPECIFIED Status: Acute Current Visit: No (7) Weakness SNOMED Code(s): 64071250 Code(s): R53.1 - WEAKNESS Status: Acute Current Visit: No - Problem List Review Problem List Initiated/Reviewed/Updated: Yes - My Orders Last 24 Hours: My Active Orders 03/23/20 Dinner 2 Gram Sodium Diet [DIET] 03/23/20 17:50 OSMOLALITY - SERUM [REF] Routine 03/23/20 18:40 OSMOLALITY - URINE Routine 03/23/20 21:58 Oxygen Therapy [RC] PRN Up With Assistance [RC] ASDIRECTED VTE/DVT Education [RC] PER UNIT ROUTINE Vital Signs [RC] Q4H Acetaminophen [TylenoL] 650 mg PO Q6H PRN Docusate Sodium/Sennosides [Senna Plus] 1 tab PO BEDTIME PRN Ondansetron [Zofran ODT] 4 mg PO Q6H PRN Ondansetron [Zofran] 4 mg IVPUSH Q6H PRN Resuscitation Status Routine 03/23/20 21:59 Intake and Output [RC] QSHIFT 03/23/20 22:00 Heparin Sodium 5,000 units SUBCUT Q8HR 03/23/20 22:03 Albuterol [Proventil HFA] 0 gm INH Q6H PRN 03/23/20 22:04 RT Post Treatment Assessment [RC] Click to Edit RT Pre-Treatment Assessment [RC] Click to Edit 03/23/20 22:09 Cyclobenzaprine [Flexeril] 5 mg PO Q8H PRN Zolpidem [Ambien] 10 mg PO BEDTIME PRN 03/23/20 22:16 Blood Culture x2 Reflex Set [OM.PC] Stat 03/23/20 22:30 Pharmacy to Dose - Vancomycin 1 dose .XX ASDIRECTED 03/23/20 23:00 Vancomycin 1 gm Sodium Chloride 0.9% [Normal Saline (AdvBag)] 250 ml IV Q24H 03/23/20 23:05 CULTURE BLOOD [BC] Stat 03/24/20 00:15 Sodium Chloride 0.9% [Normal Saline] 1,000 ml IV ASDIRECTED 03/24/20 07:00 Mometasone/Formoterol [Dulera 200-5 MCG] 2 puff IH BIDRT 03/24/20 09:00 Acetaminophen [TylenoL] 650 mg PO BID Cholecalciferol (Vitamin D3) [Vitamin D3] 75 mcg PO DAILY buPROPion [Wellbutrin XL] 150 mg PO DAILY 03/24/20 10:38 Peripheral IV Care [RC] Sodium Chloride 0.9% [Saline Flush] 10 ml FLUSH ASDIRECTED PRN Peripheral IV Insertion Adult [OM.PC] Routine 03/24/20 11:00 Magnesium Oxide 250 mg PO WITHBREAKFAST 03/24/20 11:55 SODIUM,NA [CHEM] Routine 03/24/20 21:00 Cefepime [Maxipime] 2 gm Sodium Chloride 0.9% [Normal Saline] 50 ml IV Q12HR 03/25/20 05:11 BASIC METABOLIC PANEL,BMP [CHEM] AM CBC W/O DIFF,HEMOGRAM [HEME] AM MAGNESIUM [CHEM] AM PHOSPHORUS [CHEM] AM 03/26/20 22:30 VANCOMYCIN TROUGH [CHEM] Timed - Plan Plan:: #Altered mental status: Likely multifactorial, etiologies could include hyponatremia, constipation, or infection. Patient sodium of 126, reports constipation, and chronic wound of left anterior medial lower leg that appears infected. Delirium prevention precautions #Hyponatremia: Improving. Na is 129; presented wth sodium of 126. Received a bolus of fluid in the ED Repeat sodium every 6 hours x2 Check urine sodium level Follow up on urine and serum osmolarity We will decide on fluid resuscitation after repeat sodium level Hold Lasix and duloxetine sodium chloride tabs #Probable osteo versus cellulitis of the left lower extremity ESR and CRP elevated. XR negative for osteo Obtain blood cultures Continue vancomycin and cefepime due to chronicity of wound. May need advanced imaging #Hypokalemia: Potassium of 3.4 Low potassium replacement #Depression Continue home medications #COPD: Not in exacerbation Continue home breathing treatments #Fibromyalgia Continue home medications #Weakness: Fall precautions Ambulate with assistance If weakness does not improve with treatment of other medical issues, who obtain PT and OT evaluation DVT prophylaxis: Heparin GI prophylaxis: Cardiac diet CODE STATUS: Full code per patient and family preference
[2020-03-24] MEDS: Sodium Chloride 1 GM Tab PO SCH ×2 (15:08→21:22)
[2020-03-24] MEDS: Cefepime 2 GM in Sodium Chloride 0.9% 50 ML IV SCH (21:24)
[2020-03-25] MEDS: Zolpidem 5 MG Tab PO PRN ×2 (01:01→21:52)
[2020-03-25] MEDS: Heparin Sodium 5,000 Units/ML Vial SUBCUT SCH ×3 (05:36→21:19)
[2020-03-25] MEDS: Sodium Chloride 0.9% 1,000 ML IV SCH (06:25)
[2020-03-25 07:02] LABS: ANION GAP 13.5 mEq/L (7-13); CHLORIDE,CL 98 mmol/L (98-107); SODIUM,NA 132 mmol/L (136-145)
[2020-03-25] MEDS: Formoterol/Mometasone 200-5 MCG 8.8 GM Inhaler IH SCH ×2 (08:27→18:28)
[2020-03-25] MEDS: Cholecalciferol (Vitamin D3) 25 MCG Tab PO SCH (08:28)
[2020-03-25] MEDS: Sodium Chloride 1 GM Tab PO SCH ×2 (08:28→15:18)
[2020-03-25] MEDS: buPROPion 150 MG Tab.ER PO SCH (08:28)
[2020-03-25] MEDS: Acetaminophen 325 MG Tab PO SCH ×2 (08:28→21:11)
[2020-03-25] MEDS: Cefepime 2 GM in Sodium Chloride 0.9% 50 ML IV SCH ×2 (08:29→21:04)
--- NOTE | 2020-03-25 10:54 | PCM.PN ---
- General Info Date of Service: 03/25/20 Admission Dx/Problem (Free Text): Admission Diagnosis/Problem Admission Diagnosis/Problem Weakness Subjective Update: Patient more alert today, sitting up in chair. Reports cramping pain in right lower leg up to the knee. Reports she continues to be weak. Denies f/c, n/v/c/d, chest pain, or shortness of breath. - Patient Data Vitals - Most Recent: Last Vital Signs Temp 97.1 F 03/25/20 08:01 Pulse 89 03/25/20 08:01 Resp 20 03/25/20 08:01 BP 123/56 L 03/25/20 08:01 Pulse Ox 100 03/25/20 08:01 Weight - Most Recent: 138 lb 8 oz I&O - Last 24 Hours: Intake & Output 03/24/20 03/25/20 03/25/20 22:59 06:59 14:59 Intake Total 100 2377 300 Output Total 450 Balance 100 1927 300 Lab Results Last 24 Hours: Laboratory Results - last 24 hr 03/24/20 03/25/20 03/25/20 Range/Units 11:55 06:01 06:01 WBC 6.3 (5.0-10.0) 10^3/uL RBC 3.25 L (4.2-5.4) 10^6/uL Hgb 9.2 L (12.0-16.0) g/dL Hct 28.1 L (37.0-47.0) % MCV 86.5 (80-100) fL MCH 28.3 (27.0-34.0) pg MCHC 32.7 L (33.0-35.0) g/dL Plt Count 437 (150-450) 10^3/uL Sodium 128 L 132 L (136-145) mmol/L Potassium 3.5 (3.5-5.1) mmol/L Chloride 98 (98-107) mmol/L Carbon Dioxide 24 (21-32) mmol/L Anion Gap 13.5 H (7-13) mEq/L BUN 9 (7-18) mg/dL Creatinine 0.60 (0.55-1.02) mg/dL Est Cr Clr Drug Dosing 74.02 mL/min Estimated GFR (MDRD) > 60 Glucose 98 (74-99) mg/dL Calcium 8.4 L (8.5-10.1) mg/dL Phosphorus 3.0 (2.6-4.7) mg/dL Magnesium 1.9 (1.8-2.4) mg/dL [place] Results Last 24 Hours: Microbiology 03/23/20 23:05 Aerobic Blood Culture - Preliminary Blood - Arm, Right NO GROWTH AFTER 1 DAY Anaerobic Blood Culture - Preliminary NO GROWTH AFTER 1 DAY 03/23/20 17:50 Aerobic Blood Culture - Preliminary Blood - Venous - Iv Start NO GROWTH AFTER 1 DAY Anaerobic Blood Culture - Preliminary NO GROWTH AFTER 1 DAY Med Orders - Current: Current Medications Acetaminophen (Tylenol) 650 mg PO Q6H PRN PRN Reason: Pain Last Admin: 03/24/20 04:29 Dose: 650 mg Documented by: Acetaminophen (Tylenol) 650 mg PO BID [facility] Last Admin: 03/25/20 08:28 Dose: 650 mg Documented by: Albuterol (Proventil Hfa) 0 gm INH Q6H PRN PRN Reason: Shortness of Breath Bupropion HCl (Wellbutrin Xl) 150 mg PO DAILY [facility] Last Admin: 03/25/20 08:28 Dose: 150 mg Documented by: Cholecalciferol (Vitamin D3) 75 mcg PO DAILY [facility] Last Admin: 03/25/20 08:28 Dose: 75 mcg Documented by: Cyclobenzaprine HCl (Flexeril) 5 mg PO Q8H PRN PRN Reason: Muscle Spasm Heparin Sodium (Porcine) (Heparin Sodium) 5,000 units SUBCUT Q8HR [facility] Last Admin: 03/25/20 05:36 Dose: 5,000 units Documented by: Vancomycin HCl 1 gm/ Sodium (Chloride) 250 mls @ 166.667 mls/hr IV Q24H [facility] Last Admin: 03/24/20 23:48 Dose: 166.667 mls/hr Documented by: Cefepime HCl 2 gm/ Sodium (Chloride) 50 mls @ 100 mls/hr IV Q12HR [facility] Last Admin: 03/25/20 08:29 Dose: 100 mls/hr Documented by: Mometasone Furoate/Formoterol Fumar (Dulera 200-5 Mcg) 2 puff IH BIDRT [facility] Last Admin: 03/25/20 08:27 Dose: 2 puff Documented by: Ondansetron HCl (Zofran Odt) 4 mg PO Q6H PRN PRN Reason: nausea, able to take PO Ondansetron HCl (Zofran) 4 mg IVPUSH Q6H PRN PRN Reason: Nausea/Vomiting Senna/Docusate Sodium (Senna Plus) 1 tab PO BEDTIME PRN PRN Reason: Constipation Sodium Chloride (Saline Flush) 10 ml FLUSH ASDIRECTED PRN PRN Reason: Keep Vein Open Sodium Chloride (Sodium Chloride) 1 gm PO TID [facility] Stop: 03/25/20 14:01 Last Admin: 03/25/20 08:28 Dose: 1 gm Documented by: Vancomycin HCl (Pharmacy To Dose - Vancomycin) 1 dose .XX ASDIRECTED [facility] Zolpidem Tartrate (Ambien) 10 mg PO BEDTIME PRN PRN Reason: Insomnia Last Admin: 03/25/20 01:01 Dose: 10 mg Documented by: Discontinued Medications Sodium Chloride (Normal Saline) 1,000 mls @ 999 mls/hr IV .BOLUS ONE Stop: 03/23/20 19:43 Last Admin: 03/23/20 18:49 Dose: 999 mls/hr Documented by: Cefepime HCl 2 gm/ Sodium (Chloride) 50 mls @ 100 mls/hr IV Q8HR [facility] Last Admin: 03/24/20 10:33 Dose: Not Given Documented by: Cefepime HCl 2 gm/ Sodium (Chloride) 50 mls @ 100 mls/hr IV ONETIME ONE Stop: 03/23/20 23:14 Last Admin: 03/23/20 22:45 Dose: 100 mls/hr Documented by: Sodium Chloride (Normal Saline) 1,000 mls @ 75 mls/hr IV ASDIRECTED [facility] Last Admin: 03/25/20 06:25 Dose: 75 mls/hr Documented by: Cefepime HCl 2 gm/ Sodium (Chloride) 50 mls @ 100 mls/hr IV Q8HR [facility] Stop: 03/24/20 06:29 Last Infusion: 03/24/20 06:15 Dose: Infused Documented by: Iopamidol (Isovue-370 (76%)) 100 ml IVPUSH ONETIME ONE Stop: 03/23/20 19:19 Last Admin: 03/23/20 19:23 Dose: 100 ml Documented by: Magnesium Oxide (Magnesium Oxide) 250 mg PO WITHBREAKFAST [facility] Stop: 03/25/20 08:01 Last Admin: 03/25/20 08:28 Dose: 250 mg Documented by: Morphine Sulfate (Morphine) 2 mg IVPUSH ONETIME ONE Stop: 03/23/20 20:38 Last Admin: 03/23/20 20:42 Dose: 2 mg Documented by: Potassium Chloride (Klor-Con 10) 40 meq PO ONETIME ONE Stop: 03/24/20 12:01 Last Admin: 03/24/20 12:16 Dose: 40 meq Documented by: - Exam General: Alert, Oriented, Cooperative, Mild Distress HEENT: Pupils Equal, Pupils Reactive, Mucous Membr. Moist/[place]: Supple Lungs: Clear to Auscultation, Normal Respiratory Effort Cardiovascular: Regular Rate, Regular Rhythm GI/Abdominal Exam: Normal Bowel Sounds, Soft, Non-Tender, No Distention Extremities: Leg Pain (right lower leg.), Other (Bilateral lower legs; worse on left. Chronic stasis changes of extremities. Quarter sized ulcer of left lower leg) Peripheral Pulses: 1+: Dorsalis Pedis (L), Dorsalis Pedis (R), 2+: Radial (L), Radial (R) Skin: Warm, Dry Wound/Incisions: Healing Well Neurological: No New Focal Deficit Psy/Mental Status: Alert, Normal Affect, Normal Mood Sepsis Event Note - Evaluation Sepsis Screening Result: No Definite Risk - Focused Exam Vital Signs: Vital Signs Temp Pulse Resp BP Pulse Ox 03/25/20 08:01 97.1 F 89 20 123/56 L 100 03/24/20 23:53 98.3 F 95 18 140/58 L 94 L - Problem List & Annotations (1) Altered mental status SNOMED Code(s): 192666815 Code(s): R41.82 - ALTERED MENTAL STATUS, UNSPECIFIED Status: Acute Current Visit: No Qualifiers: Altered mental status type: transient alteration of awareness Qualified Code(s): R40.4 - Transient alteration of awareness (2) Anxiety SNOMED Code(s): 69311869 Code(s): F41.9 - ANXIETY DISORDER, UNSPECIFIED Status: Acute Current Visit: No (3) Cellulitis of left lower extremity SNOMED Code(s): 843534770 Code(s): L03.116 - CELLULITIS OF LEFT LOWER LIMB Status: Acute Current Visit: No (4) Depression SNOMED Code(s): 80115317 Code(s): F32.9 - MAJOR DEPRESSIVE DISORDER, SINGLE EPISODE, UNSPECIFIED Status: Acute Current Visit: No Qualifiers: Depression Type: unspecified Qualified Code(s): F32.9 - Major depressive disorder, single episode, unspecified (5) Frequent falls SNOMED Code(s): 655638956 Code(s): R29.6 - REPEATED FALLS Status: Acute Current Visit: No (6) Peripheral neurogenic pain SNOMED Code(s): 777089424 Code(s): M79.2 - NEURALGIA AND NEURITIS, UNSPECIFIED Status: Acute Current Visit: No (7) Weakness SNOMED Code(s): 72151256 Code(s): R53.1 - WEAKNESS Status: Acute Current Visit: No - Problem List Review Problem List Initiated/Reviewed/Updated: Yes - My Orders Last 24 Hours: My Active Orders 03/24/20 10:38 Peripheral IV Care [RC] 09,21 Sodium Chloride 0.9% [Saline Flush] 10 ml FLUSH ASDIRECTED PRN Peripheral IV Insertion Adult [OM.PC] Routine 03/24/20 14:00 Sodium Chloride 1 gm PO TID 03/24/20 21:00 Cefepime [Maxipime] 2 gm Sodium Chloride 0.9% [Normal Saline] 50 ml IV Q12HR 03/25/20 10:20 OT Evaluation and Treatment [CONS] Routine PT Evaluation and Treatment [CONS] Routine 03/26/20 22:30 VANCOMYCIN TROUGH [CHEM] Timed - Plan Plan:: #Hyponatremia: Improving. Na is 132; presented wth sodium of 126. Received a bolus of fluid in the ED Repeat sodium every 6 hours x2 Check urine sodium level Follow up on urine and serum osmolarity We will decide on fluid resuscitation after repeat sodium level Hold Lasix Resume duloxetine Sodium chloride tabs #Probable osteo versus cellulitis of the left lower extremity ESR and CRP elevated. XR negative for osteo Continue vancomycin and cefepime due to chronicity of wound. Wound care outpatient. #Weakness: Fall precautions Ambulate with assistance PT and OT #Hypokalemia: Potassium of 3.4 Low potassium replacement #Altered mental status: Resolved. Likely multifactorial, etiologies could include hyponatremia, constipation, or infection. Patient sodium of 126, reports constipation, and chronic wound of left anterior medial lower leg that appears infected. Delirium prevention precautions #Depression Continue home medications #COPD: Not in exacerbation Continue home breathing treatments #Fibromyalgia Continue home medications DVT prophylaxis: Heparin GI prophylaxis: Cardiac diet CODE STATUS: Full code per patient and family preference
[2020-03-25] MEDS: Acetaminophen 325 MG Tab PO PRN (15:19)
[2020-03-26] MEDS: Heparin Sodium 5,000 Units/ML Vial SUBCUT SCH (06:45)
[2020-03-26] MEDS: Formoterol/Mometasone 200-5 MCG 8.8 GM Inhaler IH SCH (06:49)
--- NOTE | 2020-03-26 10:00 | PCM.DCSUM1 ---
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 Sodium was 126. She was started on fluids with lasix and cymbalta held. She was started on vancomycin and cefepime. XR of the lower leg showed cellulitic changes. Patient improved gradually and mental status came back to baseline. Na improved to 132 with NaCl tabs. Started eating better. PT worked with patient and recommended that she can be discharged home with family. 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 She is to follow up with PCP. If ulcer continues to have cellulitic changes with antibiotics, recommend obtaining MRI to rule out osteo. 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 Patient's granddaughter at bedside report that patient has been more more confused over the past 3 days. States that patient has refused coming to the emergency department. Reports that they have been trying to make an appointment with PCP but they were unsuccessful so today, family literally picked patient up and put her in the vehicle and brought her to the ED. Granddaughter at bedside report that patient had a bowel movement yesterday. She reports that patient developed a sore in the medial left lower leg and was placed on antibiotics about a month ago but saw remains open. Patient denies any pain but states that she has pain all over. Unable to quantify her pain. Daughter reported in the emergency department the patient slipped out of bed about 5 AM was on the floor for about 4 hours. However, granddaughter at bedside reports this did not happen. States that this was about several weeks ago. Patient reports constipation. However, she denies nausea, vomiting, diarrhea, chest pain, shortness of air, dysuria, hematuria, or any new symptoms. Diagnosis: Stroke: No - Discharge Data Discharge Date: 03/26/20 Discharge Disposition: Home, Self-Care 01 Condition: Undetermined - Referral to Home Health Primary Care Physician: Betsy Villagomez MD - Discharge Diagnosis/Problem(s) (1) Altered mental status SNOMED Code(s): 025072414 ICD Code: R41.82 - ALTERED MENTAL STATUS, UNSPECIFIED Status: Acute Current Visit: No Qualifiers: Altered mental status type: transient alteration of awareness Qualified Code(s): R40.4 - Transient alteration of awareness (2) Anxiety SNOMED Code(s): 24793166 ICD Code: F41.9 - ANXIETY DISORDER, UNSPECIFIED Status: Acute Current Visit: No (3) Cellulitis of left lower extremity SNOMED Code(s): 233563769 ICD Code: L03.116 - CELLULITIS OF LEFT LOWER LIMB Status: Acute Current Visit: No (4) Depression SNOMED Code(s): 57554310 ICD Code: F32.9 - MAJOR DEPRESSIVE DISORDER, SINGLE EPISODE, UNSPECIFIED Status: Acute Current Visit: No Qualifiers: Depression Type: unspecified Qualified Code(s): F32.9 - Major depressive disorder, single episode, unspecified (5) Frequent falls SNOMED Code(s): 415925699 ICD Code: R29.6 - REPEATED FALLS Status: Acute Current Visit: No (6) Peripheral neurogenic pain SNOMED Code(s): 648765007 ICD Code: M79.2 - NEURALGIA AND NEURITIS, UNSPECIFIED Status: Acute Current Visit: No (7) Weakness SNOMED Code(s): 56969392 ICD Code: R53.1 - WEAKNESS Status: Acute Current Visit: No - Patient Summary/Data Consults: Consultations 03/25/20 10:20 OT Evaluation and Treatment [CONS] Routine PT Evaluation and Treatment [CONS] Routine - Discharge Plan *PRESCRIPTION DRUG MONITORING PROGRAM REVIEWED*: No *COPY OF PRESCRIPTION DRUG MONITORING REPORT IN PATIENT SONALI: No Prescriptions/Med Rec: Sulfamethoxazole/Trimethoprim [Bactrim Ds Tablet] 1 each PO BID #10 tablet Home Medications: Home Meds Acetaminophen [Acetaminophen 8 Hour] 650 mg PO BID 07/01/18 [History] DULoxetine HCl [Cymbalta] 60 mg PO BID 07/01/18 [History] buPROPion HCL [Wellbutrin Xl] 150 mg PO DAILY 07/01/18 [History] Cholecalciferol (Vitamin D3) [Vitamin D3] 3,000 unit PO DAILY 08/25/18 [History] Albuterol [Ventolin HFA] 2 puff INH Q6H PRN #1 08/29/18 [Rx] Budesonide/Formoterol [Symbicort 160-4.5 MCG] 1 puff INH BID #1 inhaler 08/29/18 [Rx] Cyclobenzaprine [Flexeril] 5 mg PO Q8H PRN 03/23/20 [History] Furosemide [Lasix] 40 mg PO Q48H 03/23/20 [History] Zolpidem Tartrate [Ambien] 10 mg PO DAILY PRN 03/23/20 [History] clonazePAM [Clonazepam] 1 mg PO BID 03/24/20 [History] Sulfamethoxazole/Trimethoprim [Bactrim Ds Tablet] 1 each PO BID #10 tablet 03/26/20 [Rx] Forms: ED Department Discharge Referrals: PCP,Unobtain [Ordering Only Provider] - - Discharge Summary/Plan Comment DC Time >30 min.: Yes - General Info Admission Dx/Problem (Free Text: Admission Diagnosis/Problem Admission Diagnosis/Problem Weakness Subjective Update: Patient more alert today, sitting up at edge of bed. Reports leg pain is improved. Reports she fells stronger today. Denies f/c, n/v/c/d, chest pain, or shortness of breath. - Patient Data Vitals - Most Recent: Last Vital Signs Temp 97.7 F 03/26/20 03:50 Pulse 75 03/26/20 06:20 Resp 16 03/26/20 06:20 BP 139/70 03/26/20 03:50 Pulse Ox 94 L 03/26/20 04:29 Weight - Most Recent: 138 lb 8 oz I&O - Last 24 hours: Intake & Output 03/25/20 03/26/20 03/26/20 22:59 06:59 14:59 Intake Total 300 350 Output Total 425 1875 Balance -125 -1526 [facility] Results - Last 24 hrs: Microbiology 03/23/20 23:05 Aerobic Blood Culture - Preliminary Blood - Arm, Right NO GROWTH AFTER 2 DAYS Anaerobic Blood Culture - Preliminary NO GROWTH AFTER 2 DAYS 03/23/20 17:50 Aerobic Blood Culture - Preliminary Blood - Venous - Iv Start NO GROWTH AFTER 2 DAYS Anaerobic Blood Culture - Preliminary NO GROWTH AFTER 2 DAYS Med Orders - Current: Current Medications Acetaminophen (Tylenol) 650 mg PO Q6H PRN PRN Reason: Pain Last Admin: 03/25/20 15:19 Dose: 650 mg Documented by: Acetaminophen (Tylenol) 650 mg PO BID [facility] Last Admin: 03/25/20 21:11 Dose: 650 mg Documented by: Albuterol (Proventil Hfa) 0 gm INH Q6H PRN PRN Reason: Shortness of Breath Last Admin: 03/25/20 15:18 Dose: 2 puff Documented by: Bupropion HCl (Wellbutrin Xl) 150 mg PO DAILY [facility] Last Admin: 03/25/20 08:28 Dose: 150 mg Documented by: Cholecalciferol (Vitamin D3) 75 mcg PO DAILY [facility] Last Admin: 03/25/20 08:28 Dose: 75 mcg Documented by: Cyclobenzaprine HCl (Flexeril) 5 mg PO Q8H PRN PRN Reason: Muscle Spasm Heparin Sodium (Porcine) (Heparin Sodium) 5,000 units SUBCUT Q8HR [facility] Last Admin: 03/26/20 06:45 Dose: 5,000 units Documented by: Vancomycin HCl 1 gm/ Sodium (Chloride) 250 mls @ 166.667 mls/hr IV Q24H [facility] Last Admin: 03/25/20 22:56 Dose: 166.667 mls/hr Documented by: Cefepime HCl 2 gm/ Sodium (Chloride) 50 mls @ 100 mls/hr IV Q12HR [facility] Last Admin: 03/25/20 21:04 Dose: 100 mls/hr Documented by: Influenza Virus Vaccine (Pharmacy To Dose - Influenza Vaccine) 1 each IM DAILY [facility] Mometasone Furoate/Formoterol Fumar (Dulera 200-5 Mcg) 2 puff IH BIDRT [facility] Last Admin: 03/26/20 06:49 Dose: 2 puff Documented by: Ondansetron HCl (Zofran Odt) 4 mg PO Q6H PRN PRN Reason: nausea, able to take PO Ondansetron HCl (Zofran) 4 mg IVPUSH Q6H PRN PRN Reason: Nausea/Vomiting Senna/Docusate Sodium (Senna Plus) 1 tab PO BEDTIME PRN PRN Reason: Constipation Sodium Chloride (Saline Flush) 10 ml FLUSH ASDIRECTED PRN PRN Reason: Keep Vein Open Last Admin: 03/25/20 21:16 Dose: 10 ml Documented by: Vancomycin HCl (Pharmacy To Dose - Vancomycin) 1 dose .XX ASDIRECTED [facility] Zolpidem Tartrate (Ambien) 10 mg PO BEDTIME PRN PRN Reason: Insomnia Last Admin: 03/25/20 21:52 Dose: 10 mg Documented by: Discontinued Medications Sodium Chloride (Normal Saline) 1,000 mls @ 999 mls/hr IV .BOLUS ONE Stop: 03/23/20 19:43 Last Admin: 03/23/20 18:49 Dose: 999 mls/hr Documented by: Cefepime HCl 2 gm/ Sodium (Chloride) 50 mls @ 100 mls/hr IV Q8HR [facility] Last Admin: 03/24/20 10:33 Dose: Not Given Documented by: Cefepime HCl 2 gm/ Sodium (Chloride) 50 mls @ 100 mls/hr IV ONETIME ONE Stop: 03/23/20 23:14 Last Admin: 03/23/20 22:45 Dose: 100 mls/hr Documented by: Sodium Chloride (Normal Saline) 1,000 mls @ 75 mls/hr IV ASDIRECTED [facility] Last Admin: 03/25/20 06:25 Dose: 75 mls/hr Documented by: Cefepime HCl 2 gm/ Sodium (Chloride) 50 mls @ 100 mls/hr IV Q8HR [facility] Stop: 03/24/20 06:29 Last Infusion: 03/24/20 06:15 Dose: Infused Documented by: Iopamidol (Isovue-370 (76%)) 100 ml IVPUSH ONETIME ONE Stop: 03/23/20 19:19 Last Admin: 03/23/20 19:23 Dose: 100 ml Documented by: Magnesium Oxide (Magnesium Oxide) 250 mg PO WITHBREAKFAST [facility] Stop: 03/25/20 08:01 Last Admin: 03/25/20 08:28 Dose: 250 mg Documented by: Morphine Sulfate (Morphine) 2 mg IVPUSH ONETIME ONE Stop: 03/23/20 20:38 Last Admin: 03/23/20 20:42 Dose: 2 mg Documented by: Potassium Chloride (Klor-Con 10) 40 meq PO ONETIME ONE Stop: 03/24/20 12:01 Last Admin: 03/24/20 12:16 Dose: 40 meq Documented by: Sodium Chloride (Sodium Chloride) 1 gm PO TID [facility] Stop: 03/25/20 14:01 Last Admin: 03/25/20 15:18 Dose: 1 gm Documented by: - Exam General: Reports: Alert, Oriented, Cooperative, No Acute Distress HEENT: Reports: Pupils Equal, Pupils Reactive, Mucous Membr. Moist/[place] Neck: Reports: Supple Lungs: Reports: Clear to Auscultation, Normal Respiratory Effort Cardiovascular: Reports: Regular Rate, Regular Rhythm, No Murmurs GI/Abdominal Exam: Normal Bowel Sounds, Soft, Non-Tender, No Distention Extremities: Pedal Edema (Trace), Other (ulcer of medial left lower leg; non erythema or warmth. ) Skin: Reports: Warm, Dry, Intact Wound/Incisions: Reports: Healing Well Neurological: Reports: No New Focal Deficit Psy/Mental Status: Reports: Alert, Normal Affect, Normal Mood
[2020-03-26] MEDS: Acetaminophen 325 MG Tab PO SCH (10:53)
[2020-03-26] MEDS: buPROPion 150 MG Tab.ER PO SCH (10:54)
[2020-03-26] MEDS: Cholecalciferol (Vitamin D3) 25 MCG Tab PO SCH (10:54)
[2020-03-26] MEDS: Cefepime 2 GM in Sodium Chloride 0.9% 50 ML IV SCH (15:15)
== END 2020-03-26 11:30 | disposition home or self-care (01) | DRG 603 ==
LOC: DL.ED 17:31 → UNDOADMOB 21:38 → DL.MS 21:38 → OBSVTOIN 21:39 → DL.MS 21:39
PROVIDERS: ADMIT Internal Medicine; ATTEND Internal Medicine
DX: L03.116 Cellulitis of left lower limb (principal); E87.1 Hypo-osmolality and hyponatremia; H54.7 Unspecified visual loss; E78.5 Hyperlipidemia, unspecified; J44.9 Chronic obstructive pulmonary disease, unspecified; M54.5 Low back pain; F17.210 Nicotine dependence, cigarettes, uncomplicated; E53.8 Deficiency of other specified B group vitamins; Z91.81 History of falling; Z88.0 Allergy status to penicillin; Z88.1 Allergy status to other antibiotic agents; Z88.8 Allergy status to other drugs, medicaments and biological substances; Z79.899 Other long term (current) drug therapy; R32 Unspecified urinary incontinence; K59.00 Constipation, unspecified; F41.9 Anxiety disorder, unspecified; F32.9 Major depressive disorder, single episode, unspecified; R29.6 Repeated falls; M79.2 Neuralgia and neuritis, unspecified; Z20.828 Contact with and (suspected) exposure to other viral communicable diseases; I50.9 Heart failure, unspecified; Z87.01 Personal history of pneumonia (recurrent); Z98.51 Tubal ligation status; E87.6 Hypokalemia; M79.7 Fibromyalgia; R53.1 Weakness
CPT/HCPCS: 36415; 70450; 71260; 73590-LT; 80048; 80053; 81003; 83605; 83615; 83735; 83880; 83930; 83935; 84100; 84295; 84300; 84443; 85025; 85027; 85379; 85651; 86140; 87040; 90653; 96374; 97162-GP; 97165-GO; 99222; 99232; 99239; 99284; 99285-25; A9270-GY; J0692; J1644; J2270; J3370; J7030; J7050; Q9967; U0002

== ENCOUNTER 2020-06-08 20:30 | Inpatient (IN) | payer MEDICARE, OTHER ==
--- NOTE | 2020-06-08 20:45 | EDM.PDOC ---
ED HPI GENERAL MEDICAL PROBLEM - General Chief Complaint: General Stated Complaint: SWOLLEN LEGS, CONFUSED, DISORIENTED Time Seen by Provider: 06/08/20 20:40 Source of Information: Reports: Patient History Limitations: Reports: No Limitations - History of Present Illness INITIAL COMMENTS - FREE TEXT/NARRATIVE: ED with family, report patient more confused past 2 days, getting weaker again. bilateral lower legs red warm. Notes more swelling in lower ankles. Previous episode redness and swelling mainly on right now tonight is both. No fevers. [place], chronic. weak today walking went down to knees. Did not hit head, "just scraped knees." family note some falls at home in past few months. No COVID exposure Chest Pain Score (Numeric/FACES): 6 - Related Data Allergies Allergy/AdvReac Type Severity Reaction Status Date / Time aspirin Allergy Hives Verified 06/08/20 20:40 azithromycin [From Zithromax] Allergy UNKNOWN Verified 06/08/20 20:40 Penicillins Allergy Hives Verified 06/08/20 20:40 Home Meds: Home Meds Acetaminophen [Acetaminophen 8 Hour] 650 mg PO BID 07/01/18 [History] DULoxetine HCl [Cymbalta] 60 mg PO BID 07/01/18 [History] buPROPion HCL [Wellbutrin Xl] 150 mg PO DAILY 07/01/18 [History] Cholecalciferol (Vitamin D3) [Vitamin D3] 3,000 unit PO DAILY 08/25/18 [History] Albuterol [Ventolin HFA] 2 puff INH Q6H PRN #1 08/29/18 [Rx] Budesonide/Formoterol [Symbicort 160-4.5 MCG] 1 puff INH BID #1 inhaler 08/29/18 [Rx] Cyclobenzaprine [Flexeril] 5 mg PO BID PRN 03/23/20 [History] Furosemide [Lasix] 40 mg PO Q48H 03/23/20 [History] Zolpidem Tartrate [Ambien] 10 mg PO DAILY PRN 03/23/20 [History] clonazePAM [Clonazepam] 1 mg PO BID 03/24/20 [History] Sulfamethoxazole/Trimethoprim [Bactrim Ds Tablet] 1 each PO BID #10 tablet 03/26/20 [Rx] Pantoprazole [ProTONIX] 40 mg PO DAILY 06/08/20 [History] Past Medical History HEENT History: Reports: Impaired Vision Cardiovascular History: Reports: Heart Failure Respiratory History: Reports: Asthma, COPD, Pneumonia, Recurrent Gastrointestinal History: Reports: None Genitourinary History: Reports: None [employer] History: Reports: None Musculoskeletal History: Reports: Fibromyalgia Neurological History: Reports: None Psychiatric History: Reports: Depression Endocrine/Metabolic History: Reports: None Hematologic History: Reports: B12 Deficiency Immunologic History: Reports: None Oncologic (Cancer) History: Reports: None - Infectious Disease History Infectious Disease History: Reports: Shingles - Past Surgical History Female Surgical History: Reports: Tubal Ligation Social & Family History - Family History Family Medical History: No Pertinent Family History Respiratory: Reports: TB Oncologic: Reports: Lung - Caffeine Use Caffeine Use: Reports: Coffee - Living Situation & Occupation Living situation: Reports: , with Family Occupation: Retired ED ROS GENERAL - Review of Systems Review Of Systems: Comprehensive ROS is negative, except as noted in HPI. ED EXAM, GENERAL - Physical Exam Exam: See Below Exam Limited By: No Limitations General Appearance: Mild Distress, Other (Drowsy, arouses easily to voice. Clean) Eye Exam: Bilateral Eye: EOMI Ears: Normal External Exam, Hearing Loss Nose: Normal Inspection Head: Atraumatic, Normocephalic Neck: Normal Inspection Respiratory/Chest: Decreased Breath Sounds Cardiovascular: Normal Peripheral Pulses, Regular Rate, Rhythm. No: No Edema GI/Abdominal: Normal Bowel Sounds, Soft, Non-Tender Back Exam: Decreased Range of Motion (stiff) Neurological: Oriented, Normal Cognition Skin Exam: Warm, Increased Warmth (bilateral lower extremities below knees, Wound left inner ankle 2.5 cm dry green / garza base, ), Other (generalized superficial scratches over lowe legs, abdomen and back.). No: Diaphoretic Course - Vital Signs Last Recorded V/S: Last Vital Signs Temp 97.5 F 06/08/20 20:33 Pulse 100 06/08/20 20:33 Resp 20 06/08/20 20:33 BP 107/50 L 06/08/20 20:33 Pulse Ox 100 06/08/20 20:33 - Orders/Labs/Meds Orders: Active Orders 24 hr Category Date Time Status COVID-19/FLU A+B [MOLEC] Stat Lab 06/08/20 22:15 Received CULTURE BLOOD [BC] Stat Lab 06/08/20 20:45 Results CULTURE BLOOD [BC] Stat Lab 06/08/20 20:50 Received UA RFX BEBE AND CULT IF INDIC [URIN] Urgent Lab 06/08/20 21:52 Ordered Vancomycin 1 gm Med 06/08/20 22:12 Active Sodium Chloride 0.9% [Normal Saline (AdvBag)] 250 ml IV ONETIME Blood Culture x2 Reflex Set [OM.PC] Stat Oth 06/08/20 20:34 Ordered Code Status [Resuscitation Status] Stat Resus Stat 06/08/20 22:20 Ordered Medication Orders Vancomycin HCl 1 gm/ Sodium (Chloride) 250 mls @ 167 mls/hr IV ONETIME ONE Stop: 06/08/20 23:41 Last Admin: 06/08/20 22:29 Dose: 167 mls/hr Documented by: SJ Labs: Laboratory Tests 06/08/20 06/08/20 06/08/20 Range/Units 20:45 20:45 20:45 WBC 13.1 H (5.0-10.0) 10^3/uL RBC 3.03 L (4.2-5.4) 10^6/uL Hgb 8.4 L (12.0-16.0) g/dL Hct 25.9 L (37.0-47.0) % MCV 85.5 (80-100) fL MCH 27.7 (27.0-34.0) pg MCHC 32.4 L (33.0-35.0) g/dL Plt Count 470 H (150-450) 10^3/uL Neut % (Auto) 63.7 (42.2-75.2) % Lymph % (Auto) 7.7 L (20.5-50.1) % [place] % (Auto) 10.2 H (2-8) % Eos % (Auto) 18.2 H (1.0-3.0) % Baso % (Auto) 0.2 (0.0-1.0) % PT 9.8 (9.0-12.0) SEC INR 1.0 (0.9-1.2) Sodium 130 L (136-145) mmol/L Potassium 3.5 (3.5-5.1) mmol/L Chloride 92 L (98-107) mmol/L Carbon Dioxide 28 (21-32) mmol/L Anion Gap 13.5 H (7-13) mEq/L BUN 15 (7-18) mg/dL Creatinine 0.84 (0.55-1.02) mg/dL Est Cr Clr Drug Dosing 49.97 mL/min Estimated GFR (MDRD) > 60 BUN/Creatinine Ratio 17.9 (No establ ref range) Glucose 100 H (74-99) mg/dL Lactic Acid (0.4-2.0) mmol/L Uric Acid (2.6-6.0) mg/dL Calcium 8.1 L (8.5-10.1) mg/dL Total Bilirubin 0.4 (0.2-1.0) mg/dL AST 14 L (15-37) U/L ALT 15 (14-59) U/L Alkaline Phosphatase 80 (46-116) U/L Ammonia (11-32) umol/L Troponin I < 0.017 (0.000-0.056) ng/mL B-Natriuretic Peptide 34 (0-100) pg/ml Total Protein 7.0 (6.4-8.2) g/dL Albumin 2.8 L (3.4-5.0) g/dL Globulin 4.2 Albumin/Globulin Ratio 0.67 Urine Color (YELLOW) Urine Appearance (CLEAR) Urine pH (5.0-9.0) Ur Specific [place] (1.005-1.030) Urine Protein (NEGATIVE) Urine Glucose (UA) (NEGATIVE) Urine Ketones (NEGATIVE) Urine Occult Blood (NEGATIVE) Urine Nitrite (NEGATIVE) Urine Bilirubin (NEGATIVE) Urine Urobilinogen (0.2-1.0) mg/dL Ur Leukocyte Esterase (NEGATIVE) Ethyl Alcohol 4 (0) mg/dL 06/08/20 06/08/20 06/08/20 Range/Units 20:45 20:45 20:45 WBC (5.0-10.0) 10^3/uL RBC (4.2-5.4) 10^6/uL Hgb (12.0-16.0) g/dL Hct (37.0-47.0) % MCV (80-100) fL MCH (27.0-34.0) pg MCHC (33.0-35.0) g/dL Plt Count (150-450) 10^3/uL Neut % (Auto) (42.2-75.2) % Lymph % (Auto) (20.5-50.1) % [place] % (Auto) (2-8) % Eos % (Auto) (1.0-3.0) % Baso % (Auto) (0.0-1.0) % PT (9.0-12.0) SEC INR (0.9-1.2) Sodium (136-145) mmol/L Potassium (3.5-5.1) mmol/L Chloride (98-107) mmol/L Carbon Dioxide (21-32) mmol/L Anion Gap (7-13) mEq/L BUN (7-18) mg/dL Creatinine (0.55-1.02) mg/dL Est Cr Clr Drug Dosing mL/min Estimated GFR (MDRD) BUN/Creatinine Ratio (No establ ref range) Glucose (74-99) mg/dL Lactic Acid 1.6 (0.4-2.0) mmol/L Uric Acid 6.0 (2.6-6.0) mg/dL Calcium (8.5-10.1) mg/dL Total Bilirubin (0.2-1.0) mg/dL AST (15-37) U/L ALT (14-59) U/L Alkaline Phosphatase (46-116) U/L Ammonia 24 (11-32) umol/L Troponin I (0.000-0.056) ng/mL B-Natriuretic Peptide (0-100) pg/ml Total Protein (6.4-8.2) g/dL Albumin (3.4-5.0) g/dL Globulin Albumin/Globulin Ratio Urine Color (YELLOW) Urine Appearance (CLEAR) Urine pH (5.0-9.0) Ur Specific [place] (1.005-1.030) Urine Protein (NEGATIVE) Urine Glucose (UA) (NEGATIVE) Urine Ketones (NEGATIVE) Urine Occult Blood (NEGATIVE) Urine Nitrite (NEGATIVE) Urine Bilirubin (NEGATIVE) Urine Urobilinogen (0.2-1.0) mg/dL Ur Leukocyte Esterase (NEGATIVE) Ethyl Alcohol (0) mg/dL 06/08/20 Range/Units 20:46 WBC (5.0-10.0) 10^3/uL RBC (4.2-5.4) 10^6/uL Hgb (12.0-16.0) g/dL Hct (37.0-47.0) % MCV (80-100) fL MCH (27.0-34.0) pg MCHC (33.0-35.0) g/dL Plt Count (150-450) 10^3/uL Neut % (Auto) (42.2-75.2) % Lymph % (Auto) (20.5-50.1) % [place] % (Auto) (2-8) % Eos % (Auto) (1.0-3.0) % Baso % (Auto) (0.0-1.0) % PT (9.0-12.0) SEC INR (0.9-1.2) Sodium (136-145) mmol/L Potassium (3.5-5.1) mmol/L Chloride (98-107) mmol/L Carbon Dioxide (21-32) mmol/L Anion Gap (7-13) mEq/L BUN (7-18) mg/dL Creatinine (0.55-1.02) mg/dL Est Cr Clr Drug Dosing mL/min Estimated GFR (MDRD) BUN/Creatinine Ratio (No establ ref range) Glucose (74-99) mg/dL Lactic Acid (0.4-2.0) mmol/L Uric Acid (2.6-6.0) mg/dL Calcium (8.5-10.1) mg/dL Total Bilirubin (0.2-1.0) mg/dL AST (15-37) U/L ALT (14-59) U/L Alkaline Phosphatase (46-116) U/L Ammonia (11-32) umol/L Troponin I (0.000-0.056) ng/mL B-Natriuretic Peptide (0-100) pg/ml Total Protein (6.4-8.2) g/dL Albumin (3.4-5.0) g/dL Globulin Albumin/Globulin Ratio Urine Color Yellow (YELLOW) Urine Appearance Clear (CLEAR) Urine pH 5.5 (5.0-9.0) Ur Specific [place] 1.025 (1.005-1.030) Urine Protein Negative (NEGATIVE) Urine Glucose (UA) Negative (NEGATIVE) Urine Ketones Negative (NEGATIVE) Urine Occult Blood Negative (NEGATIVE) Urine Nitrite Negative (NEGATIVE) Urine Bilirubin Negative (NEGATIVE) Urine Urobilinogen 0.2 (0.2-1.0) mg/dL Ur Leukocyte Esterase Negative (NEGATIVE) Ethyl Alcohol (0) mg/dL Meds: Medications Generic Name Dose Route Start Last Admin Trade Name Freq PRN Reason Stop Dose Admin Vancomycin HCl 1 gm/ Sodium 250 mls @ 167 mls/hr 06/08/20 22:12 06/08/20 22:29 Chloride IV 06/08/20 23:41 167 mls/hr ONETIME ONE Administration Departure - Departure Time of Disposition: 23:03 Disposition: Refer to Observation Condition: Good Clinical Impression: Hyponatremia, Weakness, Cellulitis of left lower extremity, Cellulitis of right anterior lower leg - Discharge Information *PRESCRIPTION DRUG MONITORING PROGRAM REVIEWED*: No *COPY OF PRESCRIPTION DRUG MONITORING REPORT IN PATIENT SONALI: No Sepsis Event Note (ED) - Evaluation Sepsis Screening Result: No Definite Risk - Focused Exam Vital Signs: Vital Signs Temp Pulse Resp BP Pulse Ox 06/08/20 20:33 97.5 F 100 20 107/50 L 100 - My Orders Last 24 Hours: My Active Orders 06/08/20 20:34 Blood Culture x2 Reflex Set [OM.PC] Stat 06/08/20 20:45 CULTURE BLOOD [BC] Stat 06/08/20 20:50 CULTURE BLOOD [BC] Stat 06/08/20 21:52 UA RFX BEBE AND CULT IF INDIC [URIN] Urgent 06/08/20 22:12 Vancomycin 1 gm Sodium Chloride 0.9% [Normal Saline (AdvBag)] 250 ml IV ONETIME 06/08/20 22:15 COVID-19/FLU A+B [MOLEC] Stat 06/08/20 22:20 Code Status [Resuscitation Status] Stat - Assessment/Plan Last 24 Hours: My Active Orders 06/08/20 20:34 Blood Culture x2 Reflex Set [OM.PC] Stat 06/08/20 20:45 CULTURE BLOOD [BC] Stat 06/08/20 20:50 CULTURE BLOOD [BC] Stat 06/08/20 21:52 UA RFX BEBE AND CULT IF INDIC [URIN] Urgent 06/08/20 22:12 Vancomycin 1 gm Sodium Chloride 0.9% [Normal Saline (AdvBag)] 250 ml IV ONETIME 06/08/20 22:15 COVID-19/FLU A+B [MOLEC] Stat 06/08/20 22:20 Code Status [Resuscitation Status] Stat
[2020-06-08 21:28] LABS: ANION GAP 13.5 mEq/L (7-13); CHLORIDE,CL 92 mmol/L (98-107); SODIUM,NA 130 mmol/L (136-145)
--- NOTE | 2020-06-08 21:31 | CT ---
PROCEDURE INFORMATION: Exam: CT Head Without Contrast Exam date and time: 06/08/2020 9:03 PM Age: 75 years old Clinical indication: Other: Confusion; Additional info: Edema, confusion TECHNIQUE: Imaging protocol: Computed tomography of the head without contrast. Radiation optimization: All CT scans at this facility use at least one of these dose optimization techniques: automated exposure control; mA and/or kV adjustment per patient size (includes targeted exams where dose is matched to clinical indication); or iterative reconstruction. COMPARISON: Prior head CT of 03/23/2020 FINDINGS: Limitations: Mild streak/motion artifact. Brain: Stable appearance of subtle areas of low density in the occipital lobes bilaterally, which do not appear to be associated with significant mass effect, and most likely represent small areas of encephalomalacia. 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 Areas of hypodensity in the white matter bilaterally, nonspecific in appearance, but most likely representing age-related chronic small vessel ischemic changes. No definite acute abnormality identified, allowing for motion artifact. No acute hemorrhage seen within the brain. No acute extra-axial fluid collections visualized. No evidence of significant mass effect within the brain. Cerebral ventricles: No evidence of significant hydrocephalus. Bones/joints: No acute abnormality. No acute fractures. Paranasal sinuses: Mucous retention cyst in the right maxillary sinus. Mastoid air cells: Clear visualized mastoid air cells. Soft tissues: No acute abnormality. IMPRESSION: 1. No definite acute findings within the brain, allowing for motion artifact 2. See above for remaining findings.
--- NOTE | 2020-06-08 21:35 | CR ---
PROCEDURE INFORMATION: Exam: XR Chest, 1 View Exam date and time: 06/08/2020 9:08 PM Age: 75 years old Clinical indication: Other: Edema; Additional info: Edema, confusion TECHNIQUE: Imaging protocol: XR of the chest Views: 1 view. COMPARISON: Prior CT chest of 03/23/2020 FINDINGS: Lungs: Small linear densities in the left lung base, most likely representing minimal scarring or atelectasis. Lungs otherwise appear clear radiographically. No evidence of diffuse pulmonary vascular congestion. Pleural spaces: No pneumothorax or pleural effusions. Heart/Mediastinum: Heart appears mildly is enlarged. Vasculature: Thoracic aorta appears moderately ectatic. Bones/joints: Bony structures appear demineralized. IMPRESSION: 1. No radiographic evidence of acute disease in the chest. 2. Mild cardiomegaly. 3. See above for remaining findings.
[2020-06-08] MEDS ORDERED: Ondansetron 4 MG Tab.DIS PO PRN (22:53)
[2020-06-08] MEDS ORDERED: Magnesium Hydroxide 400 MG/5 ML Susp 30 ML Cup PO PRN (22:53)
[2020-06-08] MEDS ORDERED: Docusate Sodium 100 MG Cap PO PRN (22:53)
[2020-06-08 23:01] LABS: CORONAVIRUS COVID-19 NAA NEGATIVE (NEGATIVE)
--- NOTE | 2020-06-08 23:02 | PCM.HP ---
H&P History of Present Illness - General Date of Service: 06/08/20 Admit Problem/Dx: Admission Diagnosis/Problem Admission Diagnosis/Problem Cellulitis Source of Information: Patient, EMS Notes Reviewed, Family History Limitations: Reports: No Limitations - History of Present Illness Initial Comments - Free Text/Narative: Patient is a 74-year-old female with medical history significant for nonhealing left medial malleolar wound, COPD, hyperlipidemia, chronic low back pain, postherpetic neuralgia, tobacco abuse, h/o fall from stool with head trauma and anterolisthesis at C3-C4 status post [place] collar, and fibromyalgia who was brought today ED by family for evaluation of increasing weakness, lethargy and acting confused. Patient is a poor historian and unable to provide adequate history. As per reports patient has been getting increasingly weak and acting more confused over the past 2 to 3 days. Family reports increasing redness to lower extremities. Patient only reports pain to the left big toe. Pain is sharp, rates the pain as 10 out of 10, worse with movement with no relieving or aggravating factors. Denies trauma. She also noted swelling to the left great. She denies fever, chills. She also reports increasing pruritus to lower extremities. Family also reports patient has been growing increasingly weak. She denies increased urinary frequency, dysuria, diarrhea, melena, hematochezia. No abdominal pain, nausea, vomiting. Family reports low appetite and poor oral intake. In the ED vitals stable. Significant labs WBC 13.1, hemoglobin 8.4, platelet 470, sodium 130, potassium 3.5, uric acid 6.7, magnesium 1.7. CT head was negative. Chest x-ray negative. Patient received vancomycin. Admission requested for further management. Onset of Symptoms: Reports: Today Duration of Symptoms: Reports: Day(s): Location: Reports: Lower Extremity, Left Quality: Reports: Sharp Severity: Severe Improves with: Reports: None Worsens with: Reports: None Context: Reports: Activity/Exercise Associated Symptoms: Reports: Malaise, Weakness Chest Pain Score (Numeric/FACES): 6 - Related Data Allergies/Adverse Reactions: Allergies Allergy/AdvReac Type Severity Reaction Status Date / Time aspirin Allergy Hives Verified 06/08/20 20:40 azithromycin [From Zithromax] Allergy UNKNOWN Verified 06/08/20 20:40 Penicillins Allergy Hives Verified 06/08/20 20:40 Home Medications: Home Meds Acetaminophen [Acetaminophen 8 Hour] 650 mg PO BID 07/01/18 [History] DULoxetine HCl [Cymbalta] 60 mg PO BID 07/01/18 [History] buPROPion HCL [Wellbutrin Xl] 150 mg PO DAILY 07/01/18 [History] Cholecalciferol (Vitamin D3) [Vitamin D3] 3,000 unit PO DAILY 08/25/18 [History] Albuterol [Ventolin HFA] 2 puff INH Q6H PRN #1 08/29/18 [Rx] Budesonide/Formoterol [Symbicort 160-4.5 MCG] 1 puff INH BID #1 inhaler 08/29/18 [Rx] Cyclobenzaprine [Flexeril] 5 mg PO BID PRN 03/23/20 [History] Furosemide [Lasix] 40 mg PO Q48H 03/23/20 [History] Zolpidem Tartrate [Ambien] 10 mg PO DAILY PRN 03/23/20 [History] clonazePAM [Clonazepam] 1 mg PO BID 03/24/20 [History] Pantoprazole [ProTONIX] 40 mg PO DAILY 06/08/20 [History] Past Medical History HEENT History: Reports: Impaired Vision Cardiovascular History: Reports: Heart Failure Respiratory History: Reports: Asthma, COPD, Pneumonia, Recurrent Gastrointestinal History: Reports: None Genitourinary History: Reports: None [employer] History: Reports: None Musculoskeletal History: Reports: Fibromyalgia Neurological History: Reports: None Psychiatric History: Reports: Depression Endocrine/Metabolic History: Reports: None Hematologic History: Reports: B12 Deficiency Immunologic History: Reports: None Oncologic (Cancer) History: Reports: None - Infectious Disease History Infectious Disease History: Reports: Shingles - Past Surgical History Female Surgical History: Reports: Tubal Ligation Social & Family History - Family History Family Medical History: No Pertinent Family History Respiratory: Reports: TB Oncologic: Reports: Lung - Tobacco Use Tobacco Use Status *Q: Current Every Day Tobacco User Years of Tobacco use: 50 Packs/Tins Daily: 1 - Caffeine Use Caffeine Use: Reports: Coffee - Recreational Drug Use Recreational Drug Use: No - Living Situation & Occupation Living situation: Reports: , with Family Occupation: Retired H&P Review of Systems - Review of Systems: Review Of Systems: See Below (As per HPI) General: Reports: No Symptoms HEENT: Reports: No Symptoms Pulmonary: Reports: No Symptoms Cardiovascular: Reports: No Symptoms Gastrointestinal: Reports: No Symptoms Genitourinary: Reports: No Symptoms Musculoskeletal: Reports: No Symptoms Skin: Reports: No Symptoms Psychiatric: Reports: No Symptoms Neurological: Reports: No Symptoms Hematologic/Lymphatic: Reports: No Symptoms Immunologic: Reports: No Symptoms Exam - Exam Exam: See Below (As per HPI) - Vital Signs Vital Signs: Last Vital Signs Temp 97.5 F 06/08/20 20:33 Pulse 100 06/08/20 20:33 Resp 20 06/08/20 20:33 BP 107/50 L 06/08/20 20:33 Pulse Ox 100 06/08/20 20:33 Weight: 142 lb - Exam General: Alert, Oriented, 4 HEENT: PERRLA, Hearing Intact, Mucosa Moist & [place], Nares Patent, Normal Nasal Septum, Posterior Pharynx Clear, Conjunctiva Clear, EOMI, EACs Clear, TMs Clear Neck: Supple, Trachea Midline, 2 Lungs: Clear to Auscultation, Normal Respiratory Effort Cardiovascular: Regular Rate, Regular Rhythm GI/Abdominal Exam: Normal Bowel Sounds, Soft, Non-Tender, No Organomegaly, No Distention, No Abnormal Bruit, No Mass, Pelvis Stable (Female) Exam: Normal External Exam, Normal Speculum Exam, Normal Bimanual Exam Rectal (Female) Exam: Normal Exam, Normal Rectal Tone Back Exam: Normal Inspection, Full Range of Motion, NT Extremities: Normal Range of Motion, Non-Tender, No Pedal Edema, Normal Capillary Refill, Other (Tenderness and swelling to left great toe. Range of motion limited due to pain. Trace bilateral pitting edema. Mild erythema to both lower extremities. Nonhealing ulcer to the medial aspect of the left lower extremity above the medial malleolar. Wound is about 5 x 5 cm with eschar covering the floor of wound) Peripheral Pulses: 0: Carotid (L), Carotid (R), Brachial (L), Brachial (R), Radial (L), Radial (R), Femoral (L), Femoral (R), Popliteal (L), Popliteal (R), Posterior Tibial (L), Posterior Tibial (R), Dorsalis Pedis (L), Dorsalis Pedis (R) Skin: Warm, Dry, Intact Neurological: Cranial Nerves Intact, Reflexes Equal Bilateral Neuro Extensive - Mental Status: Alert, Oriented x3, Normal Mood/Affect, Normal Cognition Neuro Extensive - Motor, Sensory, Reflexes: CN II-XII Intact, Normal Gait, Normal Reflexes Psychiatric: Alert, Normal Affect, Normal Mood - Patient Data Lab Results Last 24 hrs: Laboratory Results - last 24 hr 06/08/20 06/08/20 06/08/20 Range/Units 20:45 20:45 20:45 WBC 13.1 H (5.0-10.0) 10^3/uL RBC 3.03 L (4.2-5.4) 10^6/uL Hgb 8.4 L (12.0-16.0) g/dL Hct 25.9 L (37.0-47.0) % MCV 85.5 (80-100) fL MCH 27.7 (27.0-34.0) pg MCHC 32.4 L (33.0-35.0) g/dL Plt Count 470 H (150-450) 10^3/uL Neut % (Auto) 63.7 (42.2-75.2) % Lymph % (Auto) 7.7 L (20.5-50.1) % [place] % (Auto) 10.2 H (2-8) % Eos % (Auto) 18.2 H (1.0-3.0) % Baso % (Auto) 0.2 (0.0-1.0) % PT 9.8 (9.0-12.0) SEC INR 1.0 (0.9-1.2) Sodium 130 L (136-145) mmol/L Potassium 3.5 (3.5-5.1) mmol/L Chloride 92 L (98-107) mmol/L Carbon Dioxide 28 (21-32) mmol/L Anion Gap 13.5 H (7-13) mEq/L BUN 15 (7-18) mg/dL Creatinine 0.84 (0.55-1.02) mg/dL Est Cr Clr Drug Dosing 49.97 mL/min Estimated GFR (MDRD) > 60 BUN/Creatinine Ratio 17.9 (No establ ref range) Glucose 100 H (74-99) mg/dL Lactic Acid (0.4-2.0) mmol/L Uric Acid (2.6-6.0) mg/dL Calcium 8.1 L (8.5-10.1) mg/dL Total Bilirubin 0.4 (0.2-1.0) mg/dL AST 14 L (15-37) U/L ALT 15 (14-59) U/L Alkaline Phosphatase 80 (46-116) U/L Ammonia (11-32) umol/L Troponin I < 0.017 (0.000-0.056) ng/mL B-Natriuretic Peptide 34 (0-100) pg/ml Total Protein 7.0 (6.4-8.2) g/dL Albumin 2.8 L (3.4-5.0) g/dL Globulin 4.2 Albumin/Globulin Ratio 0.67 Urine Color (YELLOW) Urine Appearance (CLEAR) Urine pH (5.0-9.0) Ur Specific [place] (1.005-1.030) Urine Protein (NEGATIVE) Urine Glucose (UA) (NEGATIVE) Urine Ketones (NEGATIVE) Urine Occult Blood (NEGATIVE) Urine Nitrite (NEGATIVE) Urine Bilirubin (NEGATIVE) Urine Urobilinogen (0.2-1.0) mg/dL Ur Leukocyte Esterase (NEGATIVE) Ethyl Alcohol 4 (0) mg/dL 06/08/20 06/08/20 06/08/20 Range/Units 20:45 20:45 20:45 WBC (5.0-10.0) 10^3/uL RBC (4.2-5.4) 10^6/uL Hgb (12.0-16.0) g/dL Hct (37.0-47.0) % MCV (80-100) fL MCH (27.0-34.0) pg MCHC (33.0-35.0) g/dL Plt Count (150-450) 10^3/uL Neut % (Auto) (42.2-75.2) % Lymph % (Auto) (20.5-50.1) % [place] % (Auto) (2-8) % Eos % (Auto) (1.0-3.0) % Baso % (Auto) (0.0-1.0) % PT (9.0-12.0) SEC INR (0.9-1.2) Sodium (136-145) mmol/L Potassium (3.5-5.1) mmol/L Chloride (98-107) mmol/L Carbon Dioxide (21-32) mmol/L Anion Gap (7-13) mEq/L BUN (7-18) mg/dL Creatinine (0.55-1.02) mg/dL Est Cr Clr Drug Dosing mL/min Estimated GFR (MDRD) BUN/Creatinine Ratio (No establ ref range) Glucose (74-99) mg/dL Lactic Acid 1.6 (0.4-2.0) mmol/L Uric Acid 6.0 (2.6-6.0) mg/dL Calcium (8.5-10.1) mg/dL Total Bilirubin (0.2-1.0) mg/dL AST (15-37) U/L ALT (14-59) U/L Alkaline Phosphatase (46-116) U/L Ammonia 24 (11-32) umol/L Troponin I (0.000-0.056) ng/mL B-Natriuretic Peptide (0-100) pg/ml Total Protein (6.4-8.2) g/dL Albumin (3.4-5.0) g/dL Globulin Albumin/Globulin Ratio Urine Color (YELLOW) Urine Appearance (CLEAR) Urine pH (5.0-9.0) Ur Specific [place] (1.005-1.030) Urine Protein (NEGATIVE) Urine Glucose (UA) (NEGATIVE) Urine Ketones (NEGATIVE) Urine Occult Blood (NEGATIVE) Urine Nitrite (NEGATIVE) Urine Bilirubin (NEGATIVE) Urine Urobilinogen (0.2-1.0) mg/dL Ur Leukocyte Esterase (NEGATIVE) Ethyl Alcohol (0) mg/dL 06/08/20 Range/Units 20:46 WBC (5.0-10.0) 10^3/uL RBC (4.2-5.4) 10^6/uL Hgb (12.0-16.0) g/dL Hct (37.0-47.0) % MCV (80-100) fL MCH (27.0-34.0) pg MCHC (33.0-35.0) g/dL Plt Count (150-450) 10^3/uL Neut % (Auto) (42.2-75.2) % Lymph % (Auto) (20.5-50.1) % [place] % (Auto) (2-8) % Eos % (Auto) (1.0-3.0) % Baso % (Auto) (0.0-1.0) % PT (9.0-12.0) SEC INR (0.9-1.2) Sodium (136-145) mmol/L Potassium (3.5-5.1) mmol/L Chloride (98-107) mmol/L Carbon Dioxide (21-32) mmol/L Anion Gap (7-13) mEq/L BUN (7-18) mg/dL Creatinine (0.55-1.02) mg/dL Est Cr Clr Drug Dosing mL/min Estimated GFR (MDRD) BUN/Creatinine Ratio (No establ ref range) Glucose (74-99) mg/dL Lactic Acid (0.4-2.0) mmol/L Uric Acid (2.6-6.0) mg/dL Calcium (8.5-10.1) mg/dL Total Bilirubin (0.2-1.0) mg/dL AST (15-37) U/L ALT (14-59) U/L Alkaline Phosphatase (46-116) U/L Ammonia (11-32) umol/L Troponin I (0.000-0.056) ng/mL B-Natriuretic Peptide (0-100) pg/ml Total Protein (6.4-8.2) g/dL Albumin (3.4-5.0) g/dL Globulin Albumin/Globulin Ratio Urine Color Yellow (YELLOW) Urine Appearance Clear (CLEAR) Urine pH 5.5 (5.0-9.0) Ur Specific [place] 1.025 (1.005-1.030) Urine Protein Negative (NEGATIVE) Urine Glucose (UA) Negative (NEGATIVE) Urine Ketones Negative (NEGATIVE) Urine Occult Blood Negative (NEGATIVE) Urine Nitrite Negative (NEGATIVE) Urine Bilirubin Negative (NEGATIVE) Urine Urobilinogen 0.2 (0.2-1.0) mg/dL Ur Leukocyte Esterase Negative (NEGATIVE) Ethyl Alcohol (0) mg/dL Result Diagrams: 06/09/20 06:05 06/09/20 06:05 [place] Results Last 24 hrs: Microbiology 06/08/20 20:45 Anaerobic Blood Culture - Final Blood - Venous - Iv Start - Problem List (1) Nonhealing ulcer of left lower leg SNOMED Code(s): 85317466 ICD Code: L97.929 - NON-PRS CHRONIC ULC UNSP PRT OF L LOW LEG W UNSP SEVERITY Status: Acute Current Visit: Yes (2) Acute gouty arthritis SNOMED Code(s): 29447788, 148231192 ICD Code: M10.9 - GOUT, UNSPECIFIED Status: Acute Current Visit: Yes (3) Hypokalemia SNOMED Code(s): 38307123 ICD Code: E87.6 - HYPOKALEMIA Status: Acute Current Visit: Yes (4) Hyponatremia SNOMED Code(s): 30496561 ICD Code: E87.1 - HYPO-OSMOLALITY AND HYPONATREMIA Status: Acute Current Visit: Yes (5) Chronic anemia SNOMED Code(s): 357524034 ICD Code: D64.9 - ANEMIA, UNSPECIFIED Status: Acute Current Visit: Yes (6) Hypomagnesemia SNOMED Code(s): 329090460 ICD Code: E83.42 - HYPOMAGNESEMIA Status: Acute Current Visit: Yes (7) Thrombocytosis SNOMED Code(s): 2328133 ICD Code: D47.3 - ESSENTIAL (HEMORRHAGIC) THROMBOCYTHEMIA Status: Acute Current Visit: Yes (8) Generalized weakness SNOMED Code(s): 13087820 ICD Code: R53.1 - WEAKNESS Status: Acute Current Visit: Yes Problem List Initiated/Reviewed/Updated: Yes Orders Last 24hrs: Active Orders 24 hr Category Date Time Status Admission Diagnosis [ADT] Stat ADT 06/08/20 22:28 Ordered Admission Status [Patient Status] [ADT] Routine ADT 06/08/20 22:28 Active Ambulate [RC] ASDIRECTED Care 06/08/20 22:53 Ordered Notify Provider Vital Signs [RC] ASDIRECTED Care 06/08/20 22:54 Ordered Oxygen Therapy [RC] PRN Care 06/08/20 22:53 Ordered VTE/DVT Education [RC] PER UNIT ROUTINE Care 06/08/20 22:53 Ordered Vital Signs [RC] Q4H Care 06/08/20 22:53 Ordered Consistent Carbohydrate Diet [DIET] Diet 06/08/20 Breakfast Ordered CBC W/O DIFF,HEMOGRAM [HEME] AM Lab 06/09/20 05:11 Ordered CBC W/O DIFF,HEMOGRAM [HEME] AM Lab 06/10/20 05:11 Ordered CBC W/O DIFF,HEMOGRAM [HEME] AM Lab 06/11/20 05:11 Ordered COVID-19/FLU A+B [MOLEC] Stat Lab 06/08/20 22:15 Received CULTURE BLOOD [BC] Stat Lab 06/08/20 20:45 Results CULTURE BLOOD [BC] Stat Lab 06/08/20 20:50 Received MAGNESIUM [CHEM] Routine Lab 06/08/20 22:53 Ordered PHOSPHORUS [CHEM] Routine Lab 06/08/20 22:53 Ordered UA RFX [place]ANN[place] AND CULT IF INDIC [URIN] Urgent Lab 06/08/20 21:52 Ordered Acetaminophen [TylenoL] Med 06/08/20 22:53 Ordered 650 mg PO Q4H PRN Docusate Sodium [Colace] Med 06/08/20 22:53 Ordered 100 mg PO BID PRN Heparin Sodium Med 06/09/20 09:00 Ordered 5,000 units SUBCUT Q12HR Magnesium Hydroxide [Milk of Magnesia] Med 06/08/20 22:53 Ordered 30 ml PO Q12H PRN Ondansetron [Zofran ODT] Med 06/08/20 22:53 Ordered 4 mg PO Q6H PRN Pharmacy to Dose - Vancomycin Med 06/08/20 23:00 Ordered 1 dose .XX ASDIRECTED Vancomycin 1 gm Med 06/08/20 22:12 Active Sodium Chloride 0.9% [Normal Saline (AdvBag)] 250 ml IV ONETIME Blood Culture x2 Reflex Set [OM.PC] Stat Oth 06/08/20 20:34 Ordered Resuscitation Status Routine Resus Stat 06/08/20 22:53 Ordered Medication Orders Acetaminophen (Tylenol) 650 mg PO Q4H PRN PRN Reason: Pain (Mild 1-3)/fever Docusate Sodium (Colace) 100 mg PO BID PRN PRN Reason: Constipation Heparin Sodium (Porcine) (Heparin Sodium) 5,000 units SUBCUT Q12HR BLAZE Vancomycin HCl 1 gm/ Sodium (Chloride) 250 mls @ 167 mls/hr IV ONETIME ONE Stop: 06/08/20 23:41 Last Admin: 06/08/20 22:29 Dose: 167 mls/hr Documented by: SJ Magnesium Hydroxide (Milk Of Magnesia) 30 ml PO Q12H PRN PRN Reason: Constipation Ondansetron HCl (Zofran Odt) 4 mg PO Q6H PRN PRN Reason: nausea, able to take PO Vancomycin HCl (Pharmacy To Dose - Vancomycin) 1 dose .XX ASDIRECTED [facility] Assessment/Plan Comment:: #Bilateral lower extremity cellulitis #Nonhealing left lower extremity ulcer #Acute gouty arthritis of left big toe Patient brought to the ED by family because of increasing weakness, pain and redness to lower extremities She has nonhealing ulcer to the medial aspect of the left lower extremity about the medial malleolar Patient reports pain to the left big toe. Appears oriented exams. Uric acid within normal limit Admit to medical floor X-ray of left foot IVF IV Vanco Start patient on Naprosyn and colchicine for gouty arthritis Physical therapy and Occupational Therapy She follows with wound care. Has appointment on Thursday for lower extremity wound #Acute encephalopathy. This could be metabolic Patient is sleepy but easily aroused and stays awake and alert and appears to be answering questions appropriately Treat ongoing infection and manage pain appropriately Continue to monitor mental status #Mild hyponatremia. Sodium 130 This could be due to hypovolemic hyponatremia from poor oral intake IV fluid Monitor serum sodium #Hypokalemia. This is mild Potassium 3.5 Oral replacement #Hypomagnesemia Magnesium 1.7 IV replacement #Depression Continue home medications #COPD Not in exacerbation Continue home breathing treatments #Fibromyalgia Continue home medications #Weakness Fall precautions Ambulate with assistance PT and OT evaluation #Thrombocytosis #Chronic anemia. Hemoglobin stable at 8.2 Monitor hemoglobin closely DVT prophylaxis Heparin CODE STATUS: Full code per patient and family preference
[2020-06-08] MEDS ORDERED: Cyclobenzaprine 10 MG Tab PO PRN (23:05)
[2020-06-08] MEDS ORDERED: Albuterol 6.7 GM Inhaler INH PRN (23:05)
[2020-06-09] MEDS: DULoxetine 30 MG Cap PO SCH ×3 (00:01→21:04)
[2020-06-09] MEDS: diphenhydrAMINE 25 MG Tab PO PRN ×2 (00:01→21:03)
[2020-06-09] MEDS: ClonazePAM 0.5 MG Tab PO SCH ×3 (00:01→21:04)
[2020-06-09] MEDS: Acetaminophen 325 MG Tab PO PRN ×3 (00:01→23:50)
[2020-06-09] MEDS: Zolpidem 5 MG Tab PO PRN ×2 (00:03→23:50)
[2020-06-09] MEDS: Sodium Chloride 0.9% 1,000 ML IV SCH ×3 (00:11→23:44)
[2020-06-09] MEDS ORDERED: Pantoprazole 40 MG Tab.CR PO SCH (06:00)
[2020-06-09] MEDS: Heparin Sodium 5,000 Units/ML Vial SUBCUT SCH ×2 (08:19→21:05)
[2020-06-09] MEDS: Cholecalciferol (Vitamin D3) 25 MCG Tab PO SCH (08:21)
[2020-06-09] MEDS: buPROPion 150 MG Tab.ER PO SCH (08:22)
[2020-06-09] MEDS: Formoterol/Mometasone 200-5 MCG 8.8 GM Inhaler IH SCH ×2 (08:29→21:04)
[2020-06-09] MEDS ORDERED: Non-Formulary Medication 1 Each (Budesonide/Formoterol 1 PUFF) INH SCH (09:00)
[2020-06-09] MEDS ORDERED: ClonazePAM 0.5 MG Tab PO SCH (09:00)
[2020-06-09] MEDS ORDERED: DULoxetine 30 MG Cap PO SCH (09:00)
[2020-06-09 10:04] LABS: ANION GAP 13.5 mEq/L (7-13); CHLORIDE,CL 96 mmol/L (98-107); SODIUM,NA 133 mmol/L (136-145)
[2020-06-09] MEDS ORDERED: Naproxen 500 MG Tab PO PRN (10:54)
[2020-06-09] MEDS ORDERED: Sodium Chloride 0.9% 1,000 ML IV SCH (11:00)
--- NOTE | 2020-06-09 11:13 | PCM.PN ---
- General Info Date of Service: 06/09/20 Admission Dx/Problem (Free Text): Admission Diagnosis/Problem Admission Diagnosis/Problem Cellulitis Functional Status: Reports: Pain Controlled - Review of Systems General: Reports: No Symptoms HEENT: Reports: No Symptoms Pulmonary: Reports: No Symptoms Cardiovascular: Reports: No Symptoms Gastrointestinal: Reports: No Symptoms Genitourinary: Reports: No Symptoms Musculoskeletal: Reports: Joint Pain, Joint Swelling (Still complaining of pain and swelling to the right big toe.), Other Skin: Reports: No Symptoms Neurological: Reports: No Symptoms Psychiatric: Reports: No Symptoms - Patient Data Vitals - Most Recent: Last Vital Signs Temp 99.2 F 06/09/20 08:00 Pulse 101 H 06/09/20 08:00 Resp 24 H 06/09/20 08:00 BP 123/63 06/09/20 08:00 Pulse Ox 88 L 06/09/20 08:00 Weight - Most Recent: 143 lb 14.4 oz I&O - Last 24 Hours: Intake & Output 06/08/20 06/09/20 06/09/20 22:59 06:59 14:59 Intake Total 422 550 Balance 422 550 Lab Results Last 24 Hours: Laboratory Results - last 24 hr 06/08/20 06/08/20 06/08/20 Range/Units 20:45 20:45 20:45 WBC 13.1 H (5.0-10.0) 10^3/uL RBC 3.03 L (4.2-5.4) 10^6/uL Hgb 8.4 L (12.0-16.0) g/dL Hct 25.9 L (37.0-47.0) % MCV 85.5 (80-100) fL MCH 27.7 (27.0-34.0) pg MCHC 32.4 L (33.0-35.0) g/dL Plt Count 470 H (150-450) 10^3/uL Neut % (Auto) 63.7 (42.2-75.2) % Lymph % (Auto) 7.7 L (20.5-50.1) % Bremer % (Auto) 10.2 H (2-8) % Eos % (Auto) 18.2 H (1.0-3.0) % Baso % (Auto) 0.2 (0.0-1.0) % PT 9.8 (9.0-12.0) SEC INR 1.0 (0.9-1.2) Sodium 130 L (136-145) mmol/L Potassium 3.5 (3.5-5.1) mmol/L Chloride 92 L (98-107) mmol/L Carbon Dioxide 28 (21-32) mmol/L Anion Gap 13.5 H (7-13) mEq/L BUN 15 (7-18) mg/dL Creatinine 0.84 (0.55-1.02) mg/dL Est Cr Clr Drug Dosing 49.97 mL/min Estimated GFR (MDRD) > 60 BUN/Creatinine Ratio 17.9 (No establ ref range) Glucose 100 H (74-99) mg/dL Lactic Acid (0.4-2.0) mmol/L Uric Acid (2.6-6.0) mg/dL Calcium 8.1 L (8.5-10.1) mg/dL Phosphorus (2.6-4.7) mg/dL Magnesium (1.8-2.4) mg/dL Total Bilirubin 0.4 (0.2-1.0) mg/dL AST 14 L (15-37) U/L ALT 15 (14-59) U/L Alkaline Phosphatase 80 (46-116) U/L Ammonia (11-32) umol/L Troponin I < 0.017 (0.000-0.056) ng/mL B-Natriuretic Peptide 34 (0-100) pg/ml Total Protein 7.0 (6.4-8.2) g/dL Albumin 2.8 L (3.4-5.0) g/dL Globulin 4.2 Albumin/Globulin Ratio 0.67 Urine Color (YELLOW) Urine Appearance (CLEAR) Urine pH (5.0-9.0) Ur Specific [place] (1.005-1.030) Urine Protein (NEGATIVE) Urine Glucose (UA) (NEGATIVE) Urine Ketones (NEGATIVE) Urine Occult Blood (NEGATIVE) Urine Nitrite (NEGATIVE) Urine Bilirubin (NEGATIVE) Urine Urobilinogen (0.2-1.0) mg/dL Ur Leukocyte Esterase (NEGATIVE) Ethyl Alcohol 4 (0) mg/dL Influenza Type A RNA (NEGATIVE) Influenza Type B RNA (NEGATIVE) SARS-CoV-2 RNA (SKY) (NEGATIVE) 06/08/20 06/08/20 06/08/20 Range/Units 20:45 20:45 20:45 WBC (5.0-10.0) 10^3/uL RBC (4.2-5.4) 10^6/uL Hgb (12.0-16.0) g/dL Hct (37.0-47.0) % MCV (80-100) fL MCH (27.0-34.0) pg MCHC (33.0-35.0) g/dL Plt Count (150-450) 10^3/uL Neut % (Auto) (42.2-75.2) % Lymph % (Auto) (20.5-50.1) % Bremer % (Auto) (2-8) % Eos % (Auto) (1.0-3.0) % Baso % (Auto) (0.0-1.0) % PT (9.0-12.0) SEC INR (0.9-1.2) Sodium (136-145) mmol/L Potassium (3.5-5.1) mmol/L Chloride (98-107) mmol/L Carbon Dioxide (21-32) mmol/L Anion Gap (7-13) mEq/L BUN (7-18) mg/dL Creatinine (0.55-1.02) mg/dL Est Cr Clr Drug Dosing mL/min Estimated GFR (MDRD) BUN/Creatinine Ratio (No establ ref range) Glucose (74-99) mg/dL Lactic Acid 1.6 (0.4-2.0) mmol/L Uric Acid 6.0 (2.6-6.0) mg/dL Calcium (8.5-10.1) mg/dL Phosphorus (2.6-4.7) mg/dL Magnesium (1.8-2.4) mg/dL Total Bilirubin (0.2-1.0) mg/dL AST (15-37) U/L ALT (14-59) U/L Alkaline Phosphatase (46-116) U/L Ammonia 24 (11-32) umol/L Troponin I (0.000-0.056) ng/mL B-Natriuretic Peptide (0-100) pg/ml Total Protein (6.4-8.2) g/dL Albumin (3.4-5.0) g/dL Globulin Albumin/Globulin Ratio Urine Color (YELLOW) Urine Appearance (CLEAR) Urine pH (5.0-9.0) Ur Specific [place] (1.005-1.030) Urine Protein (NEGATIVE) Urine Glucose (UA) (NEGATIVE) Urine Ketones (NEGATIVE) Urine Occult Blood (NEGATIVE) Urine Nitrite (NEGATIVE) Urine Bilirubin (NEGATIVE) Urine Urobilinogen (0.2-1.0) mg/dL Ur Leukocyte Esterase (NEGATIVE) Ethyl Alcohol (0) mg/dL Influenza Type A RNA (NEGATIVE) Influenza Type B RNA (NEGATIVE) SARS-CoV-2 RNA (SKY) (NEGATIVE) 06/08/20 06/08/20 06/08/20 Range/Units 20:45 20:46 22:15 WBC (5.0-10.0) 10^3/uL RBC (4.2-5.4) 10^6/uL Hgb (12.0-16.0) g/dL Hct (37.0-47.0) % MCV (80-100) fL MCH (27.0-34.0) pg MCHC (33.0-35.0) g/dL Plt Count (150-450) 10^3/uL Neut % (Auto) (42.2-75.2) % Lymph % (Auto) (20.5-50.1) % Bremer % (Auto) (2-8) % Eos % (Auto) (1.0-3.0) % Baso % (Auto) (0.0-1.0) % PT (9.0-12.0) SEC INR (0.9-1.2) Sodium (136-145) mmol/L Potassium (3.5-5.1) mmol/L Chloride (98-107) mmol/L Carbon Dioxide (21-32) mmol/L Anion Gap (7-13) mEq/L BUN (7-18) mg/dL Creatinine (0.55-1.02) mg/dL Est Cr Clr Drug Dosing mL/min Estimated GFR (MDRD) BUN/Creatinine Ratio (No establ ref range) Glucose (74-99) mg/dL Lactic Acid (0.4-2.0) mmol/L Uric Acid (2.6-6.0) mg/dL Calcium (8.5-10.1) mg/dL Phosphorus 4.1 (2.6-4.7) mg/dL Magnesium 1.7 L (1.8-2.4) mg/dL Total Bilirubin (0.2-1.0) mg/dL AST (15-37) U/L ALT (14-59) U/L Alkaline Phosphatase (46-116) U/L Ammonia (11-32) umol/L Troponin I (0.000-0.056) ng/mL B-Natriuretic Peptide (0-100) pg/ml Total Protein (6.4-8.2) g/dL Albumin (3.4-5.0) g/dL Globulin Albumin/Globulin Ratio Urine Color Yellow (YELLOW) Urine Appearance Clear (CLEAR) Urine pH 5.5 (5.0-9.0) Ur Specific [place] 1.025 (1.005-1.030) Urine Protein Negative (NEGATIVE) Urine Glucose (UA) Negative (NEGATIVE) Urine Ketones Negative (NEGATIVE) Urine Occult Blood Negative (NEGATIVE) Urine Nitrite Negative (NEGATIVE) Urine Bilirubin Negative (NEGATIVE) Urine Urobilinogen 0.2 (0.2-1.0) mg/dL Ur Leukocyte Esterase Negative (NEGATIVE) Ethyl Alcohol (0) mg/dL Influenza Type A RNA Negative (NEGATIVE) Influenza Type B RNA Negative (NEGATIVE) SARS-CoV-2 RNA (SKY) Negative (NEGATIVE) 06/09/20 06/09/20 Range/Units 06:05 06:05 WBC 11.4 H (5.0-10.0) 10^3/uL RBC 2.91 L (4.2-5.4) 10^6/uL Hgb 7.9 L (12.0-16.0) g/dL Hct 24.5 L (37.0-47.0) % MCV 84.2 (80-100) fL MCH 27.1 (27.0-34.0) pg MCHC 32.2 L (33.0-35.0) g/dL Plt Count 398 (150-450) 10^3/uL Neut % (Auto) (42.2-75.2) % Lymph % (Auto) (20.5-50.1) % Bremer % (Auto) (2-8) % Eos % (Auto) (1.0-3.0) % Baso % (Auto) (0.0-1.0) % PT (9.0-12.0) SEC INR (0.9-1.2) Sodium 133 L (136-145) mmol/L Potassium 3.5 (3.5-5.1) mmol/L Chloride 96 L (98-107) mmol/L Carbon Dioxide 27 (21-32) mmol/L Anion Gap 13.5 H (7-13) mEq/L BUN 12 (7-18) mg/dL Creatinine 0.64 (0.55-1.02) mg/dL Est Cr Clr Drug Dosing 65.59 mL/min Estimated GFR (MDRD) > 60 BUN/Creatinine Ratio (No establ ref range) Glucose 100 H (74-99) mg/dL Lactic Acid (0.4-2.0) mmol/L Uric Acid (2.6-6.0) mg/dL Calcium 7.8 L (8.5-10.1) mg/dL Phosphorus (2.6-4.7) mg/dL Magnesium (1.8-2.4) mg/dL Total Bilirubin (0.2-1.0) mg/dL AST (15-37) U/L ALT (14-59) U/L Alkaline Phosphatase (46-116) U/L Ammonia (11-32) umol/L Troponin I (0.000-0.056) ng/mL B-Natriuretic Peptide (0-100) pg/ml Total Protein (6.4-8.2) g/dL Albumin (3.4-5.0) g/dL Globulin Albumin/Globulin Ratio Urine Color (YELLOW) Urine Appearance (CLEAR) Urine pH (5.0-9.0) Ur Specific [place] (1.005-1.030) Urine Protein (NEGATIVE) Urine Glucose (UA) (NEGATIVE) Urine Ketones (NEGATIVE) Urine Occult Blood (NEGATIVE) Urine Nitrite (NEGATIVE) Urine Bilirubin (NEGATIVE) Urine Urobilinogen (0.2-1.0) mg/dL Ur Leukocyte Esterase (NEGATIVE) Ethyl Alcohol (0) mg/dL Influenza Type A RNA (NEGATIVE) Influenza Type B RNA (NEGATIVE) SARS-CoV-2 RNA (SKY) (NEGATIVE) Brannon Results Last 24 Hours: Microbiology 06/08/20 20:45 Anaerobic Blood Culture - Final Blood - Venous - Iv Start Med Orders - Current: Current Medications Acetaminophen (Tylenol) 650 mg PO Q4H PRN PRN Reason: Pain (Mild 1-3)/fever Last Admin: 06/09/20 00:01 Dose: 650 mg Documented by: Albuterol (Proventil Hfa) 0 gm INH Q6H PRN PRN Reason: Shortness of Breath Bupropion HCl (Wellbutrin Xl) 150 mg PO DAILY [facility] Last Admin: 06/09/20 08:22 Dose: 150 mg Documented by: Cholecalciferol (Vitamin D3) 75 mcg PO DAILY [facility] Last Admin: 06/09/20 08:21 Dose: 75 mcg Documented by: Clonazepam (Klonopin) 1 mg PO BID [facility] Last Admin: 06/09/20 08:22 Dose: 1 mg Documented by: Colchicine (Colcrys) 0.6 mg PO BID [facility] Cyclobenzaprine HCl (Flexeril) 5 mg PO BID PRN PRN Reason: Muscle Spasm Diphenhydramine HCl (Benadryl) 25 mg PO Q8H PRN PRN Reason: Itching Last Admin: 06/09/20 00:01 Dose: 25 mg Documented by: Docusate Sodium (Colace) 100 mg PO BID PRN PRN Reason: Constipation Duloxetine HCl (Cymbalta) 60 mg PO BID [facility] Last Admin: 06/09/20 08:27 Dose: 60 mg Documented by: Furosemide (Lasix) 40 mg PO Q48H [facility] Heparin Sodium (Porcine) (Heparin Sodium) 5,000 units SUBCUT Q12HR [facility] Last Admin: 06/09/20 08:19 Dose: 5,000 units Documented by: Sodium Chloride (Normal Saline) 1,000 mls @ 100 mls/hr IV ASDIRECTED [facility] Last Admin: 06/09/20 10:28 Dose: 100 mls/hr Documented by: Vancomycin HCl 1 gm/ Sodium (Chloride) 250 mls @ 166.667 mls/hr IV Q24H [facility] Magnesium Sulfate/Dextrose (Magnesium Sulfate In D5w 1 Gm/100 Ml) 1 gm in 100 mls @ 100 mls/hr IV Q1H [facility] Stop: 06/09/20 13:14 Magnesium Hydroxide (Milk Of Magnesia) 30 ml PO Q12H PRN PRN Reason: Constipation Mometasone Furoate/Formoterol Fumar (Dulera 200-5 Mcg) 2 puff IH BID [facility] Last Admin: 06/09/20 08:29 Dose: 2 puff Documented by: Naproxen (Naprosyn) 500 mg PO Q12H PRN PRN Reason: gout Non-Formulary Medication (Acetaminophen [Acetaminophen 8 Hour]) 650 mg PO BID [facility] Ondansetron HCl (Zofran Odt) 4 mg PO Q6H PRN PRN Reason: nausea, able to take PO Pantoprazole Sodium (Protonix) 40 mg PO BIDAC [facility] Potassium Chloride (Klor-Con 10) 40 meq PO BEDTIME [facility] Vancomycin HCl (Pharmacy To Dose - Vancomycin) 1 dose .XX ASDIRECTED [facility] Zolpidem Tartrate (Ambien) 10 mg PO BEDTIME PRN PRN Reason: Insomnia Last Admin: 06/09/20 00:03 Dose: 10 mg Documented by: Discontinued Medications Clonazepam (Klonopin) 1 mg PO BID [facility] Duloxetine HCl (Cymbalta) 60 mg PO BID [facility] Vancomycin HCl 1 gm/ Sodium (Chloride) 250 mls @ 167 mls/hr IV ONETIME ONE Stop: 06/08/20 23:41 Last Admin: 06/08/20 22:29 Dose: 167 mls/hr Documented by: Sodium Chloride (Normal Saline) 1,000 mls @ 100 mls/hr IV ASDIRECTED [facility] Pantoprazole Sodium (Protonix) 40 mg PO ACBREAKFAST [facility] Last Admin: 06/09/20 06:00 Dose: 40 mg Documented by: - Exam Quality Assessment: DVT Prophylaxis General: Alert, Oriented HEENT: Pupils Equal, Pupils Reactive, EOMI, Mucous Membr. Moist/[place] Neck: Supple Lungs: Clear to Auscultation, Normal Respiratory Effort Cardiovascular: Regular Rate, Regular Rhythm GI/Abdominal Exam: Normal Bowel Sounds, Soft, Non-Tender, No Organomegaly, No Distention, No Abnormal Bruit, No Mass, Pelvis Stable (Female) Exam: Normal External Exam, Normal Speculum Exam, Normal Bimanual Exam Back Exam: Normal Inspection, Full Range of Motion Extremities: Normal Range of Motion, Normal Capillary Refill, Other (Swelling, tenderness limited range of motion to left big toe due to pain) Skin: Warm, Dry, Intact Wound/Incisions: Healing Well Neurological: No New Focal Deficit Psy/Mental Status: Alert, Normal Affect, Normal Mood - Patient Data Lab Results Last 24 hrs: Laboratory Results - last 24 hr 06/08/20 06/08/20 06/08/20 Range/Units 20:45 20:45 20:45 WBC 13.1 H (5.0-10.0) 10^3/uL RBC 3.03 L (4.2-5.4) 10^6/uL Hgb 8.4 L (12.0-16.0) g/dL Hct 25.9 L (37.0-47.0) % MCV 85.5 (80-100) fL MCH 27.7 (27.0-34.0) pg MCHC 32.4 L (33.0-35.0) g/dL Plt Count 470 H (150-450) 10^3/uL Neut % (Auto) 63.7 (42.2-75.2) % Lymph % (Auto) 7.7 L (20.5-50.1) % [place] % (Auto) 10.2 H (2-8) % Eos % (Auto) 18.2 H (1.0-3.0) % Baso % (Auto) 0.2 (0.0-1.0) % PT 9.8 (9.0-12.0) SEC INR 1.0 (0.9-1.2) Sodium 130 L (136-145) mmol/L Potassium 3.5 (3.5-5.1) mmol/L Chloride 92 L (98-107) mmol/L Carbon Dioxide 28 (21-32) mmol/L Anion Gap 13.5 H (7-13) mEq/L BUN 15 (7-18) mg/dL Creatinine 0.84 (0.55-1.02) mg/dL Est Cr Clr Drug Dosing 49.97 mL/min Estimated GFR (MDRD) > 60 BUN/Creatinine Ratio 17.9 (No establ ref range) Glucose 100 H (74-99) mg/dL Lactic Acid (0.4-2.0) mmol/L Uric Acid (2.6-6.0) mg/dL Calcium 8.1 L (8.5-10.1) mg/dL Phosphorus (2.6-4.7) mg/dL Magnesium (1.8-2.4) mg/dL Total Bilirubin 0.4 (0.2-1.0) mg/dL AST 14 L (15-37) U/L ALT 15 (14-59) U/L Alkaline Phosphatase 80 (46-116) U/L Ammonia (11-32) umol/L Troponin I < 0.017 (0.000-0.056) ng/mL B-Natriuretic Peptide 34 (0-100) pg/ml Total Protein 7.0 (6.4-8.2) g/dL Albumin 2.8 L (3.4-5.0) g/dL Globulin 4.2 Albumin/Globulin Ratio 0.67 Urine Color (YELLOW) Urine Appearance (CLEAR) Urine pH (5.0-9.0) Ur Specific [place] (1.005-1.030) Urine Protein (NEGATIVE) Urine Glucose (UA) (NEGATIVE) Urine Ketones (NEGATIVE) Urine Occult Blood (NEGATIVE) Urine Nitrite (NEGATIVE) Urine Bilirubin (NEGATIVE) Urine Urobilinogen (0.2-1.0) mg/dL Ur Leukocyte Esterase (NEGATIVE) Ethyl Alcohol 4 (0) mg/dL Influenza Type A RNA (NEGATIVE) Influenza Type B RNA (NEGATIVE) SARS-CoV-2 RNA (SKY) (NEGATIVE) 06/08/20 06/08/20 06/08/20 Range/Units 20:45 20:45 20:45 WBC (5.0-10.0) 10^3/uL RBC (4.2-5.4) 10^6/uL Hgb (12.0-16.0) g/dL Hct (37.0-47.0) % MCV (80-100) fL MCH (27.0-34.0) pg MCHC (33.0-35.0) g/dL Plt Count (150-450) 10^3/uL Neut % (Auto) (42.2-75.2) % Lymph % (Auto) (20.5-50.1) % [place] % (Auto) (2-8) % Eos % (Auto) (1.0-3.0) % Baso % (Auto) (0.0-1.0) % PT (9.0-12.0) SEC INR (0.9-1.2) Sodium (136-145) mmol/L Potassium (3.5-5.1) mmol/L Chloride (98-107) mmol/L Carbon Dioxide (21-32) mmol/L Anion Gap (7-13) mEq/L BUN (7-18) mg/dL Creatinine (0.55-1.02) mg/dL Est Cr Clr Drug Dosing mL/min Estimated GFR (MDRD) BUN/Creatinine Ratio (No establ ref range) Glucose (74-99) mg/dL Lactic Acid 1.6 (0.4-2.0) mmol/L Uric Acid 6.0 (2.6-6.0) mg/dL Calcium (8.5-10.1) mg/dL Phosphorus (2.6-4.7) mg/dL Magnesium (1.8-2.4) mg/dL Total Bilirubin (0.2-1.0) mg/dL AST (15-37) U/L ALT (14-59) U/L Alkaline Phosphatase (46-116) U/L Ammonia 24 (11-32) umol/L Troponin I (0.000-0.056) ng/mL B-Natriuretic Peptide (0-100) pg/ml Total Protein (6.4-8.2) g/dL Albumin (3.4-5.0) g/dL Globulin Albumin/Globulin Ratio Urine Color (YELLOW) Urine Appearance (CLEAR) Urine pH (5.0-9.0) Ur Specific [place] (1.005-1.030) Urine Protein (NEGATIVE) Urine Glucose (UA) (NEGATIVE) Urine Ketones (NEGATIVE) Urine Occult Blood (NEGATIVE) Urine Nitrite (NEGATIVE) Urine Bilirubin (NEGATIVE) Urine Urobilinogen (0.2-1.0) mg/dL Ur Leukocyte Esterase (NEGATIVE) Ethyl Alcohol (0) mg/dL Influenza Type A RNA (NEGATIVE) Influenza Type B RNA (NEGATIVE) SARS-CoV-2 RNA (SKY) (NEGATIVE) 06/08/20 06/08/20 06/08/20 Range/Units 20:45 20:46 22:15 WBC (5.0-10.0) 10^3/uL RBC (4.2-5.4) 10^6/uL Hgb (12.0-16.0) g/dL Hct (37.0-47.0) % MCV (80-100) fL MCH (27.0-34.0) pg MCHC (33.0-35.0) g/dL Plt Count (150-450) 10^3/uL Neut % (Auto) (42.2-75.2) % Lymph % (Auto) (20.5-50.1) % [place] % (Auto) (2-8) % Eos % (Auto) (1.0-3.0) % Baso % (Auto) (0.0-1.0) % PT (9.0-12.0) SEC INR (0.9-1.2) Sodium (136-145) mmol/L Potassium (3.5-5.1) mmol/L Chloride (98-107) mmol/L Carbon Dioxide (21-32) mmol/L Anion Gap (7-13) mEq/L BUN (7-18) mg/dL Creatinine (0.55-1.02) mg/dL Est Cr Clr Drug Dosing mL/min Estimated GFR (MDRD) BUN/Creatinine Ratio (No establ ref range) Glucose (74-99) mg/dL Lactic Acid (0.4-2.0) mmol/L Uric Acid (2.6-6.0) mg/dL Calcium (8.5-10.1) mg/dL Phosphorus 4.1 (2.6-4.7) mg/dL Magnesium 1.7 L (1.8-2.4) mg/dL Total Bilirubin (0.2-1.0) mg/dL AST (15-37) U/L ALT (14-59) U/L Alkaline Phosphatase (46-116) U/L Ammonia (11-32) umol/L Troponin I (0.000-0.056) ng/mL B-Natriuretic Peptide (0-100) pg/ml Total Protein (6.4-8.2) g/dL Albumin (3.4-5.0) g/dL Globulin Albumin/Globulin Ratio Urine Color Yellow (YELLOW) Urine Appearance Clear (CLEAR) Urine pH 5.5 (5.0-9.0) Ur Specific [place] 1.025 (1.005-1.030) Urine Protein Negative (NEGATIVE) Urine Glucose (UA) Negative (NEGATIVE) Urine Ketones Negative (NEGATIVE) Urine Occult Blood Negative (NEGATIVE) Urine Nitrite Negative (NEGATIVE) Urine Bilirubin Negative (NEGATIVE) Urine Urobilinogen 0.2 (0.2-1.0) mg/dL Ur Leukocyte Esterase Negative (NEGATIVE) Ethyl Alcohol (0) mg/dL Influenza Type A RNA Negative (NEGATIVE) Influenza Type B RNA Negative (NEGATIVE) SARS-CoV-2 RNA (SKY) Negative (NEGATIVE) 06/09/20 06/09/20 Range/Units 06:05 06:05 WBC 11.4 H (5.0-10.0) 10^3/uL RBC 2.91 L (4.2-5.4) 10^6/uL Hgb 7.9 L (12.0-16.0) g/dL Hct 24.5 L (37.0-47.0) % MCV 84.2 (80-100) fL MCH 27.1 (27.0-34.0) pg MCHC 32.2 L (33.0-35.0) g/dL Plt Count 398 (150-450) 10^3/uL Neut % (Auto) (42.2-75.2) % Lymph % (Auto) (20.5-50.1) % [place] % (Auto) (2-8) % Eos % (Auto) (1.0-3.0) % Baso % (Auto) (0.0-1.0) % PT (9.0-12.0) SEC INR (0.9-1.2) Sodium 133 L (136-145) mmol/L Potassium 3.5 (3.5-5.1) mmol/L Chloride 96 L (98-107) mmol/L Carbon Dioxide 27 (21-32) mmol/L Anion Gap 13.5 H (7-13) mEq/L BUN 12 (7-18) mg/dL Creatinine 0.64 (0.55-1.02) mg/dL Est Cr Clr Drug Dosing 65.59 mL/min Estimated GFR (MDRD) > 60 BUN/Creatinine Ratio (No establ ref range) Glucose 100 H (74-99) mg/dL Lactic Acid (0.4-2.0) mmol/L Uric Acid (2.6-6.0) mg/dL Calcium 7.8 L (8.5-10.1) mg/dL Phosphorus (2.6-4.7) mg/dL Magnesium (1.8-2.4) mg/dL Total Bilirubin (0.2-1.0) mg/dL AST (15-37) U/L ALT (14-59) U/L Alkaline Phosphatase (46-116) U/L Ammonia (11-32) umol/L Troponin I (0.000-0.056) ng/mL B-Natriuretic Peptide (0-100) pg/ml Total Protein (6.4-8.2) g/dL Albumin (3.4-5.0) g/dL Globulin Albumin/Globulin Ratio Urine Color (YELLOW) Urine Appearance (CLEAR) Urine pH (5.0-9.0) Ur Specific [place] (1.005-1.030) Urine Protein (NEGATIVE) Urine Glucose (UA) (NEGATIVE) Urine Ketones (NEGATIVE) Urine Occult Blood (NEGATIVE) Urine Nitrite (NEGATIVE) Urine Bilirubin (NEGATIVE) Urine Urobilinogen (0.2-1.0) mg/dL Ur Leukocyte Esterase (NEGATIVE) Ethyl Alcohol (0) mg/dL Influenza Type A RNA (NEGATIVE) Influenza Type B RNA (NEGATIVE) SARS-CoV-2 RNA (SKY) (NEGATIVE) Result Diagrams: 06/09/20 06:05 06/09/20 06:05 Brannon Results Last 24 hrs: Microbiology 06/08/20 20:45 Anaerobic Blood Culture - Final Blood - Venous - Iv Start Sepsis Event Note - Evaluation Sepsis Screening Result: Sepsis Risk - Focused Exam Vital Signs: Vital Signs Temp Pulse Resp BP Pulse Ox 06/09/20 08:00 99.2 F 101 H 24 H 123/63 88 L 06/09/20 06:00 99.8 F 06/09/20 03:55 99.6 F 96 16 91 L - Problem List & Annotations (1) Nonhealing ulcer of left lower leg SNOMED Code(s): 38528612 Code(s): L97.929 - NON-PRS CHRONIC ULC UNSP PRT OF L LOW LEG W UNSP SEVERITY Status: Acute Current Visit: Yes (2) Acute gouty arthritis SNOMED Code(s): 09146914, 339782730 Code(s): M10.9 - GOUT, UNSPECIFIED Status: Acute Current Visit: Yes (3) Hypokalemia SNOMED Code(s): 80081320 Code(s): E87.6 - HYPOKALEMIA Status: Acute Current Visit: Yes (4) Hyponatremia SNOMED Code(s): 43732029 Code(s): E87.1 - HYPO-OSMOLALITY AND HYPONATREMIA Status: Acute Current Visit: Yes (5) Chronic anemia SNOMED Code(s): 719503585 Code(s): D64.9 - ANEMIA, UNSPECIFIED Status: Acute Current Visit: Yes (6) Hypomagnesemia SNOMED Code(s): 620799899 Code(s): E83.42 - HYPOMAGNESEMIA Status: Acute Current Visit: Yes (7) Thrombocytosis SNOMED Code(s): 6902459 Code(s): D47.3 - ESSENTIAL (HEMORRHAGIC) THROMBOCYTHEMIA Status: Acute Current Visit: Yes (8) Generalized weakness SNOMED Code(s): 24174074 Code(s): R53.1 - WEAKNESS Status: Acute Current Visit: Yes - Problem List Review Problem List Initiated/Reviewed/Updated: Yes - My Orders Last 24 Hours: My Active Orders 06/08/20 22:53 Ambulate [RC] ASDIRECTED Oxygen Therapy [RC] PRN VTE/DVT Education [RC] Vital Signs [RC] 00,04,08,12,16,20 Acetaminophen [TylenoL] 650 mg PO Q4H PRN Docusate Sodium [Colace] 100 mg PO BID PRN Magnesium Hydroxide [Milk of Magnesia] 30 ml PO Q12H PRN Ondansetron [Zofran ODT] 4 mg PO Q6H PRN Resuscitation Status Routine 06/08/20 22:54 Notify Provider Vital Signs [RC] ASDIRECTED 06/08/20 23:00 Pharmacy to Dose - Vancomycin 1 dose .XX ASDIRECTED 06/08/20 23:05 Albuterol [Proventil HFA] 0 gm INH Q6H PRN Cyclobenzaprine [Flexeril] 5 mg PO BID PRN Zolpidem [Ambien] 10 mg PO BEDTIME PRN 06/08/20 23:07 RT Post Treatment Assessment [RC] Click to Edit RT Pre-Treatment Assessment [RC] Click to Edit 06/08/20 23:15 Sodium Chloride 0.9% [Normal Saline] 1,000 ml IV ASDIRECTED 06/08/20 23:43 diphenhydrAMINE [Benadryl] 25 mg PO Q8H PRN 06/08/20 23:45 ClonazePAM [KlonoPIN] 1 mg PO BID DULoxetine [Cymbalta] 60 mg PO BID 06/09/20 09:00 Acetaminophen [Acetaminophen 8 Hour] 650 mg PO BID Cholecalciferol (Vitamin D3) [Vitamin D3] 75 mcg PO DAILY Heparin Sodium 5,000 units SUBCUT Q12HR Mometasone/Formoterol [Dulera 200-5 MCG] 2 puff IH BID buPROPion [Wellbutrin XL] 150 mg PO DAILY 06/09/20 10:54 Naproxen [Naprosyn] 500 mg PO Q12HR PRN 06/09/20 11:00 Magnesium Sulfate 2 GM in D5W over 2 hours Magnesium Sulfate/D5W [Magnesium Sulfate in D5W 1 GM/100 ML] 200 ml IV ONETIME Pantoprazole [ProTONIX] 40 mg PO BIDAC 06/09/20 11:02 Foot 2V Lt [CR] Routine 06/09/20 11:30 Colchicine [Colcrys] 0.6 mg PO BID 06/09/20 Lunch Regular Diet [DIET] 06/09/20 21:00 Potassium Chloride [Klor-Con 10] 40 meq PO BEDTIME Vancomycin 1 gm Sodium Chloride 0.9% [Normal Saline (AdvBag)] 250 ml IV Q24H 06/10/20 05:11 CBC W/O DIFF,HEMOGRAM [HEME] AM 06/10/20 07:00 BASIC METABOLIC PANEL,BMP [CHEM] DAILY CBC W/O DIFF,HEMOGRAM [HEME] DAILY MAGNESIUM [CHEM] DAILY PHOSPHORUS [CHEM] DAILY 06/10/20 09:00 Furosemide [Lasix] 40 mg PO Q48H 06/11/20 05:11 CBC W/O DIFF,HEMOGRAM [HEME] AM 06/11/20 07:00 BASIC METABOLIC PANEL,BMP [CHEM] DAILY CBC W/O DIFF,HEMOGRAM [HEME] DAILY MAGNESIUM [CHEM] DAILY PHOSPHORUS [CHEM] DAILY 06/11/20 20:30 VANCOMYCIN TROUGH [CHEM] Timed 06/12/20 07:00 BASIC METABOLIC PANEL,BMP [CHEM] DAILY CBC W/O DIFF,HEMOGRAM [HEME] DAILY MAGNESIUM [CHEM] DAILY PHOSPHORUS [CHEM] DAILY - Plan Plan:: #Bilateral lower extremity cellulitis #Nonhealing left lower extremity ulcer #Acute gouty arthritis of left big toe X-ray of left foot IVF IV Vanco Naprosyn and colchicine for gouty arthritis Physical therapy and Occupational Therapy She follows with wound care. Has appointment on Thursday for lower extremity wound #Acute encephalopathy. This could be metabolic Patient is sleepy but easily aroused and stays awake and alert and appears to be answering questions appropriately Treat ongoing infection and manage pain appropriately Continue to monitor mental status #Mild hyponatremia. Sodium 130 This could be due to hypovolemic hyponatremia from poor oral intake IV fluid Monitor serum sodium #Hypokalemia. This is mild Potassium 3.5 Oral replacement #Hypomagnesemia Magnesium 1.7 IV replacement #Depression Continue home medications #COPD Not in exacerbation Continue home breathing treatments #Fibromyalgia Continue home medications #Weakness Fall precautions Ambulate with assistance PT and OT evaluation #Thrombocytosis #Chronic anemia. Hemoglobin stable at 8.2 Monitor hemoglobin closely DVT prophylaxis Heparin CODE STATUS: Full code per patient and family preference
[2020-06-09] MEDS: Colchicine 0.6 MG Tab PO SCH ×2 (12:13→21:03)
[2020-06-09] MEDS: Magnesium Sulfate/D5W 1 GM/100 ML BAG IV SCH ×2 (12:27→13:52)
--- NOTE | 2020-06-09 12:40 | CR ---
EXAMINATION: Foot 2V Lt SEX: Female AGE: 75 years CLINICAL HISTORY: 75-year-old female with painful, swollen left big toe. Interpretation: 1. Generalized mild osteopenia consistent with age and gender. Soft tissue swelling (STS) great toe. No subcutaneous air. 2. Early arthritic changes involving the first metatarsal-phalangeal and all interphalangeal/DIP joints of the left forefoot. 3. Atavistic first cuneiform with mild hallux valgus. 4. No sign of foreign body or inflammatory periostitis. 5. *No fracture or dislocation left foot. 6. Small heel spur at the insertion plantar aponeurosis base of the os calcis.
[2020-06-09] MEDS: Pantoprazole 40 MG Tab.CR PO SCH (16:12)
[2020-06-09] MEDS: Potassium Chloride 10 MEQ Tab.ER PO SCH (21:03)
[2020-06-10] MEDS: Pantoprazole 40 MG Tab.CR PO SCH ×2 (05:19→16:37)
[2020-06-10] MEDS: diphenhydrAMINE 25 MG Tab PO PRN ×2 (05:34→20:38)
[2020-06-10 06:06] LABS: ANION GAP 12.9 mEq/L (7-13); CHLORIDE,CL 97 mmol/L (98-107); SODIUM,NA 133 mmol/L (136-145)
[2020-06-10] MEDS: Colchicine 0.6 MG Tab PO SCH ×2 (08:33→20:35)
[2020-06-10] MEDS: Cholecalciferol (Vitamin D3) 25 MCG Tab PO SCH (08:33)
[2020-06-10] MEDS: ClonazePAM 0.5 MG Tab PO SCH ×2 (08:34→20:39)
[2020-06-10] MEDS: buPROPion 150 MG Tab.ER PO SCH (08:34)
[2020-06-10] MEDS: DULoxetine 30 MG Cap PO SCH ×2 (08:34→20:37)
[2020-06-10] MEDS: Formoterol/Mometasone 200-5 MCG 8.8 GM Inhaler IH SCH ×2 (08:38→21:05)
[2020-06-10] MEDS: Heparin Sodium 5,000 Units/ML Vial SUBCUT SCH ×2 (08:39→20:48)
[2020-06-10] MEDS ORDERED: Furosemide 20 MG Tab PO SCH (09:00)
--- NOTE | 2020-06-10 11:14 | PCM.PN ---
- General Info Date of Service: 06/10/20 Admission Dx/Problem (Free Text): Admission Diagnosis/Problem Admission Diagnosis/Problem Cellulitis Subjective Update: Patient is a 74-year-old female with medical history significant for nonhealing left medial malleolar wound, COPD, hyperlipidemia, chronic low back pain, postherpetic neuralgia, tobacco abuse, h/o fall from stool with head trauma and anterolisthesis at C3-C4 status post Kiel collar, and fibromyalgia who was brought today ED by family for evaluation of increasing weakness, lethargy, acting confused and pain to the leg due to which has been going on for the past 3 to 4 days. She was admitted for possible bilateral lower extremity cellulitis, and left big toe gouty arthritis. She was seen and examined today. Chart reviewed. Overall patient seems to be clinically improving. She was seen sitting up in chair having breakfast. Left big toe pain and swelling appears to be improving. She reports rash and pruritus to trunk and lower extremities. Dry rash noted to upper chest right chest and back. Blood culture on admit came back positive 1 set out of 2. Gram-positive cocci. Repeat cultures has been sent. She denies fever, chills. No nausea or vomiting. Functional Status: Reports: Pain Controlled - Review of Systems General: Reports: No Symptoms HEENT: Reports: No Symptoms Pulmonary: Reports: No Symptoms Cardiovascular: Reports: No Symptoms Gastrointestinal: Reports: No Symptoms Genitourinary: Reports: No Symptoms Musculoskeletal: Reports: No Symptoms Skin: Reports: No Symptoms Neurological: Reports: No Symptoms Psychiatric: Reports: No Symptoms - Patient Data Vitals - Most Recent: Last Vital Signs Temp 98.9 F 06/10/20 07:38 Pulse 89 06/10/20 07:38 Resp 22 H 06/10/20 07:38 BP 132/60 06/10/20 07:38 Pulse Ox 96 06/10/20 07:38 Weight - Most Recent: 149 lb I&O - Last 24 Hours: Intake & Output 06/09/20 06/10/20 06/10/20 22:59 06:59 14:59 Intake Total 1556 1478 525 Output Total 600 Balance 1556 878 525 Lab Results Last 24 Hours: Laboratory Results - last 24 hr 06/10/20 06/10/20 Range/Units 05:35 05:35 WBC 9.5 (5.0-10.0) 10^3/uL RBC 3.07 L (4.2-5.4) 10^6/uL Hgb 8.3 L (12.0-16.0) g/dL Hct 26.2 L (37.0-47.0) % MCV 85.3 (80-100) fL MCH 27.0 (27.0-34.0) pg MCHC 31.7 L (33.0-35.0) g/dL Plt Count 449 (150-450) 10^3/uL Sodium 133 L (136-145) mmol/L Potassium 3.9 (3.5-5.1) mmol/L Chloride 97 L (98-107) mmol/L Carbon Dioxide 27 (21-32) mmol/L Anion Gap 12.9 (7-13) mEq/L BUN 7 (7-18) mg/dL Creatinine 0.59 (0.55-1.02) mg/dL Est Cr Clr Drug Dosing 71.14 mL/min Estimated GFR (MDRD) > 60 Glucose 94 (74-99) mg/dL Calcium 7.5 L (8.5-10.1) mg/dL Phosphorus 2.9 (2.6-4.7) mg/dL Magnesium 1.8 (1.8-2.4) mg/dL [place] Results Last 24 Hours: Microbiology 06/09/20 22:30 Anaerobic Blood Culture - Final Blood - Arm, Right 06/08/20 20:50 Aerobic Blood Culture - Preliminary Blood - Arm, Left Anaerobic Blood Culture - Preliminary NO GROWTH AFTER 1 DAY 06/08/20 20:45 Aerobic Blood Culture - Preliminary Blood - Venous - Iv Start NO GROWTH AFTER 1 DAY Anaerobic Blood Culture - Final Med Orders - Current: Current Medications Acetaminophen (Tylenol) 650 mg PO Q4H PRN PRN Reason: Pain (Mild 1-3)/fever Last Admin: 06/09/20 23:50 Dose: 650 mg Documented by: Albuterol (Proventil Hfa) 0 gm INH Q6H PRN PRN Reason: Shortness of Breath Bupropion HCl (Wellbutrin Xl) 150 mg PO DAILY [facility] Last Admin: 06/10/20 08:34 Dose: 150 mg Documented by: Cholecalciferol (Vitamin D3) 75 mcg PO DAILY [facility] Last Admin: 06/10/20 08:33 Dose: 75 mcg Documented by: Clonazepam (Klonopin) 1 mg PO BID [facility] Last Admin: 06/10/20 08:34 Dose: 1 mg Documented by: Colchicine (Colcrys) 0.6 mg PO BID [facility] Last Admin: 06/10/20 08:33 Dose: 0.6 mg Documented by: Cyclobenzaprine HCl (Flexeril) 5 mg PO BID PRN PRN Reason: Muscle Spasm Diphenhydramine HCl (Benadryl) 25 mg PO Q8H PRN PRN Reason: Itching Last Admin: 06/10/20 05:34 Dose: 25 mg Documented by: Docusate Sodium (Colace) 100 mg PO BID PRN PRN Reason: Constipation Duloxetine HCl (Cymbalta) 60 mg PO BID [facility] Last Admin: 06/10/20 08:34 Dose: 60 mg Documented by: Furosemide (Lasix) 40 mg PO Q48H [facility] Last Admin: 06/10/20 08:33 Dose: 40 mg Documented by: Heparin Sodium (Porcine) (Heparin Sodium) 5,000 units SUBCUT Q12HR [facility] Last Admin: 06/10/20 08:39 Dose: 5,000 units Documented by: Sodium Chloride (Normal Saline) 1,000 mls @ 100 mls/hr IV ASDIRECTED [facility] Last Admin: 06/09/20 23:44 Dose: 100 mls/hr Documented by: Vancomycin HCl 1 gm/ Sodium (Chloride) 250 mls @ 166.667 mls/hr IV Q24H [facility] Last Admin: 06/09/20 21:11 Dose: 166.667 mls/hr Documented by: Magnesium Hydroxide (Milk Of Magnesia) 30 ml PO Q12H PRN PRN Reason: Constipation Mometasone Furoate/Formoterol Fumar (Dulera 200-5 Mcg) 2 puff IH BID [facility] Last Admin: 06/10/20 08:38 Dose: 2 puff Documented by: Naproxen (Naprosyn) 500 mg PO Q12H PRN PRN Reason: gout Last Admin: 06/10/20 10:37 Dose: 500 mg Documented by: Non-Formulary Medication (Acetaminophen [Acetaminophen 8 Hour]) 650 mg PO BID [facility] Ondansetron HCl (Zofran Odt) 4 mg PO Q6H PRN PRN Reason: nausea, able to take PO Pantoprazole Sodium (Protonix) 40 mg PO BIDAC [facility] Last Admin: 06/10/20 05:19 Dose: 40 mg Documented by: Potassium Chloride (Klor-Con 10) 40 meq PO BEDTIME [facility] Last Admin: 06/09/20 21:03 Dose: 40 meq Documented by: Vancomycin HCl (Pharmacy To Dose - Vancomycin) 1 dose .XX ASDIRECTED [facility] Zolpidem Tartrate (Ambien) 10 mg PO BEDTIME PRN PRN Reason: Insomnia Last Admin: 06/09/20 23:50 Dose: 10 mg Documented by: Discontinued Medications Clonazepam (Klonopin) 1 mg PO BID [facility] Duloxetine HCl (Cymbalta) 60 mg PO BID [facility] Vancomycin HCl 1 gm/ Sodium (Chloride) 250 mls @ 167 mls/hr IV ONETIME ONE Stop: 06/08/20 23:41 Last Admin: 06/08/20 22:29 Dose: 167 mls/hr Documented by: Sodium Chloride (Normal Saline) 1,000 mls @ 100 mls/hr IV ASDIRECTED [facility] Magnesium Sulfate/Dextrose (Magnesium Sulfate In D5w 1 Gm/100 Ml) 1 gm in 100 mls @ 100 mls/hr IV Q1H [facility] Stop: 06/09/20 13:14 Last Infusion: 06/09/20 15:08 Dose: Infused Documented by: Pantoprazole Sodium (Protonix) 40 mg PO ACBREAKFAST [facility] Last Admin: 06/09/20 06:00 Dose: 40 mg Documented by: - Exam Quality Assessment: DVT Prophylaxis General: Alert, Oriented HEENT: Pupils Equal, Pupils Reactive, EOMI, Mucous Membr. Moist/[place] Neck: Supple Lungs: Clear to Auscultation, Normal Respiratory Effort Cardiovascular: Regular Rate, Regular Rhythm GI/Abdominal Exam: Normal Bowel Sounds, Soft, Non-Tender, No Organomegaly, No Distention, No Abnormal Bruit, No Mass, Pelvis Stable (Female) Exam: Normal External Exam, Normal Speculum Exam, Normal Bimanual Exam Back Exam: Normal Inspection, Full Range of Motion, Other (Dry rash noted to upper back and upper right chest) Extremities: Normal Inspection, Normal Range of Motion, Non-Tender, No Pedal Edema, Normal Capillary Refill, Other (Last week to swelling, tenderness and redness appear to have improved) Skin: Warm, Dry, Intact Wound/Incisions: Healing Well Neurological: No New Focal Deficit Psy/Mental Status: Alert, Normal Affect, Normal Mood - Patient Data Lab Results Last 24 hrs: Laboratory Results - last 24 hr 06/10/20 06/10/20 Range/Units 05:35 05:35 WBC 9.5 (5.0-10.0) 10^3/uL RBC 3.07 L (4.2-5.4) 10^6/uL Hgb 8.3 L (12.0-16.0) g/dL Hct 26.2 L (37.0-47.0) % MCV 85.3 (80-100) fL MCH 27.0 (27.0-34.0) pg MCHC 31.7 L (33.0-35.0) g/dL Plt Count 449 (150-450) 10^3/uL Sodium 133 L (136-145) mmol/L Potassium 3.9 (3.5-5.1) mmol/L Chloride 97 L (98-107) mmol/L Carbon Dioxide 27 (21-32) mmol/L Anion Gap 12.9 (7-13) mEq/L BUN 7 (7-18) mg/dL Creatinine 0.59 (0.55-1.02) mg/dL Est Cr Clr Drug Dosing 71.14 mL/min Estimated GFR (MDRD) > 60 Glucose 94 (74-99) mg/dL Calcium 7.5 L (8.5-10.1) mg/dL Phosphorus 2.9 (2.6-4.7) mg/dL Magnesium 1.8 (1.8-2.4) mg/dL Result Diagrams: 06/10/20 05:35 06/10/20 05:35 Brannon Results Last 24 hrs: Microbiology 06/09/20 22:30 Anaerobic Blood Culture - Final Blood - Arm, Right 06/08/20 20:50 Aerobic Blood Culture - Preliminary Blood - Arm, Left Anaerobic Blood Culture - Preliminary NO GROWTH AFTER 1 DAY 06/08/20 20:45 Aerobic Blood Culture - Preliminary Blood - Venous - Iv Start NO GROWTH AFTER 1 DAY Anaerobic Blood Culture - Final Sepsis Event Note - Evaluation Sepsis Screening Result: No Definite Risk - Focused Exam Vital Signs: Vital Signs Temp Pulse Resp BP Pulse Ox 06/10/20 07:38 98.9 F 89 22 H 132/60 96 06/10/20 05:21 98.4 F 89 20 133/47 L 94 L - Problem List & Annotations (1) Nonhealing ulcer of left lower leg SNOMED Code(s): 08445002 Code(s): L97.929 - NON-PRS CHRONIC ULC UNSP PRT OF L LOW LEG W UNSP SEVERITY Status: Acute Current Visit: Yes (2) Acute gouty arthritis SNOMED Code(s): 38039599, 142394828 Code(s): M10.9 - GOUT, UNSPECIFIED Status: Acute Current Visit: Yes (3) Hypokalemia SNOMED Code(s): 56413074 Code(s): E87.6 - HYPOKALEMIA Status: Acute Current Visit: Yes (4) Hyponatremia SNOMED Code(s): 57938631 Code(s): E87.1 - HYPO-OSMOLALITY AND HYPONATREMIA Status: Acute Current Visit: Yes (5) Chronic anemia SNOMED Code(s): 998886986 Code(s): D64.9 - ANEMIA, UNSPECIFIED Status: Acute Current Visit: Yes (6) Hypomagnesemia SNOMED Code(s): 887323293 Code(s): E83.42 - HYPOMAGNESEMIA Status: Acute Current Visit: Yes (7) Thrombocytosis SNOMED Code(s): 6906255 Code(s): D47.3 - ESSENTIAL (HEMORRHAGIC) THROMBOCYTHEMIA Status: Acute Current Visit: Yes (8) Generalized weakness SNOMED Code(s): 18369717 Code(s): R53.1 - WEAKNESS Status: Acute Current Visit: Yes (9) Skin rash SNOMED Code(s): 754586850, 677125797 Code(s): R21 - RASH AND OTHER NONSPECIFIC SKIN ERUPTION Status: Acute C urrent Visit: Yes (10) Bacteremia SNOMED Code(s): 5784199 Code(s): R78.81 - BACTEREMIA Status: Acute Current Visit: Yes - Problem List Review Problem List Initiated/Reviewed/Updated: Yes - My Orders Last 24 Hours: My Active Orders 06/09/20 10:54 Naproxen [Naprosyn] 500 mg PO Q12H PRN 06/09/20 11:30 Colchicine [Colcrys] 0.6 mg PO BID 06/09/20 11:51 Wound Care [RC] 08,20 02/20/21 Lunch Regular Diet [DIET] 06/09/20 16:00 Pantoprazole [ProTONIX] 40 mg PO BIDAC 06/09/20 21:00 Potassium Chloride [Klor-Con 10] 40 meq PO BEDTIME Vancomycin 1 gm Sodium Chloride 0.9% [Normal Saline (AdvBag)] 250 ml IV Q24H 06/09/20 22:19 Blood Culture x2 Reflex Set [OM.PC] Stat 06/09/20 22:25 CULTURE BLOOD [BC] Stat 06/09/20 22:30 CULTURE BLOOD [BC] Stat 06/10/20 09:00 Furosemide [Lasix] 40 mg PO Q48H 06/10/20 10:10 Patient Status [ADT] Routine 06/11/20 05:11 CBC W/O DIFF,HEMOGRAM [HEME] AM 06/11/20 07:00 BASIC METABOLIC PANEL,BMP [CHEM] DAILY CBC W/O DIFF,HEMOGRAM [HEME] DAILY MAGNESIUM [CHEM] DAILY PHOSPHORUS [CHEM] DAILY 06/11/20 20:30 VANCOMYCIN TROUGH [CHEM] Timed 06/12/20 07:00 BASIC METABOLIC PANEL,BMP [CHEM] DAILY CBC W/O DIFF,HEMOGRAM [HEME] DAILY MAGNESIUM [CHEM] DAILY PHOSPHORUS [CHEM] DAILY - Plan Plan:: #Bilateral lower extremity cellulitis #Nonhealing left lower extremity ulcer #Acute gouty arthritis of left big toe X-ray of left foot was negative Continue IV Vanco Naprosyn and colchicine for gouty arthritis Physical therapy and Occupational Therapy She follows with wound care. Has appointment on Thursday for lower extremity wound #Bacteremia Blood culture on admit 1 set out of 2 + for gram-positive cocci. This could be contamination Follow-up on repeat blood culture Echo if available Continue IV Vanco #Pruritus rash to torso and lower extremities Apply hydrocortisone cream 2 times daily Benadryl as needed #Acute encephalopathy. This could be metabolic Improved #Mild hyponatremia. This could be due to hypovolemic hyponatremia from poor oral intake Improved #Hypokalemia. This is mild Oral replacement #Hypomagnesemia Resolved #Depression Continue home medications #COPD Not in exacerbation Continue home breathing treatments #Fibromyalgia Continue home medications #Weakness Fall precautions Ambulate with assistance PT and OT evaluation #Thrombocytosis #Chronic anemia. Hemoglobin stable at 8.2 Monitor hemoglobin closely DVT prophylaxis Heparin CODE STATUS: Full code per patient and family preference
[2020-06-10] MEDS ORDERED: Hydrocortisone 2.5% Crm 30 GM Tube TOP PRN (11:23)
[2020-06-10] MEDS ORDERED: Sodium Chloride 0.9% 10 ML Syringe FLUSH PRN (11:50)
[2020-06-10] MEDS: ACETAMINOPHEN 650 MG PO SCH (16:41)
[2020-06-10] MEDS: Acetaminophen 325 MG Tab PO PRN (20:34)
[2020-06-10] MEDS: Potassium Chloride 10 MEQ Tab.ER PO SCH (20:37)
[2020-06-10] MEDS: Naproxen 500 MG Tab PO SCH (20:39)
[2020-06-10] MEDS: Zolpidem 5 MG Tab PO PRN (22:27)
[2020-06-11] MEDS: Pantoprazole 40 MG Tab.CR PO SCH (05:40)
[2020-06-11 06:50] LABS: ANION GAP 12.8 mEq/L (7-13); CHLORIDE,CL 96 mmol/L (98-107); SODIUM,NA 131 mmol/L (136-145)
[2020-06-11] MEDS: DULoxetine 30 MG Cap PO SCH (08:08)
[2020-06-11] MEDS: Colchicine 0.6 MG Tab PO SCH (08:08)
[2020-06-11] MEDS: buPROPion 150 MG Tab.ER PO SCH (08:08)
[2020-06-11] MEDS: Naproxen 500 MG Tab PO SCH (08:08)
[2020-06-11] MEDS: Cholecalciferol (Vitamin D3) 25 MCG Tab PO SCH (08:09)
[2020-06-11] MEDS: ClonazePAM 0.5 MG Tab PO SCH (08:09)
[2020-06-11] MEDS: Formoterol/Mometasone 200-5 MCG 8.8 GM Inhaler IH SCH (08:10)
[2020-06-11] MEDS: Heparin Sodium 5,000 Units/ML Vial SUBCUT SCH (08:13)
[2020-06-11] MEDS ORDERED: Magnesium Sulfate/Water 2 GM/50 ML BAG IV ONE (09:00)
--- NOTE | 2020-06-11 11:32 | PCM.DCSUM1 ---
Discharge Summary - Hospital Course HPI Initial Comments: Patient is a 74-year-old female with medical history significant for nonhealing left medial malleolar wound, COPD, hyperlipidemia, chronic low back pain, postherpetic neuralgia, tobacco abuse, h/o fall from stool with head trauma and anterolisthesis at C3-C4 status post [place] collar, and fibromyalgia who was brought today ED by family for evaluation of increasing weakness, lethargy, acting confused and b/l LE pain x 3 to 4 days. She was admitted for possible bilateral lower extremity cellulitis, and left big toe gouty arthritis. She was started on IV vancomycin and transitioned to Bactrim. Blood culture on admit was positive for gram-positive cocci 1 set out of 2 likely due to contamination. Repeat blood culture has been negative. She also received NSAIDs and colchicine for acute gouty arthritis. Her symptoms improved. Physical therapy and Occupational Therapy to work with patient and recommended transition home. Patient was discharged in stable condition. She will follow-up with PCP. She has appointment with wound care today. Diagnosis: Stroke: No - Discharge Data Discharge Date: 06/11/20 Discharge Disposition: Home, Self-Care 01 Condition: Fair - Referral to Home Health Primary Care Physician: PCP Unobtainable - Discharge Diagnosis/Problem(s) (1) Nonhealing ulcer of left lower leg SNOMED Code(s): 33167422 ICD Code: L97.929 - NON-PRS CHRONIC ULC UNSP PRT OF L LOW LEG W UNSP SEVERITY Status: Acute Current Visit: Yes (2) Acute gouty arthritis SNOMED Code(s): 24798742, 912322024 ICD Code: M10.9 - GOUT, UNSPECIFIED Status: Acute Current Visit: Yes (3) Hypokalemia SNOMED Code(s): 24179433 ICD Code: E87.6 - HYPOKALEMIA Status: Acute Current Visit: Yes (4) Hyponatremia SNOMED Code(s): 15430711 ICD Code: E87.1 - HYPO-OSMOLALITY AND HYPONATREMIA Status: Acute Current Visit: Yes (5) Chronic anemia SNOMED Code(s): 348399602 ICD Code: D64.9 - ANEMIA, UNSPECIFIED Status: Acute Current Visit: Yes (6) Hypomagnesemia SNOMED Code(s): 048421338 ICD Code: E83.42 - HYPOMAGNESEMIA Status: Acute Current Visit: Yes (7) Thrombocytosis SNOMED Code(s): 7768424 ICD Code: D47.3 - ESSENTIAL (HEMORRHAGIC) THROMBOCYTHEMIA Status: Acute Current Visit: Yes (8) Generalized weakness SNOMED Code(s): 15966006 ICD Code: R53.1 - WEAKNESS Status: Acute Current Visit: Yes (9) Skin rash SNOMED Code(s): 628223074, 584718751 ICD Code: R21 - RASH AND OTHER NONSPECIFIC SKIN ERUPTION Status: Acute Current Visit: Yes (10) Bacteremia SNOMED Code(s): 8497948 ICD Code: R78.81 - BACTEREMIA Status: Acute Current Visit: Yes - Patient Summary/Data Consults: Consultations 06/11/20 09:20 OT Evaluation and Treatment [CONS] Routine PT Evaluation and Treatment [CONS] Routine - Discharge Plan *PRESCRIPTION DRUG MONITORING PROGRAM REVIEWED*: No *COPY OF PRESCRIPTION DRUG MONITORING REPORT IN PATIENT SONALI: No Prescriptions/Med Rec: Sulfamethoxazole/Trimethoprim [Bactrim 400-80 MG] 1 each PO Q12H 7 Days #14 tab let Potassium Chloride [Klor-Con 10] 40 meq PO BEDTIME #10 tab.er Magnesium Oxide [Mag-Oxide Magnesium] 200 mg PO BID #30 tablet Naproxen [Naprosyn] 500 mg PO Q12H 5 Days #10 tablet Home Medications: Home Meds Acetaminophen [Acetaminophen 8 Hour] 650 mg PO BID 07/01/18 [History] DULoxetine HCl [Cymbalta] 60 mg PO BID 07/01/18 [History] buPROPion HCL [Wellbutrin Xl] 150 mg PO DAILY 07/01/18 [History] Cholecalciferol (Vitamin D3) [Vitamin D3] 3,000 unit PO DAILY 08/25/18 [History] Albuterol [Ventolin HFA] 2 puff INH Q6H PRN #1 08/29/18 [Rx] Budesonide/Formoterol [Symbicort 160-4.5 MCG] 1 puff INH BID #1 inhaler 08/29/18 [Rx] Cyclobenzaprine [Flexeril] 5 mg PO BID PRN 03/23/20 [History] Furosemide [Lasix] 40 mg PO Q48H 03/23/20 [History] Zolpidem Tartrate [Ambien] 10 mg PO DAILY PRN 03/23/20 [History] clonazePAM [Clonazepam] 1 mg PO BID 03/24/20 [History] Pantoprazole [ProTONIX] 40 mg PO DAILY 06/08/20 [History] Cyanocobalamin (Vitamin B-12) [Cyanocobalamin Injection] 1 ml INJECT .QMONTH 06/09/20 [History] Magnesium Oxide [Mag-Oxide Magnesium] 200 mg PO BID #30 tablet 06/11/20 [Rx] Naproxen [Naprosyn] 500 mg PO Q12H 5 Days #10 tablet 06/11/20 [Rx] Potassium Chloride [Klor-Con 10] 40 meq PO BEDTIME #10 tab.er 06/11/20 [Rx] Sulfamethoxazole/Trimethoprim [Bactrim 400-80 MG] 1 each PO Q12H 7 Days #14 tablet 06/11/20 [Rx] Forms: ED Department Discharge Referrals: PCP,Unobtain [Primary Care Provider] - - Discharge Summary/Plan Comment DC Time >30 min.: Yes - General Info Date of Service: 06/11/20 Admission Dx/Problem (Free Text: Admission Diagnosis/Problem Admission Diagnosis/Problem Cellulitis Subjective Update: Patient doing okay. No complaints. Functional Status: Reports: Pain Controlled - Review of Systems General: Reports: No Symptoms HEENT: Reports: No Symptoms Pulmonary: Reports: No Symptoms Cardiovascular: Reports: No Symptoms Gastrointestinal: Reports: No Symptoms Genitourinary: Reports: No Symptoms Musculoskeletal: Reports: No Symptoms Skin: Reports: No Symptoms Neurological: Reports: No Symptoms Psychiatric: Reports: No Symptoms - Patient Data Vitals - Most Recent: Last Vital Signs Temp 97.8 F 06/11/20 08:00 Pulse 89 06/11/20 08:00 Resp 16 06/11/20 08:00 BP 133/64 06/11/20 08:00 Pulse Ox 96 06/11/20 08:00 Weight - Most Recent: 150 lb 3.2 oz I&O - Last 24 hours: Intake & Output 06/10/20 06/11/20 06/11/20 22:59 06:59 14:59 Intake Total 456 300 220 Balance 456 300 220 Lab Results - Last 24 hrs: Laboratory Results - last 24 hr 06/11/20 06/11/20 Range/Units 06:10 06:10 WBC 8.7 (5.0-10.0) 10^3/uL RBC 2.98 L (4.2-5.4) 10^6/uL Hgb 8.4 L (12.0-16.0) g/dL Hct 25.4 L (37.0-47.0) % MCV 85.2 (80-100) fL MCH 28.2 (27.0-34.0) pg MCHC 33.1 (33.0-35.0) g/dL Plt Count 418 (150-450) 10^3/uL Sodium 131 L (136-145) mmol/L Potassium 4.8 (3.5-5.1) mmol/L Chloride 96 L (98-107) mmol/L Carbon Dioxide 27 (21-32) mmol/L Anion Gap 12.8 (7-13) mEq/L BUN 10 (7-18) mg/dL Creatinine 0.63 (0.55-1.02) mg/dL Est Cr Clr Drug Dosing 66.63 mL/min Estimated GFR (MDRD) > 60 Glucose 87 (74-99) mg/dL Calcium 7.8 L (8.5-10.1) mg/dL Phosphorus 3.3 (2.6-4.7) mg/dL Magnesium 1.6 L (1.8-2.4) mg/dL BEBE Results - Last 24 hrs: Microbiology 06/08/20 20:50 Aerobic Blood Culture - Preliminary Blood - Arm, Left Anaerobic Blood Culture - Preliminary NO GROWTH AFTER 2 DAYS 06/09/20 22:30 Aerobic Blood Culture - Preliminary Blood - Arm, Right NO GROWTH AFTER 1 DAY Anaerobic Blood Culture - Final 06/09/20 22:25 Aerobic Blood Culture - Preliminary Blood - Arm, Left NO GROWTH AFTER 1 DAY Anaerobic Blood Culture - Preliminary NO GROWTH AFTER 1 DAY 06/08/20 20:45 Aerobic Blood Culture - Preliminary Blood - Venous - Iv Start NO GROWTH AFTER 2 DAYS Anaerobic Blood Culture - Final Med Orders - Current: Current Medications Acetaminophen (Tylenol) 650 mg PO Q4H PRN PRN Reason: Pain (Mild 1-3)/fever Last Admin: 06/10/20 20:34 Dose: 650 mg Documented by: Albuterol (Proventil Hfa) 0 gm INH Q6H PRN PRN Reason: Shortness of Breath Bupropion HCl (Wellbutrin Xl) 150 mg PO DAILY [facility] Last Admin: 06/11/20 08:08 Dose: 150 mg Documented by: Cholecalciferol (Vitamin D3) 75 mcg PO DAILY [facility] Last Admin: 06/11/20 08:09 Dose: 75 mcg Documented by: Clonazepam (Klonopin) 1 mg PO BID [facility] Last Admin: 06/11/20 08:09 Dose: 1 mg Documented by: Colchicine (Colcrys) 0.6 mg PO BID [facility] Last Admin: 06/11/20 08:08 Dose: 0.6 mg Documented by: Cyclobenzaprine HCl (Flexeril) 5 mg PO BID PRN PRN Reason: Muscle Spasm Diphenhydramine HCl (Benadryl) 25 mg PO Q8H PRN PRN Reason: Itching Last Admin: 06/10/20 20:38 Dose: 25 mg Documented by: Docusate Sodium (Colace) 100 mg PO BID PRN PRN Reason: Constipation Duloxetine HCl (Cymbalta) 60 mg PO BID [facility] Last Admin: 06/11/20 08:08 Dose: 60 mg Documented by: Furosemide (Lasix) 40 mg PO Q48H [facility] Last Admin: 06/10/20 08:33 Dose: 40 mg Documented by: Heparin Sodium (Porcine) (Heparin Sodium) 5,000 units SUBCUT Q12HR [facility] Last Admin: 06/11/20 08:13 Dose: 5,000 units Documented by: Hydrocortisone (Hydrocortisone 2.5% Crm) 0 gm TOP TID PRN PRN Reason: Rash Last Admin: 06/10/20 21:03 Dose: 1 applic Documented by: Vancomycin HCl 1 gm/ Sodium (Chloride) 250 mls @ 166.667 mls/hr IV Q24H [facility] Last Admin: 06/10/20 20:42 Dose: 166.667 mls/hr Documented by: Magnesium Hydroxide (Milk Of Magnesia) 30 ml PO Q12H PRN PRN Reason: Constipation Mometasone Furoate/Formoterol Fumar (Dulera 200-5 Mcg) 2 puff IH BID [facility] Last Admin: 06/11/20 08:10 Dose: 2 puff Documented by: Naproxen (Naprosyn) 500 mg PO Q12H [facility] Last Admin: 06/11/20 08:08 Dose: 500 mg Documented by: Ondansetron HCl (Zofran Odt) 4 mg PO Q6H PRN PRN Reason: nausea, able to take PO Pantoprazole Sodium (Protonix) 40 mg PO BIDAC [facility] Last Admin: 06/11/20 05:40 Dose: 40 mg Documented by: Potassium Chloride (Klor-Con 10) 40 meq PO BEDTIME [facility] Last Admin: 06/10/20 20:37 Dose: 40 meq Documented by: Sodium Chloride (Saline Flush) 10 ml FLUSH ASDIRECTED PRN PRN Reason: Keep Vein Open Vancomycin HCl (Pharmacy To Dose - Vancomycin) 1 dose .XX ASDIRECTED [facility] Zolpidem Tartrate (Ambien) 10 mg PO BEDTIME PRN PRN Reason: Insomnia Last Admin: 06/10/20 22:27 Dose: 10 mg Documented by: Discontinued Medications Clonazepam (Klonopin) 1 mg PO BID [facility] Duloxetine HCl (Cymbalta) 60 mg PO BID [facility] Vancomycin HCl 1 gm/ Sodium (Chloride) 250 mls @ 167 mls/hr IV ONETIME ONE Stop: 06/08/20 23:41 Last Admin: 06/08/20 22:29 Dose: 167 mls/hr Documented by: Sodium Chloride (Normal Saline) 1,000 mls @ 100 mls/hr IV ASDIRECTED [facility] Last Admin: 06/09/20 23:44 Dose: 100 mls/hr Documented by: Sodium Chloride (Normal Saline) 1,000 mls @ 100 mls/hr IV ASDIRECTED [facility] Magnesium Sulfate/Dextrose (Magnesium Sulfate In D5w 1 Gm/100 Ml) 1 gm in 100 mls @ 100 mls/hr IV Q1H [facility] Stop: 06/09/20 13:14 Last Infusion: 06/09/20 15:08 Dose: Infused Documented by: Magnesium Sulfate (Magnesium Sulfate In Water 2 Gm/50 Ml) 2 gm in 50 mls @ 25 mls/hr IV ONETIME ONE Stop: 06/11/20 10:59 Last Admin: 06/11/20 10:15 Dose: 25 mls/hr Documented by: Naproxen (Naprosyn) 500 mg PO Q12H PRN PRN Reason: gout Last Admin: 06/10/20 10:37 Dose: 500 mg Documented by: Non-Formulary Medication (Acetaminophen [Acetaminophen 8 Hour]) 650 mg PO BID [facility] Last Admin: 06/10/20 16:41 Dose: Not Given Documented by: Pantoprazole Sodium (Protonix) 40 mg PO ACBREAKFAST BLAZE Last Admin: 06/09/20 06:00 Dose: 40 mg Documented by: - Exam General: Reports: Alert, Oriented HEENT: Reports: Pupils Equal, Pupils Reactive, EOMI, Mucous Membr. Moist/[place] Neck: Reports: Supple Lungs: Reports: Clear to Auscultation, Normal Respiratory Effort Cardiovascular: Reports: Regular Rate, Regular Rhythm GI/Abdominal Exam: Normal Bowel Sounds, Soft, Non-Tender, No Organomegaly, No Distention, No Abnormal Bruit, No Mass, Pelvis Stable (Female) Exam: Normal External Exam, Normal Speculum Exam, Normal Bimanual Ex am Rectal (Female) Exam: Normal Exam, Normal Rectal Tone Back Exam: Reports: Normal Inspection, Full Range of Motion Extremities: Normal Inspection, Normal Range of Motion, Non-Tender, No Pedal Edema, Normal Capillary Refill Skin: Reports: Warm, Dry, Intact Wound/Incisions: Reports: Healing Well Neurological: Reports: No New Focal Deficit Psy/Mental Status: Reports: Alert, Normal Affect, Normal Mood
[2020-06-11] MEDS: diphenhydrAMINE 25 MG Tab PO PRN (12:53)
== END 2020-06-11 13:00 | disposition home or self-care (01) | DRG 603 ==
LOC: DL.ED 20:30 → UNDOADMOB 22:28 → INTOOBSV 22:28 → OBSVTOIN 22:28 → DL.MS 22:28 → OBSVTOIN 06-10 10:11 → UNDODISIN 06-11 13:00
PROVIDERS: ADMIT Student in an Organized Health Care Education/Training Program; ATTEND Student in an Organized Health Care Education/Training Program
DX: L03.116 Cellulitis of left lower limb (principal); L97.929 Non-pressure chronic ulcer of unspecified part of left lower leg with unspecified severity; E87.1 Hypo-osmolality and hyponatremia; B02.29 Other postherpetic nervous system involvement; M10.9 Gout, unspecified; L03.115 Cellulitis of right lower limb; J44.9 Chronic obstructive pulmonary disease, unspecified; E78.5 Hyperlipidemia, unspecified; G89.29 Other chronic pain; R53.1 Weakness; G93.40 Encephalopathy, unspecified; M54.5 Low back pain; F17.210 Nicotine dependence, cigarettes, uncomplicated; Z91.81 History of falling; M79.7 Fibromyalgia; E87.6 Hypokalemia; Z88.8 Allergy status to other drugs, medicaments and biological substances; Z79.51 Long term (current) use of inhaled steroids; D64.9 Anemia, unspecified; E83.42 Hypomagnesemia; D47.3 Essential (hemorrhagic) thrombocythemia; R21 Rash and other nonspecific skin eruption; Z79.899 Other long term (current) drug therapy; H54.7 Unspecified visual loss; Z87.01 Personal history of pneumonia (recurrent); E53.8 Deficiency of other specified B group vitamins; F32.9 Major depressive disorder, single episode, unspecified; Z88.6 Allergy status to analgesic agent; Z88.0 Allergy status to penicillin; Z88.1 Allergy status to other antibiotic agents; I50.9 Heart failure, unspecified; Z20.822 Contact with and (suspected) exposure to COVID-19; Z20.828 Contact with and (suspected) exposure to other viral communicable diseases
CPT/HCPCS: 0240U; 36415; 70450; 71045; 73620; 80048; 80053; 80307; 81003; 82140; 83605; 83735; 83880; 84100; 84484; 84550; 85025; 85027; 85610; 87040; 87077; 87186; 96365; 96366; 96367; 96372; 97162; 97165; 99219; 99225; 99232; 99239; 99284; 99285; 99222; A9270-GY; G0378; J1644; J3370; J3475; J7030; J7050

== ENCOUNTER 2020-06-27 11:00 | Emergency (ER) | payer MEDICARE, OTHER ==
--- NOTE | 2020-06-27 11:57 | EDM.PDOC ---
ED HPI GENERAL MEDICAL PROBLEM - General Chief Complaint: General Stated Complaint: AMBULANCE Time Seen by Provider: 06/27/20 11:45 Source of Information: Reports: Patient, Family (Granddaughter), Old Records, RN, RN Notes Reviewed History Limitations: Reports: Altered Mental Status - History of Present Illness INITIAL COMMENTS - FREE TEXT/NARRATIVE: Pt presents to ED via [facility] with c/o generalized weakness and confusion. Pt states she has been experiencing visual hallucinations recently, but is not sure for how long. Granddaughter confirms the pt is having hallucinations, and even though the pt will at time report that she is seeing things, she will also still talk and interact with some hallucinations. The family has not noticed much in the way of confusion or memory loss. The pt is very sedentary and rarely leaves the house. She continues to smoke cigarettes. Pt states she has generalized muscle aches that are normal and chronic for her. Pt has a wound dressing to the left lower leg that she says was changed this morning. Denies fever, CP, headache, fall, injury, or dysuria. Pt has Hx of confusion due to hyponatremia. Granddaughter reports pt has had her head scanned twice in the past few months due to confusion, but no abnormalities were found. Onset: Unknown/Unsure Duration: Chronic, Getting Worse Location: Reports: Generalized Severity: Severe Improves with: Reports: None Worsens with: Reports: None Associated Symptoms: Reports: No Other Symptoms Generalized Pain Score (Numeric/FACES): 4 - Related Data Allergies Allergy/AdvReac Type Severity Reaction Status Date / Time naproxen Allergy Unknown Itching Verified 06/27/20 11:08 aspirin Allergy Hives Verified 06/27/20 11:08 azithromycin [From Zithromax] Allergy UNKNOWN Verified 06/27/20 11:08 Penicillins Allergy Hives Verified 06/27/20 11:08 Home Meds: Home Meds Acetaminophen [Acetaminophen 8 Hour] 650 mg PO BID 07/01/18 [History] DULoxetine HCl [Cymbalta] 60 mg PO BID 07/01/18 [History] buPROPion HCL [Wellbutrin Xl] 150 mg PO DAILY 07/01/18 [History] Cholecalciferol (Vitamin D3) [Vitamin D3] 3,000 unit PO DAILY 08/25/18 [History] Albuterol [Ventolin HFA] 2 puff INH Q6H PRN #1 08/29/18 [Rx] Budesonide/Formoterol [Symbicort 160-4.5 MCG] 1 puff INH BID #1 inhaler 08/29/18 [Rx] Cyclobenzaprine [Flexeril] 5 mg PO BID PRN 03/23/20 [History] Furosemide [Lasix] 40 mg PO Q48H 03/23/20 [History] Zolpidem Tartrate [Ambien] 10 mg PO DAILY PRN 03/23/20 [History] clonazePAM [Clonazepam] 1 mg PO BID 03/24/20 [History] Pantoprazole [ProTONIX] 40 mg PO DAILY 06/08/20 [History] Cyanocobalamin (Vitamin B-12) [Cyanocobalamin Injection] 1 ml INJECT .QMONTH 06/09/20 [History] Colchicine 0.6 mg PO Q12H 5 Days #10 capsule 06/11/20 [Rx] Hydrocortisone [Hydrocortisone 2.5% Crm] 30 gm .XX Q12HR 10 Days #2 tube 06/11/20 [Rx] Magnesium Oxide [Mag-Oxide Magnesium] 200 mg PO BID #30 tablet 06/11/20 [Rx] Naproxen [Naprosyn] 500 mg PO Q12H 5 Days #10 tablet 06/11/20 [Rx] Potassium Chloride [Klor-Con 10] 40 meq PO BEDTIME #10 tab.er 06/11/20 [Rx] Sulfamethoxazole/Trimethoprim [Bactrim 400-80 MG] 1 each PO Q12H 7 Days #14 tablet 06/11/20 [Rx] Past Medical History HEENT History: Reports: Cataract, Impaired Vision Other HEENT History: wears readers. Cardiovascular History: Reports: Heart Failure Respiratory History: Reports: Asthma, COPD, Pneumonia, Recurrent Gastrointestinal History: Reports: None Genitourinary History: Reports: None [employer] History: Reports: None Musculoskeletal History: Reports: Fibromyalgia, Neck Pain, Chronic, Osteoporosis Neurological History: Reports: Concussion, Neuropathy, Peripheral Psychiatric History: Reports: Anxiety, Depression Endocrine/Metabolic History: Reports: Osteoporosis, Other (See Below) (Hyponatremia) Hematologic History: Reports: B12 Deficiency, Blood Transfusion(s) Other Hematologic History: Blood transfusion with past . Immunologic History: Reports: None Oncologic (Cancer) History: Reports: None Dermatologic History: Reports: Cellulitis, Other (See Below) Other Dermatologic History: Rash to truck for last few days. - Infectious Disease History Infectious Disease History: Reports: Shingles - Past Surgical History HEENT Surgical History: Reports: Cataract Surgery Other HEENT Surgeries/Procedures: cataract surgery 2018. Respiratory Surgical History: Reports: None Female Surgical History: Reports: Tubal Ligation Social & Family History - Family History Family Medical History: No Pertinent Family History Respiratory: Reports: TB Oncologic: Reports: Lung - Tobacco Use Tobacco Use Status *Q: Current Every Day Tobacco User Years of Tobacco use: 60 Packs/Tins Daily: 0.5 - Caffeine Use Caffeine Use: Reports: Coffee - Recreational Drug Use Recreational Drug Use: No - Living Situation & Occupation Living situation: Reports: , with Family Occupation: Retired ED ROS GENERAL - Review of Systems Review Of Systems: Comprehensive ROS is negative, except as noted in HPI. ED EXAM, GENERAL - Physical Exam Exam: See Below Exam Limited By: No Limitations General Appearance: Alert, No Apparent Distress, Other (Drowsy, chronically ill appearing) Eye Exam: Bilateral Eye: EOMI, Normal Inspection, PERRL Ears: Normal External Exam, Hearing Grossly Normal Nose: Normal Inspection, Normal Mucosa, No Blood Throat/Mouth: Normal Inspection, Normal Lips, Normal Voice, No Airway Compromise Head: Atraumatic, Normocephalic Neck: Normal Inspection, Non-Tender, Full Range of Motion Respiratory/Chest: No Respiratory Distress, Lungs Clear, No Accessory Muscle Use, Chest Non-Tender, Decreased Breath Sounds Cardiovascular: Regular Rate, Rhythm, Other (Trace B/L lower leg edema) GI/Abdominal: Normal Bowel Sounds, Soft, Non-Tender, Pelvis Stable Back Exam: Normal Inspection. No: CVA Tenderness (L), CVA Tenderness (R) Extremities: Normal Range of Motion, Non-Tender, Increased Warmth (Right lower leg), Redness (Right lower leg), Other (Very dry, excoriated skin at the B/L lower legs.). No: Joint Swelling, Ching's Sign Neurological: Alert, Oriented (to peson, place, and month), CN II-XII Intact, No Motor/Sensory Deficits Psychiatric: Depressed Mood, Flat Affect, Other (Visual hallucinations) Skin Exam: Warm, Dry Course - Vital Signs Last Recorded V/S: Last Vital Signs Temp 97.9 F 06/27/20 11:09 Pulse 86 06/27/20 11:09 Resp 16 06/27/20 11:09 BP 148/72 H 06/27/20 11:09 Pulse Ox 100 06/27/20 11:09 - Orders/Labs/Meds Orders: Active Orders 24 hr Category Date Time Status CULTURE BLOOD [BC] Stat Lab 06/27/20 12:18 Results CULTURE BLOOD [BC] Stat Lab 06/27/20 12:33 Received Blood Culture x2 Reflex Set [OM.PC] Stat Oth 06/27/20 11:57 Ordered Labs: Laboratory Tests 06/27/20 06/27/20 06/27/20 Range/Units 12:18 12:18 12:18 WBC 6.6 (5.0-10.0) 10^3/uL RBC 2.96 L (4.2-5.4) 10^6/uL Hgb 8.3 L (12.0-16.0) g/dL Hct 25.7 L (37.0-47.0) % MCV 86.8 (80-100) fL MCH 28.0 (27.0-34.0) pg MCHC 32.3 L (33.0-35.0) g/dL Plt Count 466 H (150-450) 10^3/uL Neut % (Auto) 66.9 (42.2-75.2) % Lymph % (Auto) 8.9 L (20.5-50.1) % [place] % (Auto) 9.5 H (2-8) % Eos % (Auto) 14.5 H (1.0-3.0) % Baso % (Auto) 0.2 (0.0-1.0) % Sodium 140 (136-145) mmol/L Potassium 3.3 L D (3.5-5.1) mmol/L Chloride 101 (98-107) mmol/L Carbon Dioxide 30 (21-32) mmol/L Anion Gap 12.3 (7-13) mEq/L BUN 15 (7-18) mg/dL Creatinine 0.82 (0.55-1.02) mg/dL Est Cr Clr Drug Dosing 53.34 mL/min Estimated GFR (MDRD) > 60 BUN/Creatinine Ratio 18.3 (No establ ref range) Glucose 93 (74-99) mg/dL Lactic Acid (0.4-2.0) mmol/L Calcium 8.7 (8.5-10.1) mg/dL Magnesium 1.8 (1.8-2.4) mg/dL Total Bilirubin 0.2 (0.2-1.0) mg/dL AST 14 L (15-37) U/L ALT 17 (14-59) U/L Alkaline Phosphatase 65 (46-116) U/L Troponin I < 0.017 (0.000-0.056) ng/mL C-Reactive Protein 0.3 (0.0-0.9) mg/dL B-Natriuretic Peptide 71 (0-100) pg/ml Total Protein 7.5 (6.4-8.2) g/dL Albumin 3.2 L (3.4-5.0) g/dL Globulin 4.3 Albumin/Globulin Ratio 0.74 Vitamin B12 1683 H (193-986) pg/mL Urine Color Yellow (YELLOW) Urine Appearance Clear (CLEAR) Urine pH 5.5 (5.0-9.0) Ur Specific [place] 1.020 (1.005-1.030) Urine Protein Negative (NEGATIVE) Urine Glucose (UA) Negative (NEGATIVE) Urine Ketones Negative (NEGATIVE) Urine Occult Blood Negative (NEGATIVE) Urine Nitrite Negative (NEGATIVE) Urine Bilirubin Negative (NEGATIVE) Urine Urobilinogen 0.2 (0.2-1.0) mg/dL Ur Leukocyte Esterase Negative (NEGATIVE) Urine Opiates Screen (NEGATIVE) Ur Oxycodone Screen (NEGATIVE) Urine Methadone Screen (NEGATIVE) Ur Barbiturates Screen (NEGATIVE) U Tricyclic Antidepress (NEGATIVE) Ur Phencyclidine Scrn (NEGATIVE) Ur Amphetamine Screen (NEGATIVE) U Methamphetamines Scrn (NEGATIVE) Urine MDMA Screen (NEGATIVE) U Benzodiazepines Scrn (NEGATIVE) Urine Cocaine Screen (NEGATIVE) U Marijuana (THC) Screen (NEGATIVE) Ethyl Alcohol < 3 (0) mg/dL 06/27/20 06/27/20 Range/Units 12:18 12:18 WBC (5.0-10.0) 10^3/uL RBC (4.2-5.4) 10^6/uL Hgb (12.0-16.0) g/dL Hct (37.0-47.0) % MCV (80-100) fL MCH (27.0-34.0) pg MCHC (33.0-35.0) g/dL Plt Count (150-450) 10^3/uL Neut % (Auto) (42.2-75.2) % Lymph % (Auto) (20.5-50.1) % [place] % (Auto) (2-8) % Eos % (Auto) (1.0-3.0) % Baso % (Auto) (0.0-1.0) % Sodium (136-145) mmol/L Potassium (3.5-5.1) mmol/L Chloride (98-107) mmol/L Carbon Dioxide (21-32) mmol/L Anion Gap (7-13) mEq/L BUN (7-18) mg/dL Creatinine (0.55-1.02) mg/dL Est Cr Clr Drug Dosing mL/min Estimated GFR (MDRD) BUN/Creatinine Ratio (No establ ref range) Glucose (74-99) mg/dL Lactic Acid 0.9 (0.4-2.0) mmol/L Calcium (8.5-10.1) mg/dL Magnesium (1.8-2.4) mg/dL Total Bilirubin (0.2-1.0) mg/dL AST (15-37) U/L ALT (14-59) U/L Alkaline Phosphatase (46-116) U/L Troponin I (0.000-0.056) ng/mL C-Reactive Protein (0.0-0.9) mg/dL B-Natriuretic Peptide (0-100) pg/ml Total Protein (6.4-8.2) g/dL Albumin (3.4-5.0) g/dL Globulin Albumin/Globulin Ratio Vitamin B12 (193-986) pg/mL Urine Color (YELLOW) Urine Appearance (CLEAR) Urine pH (5.0-9.0) Ur Specific [place] (1.005-1.030) Urine Protein (NEGATIVE) Urine Glucose (UA) (NEGATIVE) Urine Ketones (NEGATIVE) Urine Occult Blood (NEGATIVE) Urine Nitrite (NEGATIVE) Urine Bilirubin (NEGATIVE) Urine Urobilinogen (0.2-1.0) mg/dL Ur Leukocyte Esterase (NEGATIVE) Urine Opiates Screen Negative (NEGATIVE) Ur Oxycodone Screen Negative (NEGATIVE) Urine Methadone Screen Negative (NEGATIVE) Ur Barbiturates Screen Negative (NEGATIVE) U Tricyclic Antidepress Positive H (NEGATIVE) Ur Phencyclidine Scrn Negative (NEGATIVE) Ur Amphetamine Screen Negative (NEGATIVE) U Methamphetamines Scrn Negative (NEGATIVE) Urine MDMA Screen Negative (NEGATIVE) U Benzodiazepines Scrn Negative (NEGATIVE) Urine Cocaine Screen Negative (NEGATIVE) U Marijuana (THC) Screen Negative (NEGATIVE) Ethyl Alcohol (0) mg/dL - Re-Assessments/Exams Free Text/Narrative Re-Assessment/Exam: 06/27/20 14:14 Pt has a benign physical exam and lab work up. I think that she is most likely suffering from depression with psychosis, compounded by sleep disturbance from disrupted/inverted sleep-wake cycle. I have advised the pt and her granddaughter to f/u with her PCP and discuss a referral to psychiatry or the behavioral health clinic for further evaluation and management. Departure - Departure Time of Disposition: 14:18 Disposition: Home, Self-Care 01 Condition: Fair Clinical Impression: Major depressive disorder with psychotic features, Sleep-wake cycle disorder, Chronic anemia - Discharge Information *PRESCRIPTION DRUG MONITORING PROGRAM REVIEWED*: Not Applicable *COPY OF PRESCRIPTION DRUG MONITORING REPORT IN PATIENT SONALI: Not Applicable Instructions: Psychosis, Major Depressive Disorder, Adult, Thkb-et-Cctb Forms: ED Department Discharge Additional Instructions: Follow up in clinic with your primary physician within the next week for recheck, further evaluation, and referral to psychiatry or the behavioral health clinic. Sepsis Event Note (ED) - Evaluation Sepsis Screening Result: No Definite Risk - Focused Exam Vital Signs: Vital Signs Temp Pulse Resp BP Pulse Ox 06/27/20 11:09 97.9 F 86 16 148/72 H 100 - My Orders Last 24 Hours: My Active Orders 06/27/20 11:57 Blood Culture x2 Reflex Set [OM.PC] Stat 06/27/20 12:18 CULTURE BLOOD [BC] Stat 06/27/20 12:33 CULTURE BLOOD [BC] Stat - Assessment/Plan Last 24 Hours: My Active Orders 06/27/20 11:57 Blood Culture x2 Reflex Set [OM.PC] Stat 06/27/20 12:18 CULTURE BLOOD [BC] Stat 06/27/20 12:33 CULTURE BLOOD [BC] Stat
[2020-06-27 13:30] LABS: ANION GAP 12.3 mEq/L (7-13); CHLORIDE,CL 101 mmol/L (98-107); SODIUM,NA 140 mmol/L (136-145)
== END 2020-06-27 14:26 | disposition home or self-care (01) ==
LOC: DL.ED 11:00
DX: F32.9 Major depressive disorder, single episode, unspecified (principal); G47.20 Circadian rhythm sleep disorder, unspecified type; D64.9 Anemia, unspecified; I50.9 Heart failure, unspecified; J44.9 Chronic obstructive pulmonary disease, unspecified; G62.9 Polyneuropathy, unspecified; Z88.8 Allergy status to other drugs, medicaments and biological substances; Z88.6 Allergy status to analgesic agent; Z88.1 Allergy status to other antibiotic agents; Z88.0 Allergy status to penicillin; Z79.899 Other long term (current) drug therapy; Z72.0 Tobacco use
CPT/HCPCS: 36415; 80053; 80305-QW; 80307; 81003; 82607; 83605; 83735; 83880; 84484; 85025; 86140; 87040; 99283; 99285

== ENCOUNTER 2020-08-27 18:07 | Observation (INO) | payer MEDICARE, OTHER ==
[2020-08-27 19:51] LABS: ANION GAP 12.6 mEq/L (7-13); CHLORIDE,CL 100 mmol/L (98-107); SODIUM,NA 135 mmol/L (136-145)
--- NOTE | 2020-08-27 20:07 | EDM.PDOC ---
ED HPI GENERAL MEDICAL PROBLEM - General Chief Complaint: General Stated Complaint: LOW LABS SENT FROM [facility] Time Seen by Provider: 08/27/20 19:20 Source of Information: Reports: Patient, Family, RN History Limitations: Reports: No Limitations - History of Present Illness INITIAL COMMENTS - FREE TEXT/NARRATIVE: ED with granddaughter, with report of low hemoglobin. Patient seen in clinic today for routine care and refill of medications. Labs drawn and patient sent home then later called to go to ER. Family report patient does appear pale and weaker than usual. Hx of anemia in past and has had previous transfusions. No vomiting blood no noted bloody stools. no known fever or chills. Chronic wound left inner lower leg, Is scheduled to see wound care tomorrow afternoon. New ulcer bottom of left great toe x 2 months. Some yellow drainage top of leg wound. Generalized Pain Score (Numeric/FACES): 6 - Related Data Allergies Allergy/AdvReac Type Severity Reaction Status Date / Time naproxen Allergy Unknown Itching Verified 06/27/20 11:08 aspirin Allergy Hives Verified 06/27/20 11:08 azithromycin [From Zithromax] Allergy UNKNOWN Verified 06/27/20 11:08 Penicillins Allergy Hives Verified 06/27/20 11:08 Home Meds: Home Meds Acetaminophen [Acetaminophen 8 Hour] 650 mg PO BID 07/01/18 [History] DULoxetine HCl [Cymbalta] 60 mg PO BID 07/01/18 [History] buPROPion HCL [Wellbutrin Xl] 150 mg PO DAILY 07/01/18 [History] Cholecalciferol (Vitamin D3) [Vitamin D3] 3,000 unit PO DAILY 08/25/18 [History] Albuterol [Ventolin HFA] 2 puff INH Q6H PRN #1 08/29/18 [Rx] Budesonide/Formoterol [Symbicort 160-4.5 MCG] 1 puff INH BID #1 inhaler 08/29/18 [Rx] Cyclobenzaprine [Flexeril] 5 mg PO BID PRN 03/23/20 [History] Furosemide [Lasix] 40 mg PO DAILY 03/23/20 [History] Zolpidem Tartrate [Ambien] 10 mg PO DAILY PRN 03/23/20 [History] clonazePAM [Clonazepam] 1 mg PO BID 03/24/20 [History] Pantoprazole [ProTONIX] 40 mg PO DAILY 06/08/20 [History] Cyanocobalamin (Vitamin B-12) [Cyanocobalamin Injection] 1 ml INJECT .QMONTH 06/09/20 [History] Hydrocortisone [Hydrocortisone 2.5% Crm] 1 applic TOP Q12HR 08/27/20 [History] Past Medical History HEENT History: Reports: Cataract, Impaired Vision Other HEENT History: wears readers. Cardiovascular History: Reports: Heart Failure Respiratory History: Reports: Asthma, COPD, Pneumonia, Recurrent Gastrointestinal History: Reports: None Genitourinary History: Reports: None PERSONNEL SPECIALIST History: Reports: None Musculoskeletal History: Reports: Fibromyalgia, Neck Pain, Chronic, Osteoporosis Neurological History: Reports: Concussion Psychiatric History: Reports: Anxiety, Depression Endocrine/Metabolic History: Reports: Osteoporosis, Other (See Below) Hematologic History: Reports: B12 Deficiency, Blood Transfusion(s) Other Hematologic History: Blood transfusion with past . Immunologic History: Reports: None Oncologic (Cancer) History: Reports: None Dermatologic History: Reports: Cellulitis, Other (See Below) Other Dermatologic History: Rash to truck for last few days. - Infectious Disease History Infectious Disease History: Reports: Shingles - Past Surgical History HEENT Surgical History: Reports: Cataract Surgery Other HEENT Surgeries/Procedures: cataract surgery 2018. Respiratory Surgical History: Reports: None Female Surgical History: Reports: Tubal Ligation Social & Family History - Family History Family Medical History: No Pertinent Family History Respiratory: Reports: TB Oncologic: Reports: Lung - Tobacco Use Tobacco Use Status *Q: Current Every Day Tobacco User Years of Tobacco use: 60 Packs/Tins Daily: 0.2 - Caffeine Use Caffeine Use: Reports: Coffee - Recreational Drug Use Recreational Drug Use: No - Living Situation & Occupation Living situation: Reports: , with Family Occupation: Retired ED ROS GENERAL - Review of Systems Review Of Systems: Comprehensive ROS is negative, except as noted in HPI. ED EXAM, GENERAL - Physical Exam Exam: See Below Exam Limited By: No Limitations General Appearance: Alert, No Apparent Distress, Lethargic (arouses easily) Eye Exam: Bilateral Eye: EOMI Ears: Normal External Exam, Hearing Grossly Normal Nose: Normal Inspection Throat/Mouth: Normal Inspection, Normal Lips Head: Atraumatic, Normocephalic Neck: Normal Inspection, Full Range of Motion Respiratory/Chest: No Respiratory Distress, Decreased Breath Sounds Cardiovascular: Normal Peripheral Pulses, Regular Rate, Rhythm GI/Abdominal: Normal Bowel Sounds, Soft, Non-Tender Rectal (Female) Exam: Hemorrhoids Extremities: Other (wound left inner ankle, ulcer left great toe plantar surface) Neurological: Other (drowsy arouses easily to voice) Psychiatric: Flat Affect Skin Exam: Warm, Dry, Wound/Incision #1 Interpretation Rhythm: NSR Rate (Beats/Min): 84 Mosheim: LAD-Left Mosheim Deviation P-Wave: Present QRS: Normal Course - Vital Signs Last Recorded V/S: Last Vital Signs Temp 98.0 F 08/28/20 01:10 Pulse 72 08/28/20 01:10 Resp 16 08/28/20 01:10 BP 130/63 08/28/20 01:10 Pulse Ox 95 08/28/20 01:10 - Orders/Labs/Meds Orders: Active Orders 24 hr Category Date Time Status RED BLOOD CELLS LP [BBK] Stat Lab 08/27/20 19:20 Results TYPE AND SCREEN [BBK] Stat Lab 08/27/20 19:20 Results Transfuse RBC [Transfuse Red Blood Cells] [COMM] Urgent Oth 08/27/20 19:05 Ordered Transfuse Red Blood Cells [COMM] Urgent Oth 08/27/20 21:07 Ordered Medication Orders Acetaminophen (Acetaminophen 325 Mg Tab) 650 mg PO Q4H PRN PRN Reason: Pain (Mild 1-3)/fever Last Admin: 08/27/20 23:42 Dose: 650 mg Documented by: DARNELL Albuterol (Albuterol 6.7 Gm Inhaler) 0 gm INH Q6H PRN PRN Reason: Shortness of Breath Bupropion HCl (Bupropion 150 Mg Tab.Er) 150 mg PO DAILY BLAZE Clonazepam (Clonazepam 0.5 Mg Tab) 1 mg PO BID BLAZE Cyclobenzaprine HCl (Cyclobenzaprine 10 Mg Tab) 5 mg PO BID PRN PRN Reason: Muscle Spasm Last Admin: 08/27/20 23:43 Dose: 5 mg Documented by: DARNELL Duloxetine HCl (Duloxetine 30 Mg Cap) 60 mg PO BID BLAZE Furosemide (Furosemide 40 Mg Tab) 40 mg PO DAILY BLAZE Hydrocortisone (Hydrocortisone 2.5% Crm 30 Gm Tube) 0 gm TOP Q12HR BLAZE Mometasone Furoate/Formoterol Fumar (Formoterol/Mometasone 200-5 Mcg 8.8 Gm Inhaler) 1 puff IH BIDRT [facility] Ondansetron HCl (Ondansetron 4 Mg/2 Ml Sdv) 4 mg IVPUSH Q4H PRN PRN Reason: Nausea/Vomiting Pantoprazole Sodium (Pantoprazole 40 Mg Tab.Cr) 40 mg PO ACBREAKFAST [facility] Sodium Chloride (Sodium Chloride 0.9% 10 Ml Syringe) 10 ml FLUSH ASDIRECTED PRN PRN Reason: Keep Vein Open Zolpidem Tartrate (Zolpidem 5 Mg Tab) 10 mg PO DAILY PRN PRN Reason: Insomnia Last Admin: 08/27/20 23:43 Dose: 10 mg Documented by: DARNELL Labs: Laboratory Tests 08/27/20 08/27/20 08/27/20 Range/Units 19:20 19:20 19:20 WBC 7.0 (5.0-10.0) 10^3/uL RBC 2.64 L (4.2-5.4) 10^6/uL Hgb 6.6 L* D (12.0-16.0) g/dL Hct 22.1 L (37.0-47.0) % MCV 83.7 D (80-100) fL MCH 25.0 L (27.0-34.0) pg MCHC 29.9 L (33.0-35.0) g/dL Plt Count 409 (150-450) 10^3/uL Neut % (Auto) 71.0 (42.2-75.2) % Lymph % (Auto) 13.2 L (20.5-50.1) % Whitman % (Auto) 9.5 H (2-8) % Eos % (Auto) 6.0 H (1.0-3.0) % Baso % (Auto) 0.3 (0.0-1.0) % Percent Retic (0.5-1.5) % PT 9.7 (9.0-12.0) SEC INR 1.0 (0.9-1.2) APTT (22.0-34.0) SEC Sodium 135 L (136-145) mmol/L Potassium 3.6 (3.5-5.1) mmol/L Chloride 100 (98-107) mmol/L Carbon Dioxide 26 (21-32) mmol/L Anion Gap 12.6 (7-13) mEq/L BUN 20 H (7-18) mg/dL Creatinine 0.79 (0.55-1.02) mg/dL Est Cr Clr Drug Dosing 53.13 mL/min Estimated GFR (MDRD) > 60 BUN/Creatinine Ratio 25.3 (No establ ref range) Glucose 115 H (70-99) mg/dL Calcium 8.1 L (8.5-10.1) mg/dL Magnesium 1.7 L (1.8-2.4) mg/dL Iron (50-175) ug/dL TIBC (250-450) ug/dL % Saturation (20.0-50.0) % Ferritin (8-252) mg/mL Total Bilirubin 0.2 (0.2-1.0) mg/dL AST 18 (15-37) U/L ALT 18 (14-59) U/L Alkaline Phosphatase 81 (46-116) U/L Lactate Dehydrogenase (81-234) U/L Troponin I (0.000-0.056) ng/mL Total Protein 6.6 (6.4-8.2) g/dL Albumin 2.7 L (3.4-5.0) g/dL Globulin 3.9 Albumin/Globulin Ratio 0.69 Blood Type Gel Antibody Screen Crossmatch 08/27/20 08/27/20 08/27/20 Range/Units 19:20 19:20 19:20 WBC (5.0-10.0) 10^3/uL RBC (4.2-5.4) 10^6/uL Hgb (12.0-16.0) g/dL Hct (37.0-47.0) % MCV (80-100) fL MCH (27.0-34.0) pg MCHC (33.0-35.0) g/dL Plt Count (150-450) 10^3/uL Neut % (Auto) (42.2-75.2) % Lymph % (Auto) (20.5-50.1) % Whitman % (Auto) (2-8) % Eos % (Auto) (1.0-3.0) % Baso % (Auto) (0.0-1.0) % Percent Retic 1 (0.5-1.5) % PT (9.0-12.0) SEC INR (0.9-1.2) APTT (22.0-34.0) SEC Sodium (136-145) mmol/L Potassium (3.5-5.1) mmol/L Chloride (98-107) mmol/L Carbon Dioxide (21-32) mmol/L Anion Gap (7-13) mEq/L BUN (7-18) mg/dL Creatinine (0.55-1.02) mg/dL Est Cr Clr Drug Dosing mL/min Estimated GFR (MDRD) BUN/Creatinine Ratio (No establ ref range) Glucose (70-99) mg/dL Calcium (8.5-10.1) mg/dL Magnesium (1.8-2.4) mg/dL Iron (50-175) ug/dL TIBC (250-450) ug/dL % Saturation (20.0-50.0) % Ferritin (8-252) mg/mL Total Bilirubin (0.2-1.0) mg/dL AST (15-37) U/L ALT (14-59) U/L Alkaline Phosphatase (46-116) U/L Lactate Dehydrogenase (81-234) U/L Troponin I < 0.017 (0.000-0.056) ng/mL Total Protein (6.4-8.2) g/dL Albumin (3.4-5.0) g/dL Globulin Albumin/Globulin Ratio Blood Type A POSITIVE Gel Antibody Screen Negative Crossmatch See Detail 08/27/20 08/27/20 08/27/20 Range/Units 19:20 19:20 19:20 WBC (5.0-10.0) 10^3/uL RBC (4.2-5.4) 10^6/uL Hgb (12.0-16.0) g/dL Hct (37.0-47.0) % MCV (80-100) fL MCH (27.0-34.0) pg MCHC (33.0-35.0) g/dL Plt Count (150-450) 10^3/uL Neut % (Auto) (42.2-75.2) % Lymph % (Auto) (20.5-50.1) % Whitman % (Auto) (2-8) % Eos % (Auto) (1.0-3.0) % Baso % (Auto) (0.0-1.0) % Percent Retic (0.5-1.5) % PT (9.0-12.0) SEC INR (0.9-1.2) APTT 33.3 (22.0-34.0) SEC Sodium (136-145) mmol/L Potassium (3.5-5.1) mmol/L Chloride (98-107) mmol/L Carbon Dioxide (21-32) mmol/L Anion Gap (7-13) mEq/L BUN (7-18) mg/dL Creatinine (0.55-1.02) mg/dL Est Cr Clr Drug Dosing mL/min Estimated GFR (MDRD) BUN/Creatinine Ratio (No establ ref range) Glucose (70-99) mg/dL Calcium (8.5-10.1) mg/dL Magnesium (1.8-2.4) mg/dL Iron 19 L (50-175) ug/dL TIBC 420 (250-450) ug/dL % Saturation 4.5 L (20.0-50.0) % Ferritin 10 (8-252) mg/mL Total Bilirubin (0.2-1.0) mg/dL AST (15-37) U/L ALT (14-59) U/L Alkaline Phosphatase (46-116) U/L Lactate Dehydrogenase 170 (81-234) U/L Troponin I (0.000-0.056) ng/mL Total Protein (6.4-8.2) g/dL Albumin (3.4-5.0) g/dL Globulin Albumin/Globulin Ratio Blood Type Gel Antibody Screen Crossmatch Meds: Medications Generic Name Dose Route Start Last Admin Trade Name Freq PRN Reason Stop Dose Admin Acetaminophen 650 mg 08/27/20 21:45 08/27/20 23:42 Acetaminophen 325 Mg Tab PO 650 mg Q4H PRN Administration Pain (Mild 1-3)/fever Albuterol 0 gm 08/27/20 22:35 Albuterol 6.7 Gm Inhaler INH Q6H PRN Shortness of Breath Bupropion HCl 150 mg 08/28/20 09:00 Bupropion 150 Mg Tab.Er PO DAILY BLAZE Clonazepam 1 mg 08/28/20 09:00 Clonazepam 0.5 Mg Tab PO BID [facility] Cyclobenzaprine HCl 5 mg 08/27/20 22:49 08/27/20 23:43 Cyclobenzaprine 10 Mg Tab PO 5 mg BID PRN Administration Muscle Spasm Duloxetine HCl 60 mg 08/28/20 09:00 Duloxetine 30 Mg Cap PO BID BLAZE Furosemide 40 mg 08/28/20 09:00 Furosemide 40 Mg Tab PO DAILY BLAZE Hydrocortisone 0 gm 08/28/20 09:00 Hydrocortisone 2.5% Crm 30 Gm Tube TOP Q12HR BLAZE Mometasone Furoate/Formoterol Fumar 1 puff 08/28/20 07:00 Formoterol/Mometasone 200-5 Mcg 8.8 Gm Inhaler IH BIDRT [facility] Ondansetron HCl 4 mg 08/27/20 21:45 Ondansetron 4 Mg/2 Ml Sdv IVPUSH Q4H PRN Nausea/Vomiting Pantoprazole Sodium 40 mg 08/28/20 06:00 Pantoprazole 40 Mg Tab.Cr PO ACBREAKFAST [facility] Sodium Chloride 10 ml 08/27/20 21:45 Sodium Chloride 0.9% 10 Ml Syringe FLUSH ASDIRECTED PRN Keep Vein Open Zolpidem Tartrate 10 mg 08/27/20 22:35 08/27/20 23:43 Zolpidem 5 Mg Tab PO 10 mg DAILY PRN Administration Insomnia Discontinued Medications Generic Name Dose Route Start Last Admin Trade Name Freq PRN Reason Stop Dose Admin Clonazepam 1 mg 08/27/20 22:54 08/27/20 23:23 Clonazepam 0.5 Mg Tab PO 08/27/20 22:55 1 mg ONETIME ONE Administration Duloxetine HCl 60 mg 08/27/20 23:30 08/27/20 23:41 Duloxetine 30 Mg Cap PO 08/27/20 23:31 60 mg ONETIME ONE Administration Magnesium Sulfate/Dextrose 1 gm in 100 mls @ 100 mls/hr 08/27/20 22:00 08/27/20 22:49 Magnesium Sulfate In D5w 1 Gm/100 Ml IV 08/27/20 23:59 Not Given Q1H BLAZE Magnesium Sulfate/Dextrose 1 gm in 100 mls @ 100 mls/hr 08/28/20 01:00 08/28/20 02:16 Magnesium Sulfate In D5w 1 Gm/100 Ml IV 08/28/20 02:59 100 mls/hr Q1H BLAZE Administration Departure - Departure Time of Disposition: 21:20 Disposition: Refer to Observation Condition: Fair Clinical Impression: Anemia Qualifiers: Anemia type: unspecified type Qualified Code(s): D64.9 - Anemia, unspecified Chronic ulcer of ankle Qualifiers: Laterality: left Non-pressure ulcer stage: with fat layer exposed Qualified Code(s): L97.322 - Non-pressure chronic ulcer of left ankle with fat layer exposed Ulcer of great toe Qualifiers: Laterality: left Non-pressure ulcer stage: limited to breakdown of skin Qualified Code(s): L97.521 - Non-pressure chronic ulcer of other part of left foot limited to breakdown of skin - Discharge Information Sepsis Event Note (ED) - Evaluation Sepsis Screening Result: No Definite Risk - Focused Exam Vital Signs: Vital Signs Temp Pulse Resp BP Pulse Ox 08/27/20 19:17 97.9 F 80 16 99/44 L 100 - My Orders Last 24 Hours: My Active Orders 08/27/20 19:05 Transfuse RBC [Transfuse Red Blood Cells] [COMM] Urgent 08/27/20 19:20 RED BLOOD CELLS LP [BBK] Stat TYPE AND SCREEN [BBK] Stat 08/27/20 21:07 Transfuse Red Blood Cells [COMM] Urgent - Assessment/Plan Last 24 Hours: My Active Orders 08/27/20 19:05 Transfuse RBC [Transfuse Red Blood Cells] [COMM] Urgent 08/27/20 19:20 RED BLOOD CELLS LP [BBK] Stat TYPE AND SCREEN [BBK] Stat 08/27/20 21:07 Transfuse Red Blood Cells [COMM] Urgent
[2020-08-27] MEDS ORDERED: Sodium Chloride 0.9% 10 ML Syringe FLUSH PRN (21:45)
[2020-08-27] MEDS ORDERED: Ondansetron 4 MG/2 ML SDV IVPUSH PRN (21:45)
--- NOTE | 2020-08-27 21:55 | PCM.SN.2 ---
- Free Text/Narrative Note: START OF DOCTOR NADEGE HISTORY AND PHYSICAL / CONSULTATION NOTE Chief Complaint: The patient was sent to the emergency department by her primary care physician or provider after it was noted that patient was anemic, more so than her baseline History of Present Illness: The patient is a 5-year-old female who was directed to the emergency department by her primary care physician or provider after it was noted that her hemoglobin was lower than her baseline. The patient Lala that if she is not directed to the emergency department, she would not of presented on her own accord. The patient admits to lightheadedness as well as dizziness. She denies dyspnea however she does admit to dyspnea on exertion and generalized weakness. She denies melena or hematochezia. Patient has longstanding history of anemia requiring transfusions. She indicates that her last colonoscopy was approximately 2018 or 2019 and was unremarkable. The patient never had an EGD. She presents for further evaluation Surgical History: Right breast lumpectomy, sinus surgery, bilateral cataract surgery, tubal ligation Family History: Stroke, diabetes, coronary artery disease, hypertension, hyperlipidemia Social History: Tobacco: Active smoker Alcohol: Denies Caffeine: Coffee Drugs: Never Allergies: Penicillin, Naprosyn, aspirin, azithromycin, OxyContin, codeine, gabapentin, hydrocodone, Lipitor Code Status: DNR, DNI Pertinent Laboratory Results / Pertinent Radiology Results / Pertinent Diagnostic Results / Pertinent Vital Signs: Blood pressure 99/44, pulse 80, respirations 16, temperature 90.9 degrees, 100% room air, magnesium 1.7, hemoglobin 6.6 Physical Examination: General: -Alert -No acute distress -No dyspnea -No tachypnea Head: -Atraumatic -Normocephalic Eyes: -Pupils equally round and reactive to light and accommodation -Extraocular muscles intact Neurological: -Cranial nerves II-XII intact Neck: -No jugular venous distention -No thyromegaly -No cervical lymphadenopathy Heart: -Regular rate -Regular rhythm -No murmurs -No gallops -No rubs Lungs: -No wheeze -No rhonchi -No rales Abdomen: -Normal bowel sounds in all four quadrants -No rebound -No guarding -No tenderness Extremities: -2/4 pulse in all four extremities -No clubbing -No cyanosis -Bipedal nonpitting edema present -No calf tenderness present bilaterally -Negative Homans sign bilaterally Musculoskeletal: -5/5 bilateral upper extremity strength -5/5 bilateral lower extremity strength -Sensorium of bilateral upper extremities are equal and intact -Sensorium of bilateral lower extremities are equal and intact Additional Details / Additional Findings / Exceptions / Miscellaneous: Assessment / Plan: Acute on chronic anemia. Baseline hemoglobin approximately 8-9. Fecal occult blood checked in the emergency department negative. Patient received 1 unit packed red blood cells on August 27, 2020 which was ordered in the emergency department. Will monitor hemoglobin every 8 hours. Check erythropoietin level, LDH, reticulocyte count, ferritin, iron panel. Outpatient follow-up with gastroenterology and possibly hematology/oncology depending on results of aforementioned test Chronic left lower extremity wounds. Outpatient follow-up with wound care clinic Hypomagnesemia. Will monitor magnesium levels intermittently and supplement as necessary Muscle spasm Insomnia Gout Documented history of right lung mass. Outpatient follow-up with her primary care physician or provider although she would not be a candidate for intervention/treatment given her age and multiple medical comorbidities Anxiety Depression COPD CHF. Last echocardiogram performed at this facility August 20, 2018 which demonstrated ejection fraction of 60 to 65% with grade 1 diastolic dysfunction GERD Hyperlipidemia Hypertension Smoker. Patient becomes regarding smoking cessation Fibromyalgia Chronic pain Osteoporosis History of vitamin B12 deficiency Seasonal allergies Osteoarthritis Degenerative disc disease DVT prophylaxis. Bilateral STACIA hose Disposition: Anticipate discharge within 24 hours if hemoglobin remained stable posttransfusion. At the time of admission the patient's home medications were not yet inputted the EMR/BHR system. Once they are they will be reviewed and reconciled END OF DOCTOR EMAMIS HISTORY AND PHYSICAL / CONSULTATION NOTE
[2020-08-27] MEDS ORDERED: Magnesium Sulfate/D5W 1 GM/100 ML BAG IV SCH (22:00)
[2020-08-27] MEDS ORDERED: Albuterol 6.7 GM Inhaler INH PRN (22:35)
[2020-08-27] MEDS ORDERED: Zolpidem 5 MG Tab PO PRN (22:35)
[2020-08-27] MEDS ORDERED: ClonazePAM 0.5 MG Tab PO ONE (22:54)
[2020-08-27] MEDS ORDERED: DULoxetine 30 MG Cap PO ONE (23:30)
[2020-08-27] MEDS: Acetaminophen 325 MG Tab PO PRN (23:42)
[2020-08-27] MEDS: Cyclobenzaprine 10 MG Tab PO PRN (23:43)
[2020-08-28] MEDS: Magnesium Sulfate/D5W 1 GM/100 ML BAG IV SCH ×4 (01:12→10:01)
[2020-08-28] MEDS ORDERED: Pantoprazole 40 MG Tab.CR PO SCH (06:00)
--- NOTE | 2020-08-28 07:35 | PCM.SN.2 ---
- Free Text/Narrative Note: START OF DOCTOR NADEGE PROGRESS NOTE Subjective: The patient complains of minor pain of her left lower extremity which she attributes to her wounds. Overnight she denies fever, rigors, nausea, vomiting, cough, wheeze, abdominal pain, chest pain, dyspnea. She states overall she feels better compared to my encounter with her on August 27, 2020 and that her mentation has improved as well. I explained to the patient her current medical condition and plan of care and I have answered all of her questions Objective: General: -Alert -No acute distress -No dyspnea -No tachypnea Heart: -Regular rate -Regular rhythm -No murmurs -No gallops -No rubs Lungs: -No wheeze -No rhonchi -No rales Abdomen: -Normal bowel sounds in all four quadrants -No rebound -No guarding -No tenderness Extremities: -2/4 pulse in all four extremities -No clubbing -No cyanosis -Bipedal edema presentnonpitting Additional Details / Additional Findings / Exceptions / Miscellaneous: Pertinent Laboratory Results / Pertinent Radiology Results / Pertinent Diagnostic Results / Pertinent Vital Signs: Vital signs stable, hemoglobin 8.7, magnesium 1.7 Assessment / Plan: Acute on chronic anemia/iron deficiency anemia. Baseline hemoglobin approximately 8-9. Fecal occult blood checked in the emergency department negative. Patient received 1 unit packed red blood cells on August 27, 2020 which was ordered in the emergency department. Will monitor hemoglobin every 8 hours. Check erythropoietin level, LDH, reticulocyte count. Outpatient follow-up with gastroenterology and possibly hematology/oncology depending on results of aforementioned test. Ferrous sulfate 325 mg p.o. twice daily plus vitamin C 500 mg p.o. daily Chronic left lower extremity wounds. Outpatient follow-up with wound care clinic Hypomagnesemia. Will monitor magnesium levels intermittently and supplement as necessary Muscle spasm Insomnia Gout Documented history of right lung mass. Outpatient follow-up with her primary care physician or provider although she would not be a candidate for intervention/treatment given her age and multiple medical comorbidities Anxiety. Klonopin 1 mg p.o. twice daily Depression. Cymbalta 60 mg p.o. twice daily plus Wellbutrin XL 150 mg p.o. daily COPD. Symbicort 160/4.5 mc inhalation twice daily CHF. Last echocardiogram performed at this facility August 20, 2018 which demonstrated ejection fraction of 60 to 65% with grade 1 diastolic dysfunction. Lasix 40 mg p.o. daily GERD. Protonix 40 mg p.o. daily Hyperlipidemia Hypertension. Lasix 40 mg p.o. daily Smoker. Patient becomes regarding smoking cessation Fibromyalgia. Cymbalta 60 mg p.o. twice daily Chronic pain Osteoporosis History of vitamin B12 deficiency Seasonal allergies Osteoarthritis Degenerative disc disease DVT prophylaxis. Bilateral STACIA hose Disposition: If patient's hemoglobin remained stable, anticipate discharge on this day of August 28, 2020 END OF DOCTOR NADEGE PROGRESS NOTE
[2020-08-28] MEDS: Formoterol/Mometasone 200-5 MCG 8.8 GM Inhaler IH SCH ×2 (08:00→17:02)
[2020-08-28] MEDS: Ferrous Sulfate 325 MG Tab PO SCH ×2 (08:08→17:02)
[2020-08-28] MEDS: Cyclobenzaprine 10 MG Tab PO PRN (08:09)
[2020-08-28] MEDS ORDERED: Ascorbic Acid 500 MG Tab PO SCH (09:00)
[2020-08-28] MEDS ORDERED: buPROPion 150 MG Tab.ER PO SCH (09:00)
[2020-08-28] MEDS ORDERED: Hydrocortisone 2.5% Crm 30 GM Tube TOP SCH (09:00)
[2020-08-28] MEDS ORDERED: DULoxetine 30 MG Cap PO SCH (09:00)
[2020-08-28] MEDS ORDERED: Furosemide 40 MG Tab PO SCH (09:00)
[2020-08-28] MEDS ORDERED: ClonazePAM 0.5 MG Tab PO SCH (09:00)
[2020-08-28] MEDS: Acetaminophen 325 MG Tab PO PRN (15:00)
--- NOTE | 2020-08-28 18:20 | PCM.SN.2 ---
- Free Text/Narrative Note: START OF DOCTOR EMAMIS DISCHARGE SUMMARY Date of Admission: August 27, 2020 Date of Discharge: 6:17 PM on August 28, 2020 Primary Diagnosis: Acute on chronic anemia for which patient received 1 unit packed red blood cells on 11/27/2020. Baseline hemoglobin approximately 8-9 Secondary Diagnosis: Iron deficiency anemia Chronic left lower extremity wounds Hypomagnesemia, status post treatment Muscle spasm Insomnia Gout Documented history of right lung mass Anxiety Depression COPD CHF with last echocardiogram performed at this facility on August 20, 2018 demonstrating ejection fraction of 60 to 65% with grade 1 diastolic dysfunction GERD Hyperlipidemia Hypertension Smoker Fibromyalgia Chronic pain Osteoporosis History of vitamin B12 deficiency Seasonal allergies Osteoarthritis Degenerative disc disease Consultations: None Condition on Discharge: Fair Disposition: The patient was advised to follow-up with her primary care physician or provider 5 to 7 days post discharge. She is to discuss further evaluation of her documented history of right lung mass if this is never been previously evaluated. Although I would recommend against this as the patient would not be a candidate for any sort of intervention given her age and medical comorbidities and general frailty The patient needs check of hemoglobin 7 days post discharge for diagnosis of anemia The patient is advised follow-up with gastroenterology within 2 weeks of discharge for her anemia The patient is advised follow-up with hematology/oncology within 1 month of discharge for diagnosis of anemia The patient is advised to follow-up with the wound care clinic as directed for her history of chronic left lower extremity wounds Discharge Medications: Vitamin B12 1000 mcg intramuscularly monthly Vitamin D 3000 IU p.o. daily Ambien 10 mg p.o. nightly as needed insomnia Protonix 40 mg p.o. daily Hydrocortisone 2.5% topical cream to be applied to affected area every 12 hours or as directed Lasix 40 mg p.o. daily Ferrous sulfate 3.5 mg p.o. twice daily Cymbalta 60 mg p.o. twice daily Flexeril 5 mg p.o. twice daily as needed muscle spasm Klonopin 1 mg p.o. twice daily Wellbutrin XL 150 mg p.o. daily Simcor 160/4.5 m puff twice daily Vitamin C 500 mg p.o. daily Proventil HFA: 90 karli as per spray: 2 puffs every 6 hours as needed shortness of breath or wheeze END OF DOCTOR EMAMIS DISCHARGE SUMMARY
== END 2020-08-28 18:55 | disposition home or self-care (01) ==
LOC: DL.ED 18:07 → DL.MS 21:10 → DL.ED 21:19
PROVIDERS: ADMIT Internal Medicine; ATTEND Internal Medicine
DX: D64.9 Anemia, unspecified (principal); Z98.890 Other specified postprocedural states; F17.200 Nicotine dependence, unspecified, uncomplicated; S81.802A Unspecified open wound, left lower leg, initial encounter; E83.42 Hypomagnesemia; M62.838 Other muscle spasm; G47.00 Insomnia, unspecified; M10.9 Gout, unspecified; J44.9 Chronic obstructive pulmonary disease, unspecified; I11.0 Hypertensive heart disease with heart failure; K21.9 Gastro-esophageal reflux disease without esophagitis; E78.5 Hyperlipidemia, unspecified; M79.7 Fibromyalgia; Z20.822 Contact with and (suspected) exposure to COVID-19; G89.29 Other chronic pain; M81.0 Age-related osteoporosis without current pathological fracture; Z88.0 Allergy status to penicillin; Z88.8 Allergy status to other drugs, medicaments and biological substances; Z88.1 Allergy status to other antibiotic agents; Z88.5 Allergy status to narcotic agent
CPT/HCPCS: 36415; 36430; 80053; 82272; 82668; 82728; 83540; 83550; 83615; 83735; 84484; 85018; 85025; 85045; 85610; 85730; 86850; 86900; 86901; 86920; 86922; 93005; 96365; 96366; 99217; 99220; 99284; 99285-25; A9270-GY; G0378; J3475; P9016; U0002

== ENCOUNTER 2020-10-24 10:14 | Emergency (ER) | payer MEDICARE, OTHER ==
--- NOTE | 2020-10-24 10:42 | EDM.PDOC ---
ED HPI GENERAL MEDICAL PROBLEM - General Chief Complaint: General Stated Complaint: IN BY AMBULANCE Time Seen by Provider: 10/24/20 10:15 Source of Information: Reports: Patient, EMS History Limitations: Reports: No Limitations - History of Present Illness INITIAL COMMENTS - FREE TEXT/NARRATIVE: Patient comes emergency department today from home with complaints of a fall generalized weakness lightheadedness. This patient was just [facility] [place] following some type of procedure vascular for lymphedema of the lower extremities where she had a stent placement. She walks at home with a walker. Last night she felt a little lightheaded and maybe some shortness of breath but she did not summon the ambulance. Today about 9:00 this morning when she was going to sit down on her couch with her walker and hand she relates that she felt lightheaded and fell between the couch and her bedside table. She did not strike the right side of her cheek but she did not hit her head. There was no loss of consciousness. She has no head ache no neck pain or back pain. She does have chronic neck pain from fibromyalgia she relates. There is no acute or new pain. She has no paresthesias of the upper or lower extremities. There is no change in the functionality of her upper or lower extremities. She has no headache visual acuity changes or diplopia. Where she struck her face is not painful. She has no chest pain no shortness of breath difficulty breathing. No cough or congestion from her baseline. No increased amount of sputum production. She does have a history of fibromyalgia and COPD. As well as peripheral artery disease. No fever no chills. She does complain of generalized weakness that has been going on for months. Lightheadedness that has happened recently. No palpitations or syncope. No abdominal pain nausea or vomiting. No hematuria dysuria or urinary frequency. No black tarry stools or diarrhea. Generalized Pain Score (Numeric/FACES): 10 - Related Data Allergies Allergy/AdvReac Type Severity Reaction Status Date / Time naproxen Allergy Unknown Itching Verified 10/24/20 10:32 aspirin Allergy Hives Verified 10/24/20 10:32 azithromycin [From Zithromax] Allergy UNKNOWN Verified 10/24/20 10:32 Penicillins Allergy Hives Verified 10/24/20 10:32 Home Meds: Home Meds DULoxetine HCl [Cymbalta] 60 mg PO BID 07/01/18 [History] buPROPion HCL [Wellbutrin Xl] 150 mg PO DAILY 07/01/18 [History] Cholecalciferol (Vitamin D3) [Vitamin D3] 3,000 unit PO DAILY 08/25/18 [History] Albuterol [Ventolin HFA] 2 puff INH Q6H PRN #1 08/29/18 [Rx] Budesonide/Formoterol [Symbicort 160-4.5 MCG] 1 puff INH BID #1 inhaler 08/29/18 [Rx] Cyclobenzaprine [Flexeril] 5 mg PO BID PRN 03/23/20 [History] Furosemide [Lasix] 40 mg PO DAILY 03/23/20 [History] clonazePAM [Clonazepam] 1 mg PO BID 03/24/20 [History] Pantoprazole [ProTONIX] 40 mg PO DAILY 06/08/20 [History] Cyanocobalamin (Vitamin B-12) [Cyanocobalamin Injection] 1 ml INJECT .QMONTH 06/09/20 [History] Hydrocortisone [Hydrocortisone 2.5% Crm] 1 applic TOP Q12HR 08/27/20 [History] Ascorbic Acid [Vitamin C] 500 mg PO DAILY 30 Days #30 tablet 08/28/20 [Rx] Ferrous Sulfate 325 mg PO BIDMEALS 30 Days #60 tablet 08/28/20 [Rx] Zolpidem [Ambien] 10 mg PO DAILY PRN tablet 08/28/20 [Rx] Past Medical History HEENT History: Reports: Cataract, Impaired Vision Other HEENT History: wears readers. Cardiovascular History: Reports: Heart Failure Respiratory History: Reports: Asthma, COPD, Pneumonia, Recurrent Gastrointestinal History: Reports: None Genitourinary History: Reports: None [employer] History: Reports: Musculoskeletal History: Reports: Fibromyalgia, Neck Pain, Chronic, Osteoporosis Neurological History: Reports: Concussion Psychiatric History: Reports: Anxiety, Depression Endocrine/Metabolic History: Reports: Osteoporosis, Other (See Below) Hematologic History: Reports: Anemia, B12 Deficiency, Blood Transfusion(s) Other Hematologic History: Blood transfusion with past . Immunologic History: Reports: None Oncologic (Cancer) History: Reports: None Dermatologic History: Reports: Cellulitis, Other (See Below) Other Dermatologic History: Rash to truck for last few days. - Infectious Disease History Infectious Disease History: Reports: Shingles - Past Surgical History HEENT Surgical History: Reports: Cataract Surgery Other HEENT Surgeries/Procedures: cataract surgery 2018. Respiratory Surgical History: Reports: None Female Surgical History: Reports: Tubal Ligation Social & Family History - Family History Family Medical History: No Pertinent Family History Respiratory: Reports: TB Oncologic: Reports: Lung - Caffeine Use Caffeine Use: Reports: Coffee - Living Situation & Occupation Living situation: Reports: , with Family Occupation: Retired ED ROS GENERAL - Review of Systems Review Of Systems: Comprehensive ROS is negative, except as noted in HPI. ED EXAM, GENERAL - Physical Exam Exam: See Below Exam Limited By: No Limitations General Appearance: Alert (Patient is alert. She is somewhat sleepy. She is appropriate. No sonorous respirations. She appears comfortable. She is drowsy and slow to answer like if she was sedated. ), WD/WN, No Apparent Distress, Thin Eye Exam: Left Eye: A-V [place] (Right pupil is unremarkable and normal. 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 There is no tenderness bruising swelling ecchymosis bony deformity subcutaneous emphysema or other signs of trauma.). No: Facial Swelling, Facial Tenderness, Sinus Tenderness Neck: Normal Inspection, Supple, Non-Tender, Full Range of Motion. No: Tender Lateral, Tender Midline Respiratory/Chest: No Respiratory Distress, No Accessory Muscle Use, Chest Non- Tender, Wheezing (Has some very faint expiratory wheezing in the left upper lobe. Otherwise her lung sounds are clear. No rhonchi) Cardiovascular: Normal Peripheral Pulses, Regular Rate, Rhythm, No Murmur Peripheral Pulses: 1+: Posterior Tibial (L), Posterior Tibial (R), Dorsalis Pedis (L), Dorsalis Pedis (R), 2+: Radial (L), Radial (R) GI/Abdominal: Normal Bowel Sounds, Soft, Non-Tender, No Distention (Female) Exam: Deferred Rectal (Female) Exam: Deferred Back Exam: Normal Inspection, Decreased Range of Motion, Other (No other signs of trauma on the posterior.). No: Paraspinal Tenderness, Vertebral Tenderness Extremities: No: Normal Inspection (She has 1+ pitting edema to the right lower extremity 2+ the left lower extremity. There is a dressing in place of the left lower extremity in the distal anterior tib-fib that is dry and intact. Decreased pedal pulses bilaterally. No erythema induration or swelling of the lower extremities.) Neurological: Alert, Oriented, No Motor/Sensory Deficits Psychiatric: Flat Affect Skin Exam: Warm, Dry, Intact, Pallor Course - Vital Signs Last Recorded V/S: Last Vital Signs Temp 97.3 F 10/24/20 10:44 Pulse 77 10/24/20 10:27 Resp 14 10/24/20 10:27 BP 134/49 L 10/24/20 10:27 Pulse Ox 97 10/24/20 10:27 - Orders/Labs/Meds Orders: Active Orders 24 hr Category Date Time Status EKG 12 Lead [EKG Documentation Completion] [RC] STAT Care 10/24/20 10:34 Active Labs: Laboratory Tests 10/24/20 10/24/20 10/24/20 Range/Units 10:48 10:48 10:48 WBC 6.4 (5.0-10.0) 10^3/uL RBC 3.34 L (4.2-5.4) 10^6/uL Hgb 8.8 L (12.0-16.0) g/dL Hct 28.7 L (37.0-47.0) % MCV 85.9 (80-100) fL MCH 26.3 L (27.0-34.0) pg MCHC 30.7 L (33.0-35.0) g/dL Plt Count 501 H D (150-450) 10^3/uL Neut % (Auto) 63.7 (42.2-75.2) % Lymph % (Auto) 17.9 L (20.5-50.1) % Story % (Auto) 10.7 H (2-8) % Eos % (Auto) 7.5 H (1.0-3.0) % Baso % (Auto) 0.2 (0.0-1.0) % VBG pH (7.31-7.41) VBG pCO2 (41-51) mmHg VBG pO2 (35-42) mmHg VBG HCO3 (19-25) mmol/l VBG O2 Saturation (60-80) % VBG Base Excess ((-2)-(+3)) mmol/l O2 Delivery Device Sodium 135 L (136-145) mmol/L Potassium 3.2 L (3.5-5.1) mmol/L Chloride 97 L (98-107) mmol/L Carbon Dioxide 30 (21-32) mmol/L Anion Gap 11.2 (7-13) mEq/L BUN 16 (7-18) mg/dL Creatinine 0.90 (0.55-1.02) mg/dL Est Cr Clr Drug Dosing 46.64 mL/min Estimated GFR (MDRD) > 60 BUN/Creatinine Ratio 17.8 (No establ ref range) Glucose 97 (70-99) mg/dL Lactic Acid 0.7 (0.4-2.0) mmol/L Calcium 8.4 L (8.5-10.1) mg/dL Magnesium (1.8-2.4) mg/dL Total Bilirubin 0.3 (0.2-1.0) mg/dL AST 40 H (15-37) U/L ALT 27 (14-59) U/L Alkaline Phosphatase 79 (46-116) U/L Troponin I High Sens 7 (<=51) pg/mL Total Protein 7.7 (6.4-8.2) g/dL Albumin 3.0 L (3.4-5.0) g/dL Globulin 4.7 Albumin/Globulin Ratio 0.64 Urine Color (YELLOW) Urine Appearance (CLEAR) Urine pH (5.0-9.0) Ur Specific [place] (1.005-1.030) Urine Protein (NEGATIVE) Urine Glucose (UA) (NEGATIVE) Urine Ketones (NEGATIVE) Urine Occult Blood (NEGATIVE) Urine Nitrite (NEGATIVE) Urine Bilirubin (NEGATIVE) Urine Urobilinogen (0.2-1.0) mg/dL Ur Leukocyte Esterase (NEGATIVE) Ethyl Alcohol < 3 (0) mg/dL 10/24/20 10/24/20 10/24/20 Range/Units 10:48 10:48 11:14 WBC (5.0-10.0) 10^3/uL RBC (4.2-5.4) 10^6/uL Hgb (12.0-16.0) g/dL Hct (37.0-47.0) % MCV (80-100) fL MCH (27.0-34.0) pg MCHC (33.0-35.0) g/dL Plt Count (150-450) 10^3/uL Neut % (Auto) (42.2-75.2) % Lymph % (Auto) (20.5-50.1) % Story % (Auto) (2-8) % Eos % (Auto) (1.0-3.0) % Baso % (Auto) (0.0-1.0) % VBG pH 7.36 (7.31-7.41) VBG pCO2 53 H (41-51) mmHg VBG pO2 28 L (35-42) mmHg VBG HCO3 29 H (19-25) mmol/l VBG O2 Saturation 40.9 L (60-80) % VBG Base Excess 3.4 H ((-2)-(+3)) mmol/l O2 Delivery Device Room air Sodium (136-145) mmol/L Potassium (3.5-5.1) mmol/L Chloride (98-107) mmol/L Carbon Dioxide (21-32) mmol/L Anion Gap (7-13) mEq/L BUN (7-18) mg/dL Creatinine (0.55-1.02) mg/dL Est Cr Clr Drug Dosing mL/min Estimated GFR (MDRD) BUN/Creatinine Ratio (No establ ref range) Glucose (70-99) mg/dL Lactic Acid (0.4-2.0) mmol/L Calcium (8.5-10.1) mg/dL Magnesium 1.9 (1.8-2.4) mg/dL Total Bilirubin (0.2-1.0) mg/dL AST (15-37) U/L ALT (14-59) U/L Alkaline Phosphatase (46-116) U/L Troponin I High Sens (<=51) pg/mL Total Protein (6.4-8.2) g/dL Albumin (3.4-5.0) g/dL Globulin Albumin/Globulin Ratio Urine Color Yellow (YELLOW) Urine Appearance Clear (CLEAR) Urine pH 6.0 (5.0-9.0) Ur Specific [place] 1.010 (1.005-1.030) Urine Protein Negative (NEGATIVE) Urine Glucose (UA) Negative (NEGATIVE) Urine Ketones Negative (NEGATIVE) Urine Occult Blood Negative (NEGATIVE) Urine Nitrite Negative (NEGATIVE) Urine Bilirubin Negative (NEGATIVE) Urine Urobilinogen 0.2 (0.2-1.0) mg/dL Ur Leukocyte Esterase Negative (NEGATIVE) Ethyl Alcohol (0) mg/dL - Radiology Interpretation Free Text/Narrative:: Chest x-ray per radiology. No rib fracture or acute new cardiopulmonary abnormality appreciated on this AP chest x-ray. No hemopneumothorax. Some chronic finding of dorsal lumbar scoliosis. - Re-Assessments/Exams Free Text/Narrative Re-Assessment/Exam: 10/24/20 10:44 [facility]ing [facility] she is on Cymbalta Benadryl clonazepam Ambien It appears that she had a left popliteal arthrectomy and DCB angioplasty on 10-15-20 for a chronic nonhealing ulcer caused by venous stasis of the left lower anterior distal tib-fib region. She was sent home on Keflex for a total treatment of 10 days. She has had these ulcers on her lower extremities for the past 6 months. 10/24/20 10:51 Examined under the dressings on the lower extremities. On the right anterior distal fib there is a very superficial ulceration stage I that is clean dry intact without erythema. On the medial aspect of the left great toe there is a stage II superficial ulceration. That is dry intact without erythema or exudate. On the anterior distal medial tib-fib region there is a large open approximately 4 cm in diameter ulceration that extends into the subcutaneous tissue that is dry intact with good granular tissue. Dressing is dry. There is clear serous drainage. No erythema induration or swelling. 10/24/20 11:22 Venous blood gases with a pH of 7.36, PCO2 53, PO2 28 this is a venous sample bicarb 29 base excess 3.4. This is a compensated chronic respiratory acidosis due to most likely her COPD. Hgb is 8.8 and was 8.7 10 days ago at [facility] on discharge. 10/24/20 11:25 Patient's lactic acid is normal. Urinalysis is unremarkable. 10/24/20 11:38 Her sodium is 135 which is the same it was 10 days ago when she was discharged from the hospital. Her potassium is 3.2 which is down from 3.6. 10/24/20 12:05 Is somewhat hypokalemic today. She has a normal magnesium. Were really not finding anything acute or urgent at this time. There is no injury. She really has chronic weakness nothing more today than usual even according to the patient. We will discharge her home with home health and her family. I reviewed the laboratory evaluation with the patient she was comfortable with this plan and her questions were answered. Departure - Departure Time of Disposition: 11:54 Disposition: Home, Self-Care 01 Clinical Impression: Hypokalemia, Hyponatremia, Chronic anemia Nonhealing ulcer of left lower leg Qualifiers: Non-pressure ulcer stage: unspecified non-pressure ulcer stage Qualified Code(s): L97.929 - Non-pressure chronic ulcer of unspecified part of left lower leg with unspecified severity Fall at home Qualifiers: Encounter type: initial encounter Qualified Code(s): W19.XXXA - Unspecified fall, initial encounter - Discharge Information Instructions: Hyponatremia, [id number], Hypokalemia Forms: ED Department Discharge Additional Instructions: Continue previous therapies at home. Keep your appointments for this . Increase your potassium to 80meq or two of your home tablets daily and have this rechecked on this week at your appointments. Continue with home health. Return to the ED if new or worsening symptoms. Sepsis Event Note (ED) - Evaluation Sepsis Screening Result: No Definite Risk - Focused Exam Vital Signs: Vital Signs Temp Pulse Resp BP Pulse Ox 10/24/20 10:44 97.3 F 10/24/20 10:27 77 14 134/49 L 97 - My Orders Last 24 Hours: My Active Orders 10/24/20 10:34 EKG 12 Lead [EKG Documentation Completion] [RC] STAT - Assessment/Plan Last 24 Hours: My Active Orders 10/24/20 10:34 EKG 12 Lead [EKG Documentation Completion] [RC] STAT
[2020-10-24 10:54] LABS: O2 DELIVERY DEVICE ROOM AIR
--- NOTE | 2020-10-24 10:59 | CR ---
EXAMINATION: Chest 1V Frontal SEX: Female AGE: 75 years CLINICAL HISTORY: 75-year-old female injured in fall (right rib pain). Comparison CXR 08 June 2020. INTERPRETATION: 1. Mild dorsolumbar scoliosis. Spondylosis. Ectasia thoracic aorta. 2. No right rib fracture, underlying lung contusion, atelectasis, pleural effusion or pneumothorax on the right. 3. Normal cardiac silhouette. No pulmonary vascular congestion, alveolar edema or dependent effusion. 4. No new lung mass or hilar lymphadenopathy. 5. No alveolar infiltrate or peripheral "groundglass" interstitial lung densities. 6. No pneumothorax or pneumomediastinum. Midline tracheobronchial airway unremarkable. CONCLUSION: No rib fractures or acute new cardiopulmonary abnormality appreciated on this AP CXR.
[2020-10-24 11:05] LABS: BASE EXCESS VENOUS 3.4 mmol/l ((-2)-(+3)); BICARBONATE,VENOUS 29 mmol/l (19-25); O2 SATURATION VENOUS 40.9 % (60-80); PCO2 VENOUS 53 mmHg (41-51); PH,VENOUS 7.36 (7.31-7.41); PO2 VENOUS 28 mmHg (35-42)
--- NOTE | 2020-10-24 11:17 | PCM.EKG ---
#1 Interpretation EKG Date: 10/24/20 Time: 11:14 Rhythm: NSR Rate (Beats/Min): 91 [place]: LAD-Left [place] Deviation P-Wave: Present QRS: Normal ST-T: Normal QT: Prolonged (QTc 508, QT 412) Comparison: Change From Previous EKG (Qt prolonged fro 452.)
[2020-10-24 11:26] LABS: ANION GAP 11.2 mEq/L (7-13); CHLORIDE,CL 97 mmol/L (98-107); SODIUM,NA 135 mmol/L (136-145)
[2020-10-24] MEDS ORDERED: Potassium Chloride 10 MEQ Tab.ER PO ONE (11:55)
== END 2020-10-24 13:00 | disposition home or self-care (01) ==
LOC: DL.ED 10:14
DX: L97.929 Non-pressure chronic ulcer of unspecified part of left lower leg with unspecified severity (principal); D64.9 Anemia, unspecified; E87.6 Hypokalemia; E87.1 Hypo-osmolality and hyponatremia; R60.0 Localized edema; J44.9 Chronic obstructive pulmonary disease, unspecified; Z88.0 Allergy status to penicillin; Z88.5 Allergy status to narcotic agent; Z88.8 Allergy status to other drugs, medicaments and biological substances; Z88.1 Allergy status to other antibiotic agents; Z79.899 Other long term (current) drug therapy; W18.39XA Other fall on same level, initial encounter
CPT/HCPCS: 36415; 71045; 80053; 80307; 81003; 82803; 83605; 83735; 84484; 85025; 93005; 99285; A9270; 99284

== ENCOUNTER 2020-10-29 01:54 | Emergency (ER) | payer MEDICARE ==
--- NOTE | 2020-10-29 02:08 | EDM.PDOC ---
ED HPI GENERAL MEDICAL PROBLEM - General Chief Complaint: Chest Pain Time Seen by Provider: 10/29/20 02:00 Source of Information: Reports: Patient, EMS, Family History Limitations: Reports: No Limitations - History of Present Illness INITIAL COMMENTS - FREE TEXT/NARRATIVE: ED via [facility] with c/o chest pain, Patient reported to have fallen backwards at home today, No loss of consciousness but did strike head. Neck back and arm pain Chest pain midsternal worse with movment, EMS noted saturation low on arrival. placed on oxygen. No cough or fever Right upper arm pain from fall. Family present report frequent falls at home. Recent stent lower leg for poor circulation, chronic lower ext wounds, lymphedema, does nt keep feet elevated or wear support stockings. Home health involved. Lives alone. No c collar on , GCS 15. - Related Data Allergies Allergy/AdvReac Type Severity Reaction Status Date / Time naproxen Allergy Unknown Itching Verified 10/29/20 02:01 aspirin Allergy Hives Verified 10/29/20 02:01 azithromycin [From Zithromax] Allergy UNKNOWN Verified 10/29/20 02:01 Penicillins Allergy Hives Verified 10/29/20 02:01 Home Meds: Home Meds DULoxetine HCl [Cymbalta] 60 mg PO BID 07/01/18 [History] Cholecalciferol (Vitamin D3) [Vitamin D3] 3,000 unit PO DAILY 08/25/18 [History] Albuterol [Ventolin HFA] 2 puff INH Q6H PRN #1 08/29/18 [Rx] Budesonide/Formoterol [Symbicort 160-4.5 MCG] 1 puff INH BID #1 inhaler 08/29/18 [Rx] Cyclobenzaprine [Flexeril] 5 mg PO BID PRN 03/23/20 [History] Furosemide [Lasix] 40 mg PO DAILY 03/23/20 [History] clonazePAM [Clonazepam] 1 mg PO BID 03/24/20 [History] Pantoprazole [ProTONIX] 40 mg PO DAILY 06/08/20 [History] Cyanocobalamin (Vitamin B-12) [Cyanocobalamin Injection] 1 ml INJECT .QMONTH 06/09/20 [History] Hydrocortisone [Hydrocortisone 2.5% Crm] 1 applic TOP Q12HR 08/27/20 [History] Ascorbic Acid [Vitamin C] 500 mg PO DAILY 30 Days #30 tablet 08/28/20 [Rx] Ferrous Sulfate 325 mg PO BIDMEALS 30 Days #60 tablet 08/28/20 [Rx] Zolpidem [Ambien] 10 mg PO DAILY PRN tablet 08/28/20 [Rx] Acetaminophen [Tylenol Arthritis Pain] 2 tab PO ASDIRECTED 10/29/20 [History] Ipratropium/Albuterol Sulfate [Iprat-Albut 0.5-3(2.5) mg/3 ml] 1 dose INH TID 10/29/20 [History] Sennosides/Docusate Sodium [Senna-Docusate Sodium Tablet] 1 - 2 tab PO DAILY 10/29/20 [History] cephALEXin [Cephalexin] 1 cap PO QID 10/29/20 [History] diphenhydrAMINE/Zinc Acetate [Banophen Anti-Itch 2%] 1 dose TOP TID 10/29/20 [History] Past Medical History HEENT History: Reports: Cataract, Impaired Vision Other HEENT History: wears readers. 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 Immunologic History: Reports: None Oncologic (Cancer) History: Reports: None Dermatologic History: Reports: Cellulitis, Other (See Below) Other Dermatologic History: Rash to truck for last few days. ulcers bilaterally - Infectious Disease History Infectious Disease History: Reports: Shingles - Past Surgical History HEENT Surgical History: Reports: Cataract Surgery Other HEENT Surgeries/Procedures: cataract surgery 2017. Respiratory Surgical History: Reports: None Female Surgical History: Reports: Tubal Ligation Social & Family History - Family History Family Medical History: No Pertinent Family History Respiratory: Reports: TB Oncologic: Reports: Lung - Tobacco Use Tobacco Use Status *Q: Never Tobacco User Second Hand Smoke Exposure: No - Caffeine Use Caffeine Use: Reports: Coffee - Recreational Drug Use Recreational Drug Use: No - Living Situation & Occupation Living situation: Reports: , with Family Occupation: Retired ED ROS GENERAL - Review of Systems Review Of Systems: Comprehensive ROS is negative, except as noted in HPI. ED EXAM, GENERAL - Physical Exam Exam: See Below Exam Limited By: No Limitations General Appearance: Alert, Mild Distress Eye Exam: Left Eye: PERRL (ovoid, from remote previous fall ), Bilateral Eye: EOMI Ears: Normal External Exam, Normal Canal, Hearing Loss (mild) Nose: Normal Inspection Throat/Mouth: Other (poor dentation) Head: Atraumatic, Normocephalic, Other (tender occipital) Neck: Normal Inspection, Tender Lateral Respiratory/Chest: No Respiratory Distress, Decreased Breath Sounds, Other (initial presentation on NRB at 10L weaned NC 4(*%). No: Rales, Rhonchi, Wheezing Cardiovascular: Normal Peripheral Pulses, Regular Rate, Rhythm GI/Abdominal: Normal Bowel Sounds, Soft Extremities: Pedal Edema (3* lwer, 1+ thighs), Other (bruising tenderness right humerus) Neurological: Oriented. No: Alert (drowsy, arouses easily to voice) Skin Exam: Warm, Dry, Wound/Incision (bilateral lower extremities, left great toe ) #1 Interpretation EKG Date: 10/29/20 Time: 01:39 Rhythm: NSR Rate (Beats/Min): 79 [place]: Normal P-Wave: Present QRS: Normal ST-T: Normal Comparison: No Change Course - Vital Signs Last Recorded V/S: Last Vital Signs Temp 98.5 F 10/29/20 01:59 Pulse 82 10/29/20 01:59 Resp 18 10/29/20 01:59 BP 136/60 10/29/20 01:59 Pulse Ox 99 10/29/20 01:59 - Orders/Labs/Meds Orders: Active Orders 24 hr Category Date Time Status EKG Documentation Completion [RC] URGENT Care 10/29/20 01:47 Active BLOOD GAS ARTERIAL [BG] Stat Lab 10/29/20 01:47 Ordered CULTURE BLOOD [BC] Stat Lab 10/29/20 01:45 Results CULTURE BLOOD [BC] Stat Lab 10/29/20 02:10 Results Blood Culture x2 Reflex Set [OM.PC] Stat Oth 10/29/20 01:51 Ordered Labs: Laboratory Tests 10/29/20 10/29/20 10/29/20 Range/Units 01:45 01:45 01:45 WBC 10.4 H (5.0-10.0) 10^3/uL RBC 3.50 L (4.2-5.4) 10^6/uL Hgb 9.4 L (12.0-16.0) g/dL Hct 30.6 L (37.0-47.0) % MCV 87.4 (80-100) fL MCH 26.9 L (27.0-34.0) pg MCHC 30.7 L (33.0-35.0) g/dL Plt Count 521 H (150-450) 10^3/uL Neut % (Auto) 76.1 H (42.2-75.2) % Lymph % (Auto) 11.3 L (20.5-50.1) % Mcleod % (Auto) 8.4 H (2-8) % Eos % (Auto) 4.0 H (1.0-3.0) % Baso % (Auto) 0.2 (0.0-1.0) % PT 9.4 (9.0-12.0) SEC INR 0.9 (0.9-1.2) Sodium 137 (136-145) mmol/L Potassium 3.5 (3.5-5.1) mmol/L Chloride 98 (98-107) mmol/L Carbon Dioxide 29 (21-32) mmol/L Anion Gap 13.5 H (7-13) mEq/L BUN 17 (7-18) mg/dL Creatinine 0.89 (0.55-1.02) mg/dL Est Cr Clr Drug Dosing TNP Estimated GFR (MDRD) > 60 BUN/Creatinine Ratio 19.1 (No establ ref range) Glucose 111 H (70-99) mg/dL Lactic Acid (0.4-2.0) mmol/L Calcium 8.4 L (8.5-10.1) mg/dL Magnesium 1.9 (1.8-2.4) mg/dL Total Bilirubin 0.2 (0.2-1.0) mg/dL AST 18 (15-37) U/L ALT 15 (14-59) U/L Alkaline Phosphatase 90 (46-116) U/L Ammonia (11-32) umol/L Troponin I High Sens 6 (<=51) pg/mL B-Natriuretic Peptide 78 (0-100) pg/ml Total Protein 7.9 (6.4-8.2) g/dL Albumin 3.1 L (3.4-5.0) g/dL Globulin 4.8 Albumin/Globulin Ratio 0.65 Urine Color (YELLOW) Urine Appearance (CLEAR) Urine pH (5.0-9.0) Ur Specific [place] (1.005-1.030) Urine Protein (NEGATIVE) Urine Glucose (UA) (NEGATIVE) Urine Ketones (NEGATIVE) Urine Occult Blood (NEGATIVE) Urine Nitrite (NEGATIVE) Urine Bilirubin (NEGATIVE) Urine Urobilinogen (0.2-1.0) mg/dL Ur Leukocyte Esterase (NEGATIVE) Ethyl Alcohol < 3 (0) mg/dL SARS-CoV-2 RNA (SKY) (NEGATIVE) 10/29/20 10/29/20 10/29/20 Range/Units 01:45 02:10 02:49 WBC (5.0-10.0) 10^3/uL RBC (4.2-5.4) 10^6/uL Hgb (12.0-16.0) g/dL Hct (37.0-47.0) % MCV (80-100) fL MCH (27.0-34.0) pg MCHC (33.0-35.0) g/dL Plt Count (150-450) 10^3/uL Neut % (Auto) (42.2-75.2) % Lymph % (Auto) (20.5-50.1) % Mcleod % (Auto) (2-8) % Eos % (Auto) (1.0-3.0) % Baso % (Auto) (0.0-1.0) % PT (9.0-12.0) SEC INR (0.9-1.2) Sodium (136-145) mmol/L Potassium (3.5-5.1) mmol/L Chloride (98-107) mmol/L Carbon Dioxide (21-32) mmol/L Anion Gap (7-13) mEq/L BUN (7-18) mg/dL Creatinine (0.55-1.02) mg/dL Est Cr Clr Drug Dosing Estimated GFR (MDRD) BUN/Creatinine Ratio (No establ ref range) Glucose (70-99) mg/dL Lactic Acid 1.0 (0.4-2.0) mmol/L Calcium (8.5-10.1) mg/dL Magnesium (1.8-2.4) mg/dL Total Bilirubin (0.2-1.0) mg/dL AST (15-37) U/L ALT (14-59) U/L Alkaline Phosphatase (46-116) U/L Ammonia < 10 L (11-32) umol/L Troponin I High Sens (<=51) pg/mL B-Natriuretic Peptide (0-100) pg/ml Total Protein (6.4-8.2) g/dL Albumin (3.4-5.0) g/dL Globulin Albumin/Globulin Ratio Urine Color Yellow (YELLOW) Urine Appearance Clear (CLEAR) Urine pH 6.0 (5.0-9.0) Ur Specific [place] 1.015 (1.005-1.030) Urine Protein Negative (NEGATIVE) Urine Glucose (UA) Negative (NEGATIVE) Urine Ketones Negative (NEGATIVE) Urine Occult Blood Negative (NEGATIVE) Urine Nitrite Negative (NEGATIVE) Urine Bilirubin Negative (NEGATIVE) Urine Urobilinogen 0.2 (0.2-1.0) mg/dL Ur Leukocyte Esterase Negative (NEGATIVE) Ethyl Alcohol (0) mg/dL SARS-CoV-2 RNA (SKY) (NEGATIVE) 10/29/20 Range/Units 02:49 WBC (5.0-10.0) 10^3/uL RBC (4.2-5.4) 10^6/uL Hgb (12.0-16.0) g/dL Hct (37.0-47.0) % MCV (80-100) fL MCH (27.0-34.0) pg MCHC (33.0-35.0) g/dL Plt Count (150-450) 10^3/uL Neut % (Auto) (42.2-75.2) % Lymph % (Auto) (20.5-50.1) % Mcleod % (Auto) (2-8) % Eos % (Auto) (1.0-3.0) % Baso % (Auto) (0.0-1.0) % PT (9.0-12.0) SEC INR (0.9-1.2) Sodium (136-145) mmol/L Potassium (3.5-5.1) mmol/L Chloride (98-107) mmol/L Carbon Dioxide (21-32) mmol/L Anion Gap (7-13) mEq/L BUN (7-18) mg/dL Creatinine (0.55-1.02) mg/dL Est Cr Clr Drug Dosing Estimated GFR (MDRD) BUN/Creatinine Ratio (No establ ref range) Glucose (70-99) mg/dL Lactic Acid (0.4-2.0) mmol/L Calcium (8.5-10.1) mg/dL Magnesium (1.8-2.4) mg/dL Total Bilirubin (0.2-1.0) mg/dL AST (15-37) U/L ALT (14-59) U/L Alkaline Phosphatase (46-116) U/L Ammonia (11-32) umol/L Troponin I High Sens (<=51) pg/mL B-Natriuretic Peptide (0-100) pg/ml Total Protein (6.4-8.2) g/dL Albumin (3.4-5.0) g/dL Globulin Albumin/Globulin Ratio Urine Color (YELLOW) Urine Appearance (CLEAR) Urine pH (5.0-9.0) Ur Specific [place] (1.005-1.030) Urine Protein (NEGATIVE) Urine Glucose (UA) (NEGATIVE) Urine Ketones (NEGATIVE) Urine Occult Blood (NEGATIVE) Urine Nitrite (NEGATIVE) Urine Bilirubin (NEGATIVE) Urine Urobilinogen (0.2-1.0) mg/dL Ur Leukocyte Esterase (NEGATIVE) Ethyl Alcohol (0) mg/dL SARS-CoV-2 RNA (SKY) Negative (NEGATIVE) Departure - Departure Time of Disposition: 04:31 Disposition: Home, Self-Care 01 Condition: Fair Clinical Impression: Chest wall pain, Pedal edema, History of chronic obstructive pulmonary disease, Depressive disorder Contusion of right arm Qualifiers: Encounter type: initial encounter Qualified Code(s): S40.021A - Contusion of right upper arm, initial encounter Cervical muscle strain Qualifiers: Encounter type: initial encounter Qualified Code(s): S16.1XXA - Strain of muscle, fascia and tendon at neck level, initial encounter Nonhealing ulcer of left lower leg Qualifiers: Non-pressure ulcer stage: unspecified non-pressure ulcer stage Qualified Code(s): L97.929 - Non-pressure chronic ulcer of unspecified part of left lower leg with unspecified severity Fall as cause of accidental injury at home as place of occurrence Qualifiers: Encounter type: initial encounter Qualified Code(s): W19.XXXA - Unspecified fall, initial encounter Anemia Qualifiers: Anemia type: unspecified type Qualified Code(s): D64.9 - Anemia, unspecified Instructions: Edema Forms: ED Department Discharge Additional Instructions: change positions slowly use walker tylenol 500mg every 4 hours as needed for discomfort clinic follow up rechheck primary care this week use support hose or ase wraps to lower extremities elevate lower extremities home health to weigh at each visit continue usual home medications Sepsis Event Note (ED) - Evaluation Sepsis Screening Result: No Definite Risk - Focused Exam Vital Signs: Vital Signs Temp Pulse Resp BP Pulse Ox 10/29/20 01:59 98.5 F 82 18 136/60 99 - My Orders Last 24 Hours: My Active Orders 10/29/20 01:45 CULTURE BLOOD [BC] Stat 10/29/20 01:47 EKG Documentation Completion [RC] URGENT BLOOD GAS ARTERIAL [BG] Stat 10/29/20 01:51 Blood Culture x2 Reflex Set [OM.PC] Stat 10/29/20 02:10 CULTURE BLOOD [BC] Stat - Assessment/Plan Last 24 Hours: My Active Orders 10/29/20 01:45 CULTURE BLOOD [BC] Stat 10/29/20 01:47 EKG Documentation Completion [RC] URGENT BLOOD GAS ARTERIAL [BG] Stat 10/29/20 01:51 Blood Culture x2 Reflex Set [OM.PC] Stat 10/29/20 02:10 CULTURE BLOOD [BC] Stat
[2020-10-29 02:14] LABS: ANION GAP 13.5 mEq/L (7-13); CHLORIDE,CL 98 mmol/L (98-107); SODIUM,NA 137 mmol/L (136-145)
--- NOTE | 2020-10-29 04:13 | CT ---
PROCEDURE INFORMATION: Exam: CT Head Without Contrast Exam date and time: 10/29/2020 2:26 AM Age: 75 years old Clinical indication: Fall/pain TECHNIQUE: Imaging protocol: Computed tomography of the head without contrast. Coronal and sagittal reformatted images are submitted. Radiation optimization: All CT scans at this facility use at least one of these dose optimization techniques: automated exposure control; mA and/or kV adjustment per patient size (includes targeted exams where dose is matched to clinical indication); or iterative reconstruction. 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 No other definite abnormal foci of altered attenuation within the remaining cerebral or cerebellar parenchyma; patchy bilateral occipital and cerebellar hypodensities are likely artifactual. No intracranial mass lesion or evidence for acute territorial ischemia. There is symmetric enlargement of the ventricles and sulci bilaterally, consistent with cerebral atrophy. No midline shift or hydrocephalus. No abnormal extraaxial fluid or air collection; no intracranial hemorrhage. There are inferior right maxillary sinus mucous retention cysts, but the paranasal sinuses are otherwise clear. There is evidence for prior bilateral ocular lens replacement surgery, but the orbits are otherwise unremarkable. The mastoid air cells, skull, and scalp are unremarkable. IMPRESSION: --No acute intracranial pathology. --Chronic findings are described above.
--- NOTE | 2020-10-29 04:16 | CT ---
PROCEDURE INFORMATION: Exam: CT Thoracic Spine Without Contrast Exam date and time: 10/29/2020 2:26 AM Age: 75 years old Clinical indication: Other: Fall; Additional info: Fell back hit head, neck back and chest pain TECHNIQUE: Imaging protocol: Computed tomography images of the thoracic spine without contrast. Radiation optimization: All CT scans at this facility use at least one of these dose optimization techniques: automated exposure control; mA and/or kV adjustment per patient size (includes targeted exams where dose is matched to clinical indication); or iterative reconstruction. COMPARISON: CT Chest w Cont 03/23/2020 7:21 PM FINDINGS: Vertebrae: No acute fracture. Normal alignment. Discs/Spinal canal/Neural foramina: No significant disc protrusion. No severe spinal canal stenosis. No significant neural foraminal narrowing. Soft tissues: Unremarkable. IMPRESSION: Unremarkable CT Spine.
--- NOTE | 2020-10-29 04:18 | CT ---
PROCEDURE INFORMATION: Exam: CT Lumbar Spine Without Contrast Exam date and time: 10/29/2020 2:26 AM Age: 75 years old Clinical indication: Other: Fall; Additional info: Fell back hit head, neck back and chest pain TECHNIQUE: Imaging protocol: Computed tomography images of the lumbar spine without contrast. Radiation optimization: All CT scans at this facility use at least one of these dose optimization techniques: automated exposure control; mA and/or kV adjustment per patient size (includes targeted exams where dose is matched to clinical indication); or iterative reconstruction. COMPARISON: No relevant prior studies available. FINDINGS: Vertebrae: No acute fracture. Normal alignment. Discs/Spinal canal/Neural foramina: There is an S-shaped curvature the lumbar spine likely secondary to diffuse degenerative disc disease. The the there is a 3.8 mm anterior spondylolisthesis of L4-L5 likely secondary to degenerative disc disease at this and laxity of the longitudinal ligaments. Soft tissues: Unremarkable. IMPRESSION: There are no acute osseous findings.
--- NOTE | 2020-10-29 04:21 | CT ---
PROCEDURE INFORMATION: Exam: CT Cervical Spine Without Contrast Exam date and time: 10/29/2020 2:26 AM Age: 75 years old Clinical indication: Fall TECHNIQUE: Imaging protocol: Computed tomography images of the cervical spine without contrast. Coronal and sagittal reformatted images are submitted. Radiation optimization: All CT scans at this facility use at least one of these dose optimization techniques: automated exposure control; mA and/or kV adjustment per patient size (includes targeted exams where dose is matched to clinical indication); or iterative reconstruction. COMPARISON: CT Cervical Spine wo Cont 12/21/2019 FINDINGS: Again seen are moderate cervical spine degenerative changes, reversal of the normal cervical lordotic curvature, and stable grade 1 anterolisthesis of C3 on C4. Otherwise anatomic bony alignment, and the vertebral body heights are maintained. No acute fracture or dislocation. Rudimentary bilateral C7 cervical ribs are again demonstrated. There are bullous changes in the visualized upper lobes bilaterally, consistent with underlying emphysema. There are bilateral carotid artery calcifications. The cervical paraspinal structures are otherwise unremarkable. IMPRESSION: --No acute fracture or dislocation. --Chronic findings are described above.
--- NOTE | 2020-10-29 04:24 | CR ---
PROCEDURE INFORMATION: Exam: XR Right Humerus Exam date and time: 10/29/2020 2:21 AM Age: 75 years old Clinical indication: Other: Fall; Additional info: Fell back hit head, neck back and chest pain TECHNIQUE: Imaging protocol: XR Right humerus. Views: 2 or more views. COMPARISON: CT Chest w Cont 03/23/2020 7:21 PM FINDINGS: Bones/joints: Normal. Soft tissues: Normal. IMPRESSION: No acute findings.
--- NOTE | 2020-10-29 04:24 | CT ---
PROCEDURE INFORMATION: Exam: CT Chest Without Contrast; Diagnostic Exam date and time: 10/29/2020 2:26 AM Age: 75 years old Clinical indication: Other: Fall/pain TECHNIQUE: Imaging protocol: Diagnostic computed tomography of the chest without contrast. Radiation optimization: All CT scans at this facility use at least one of these dose optimization techniques: automated exposure control; mA and/or kV adjustment per patient size (includes targeted exams where dose is matched to clinical indication); or iterative reconstruction. COMPARISON: CT Chest w Cont 03/23/2020 7:21 PM FINDINGS: Lungs: There is a background of centrilobular emphysema and mild pulmonary fibrosis. Pleural spaces: Unremarkable. No pneumothorax. No pleural effusion. Heart: Calcifications are seen in the coronary arteries. Aorta: Calcifications are seen within the thoracic aorta. Lymph nodes: Unremarkable. No enlarged lymph nodes. Bones/joints: Unremarkable. No acute fracture. Soft tissues: Unremarkable. IMPRESSION: There are no acute chest findings. PROCEDURE INFORMATION: Exam: CT Abdomen And Pelvis Without Contrast Exam date and time: 10/29/2020 2:26 AM Age: 75 years old Clinical indication: Other: Fall/pain TECHNIQUE: Imaging protocol: Computed tomography of the abdomen and pelvis without contrast. Radiation optimization: All CT scans at this facility use at least one of these dose optimization techniques: automated exposure control; mA and/or kV adjustment per patient size (includes targeted exams where dose is matched to clinical indication); or iterative reconstruction. COMPARISON: CT Chest w Cont 03/23/2020 7:21 PM FINDINGS: Liver: Normal. No mass. Gallbladder and bile ducts: Normal. No calcified stones. No ductal dilation. Pancreas: Normal. No ductal dilation. Spleen: Normal. No splenomegaly. Adrenal glands: Normal. No mass. Kidneys and ureters: 4.7 mm fat attenuation lesions seen in the upper pole of the left kidney likely representing a tiny lipoma or angiomyolipoma. A 2.1 cm hypoattenuation cystic mass seen in the upper pole of the right kidney compatible a benign cyst. Stomach and bowel: There are nondilated loops of small bowel containing fluid and a few air-fluid levels that may represent mild ileus. Appendix: No evidence of appendicitis. Intraperitoneal space: Unremarkable. No free air. No significant fluid collection. Vasculature: Calcifications are seen within the abdominal aorta, iliac arteries and femoral arteries bilaterally and within branches of the celiac and superior mesenteric arteries. Lymph nodes: Unremarkable. No enlarged lymph nodes. Urinary bladder: Unremarkable as visualized. Reproductive: Unremarkable as visualized. Bones/joints: Unremarkable. No acute fracture. Soft tissues: Strandy and hazy opacities are seen in the subcutaneous fat and fascia the proximal left thigh possibly represents some bruising. IMPRESSION: 1. There are no acute abdominal findings. 2. Nondilated small bowel loops containing fluid and a few air-fluid levels may represent mild ileus. 3. Fat attenuation 4.7 mm lesion in the upper pole of the left kidney most probably represents a tiny lipoma or angiomyolipoma. Benign 2.1 cm cyst is seen in the upper pole of the right kidney. No further workup needed. COMMENTS: Consistent with the [employer]'s Incidental Findings Committee white paper (J Am Jeana Radiol 2018): Any incidental renal lesion less than 1 cm or classified as too small to characterize, or any incidental cystic renal lesion characterized as simple-appearing, is likely benign. No follow-up imaging is recommended for these lesions per consensus recommendations based on imaging criteria.
== END 2020-10-29 05:07 | disposition home or self-care (01) ==
LOC: DL.ED 01:54
DX: S16.1XXA Strain of muscle, fascia and tendon at neck level, initial encounter (principal); S40.021A Contusion of right upper arm, initial encounter; L97.929 Non-pressure chronic ulcer of unspecified part of left lower leg with unspecified severity; J44.9 Chronic obstructive pulmonary disease, unspecified; I50.9 Heart failure, unspecified; F32.9 Major depressive disorder, single episode, unspecified; R60.0 Localized edema; D64.9 Anemia, unspecified; Z20.822 Contact with and (suspected) exposure to COVID-19; Z88.0 Allergy status to penicillin; Z88.1 Allergy status to other antibiotic agents; Z88.5 Allergy status to narcotic agent; Z88.8 Allergy status to other drugs, medicaments and biological substances
CPT/HCPCS: 36415; 70450; 71250; 72125; 72128; 72131; 73060; 74176; 80053; 80307; 81003; 82140; 83605; 83735; 83880; 84484; 85025; 85610; 87040; 93005; 99285; U0002

== ENCOUNTER 2021-03-24 23:35 | Inpatient (IN) | payer MEDICARE, OTHER ==
[2021-03-25 00:17] LABS: ANION GAP 13.5 mEq/L (7-13); CHLORIDE,CL 93 mmol/L (98-107); SODIUM,NA 130 mmol/L (136-145)
[2021-03-25 00:32] LABS: CORONAVIRUS COVID-19 NAA NEGATIVE (NEGATIVE)
[2021-03-25] MEDS ORDERED: Magnesium Sulfate/Water 2 GM in Premix Bag 1 BAG IV ONE (00:33)
[2021-03-25] MEDS ORDERED: Furosemide 40 MG/4 ML VIAL IVPUSH ONE (00:33)
--- NOTE | 2021-03-25 00:44 | EDM.PDOC ---
ED HPI GENERAL MEDICAL PROBLEM - General Chief Complaint: Respiratory Problem Stated Complaint: AMBULANCE Time Seen by Provider: 03/25/21 00:30 Source of Information: Reports: Patient, RN History Limitations: Reports: No Limitations - History of Present Illness INITIAL COMMENTS - FREE TEXT/NARRATIVE: Mena is a 75 y/o female with a history of COPD, CHF, fibromyalgia, and a non healing wound to her left medial lower leg, who presents to the ED via [facility] with complaints of subjective fever, shortness of breath, muscle aches, and fatigue. The patient states her symptoms began approximately one week ago and have progressively worsened in that time. She denies vision changes, dizziness, cough, sore throat, chest pain/pressure, palpitations, dyspepsia, abdominal pain, nausea, or vomiting. The patient has taken no PRN medications or performed any supportive cares for her symptoms. She notes she typically smokes 1/2 pack of cigarettes per day, which has been cut down to 2-3 due to her SOB; she denies alcohol or recreational drug use. 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: Oxygen, Other (see below) Other Treatments SENIOR MATERIALS SCIENTIST: Oxygen per EMS Generalized Pain Score (Numeric/FACES): 7 - Related Data Allergies Allergy/AdvReac Type Severity Reaction Status Date / Time naproxen Allergy Unknown Itching Verified 03/25/21 01:32 aspirin Allergy Hives Verified 03/25/21 01:32 azithromycin [From Zithromax] Allergy UNKNOWN Verified 03/25/21 01:32 Penicillins Allergy Hives Verified 03/25/21 01:32 Home Meds: Home Meds DULoxetine HCl [Cymbalta] 60 mg PO BID 07/01/18 [History] Cholecalciferol (Vitamin D3) [Vitamin D3] 3,000 unit PO DAILY 08/25/18 [History] Albuterol [Ventolin HFA] 2 puff INH Q6H PRN #1 08/29/18 [Rx] Budesonide/Formoterol [Symbicort 160-4.5 MCG] 1 puff INH BID #1 inhaler 08/29/18 [Rx] Cyclobenzaprine [Flexeril] 5 mg PO BID PRN 03/23/20 [History] Furosemide [Lasix] 40 mg PO DAILY 03/23/20 [History] clonazePAM [Clonazepam] 1 mg PO BID 03/24/20 [History] Pantoprazole [ProTONIX] 40 mg PO DAILY 06/08/20 [History] Cyanocobalamin (Vitamin B-12) [Cyanocobalamin Injection] 1 ml INJECT .QMONTH 06/09/20 [History] Hydrocortisone [Hydrocortisone 2.5% Crm] 1 applic TOP Q12HR 08/27/20 [History] Ascorbic Acid [Vitamin C] 500 mg PO DAILY 30 Days #30 tablet 08/28/20 [Rx] Ferrous Sulfate 325 mg PO BIDMEALS 30 Days #60 tablet 08/28/20 [Rx] Zolpidem [Ambien] 10 mg PO DAILY PRN tablet 08/28/20 [Rx] Acetaminophen [Tylenol Arthritis Pain] 2 tab PO ASDIRECTED 10/29/20 [History] Ipratropium/Albuterol Sulfate [Iprat-Albut 0.5-3(2.5) mg/3 ml] 1 dose INH TID 10/29/20 [History] Sennosides/Docusate Sodium [Senna-Docusate Sodium Tablet] 1 - 2 tab PO DAILY 10/29/20 [History] cephALEXin [Cephalexin] 1 cap PO QID 10/29/20 [History] diphenhydrAMINE/Zinc Acetate [Banophen Anti-Itch 2%] 1 dose TOP TID 10/29/20 [ History] Past Medical History HEENT History: Reports: Cataract, Impaired Vision Other HEENT History: wears readers. Cardiovascular History: Reports: Heart Failure, Stents Other Cardiovascular History: [place] Respiratory History: Reports: Asthma, COPD, Pneumonia, Recurrent Gastrointestinal History: Reports: None Genitourinary History: Reports: None HYDRAMATIC SPECIALIST History: Reports: Musculoskeletal History: Reports: Fibromyalgia, Neck Pain, Chronic, Osteoporosis Neurological History: Reports: Concussion Psychiatric History: Reports: Anxiety, Depression Endocrine/Metabolic History: Reports: Osteoporosis, Other (See Below) Hematologic History: Reports: Anemia, B12 Deficiency, Blood Transfusion(s) Other Hematologic History: Blood transfusion with past . Immunologic History: Reports: None Oncologic (Cancer) History: Reports: None Dermatologic History: Reports: Cellulitis, Other (See Below) Other Dermatologic History: Rash to truck for last few days. ulcers bilaterally - Infectious Disease History Infectious Disease History: Reports: Shingles - Past Surgical History HEENT Surgical History: Reports: Cataract Surgery Other HEENT Surgeries/Procedures: cataract surgery 2018. Respiratory Surgical History: Reports: None Female Surgical History: Reports: Tubal Ligation Social & Family History - Family History Family Medical History: No Pertinent Family History Respiratory: Reports: TB Oncologic: Reports: Lung - Caffeine Use Caffeine Use: Reports: Coffee - Living Situation & Occupation Living situation: Reports: , with Family Occupation: Retired ED ROS GENERAL - Review of Systems Review Of Systems: Comprehensive ROS is negative, except as noted in HPI. ED EXAM, GENERAL - Physical Exam Exam: See Below Exam Limited By: No Limitations General Appearance: Alert, No Apparent Distress Eye Exam: Bilateral Eye: EOMI, Normal Inspection, PERRL (3mm) Ears: Normal External Exam, Hearing Loss Nose: Normal Inspection Throat/Mouth: Normal Inspection, Normal Oropharynx, Normal Voice, No Airway Compromise Head: Atraumatic, Normocephalic Neck: Normal Inspection, Full Range of Motion. No: Lymphadenopathy (L), Lymphadenopathy (R) Respiratory/Chest: No Accessory Muscle Use, Chest Non-Tender, Respiratory Distress (Tachypnea in upper 20s), Rhonchi. No: Crackles, Rales, Wheezing, Stridor Cardiovascular: Normal Peripheral Pulses, Regular Rate, Rhythm, No Gallop, No JVD, No Murmur, No Rub, Tachycardia. No: No Edema Peripheral Pulses: 1+: Dorsalis Pedis (L), Dorsalis Pedis (R), 2+: Radial (L), Radial (R) GI/Abdominal: Normal Bowel Sounds, Soft, Non-Tender, No Distention, No Abnormal Bruit, No Mass, Pelvis Stable (Female) Exam: Deferred Rectal (Female) Exam: Deferred Back Exam: Normal Inspection, Full Range of Motion Extremities: Normal Range of Motion, Normal Capillary Refill, Pedal Edema (+2 pitting, bilaterally) Neurological: Alert, Oriented, CN II-XII Intact, Normal Cognition, No Motor/Sensory Deficits Psychiatric: Normal Affect, Normal Mood Skin Exam: Warm, Dry, Normal Color, No Rash, Wound/Incision (4cm x 6cm non- healing wound to left medial lower leg, clean with serous drainage noted). No: Cyanosis, Jaundice, Mottled, Pallor #1 Interpretation EKG Date: 03/25/21 Time: 00:06 Rhythm: Other (ST) Rate (Beats/Min): 102 [place]: LAD-Left [place] Deviation P-Wave: Present QRS: Normal ST-T: Normal QT: Normal SD/PQ Interval: 0.179 Comparison: No Change EKG Interpretation Comments: ST; LAD: Inverted T-waves V2 and V3, unchanged from previous EKG; No evidence of acute myocardial ischemia Course - Vital Signs Last Recorded V/S: Last Vital Signs Temp 100.3 F 03/25/21 00:38 Pulse 103 H 03/25/21 00:38 Resp 25 H 03/25/21 00:38 BP 97/47 L 03/25/21 00:38 Pulse Ox 88 L 03/25/21 01:45 - Orders/Labs/Meds Orders: Active Orders 24 hr Category Date Time Status CULTURE BLOOD [BC] Stat Lab 03/24/21 23:45 Results CULTURE BLOOD [BC] Stat Lab 03/24/21 23:47 Received PROCALCITONIN [REF] Stat Lab 03/25/21 00:55 Received Levofloxacin/Dextrose 5%-Water [Levaquin in D5W 750 MG/ Med 03/25/21 01:46 Active 150 ML] 750 mg Premix Bag 1 bag IV ONETIME Blood Culture x2 Reflex Set [OM.PC] Stat Oth 03/24/21 23:47 Ordered Medication Orders Acetaminophen (Acetaminophen 325 Mg Tab) 650 mg PO Q4H PRN PRN Reason: Pain (Mild 1-3)/fever Albuterol/Ipratropium (Albuterol/Ipratropium 3.0-0.5 Mg/3 Ml Neb Soln) 3 ml NEB Q4H PRN PRN Reason: shortness of breath/wheezing Enoxaparin Sodium (Enoxaparin 40 Mg/0.4 Ml Syringe) 40 mg SUBCUT DAILY BLAZE Furosemide (Furosemide 40 Mg/4 Ml Vial) 40 mg IVPUSH BIDDIURETIC BLAZE Levofloxacin/Dextrose 750 mg/ (Premix) 150 mls @ 100 mls/hr IV ONETIME ONE Stop: 03/25/21 03:15 Last Admin: 03/25/21 02:09 Dose: 100 mls/hr Documented by: JOANIE Nicotine (Nicotine 7 Mg/24 Hr Patch) 7 mg TRDERM DAILY BLAZE Ondansetron HCl (Ondansetron 4 Mg/2 Ml Sdv) 4 mg IVPUSH Q6H PRN PRN Reason: Nausea/Vomiting Polyethylene Glycol (Polyethylene Glycol 3350 Powder 17 Gm Packet) 17 gm PO DAILY PRN PRN Reason: Constipation Labs: Laboratory Tests 03/24/21 03/24/21 03/24/21 Range/Units 23:40 23:45 23:45 WBC 21.1 H (5.0-10.0) 10^3/uL RBC 3.39 L (4.2-5.4) 10^6/uL Hgb 10.3 L (12.0-16.0) g/dL Hct 31.2 L (37.0-47.0) % MCV 92.0 D (80-100) fL MCH 30.4 (27.0-34.0) pg MCHC 33.0 (33.0-35.0) g/dL Plt Count 334 D (150-450) 10^3/uL Neut % (Auto) 89.8 H (42.2-75.2) % Lymph % (Auto) 2.6 L (20.5-50.1) % [place] % (Auto) 7.5 (2-8) % Eos % (Auto) 0.0 L (1.0-3.0) % Baso % (Auto) 0.1 (0.0-1.0) % Sodium 130 L (136-145) mmol/L Potassium 3.5 (3.5-5.1) mmol/L Chloride 93 L (98-107) mmol/L Carbon Dioxide 27 (21-32) mmol/L Anion Gap 13.5 H (7-13) mEq/L BUN 13 (7-18) mg/dL Creatinine 0.93 (0.55-1.02) mg/dL Est Cr Clr Drug Dosing TNP Estimated GFR (MDRD) 59 BUN/Creatinine Ratio 14.0 (No establ ref range) Glucose 113 H (70-99) mg/dL Lactic Acid (0.4-2.0) mmol/L Calcium 8.3 L (8.5-10.1) mg/dL Magnesium 1.5 L (1.8-2.4) mg/dL Total Bilirubin 0.4 (0.2-1.0) mg/dL AST 18 (15-37) U/L ALT 13 L (14-59) U/L Alkaline Phosphatase 72 (46-116) U/L Troponin I High Sens > 200 H* (<=51) pg/mL C-Reactive Protein 10.5 H (0.0-0.9) mg/dL B-Natriuretic Peptide 609 H (0-100) pg/ml Total Protein 7.3 (6.4-8.2) g/dL Albumin 3.0 L (3.4-5.0) g/dL Globulin 4.3 Albumin/Globulin Ratio 0.70 Influenza Type A RNA Negative (NEGATIVE) Influenza Type B RNA Negative (NEGATIVE) SARS-CoV-2 RNA (SKY) Negative (NEGATIVE) 03/24/21 Range/Units 23:45 WBC (5.0-10.0) 10^3/uL RBC (4.2-5.4) 10^6/uL Hgb (12.0-16.0) g/dL Hct (37.0-47.0) % MCV (80-100) fL MCH (27.0-34.0) pg MCHC (33.0-35.0) g/dL Plt Count (150-450) 10^3/uL Neut % (Auto) (42.2-75.2) % Lymph % (Auto) (20.5-50.1) % [place] % (Auto) (2-8) % Eos % (Auto) (1.0-3.0) % Baso % (Auto) (0.0-1.0) % Sodium (136-145) mmol/L Potassium (3.5-5.1) mmol/L Chloride (98-107) mmol/L Carbon Dioxide (21-32) mmol/L Anion Gap (7-13) mEq/L BUN (7-18) mg/dL Creatinine (0.55-1.02) mg/dL Est Cr Clr Drug Dosing Estimated GFR (MDRD) BUN/Creatinine Ratio (No establ ref range) Glucose (70-99) mg/dL Lactic Acid 1.6 (0.4-2.0) mmol/L Calcium (8.5-10.1) mg/dL Magnesium (1.8-2.4) mg/dL Total Bilirubin (0.2-1.0) mg/dL AST (15-37) U/L ALT (14-59) U/L Alkaline Phosphatase (46-116) U/L Troponin I High Sens (<=51) pg/mL C-Reactive Protein (0.0-0.9) mg/dL B-Natriuretic Peptide (0-100) pg/ml Total Protein (6.4-8.2) g/dL Albumin (3.4-5.0) g/dL Globulin Albumin/Globulin Ratio Influenza Type A RNA (NEGATIVE) Influenza Type B RNA (NEGATIVE) SARS-CoV-2 RNA (SKY) (NEGATIVE) Meds: Medications Generic Name Dose Route Start Last Admin Trade Name Fredonta PRN Reason Stop Dose Admin Acetaminophen 650 mg 03/25/21 02:15 Acetaminophen 325 Mg Tab PO Q4H PRN Pain (Mild 1-3)/fever Albuterol/Ipratropium 3 ml 03/25/21 02:15 Albuterol/Ipratropium 3.0-0.5 Mg/3 Ml Neb Soln NEB Q4H PRN shortness of breath/wheezing Enoxaparin Sodium 40 mg 03/25/21 09:00 Enoxaparin 40 Mg/0.4 Ml Syringe SUBCUT DAILY BLAZE Furosemide 40 mg 03/25/21 08:00 Furosemide 40 Mg/4 Ml Vial IVPUSH BIDDIURETIC BLAZE Levofloxacin/Dextrose 750 mg/ 150 mls @ 100 mls/hr 03/25/21 01:46 03/25/21 02:09 Premix IV 03/25/21 03:15 100 mls/hr ONETIME ONE Administration Nicotine 7 mg 03/25/21 09:00 Nicotine 7 Mg/24 Hr Patch TRDERM DAILY [facility] Ondansetron HCl 4 mg 03/25/21 02:15 Ondansetron 4 Mg/2 Ml Sdv IVPUSH Q6H PRN Nausea/Vomiting Polyethylene Glycol 17 gm 03/25/21 02:15 Polyethylene Glycol 3350 Powder 17 Gm Packet PO DAILY PRN Constipation Discontinued Medications Generic Name Dose Route Start Last Admin Trade Name Fredonta PRN Reason Stop Dose Admin Furosemide 40 mg 03/25/21 00:33 03/25/21 00:51 Furosemide 40 Mg/4 Ml Vial IVPUSH 03/25/21 00:34 40 mg ONETIME ONE Administration Magnesium Sulfate 2 gm/ Premix 50 mls @ 25 mls/hr 03/25/21 00:33 03/25/21 00:51 IV 03/25/21 02:32 25 mls/hr ONETIME ONE Administration - Re-Assessments/Exams Free Text/Narrative Re-Assessment/Exam: 03/25/21 COVID/Influenza test sent. CXR obtained while labs pending. Lasix 40mg IVP administered. Mag Sulfate 2gm administered. Case discussed with Dr. Burns who kindly accepted patient for admission to this facility for CAP and CHF exacerbation. Levaquin 750mg IVPB administered due to patient's al lergies to PCN and macrolides. Findings of examination, lab work, imaging, and discussion with Dr. Burns reviewed with patient and her daughter. Patient verbalized understanding and agreement with the plan of care. Departure - Departure Time of Disposition: 01:50 Disposition: Admitted As Inpatient 66 Clinical Impression: Pleural effusion, left, Hypomagnesemia, Chronic wound of extremity Community acquired pneumonia Qualifiers: Laterality: left Lung location: lower lobe of lung Qualified Code(s): J18.9 - Pneumonia, unspecified organism CHF exacerbation Qualifiers: Heart failure type: unspecified Qualified Code(s): I50.9 - Heart failure, unspecified - Discharge Information Sepsis Event Note (ED) - Focused Exam Vital Signs: Vital Signs Temp Pulse Resp BP Pulse Ox 03/25/21 01:45 88 L 03/25/21 01:30 83 L 03/25/21 01:00 92 L 03/25/21 00:38 100.3 F 103 H 25 H 97/47 L 03/24/21 23:58 85 L - My Orders Last 24 Hours: My Active Orders 03/24/21 23:45 CULTURE BLOOD [BC] Stat 03/24/21 23:47 CULTURE BLOOD [BC] Stat Blood Culture x2 Reflex Set [OM.PC] Stat 03/25/21 00:55 PROCALCITONIN [REF] Stat 03/25/21 01:46 Levofloxacin/Dextrose 5%-Water [Levaquin in D5W 750 MG/150 ML] 750 mg Premix Bag 1 bag IV ONETIME - Assessment/Plan Last 24 Hours: My Active Orders 03/24/21 23:45 CULTURE BLOOD [BC] Stat 03/24/21 23:47 CULTURE BLOOD [BC] Stat Blood Culture x2 Reflex Set [OM.PC] Stat 03/25/21 00:55 PROCALCITONIN [REF] Stat 03/25/21 01:46 Levofloxacin/Dextrose 5%-Water [Levaquin in D5W 750 MG/150 ML] 750 mg Premix Bag 1 bag IV ONETIME
--- NOTE | 2021-03-25 01:29 | CR ---
PROCEDURE INFORMATION: Exam: XR Chest Exam date and time: 03/25/2021 12:23 AM Age: 75 years old Clinical indication: Other: Coarse ronchi to left; SOB; Wbc 21 TECHNIQUE: Imaging protocol: XR of the chest. Views: 1 view. COMPARISON: CT Chest Abdomen Pelvis wo Cont 10/29/2020 2:26 AM FINDINGS: Lungs: Hazy left basilar opacity which could be secondary to atelectasis or pneumonia. Pleural spaces: Small left pleural effusion. Heart/Mediastinum: Unremarkable. No cardiomegaly. Bones/joints: Unremarkable. IMPRESSION: 1. Hazy left basilar opacity which could be secondary to atelectasis or pneumonia. 2. Small left pleural effusion.
[2021-03-25] MEDS ORDERED: Levofloxacin/Dextrose 5%-Water 750 MG in Premix Bag 1 BAG IV ONE (01:46)
[2021-03-25] MEDS ORDERED: Albuterol/Ipratropium 3.0-0.5 MG/3 ML Neb Soln NEB PRN (02:15)
[2021-03-25] MEDS ORDERED: Ondansetron 4 MG/2 ML SDV IVPUSH PRN (02:15)
[2021-03-25] MEDS ORDERED: Polyethylene Glycol 3350 Powder 17 GM Packet PO PRN (02:15)
[2021-03-25] MEDS ORDERED: Acetaminophen 325 MG Tab PO PRN ×2 (02:15→02:56)
--- NOTE | 2021-03-25 02:21 | PCM.HP ---
H&P History of Present Illness - General Date of Service: 03/25/21 Admit Problem/Dx: Admission Diagnosis/Problem Admission Diagnosis/Problem Community acquired pneumonia, acute respiratory failure with hypoxia - History of Present Illness Initial Comments - Free Text/Narative: Mena is a 75 y/o female with a history of COPD, CHF, fibromyalgia, and a nonhealing wound to her left medial lower leg, who presented to the ED via [facility] with complaints of subjective fever, shortness of breath, muscle aches, and fatigue of one week duration. that progressively worsened until ED presentation. She denied cough, sore throat, chest pain/pressure, palpitations. she tried nothing at home to make it better. activity makes SOB worse. She took no PRN medications or performed any supportive cares for her symptoms. she is a current cigarette smoker who typically smokes 1/2 pack of cigarettes per day, which has been cut down to 2-3 due to her SOB; she denies alcohol or recreational drug use. time of day does not change symptoms. she does not recall recent episodes that are similar to today. Generalized Pain Score (Numeric/FACES): 7 - Related Data Allergies/Adverse Reactions: Allergies Allergy/AdvReac Type Severity Reaction Status Date / Time naproxen Allergy Unknown Itching Verified 03/25/21 01:32 aspirin Allergy Hives Verified 03/25/21 01:32 azithromycin [From Zithromax] Allergy UNKNOWN Verified 03/25/21 01:32 Penicillins Allergy Hives Verified 03/25/21 01:32 Home Medications: Home Meds DULoxetine HCl [Cymbalta] 60 mg PO BID 07/01/18 [History] Cholecalciferol (Vitamin D3) [Vitamin D3] 3,000 unit PO DAILY 08/25/18 [History] Albuterol [Ventolin HFA] 2 puff INH Q6H PRN #1 08/29/18 [Rx] Budesonide/Formoterol [Symbicort 160-4.5 MCG] 1 puff INH BID #1 inhaler 08/29/18 [Rx] Cyclobenzaprine [Flexeril] 5 mg PO BID PRN 03/23/20 [History] Furosemide [Lasix] 40 mg PO DAILY 03/23/20 [History] clonazePAM [Clonazepam] 1 mg PO BID 03/24/20 [History] Pantoprazole [ProTONIX] 40 mg PO DAILY 06/08/20 [History] Cyanocobalamin (Vitamin B-12) [Cyanocobalamin Injection] 1 ml INJECT .QMONTH 06/09/20 [History] Hydrocortisone [Hydrocortisone 2.5% Crm] 1 applic TOP Q12HR 08/27/20 [History] Ascorbic Acid [Vitamin C] 500 mg PO DAILY 30 Days #30 tablet 08/28/20 [Rx] Ferrous Sulfate 325 mg PO BIDMEALS 30 Days #60 tablet 08/28/20 [Rx] Zolpidem [Ambien] 10 mg PO DAILY PRN tablet 08/28/20 [Rx] Acetaminophen [Tylenol Arthritis Pain] 2 tab PO ASDIRECTED 10/29/20 [History] Ipratropium/Albuterol Sulfate [Iprat-Albut 0.5-3(2.5) mg/3 ml] 1 dose INH TID 10/29/20 [History] Sennosides/Docusate Sodium [Senna-Docusate Sodium Tablet] 1 - 2 tab PO DAILY 10/29/20 [History] cephALEXin [Cephalexin] 1 cap PO QID 10/29/20 [History] diphenhydrAMINE/Zinc Acetate [Banophen Anti-Itch 2%] 1 dose TOP TID 10/29/20 [History] Past Medical History HEENT History: Reports: Cataract, Impaired Vision Other HEENT History: wears readers. Cardiovascular History: Reports: Heart Failure, Stents Other Cardiovascular History: [place] Respiratory History: Reports: Asthma, COPD, Pneumonia, Recurrent Gastrointestinal History: Reports: None Genitourinary History: Reports: None [employer] History: Reports: Musculoskeletal History: Reports: Fibromyalgia, Neck Pain, Chronic, Osteoporosis Neurological History: Reports: Concussion Psychiatric History: Reports: Anxiety, Depression Endocrine/Metabolic History: Reports: Osteoporosis, Other (See Below) Hematologic History: Reports: Anemia, B12 Deficiency, Blood Transfusion(s) Other Hematologic History: Blood transfusion with past . Immunologic History: Reports: None Oncologic (Cancer) History: Reports: None Dermatologic History: Reports: Cellulitis, Other (See Below) Other Dermatologic History: Rash to truck for last few days. ulcers bilaterally - Infectious Disease History Infectious Disease History: Reports: Shingles - Past Surgical History HEENT Surgical History: Reports: Cataract Surgery Other HEENT Surgeries/Procedures: cataract surgery 2018. Respiratory Surgical History: Reports: None Female Surgical History: Reports: Tubal Ligation Social & Family History - Family History Family Medical History: No Pertinent Family History Respiratory: Reports: TB Oncologic: Reports: Lung - Tobacco Use Tobacco Use Status *Q: Current Every Day Tobacco User Tobacco Use Within Last Twelve Months: Cigarettes Years of Tobacco use: 25 Packs/Tins Daily: 0.2 Used Tobacco, but Quit: No Smoking Cessation Information Provided To Patient: Patient Refused - Tobacco Core Measures Tobacco Use/Smoking Within Last 30 Days: Yes Smoking Frequency Within Last 30 Days: Reports: Five or More Cigarettes Per Day Smokeless Tobacco Use in Last 30 Days: No Desires Tobacco Cessation Medication: Refuses FDA Approved Med - Caffeine Use Caffeine Use: Reports: Coffee - Alcohol Use Alcohol Use History: Yes Alcohol Use Frequency: Rarely - Living Situation & Occupation Living situation: Reports: , with Family Occupation: Retired H&P Review of Systems - Review of Systems: Review Of Systems: See Below General: Reports: Fever (subjective), Weakness. Denies: Chills, Decreased Appetite HEENT: Reports: No Symptoms Pulmonary: Reports: Shortness of Breath, Cough, Sputum. Denies: Wheezing, Hemoptysis Cardiovascular: Reports: Dyspnea on Exertion. Denies: Chest Pain, Palpitations Gastrointestinal: Reports: No Symptoms Genitourinary: Reports: No Symptoms Musculoskeletal: Reports: No Symptoms Skin: Reports: Change in Color (BLE), Other (chronic LLE wound on left lateral lower leg. ) Psychiatric: Reports: Depression (chronic), Anxiety (chronic) Neurological: Reports: No Symptoms Hematologic/Lymphatic: Reports: No Symptoms Immunologic: Reports: No Symptoms Exam - Exam Exam: See Below - Vital Signs Vital Signs: Last Vital Signs Temp 100.3 F 03/25/21 00:38 Pulse 103 H 03/25/21 00:38 Resp 25 H 03/25/21 00:38 BP 97/47 L 03/25/21 00:38 Pulse Ox 88 L 03/25/21 01:45 Weight: 140 lb 12.8 oz - Exam Quality Assessment: Supplemental Oxygen, DVT Prophylaxis. No: Urinary Catheter General: Alert, Oriented, Cooperative, Mild Distress HEENT: EOMI, Mucosa Moist & [place] Neck: Supple, Other (significant kyphosis). No: JVD Lungs: Decreased Breath Sounds (LLL) Cardiovascular: Regular Rate, Regular Rhythm GI/Abdominal Exam: Soft, Non-Tender. No: Rebound, Tender, Abnormal Bowel Sounds (Female) Exam: Deferred Rectal (Female) Exam: Deferred Back Exam: Full Range of Motion Extremities: Normal Range of Motion, Non-Tender, Other (stage 2 ulcer on medial left lower extremity, chronic. small area of erythema proximal to right upper extremity AC IV site) Skin: Warm, Dry, Other (venous stasis change to BLE) Neuro Extensive - Mental Status: Oriented x3, Normal Mood/Affect, Normal Cognition Psychiatric: Normal Affect, Normal Mood - Patient Data Lab Results Last 24 hrs: Laboratory Results - last 24 hr 03/24/21 03/24/21 03/24/21 Range/Units 23:40 23:45 23:45 WBC 21.1 H (5.0-10.0) 10^3/uL RBC 3.39 L (4.2-5.4) 10^6/uL Hgb 10.3 L (12.0-16.0) g/dL Hct 31.2 L (37.0-47.0) % MCV 92.0 D (80-100) fL MCH 30.4 (27.0-34.0) pg MCHC 33.0 (33.0-35.0) g/dL Plt Count 334 D (150-450) 10^3/uL Neut % (Auto) 89.8 H (42.2-75.2) % Lymph % (Auto) 2.6 L (20.5-50.1) % [place] % (Auto) 7.5 (2-8) % Eos % (Auto) 0.0 L (1.0-3.0) % Baso % (Auto) 0.1 (0.0-1.0) % Sodium 130 L (136-145) mmol/L Potassium 3.5 (3.5-5.1) mmol/L Chloride 93 L (98-107) mmol/L Carbon Dioxide 27 (21-32) mmol/L Anion Gap 13.5 H (7-13) mEq/L BUN 13 (7-18) mg/dL Creatinine 0.93 (0.55-1.02) mg/dL Est Cr Clr Drug Dosing TNP Estimated GFR (MDRD) 59 BUN/Creatinine Ratio 14.0 (No establ ref range) Glucose 113 H (70-99) mg/dL Lactic Acid (0.4-2.0) mmol/L Calcium 8.3 L (8.5-10.1) mg/dL Magnesium 1.5 L (1.8-2.4) mg/dL Total Bilirubin 0.4 (0.2-1.0) mg/dL AST 18 (15-37) U/L ALT 13 L (14-59) U/L Alkaline Phosphatase 72 (46-116) U/L Troponin I High Sens > 200 H* (<=51) pg/mL C-Reactive Protein 10.5 H (0.0-0.9) mg/dL B-Natriuretic Peptide 609 H (0-100) pg/ml Total Protein 7.3 (6.4-8.2) g/dL Albumin 3.0 L (3.4-5.0) g/dL Globulin 4.3 Albumin/Globulin Ratio 0.70 Influenza Type A RNA Negative (NEGATIVE) Influenza Type B RNA Negative (NEGATIVE) SARS-CoV-2 RNA (SKY) Negative (NEGATIVE) 03/24/21 Range/Units 23:45 WBC (5.0-10.0) 10^3/uL RBC (4.2-5.4) 10^6/uL Hgb (12.0-16.0) g/dL Hct (37.0-47.0) % MCV (80-100) fL MCH (27.0-34.0) pg MCHC (33.0-35.0) g/dL Plt Count (150-450) 10^3/uL Neut % (Auto) (42.2-75.2) % Lymph % (Auto) (20.5-50.1) % [place] % (Auto) (2-8) % Eos % (Auto) (1.0-3.0) % Baso % (Auto) (0.0-1.0) % Sodium (136-145) mmol/L Potassium (3.5-5.1) mmol/L Chloride (98-107) mmol/L Carbon Dioxide (21-32) mmol/L Anion Gap (7-13) mEq/L BUN (7-18) mg/dL Creatinine (0.55-1.02) mg/dL Est Cr Clr Drug Dosing Estimated GFR (MDRD) BUN/Creatinine Ratio (No establ ref range) Glucose (70-99) mg/dL Lactic Acid 1.6 (0.4-2.0) mmol/L Calcium (8.5-10.1) mg/dL Magnesium (1.8-2.4) mg/dL Total Bilirubin (0.2-1.0) mg/dL AST (15-37) U/L ALT (14-59) U/L Alkaline Phosphatase (46-116) U/L Troponin I High Sens (<=51) pg/mL C-Reactive Protein (0.0-0.9) mg/dL B-Natriuretic Peptide (0-100) pg/ml Total Protein (6.4-8.2) g/dL Albumin (3.4-5.0) g/dL Globulin Albumin/Globulin Ratio Influenza Type A RNA (NEGATIVE) Influenza Type B RNA (NEGATIVE) SARS-CoV-2 RNA (SKY) (NEGATIVE) Result Diagrams: 03/24/21 23:45 03/24/21 23:45 Brannon Results Last 24 hrs: Microbiology 03/24/21 23:45 Anaerobic Blood Culture - Final Blood - Arm, Left Problem List Initiated/Reviewed/Updated: Yes Orders Last 24hrs: Active Orders 24 hr Category Date Time Status Admission Diagnosis [ADT] Stat ADT 03/25/21 01:48 Ordered Admission Status [Patient Status] [ADT] Routine ADT 03/25/21 01:48 Active CULTURE BLOOD [BC] Stat Lab 03/24/21 23:45 Results CULTURE BLOOD [BC] Stat Lab 03/24/21 23:47 Received DRUG SCREEN URINE BIORAD [URCHEM] Urgent Lab 03/25/21 00:00 Ordered PROCALCITONIN [REF] Stat Lab 03/25/21 00:55 Received UA RFX BRANNON AND CULT IF INDIC [URIN] Stat Lab 03/25/21 00:00 Ordered Levofloxacin/Dextrose 5%-Water [Levaquin in D5W 750 MG/ Med 03/25/21 01:46 Active 150 ML] 750 mg Premix Bag 1 bag IV ONETIME Magnesium Sulfate/Water [Magnesium Sulfate in Water 2 Med 03/25/21 00:33 Active GM/50 ML] 2 gm Premix Bag 1 bag IV ONETIME Blood Culture x2 Reflex Set [OM.PC] Stat Oth 03/24/21 23:47 Ordered Medication Orders Magnesium Sulfate 2 gm/ Premix 50 mls @ 25 mls/hr IV ONETIME ONE Stop: 03/25/21 02:32 Last Admin: 03/25/21 00:51 Dose: 25 mls/hr Documented by: GISEL Levofloxacin/Dextrose 750 mg/ (Premix) 150 mls @ 100 mls/hr IV ONETIME ONE Stop: 03/25/21 03:15 Last Admin: 03/25/21 02:09 Dose: 100 mls/hr Documented by: JOANIE Assessment/Plan Comment:: community acquired pneumonia acute on chronic diastolic heart failure: small LLL pleural effusion acute respiratory failure with hypoxia: NSTEMI, likely type II 2/2 above (myocardial demand ischemia) - currently requiring 2L supplemental oxygen to maintain saturations >88% - received levofloxacin in the ED given azithromycin and PCN allergies - BNP elevated at 609 in ED so given 40mg IV lasix x1. no prior echo available for eval - trop >200 - on admit: WBC 21.1, afebrile and hemodynamically stable Plan: - continue lasix 40mg bid diuretic dosing - HH diet with 1.8L fluid restrict and 2g Na limit daily - strict I/O and daily weights - will need outpatient echo - continue levofloxacin - aggressive IS 10x every hour while awake - PRN dinora simmonss - RT consulted to follow - repeat trop, follow result - repeat CBC and BMP early am CHRONIC CONDITIONS: continue current home medications as ordered. - stage I decubitus ulcer to lateral left lower leg, chronic - unspecified COPD without exacerbation - CAD, [place] heart, [place] artery, unspecified angina - Hx of PVD with stent - chronic anemia, B12 deficient - chronic neck pain - fibromyalgia - depression with anxiety - unspecified osteoporosis - nicotine dependence, cigarettes, uncomplicated: nicotine replacement per protocol. smoking cessation counseling provided for 3-10 minutes. DVT prophylaxis: subQ lovenox Code status: DNR. DNR discussion today
[2021-03-25 02:42] LABS: AMPHETAMINES,URINE NEGATIVE (NEGATIVE); BARBITURATES,URINE NEGATIVE (NEGATIVE); BENZODIAZEPINE,URINE NEGATIVE (NEGATIVE); MDMA (ECSTASY), URINE NEGATIVE (NEGATIVE); METHADONE,URINE NEGATIVE (NEGATIVE); METHAMPHETAMINES,URINE NEGATIVE (NEGATIVE); OPIATES,URINE NEGATIVE (NEGATIVE); OXYCODONE,URINE NEGATIVE (NEGATIVE); PHENCYCLIDINE,URINE NEGATIVE (NEGATIVE); TCA,URINE POSITIVE (NEGATIVE)
[2021-03-25 07:11] LABS: ANION GAP 12.5 mEq/L (7-13)
[2021-03-25] MEDS ORDERED: Furosemide 40 MG/4 ML VIAL IVPUSH SCH (08:00)
[2021-03-25] MEDS ORDERED: Norepinephrine 4 MG in Dextrose 5% in Water 246 ML IV SCH ×2 (08:15)
[2021-03-25] MEDS ORDERED: Enoxaparin 40 MG/0.4 ML Syringe SUBCUT SCH (09:00)
[2021-03-25] MEDS ORDERED: Nicotine 7 MG/24 Hr Patch TRDERM SCH (09:00)
--- NOTE | 2021-03-25 09:12 | PCM.DCSUM1 ---
Discharge Summary - Hospital Course Diagnosis: Stroke: No Modified Per Scale: Slight Disable;Unable to Carry Out Prev Act.Able to Look After Affairs Modified [place] Scale Score: 2 - Discharge Data Discharge Date: 03/25/21 Discharge Disposition: DC/Tfer to Acute Hospital 02 Condition: Serious - Referral to Home Health Primary Care Physician: PCP None - Patient Summary/Data Consults: Consultations 03/25/21 02:15 Respiratory Care Assess and Treatment [CONS] Routine Hospital Course: Mena is a 75 y/o female with a history of COPD, CHF, fibromyalgia, and a nonhealing wound to her left medial lower leg, who presented to the ED via [facility] on 03/25/21 manager trade with complaints of subjective fever, shortness of breath, muscle aches, and fatigue of one week duration that progressively worsened until ED presentation. She denied cough, sore throat, chest pain/pressure, palpitations. While she was in the ED CXR revealed a LLL infiltrate and small left pleural effusion. BNP was elevated at 609, trop was >200. pt was given IV lasix 40mg once in the ED. She was started on levofloxacin for possible community acquired PNA and then admit to the hospital was requested. On admit she was afebrile and hemodynamically stable. WBC 21. procalcitonin pending so abx were continued. trop trended overnight with repeated values >200 and 1696. within minutes of this lab returning at 0800 on 03/25/21 BP dropped to 80/41. stat EKG revealed possible lateral infarct but no acute ST changes. Pt started on norepinephrine per protocol with goal MAP 65. Recheck vitals after initiation on 0.06mcg/min with MAP 65. therapeutic dose of lovenox 1mg/kg bid with 60mg given and 324mg chewable ASA given x1. [place] one call contacted with Dr. Sauer from ICU and Dr. Villatoro hospitalist. after review of patient information she was accepted to the intermediate care unit for further evaluation and treatment. housing case manager assisted with transfer, given inclement weather and patient status she was transferred via air flight. of note, she is a current cigarette smoker who typically smokes 1/2 pack of cigarettes per day and is currently requiring 2L supplemental oxygen with baseline room air to maintain saturations >88%. Code status is DNR/DNI, verified on admit. She will be discharged to [facility] on the morning of 03/25/21 - Discharge Plan Home Medications: Home Meds DULoxetine HCl [Cymbalta] 60 mg PO BID 07/01/18 [History] Cholecalciferol (Vitamin D3) [Vitamin D3] 3,000 unit PO DAILY 08/25/18 [History] Albuterol [Ventolin HFA] 2 puff INH Q6H PRN #1 08/29/18 [Rx] Budesonide/Formoterol [Symbicort 160-4.5 MCG] 1 puff INH BID #1 inhaler 08/29/18 [Rx] Cyclobenzaprine [Flexeril] 5 mg PO BID PRN 03/23/20 [History] Furosemide [Lasix] 40 mg PO DAILY 03/23/20 [History] clonazePAM [Clonazepam] 1 mg PO BID 03/24/20 [History] Pantoprazole [ProTONIX] 40 mg PO DAILY 06/08/20 [History] Cyanocobalamin (Vitamin B-12) [Cyanocobalamin Injection] 1 ml INJECT .QMONTH 06/09/20 [History] Hydrocortisone [Hydrocortisone 2.5% Crm] 1 applic TOP Q12HR 08/27/20 [History] Ascorbic Acid [Vitamin C] 500 mg PO DAILY 30 Days #30 tablet 08/28/20 [Rx] Ferrous Sulfate 325 mg PO BIDMEALS 30 Days #60 tablet 08/28/20 [Rx] Zolpidem [Ambien] 10 mg PO DAILY PRN tablet 08/28/20 [Rx] Acetaminophen [Tylenol Arthritis Pain] 2 tab PO ASDIRECTED 10/29/20 [History] Ipratropium/Albuterol Sulfate [Iprat-Albut 0.5-3(2.5) mg/3 ml] 1 dose INH TID 10/29/20 [History] Sennosides/Docusate Sodium [Senna-Docusate Sodium Tablet] 1 - 2 tab PO DAILY 10/29/20 [History] cephALEXin [Cephalexin] 1 cap PO QID 10/29/20 [History] diphenhydrAMINE/Zinc Acetate [Banophen Anti-Itch 2%] 1 dose TOP TID 10/29/20 [History] Oxygen Therapy Mode: Nasal Cannula (2L) Forms: ED Department Discharge Referrals: PCP,None [Primary Care Provider] - - Discharge Summary/Plan Comment DC Time >30 min.: Yes Total # of Minutes for Discharge Time: 75 - General Info Date of Service: 03/25/21 Admission Dx/Problem (Free Text: Admission Diagnosis/Problem Admission Diagnosis/Problem Community acquired pneumonia, acute respiratory failure with hypoxia Functional Status: Reports: Pain Controlled. Denies: Ambulating - Review of Systems General: Reports: Weakness, Fatigue. Denies: Fever HEENT: Reports: No Symptoms Pulmonary: Reports: Shortness of Breath, Cough. Denies: Sputum, Wheezing Cardiovascular: Reports: Dyspnea on Exertion. Denies: Chest Pain Gastrointestinal: Reports: No Symptoms Genitourinary: Reports: No Symptoms Musculoskeletal: Reports: No Symptoms Skin: Reports: No Symptoms Neurological: Reports: No Symptoms Psychiatric: Reports: No Symptoms - Patient Data Vitals - Most Recent: Last Vital Signs Temp 100.0 F 03/25/21 08:33 Pulse 94 03/25/21 09:08 Resp 23 H 03/25/21 09:08 BP 95/53 L 03/25/21 09:08 Pulse Ox 95 03/25/21 09:08 Weight - Most Recent: 136 lb 9.6 oz I&O - Last 24 hours: Intake & Output 03/24/21 03/25/21 03/25/21 22:59 06:59 14:59 Output Total 600 Balance -600 Lab Results - Last 24 hrs: Laboratory Results - last 24 hr 03/24/21 03/24/21 03/24/21 Range/Units 23:40 23:45 23:45 WBC 21.1 H (5.0-10.0) 10^3/uL RBC 3.39 L (4.2-5.4) 10^6/uL Hgb 10.3 L (12.0-16.0) g/dL Hct 31.2 L (37.0-47.0) % MCV 92.0 D (80-100) fL MCH 30.4 (27.0-34.0) pg MCHC 33.0 (33.0-35.0) g/dL Plt Count 334 D (150-450) 10^3/uL Neut % (Auto) 89.8 H (42.2-75.2) % Lymph % (Auto) 2.6 L (20.5-50.1) % Cobb % (Auto) 7.5 (2-8) % Eos % (Auto) 0.0 L (1.0-3.0) % Baso % (Auto) 0.1 (0.0-1.0) % Sodium 130 L (136-145) mmol/L Potassium 3.5 (3.5-5.1) mmol/L Chloride 93 L (98-107) mmol/L Carbon Dioxide 27 (21-32) mmol/L Anion Gap 13.5 H (7-13) mEq/L BUN 13 (7-18) mg/dL Creatinine 0.93 (0.55-1.02) mg/dL Est Cr Clr Drug Dosing TNP Estimated GFR (MDRD) 59 BUN/Creatinine Ratio 14.0 (No establ ref range) Glucose 113 H (70-99) mg/dL Lactic Acid (0.4-2.0) mmol/L Calcium 8.3 L (8.5-10.1) mg/dL Magnesium 1.5 L (1.8-2.4) mg/dL Total Bilirubin 0.4 (0.2-1.0) mg/dL AST 18 (15-37) U/L ALT 13 L (14-59) U/L Alkaline Phosphatase 72 (46-116) U/L Troponin I High Sens > 200 H* (<=51) pg/mL C-Reactive Protein 10.5 H (0.0-0.9) mg/dL B-Natriuretic Peptide 609 H (0-100) pg/ml Total Protein 7.3 (6.4-8.2) g/dL Albumin 3.0 L (3.4-5.0) g/dL Globulin 4.3 Albumin/Globulin Ratio 0.70 Urine Color (YELLOW) Urine Appearance (CLEAR) Urine pH (5.0-9.0) Ur Specific [place] (1.005-1.030) Urine Protein (NEGATIVE) Urine Glucose (UA) (NEGATIVE) Urine Ketones (NEGATIVE) Urine Occult Blood (NEGATIVE) Urine Nitrite (NEGATIVE) Urine Bilirubin (NEGATIVE) Urine Urobilinogen (0.2-1.0) mg/dL Ur Leukocyte Esterase (NEGATIVE) Urine Opiates Screen (NEGATIVE) Ur Oxycodone Screen (NEGATIVE) Urine Methadone Screen (NEGATIVE) Ur Barbiturates Screen (NEGATIVE) U Tricyclic Antidepress (NEGATIVE) Ur Phencyclidine Scrn (NEGATIVE) Ur Amphetamine Screen (NEGATIVE) U Methamphetamines Scrn (NEGATIVE) Urine MDMA Screen (NEGATIVE) U Benzodiazepines Scrn (NEGATIVE) Urine Cocaine Screen (NEGATIVE) U Marijuana (THC) Screen (NEGATIVE) Influenza Type A RNA Negative (NEGATIVE) Influenza Type B RNA Negative (NEGATIVE) SARS-CoV-2 RNA (SKY) Negative (NEGATIVE) 03/24/21 03/25/21 03/25/21 Range/Units 23:45 02:22 02:22 WBC (5.0-10.0) 10^3/uL RBC (4.2-5.4) 10^6/uL Hgb (12.0-16.0) g/dL Hct (37.0-47.0) % MCV (80-100) fL MCH (27.0-34.0) pg MCHC (33.0-35.0) g/dL Plt Count (150-450) 10^3/uL Neut % (Auto) (42.2-75.2) % Lymph % (Auto) (20.5-50.1) % Cobb % (Auto) (2-8) % Eos % (Auto) (1.0-3.0) % Baso % (Auto) (0.0-1.0) % Sodium (136-145) mmol/L Potassium (3.5-5.1) mmol/L Chloride (98-107) mmol/L Carbon Dioxide (21-32) mmol/L Anion Gap (7-13) mEq/L BUN (7-18) mg/dL Creatinine (0.55-1.02) mg/dL Est Cr Clr Drug Dosing Estimated GFR (MDRD) BUN/Creatinine Ratio (No establ ref range) Glucose (70-99) mg/dL Lactic Acid 1.6 (0.4-2.0) mmol/L Calcium (8.5-10.1) mg/dL Magnesium (1.8-2.4) mg/dL Total Bilirubin (0.2-1.0) mg/dL AST (15-37) U/L ALT (14-59) U/L Alkaline Phosphatase (46-116) U/L Troponin I High Sens (<=51) pg/mL C-Reactive Protein (0.0-0.9) mg/dL B-Natriuretic Peptide (0-100) pg/ml Total Protein (6.4-8.2) g/dL Albumin (3.4-5.0) g/dL Globulin Albumin/Globulin Ratio Urine Color Yellow (YELLOW) Urine Appearance Clear (CLEAR) Urine pH 5.5 (5.0-9.0) Ur Specific [place] 1.015 (1.005-1.030) Urine Protein Negative (NEGATIVE) Urine Glucose (UA) Negative (NEGATIVE) Urine Ketones Negative (NEGATIVE) Urine Occult Blood Negative (NEGATIVE) Urine Nitrite Negative (NEGATIVE) Urine Bilirubin Negative (NEGATIVE) Urine Urobilinogen 0.2 (0.2-1.0) mg/dL Ur Leukocyte Esterase Negative (NEGATIVE) Urine Opiates Screen Negative (NEGATIVE) Ur Oxycodone Screen Negative (NEGATIVE) Urine Methadone Screen Negative (NEGATIVE) Ur Barbiturates Screen Negative (NEGATIVE) U Tricyclic Antidepress Positive H (NEGATIVE) Ur Phencyclidine Scrn Negative (NEGATIVE) Ur Amphetamine Screen Negative (NEGATIVE) U Methamphetamines Scrn Negative (NEGATIVE) Urine MDMA Screen Negative (NEGATIVE) U Benzodiazepines Scrn Negative (NEGATIVE) Urine Cocaine Screen Negative (NEGATIVE) U Marijuana (THC) Screen Negative (NEGATIVE) Influenza Type A RNA (NEGATIVE) Influenza Type B RNA (NEGATIVE) SARS-CoV-2 RNA (SKY) (NEGATIVE) 03/25/21 03/25/21 03/25/21 Range/Units 03:00 06:30 06:30 WBC 21.0 H (5.0-10.0) 10^3/uL RBC 3.34 L (4.2-5.4) 10^6/uL Hgb 10.1 L (12.0-16.0) g/dL Hct 30.7 L (37.0-47.0) % MCV 91.9 (80-100) fL MCH 30.2 (27.0-34.0) pg MCHC 32.9 L (33.0-35.0) g/dL Plt Count 310 (150-450) 10^3/uL Neut % (Auto) (42.2-75.2) % Lymph % (Auto) (20.5-50.1) % Cobb % (Auto) (2-8) % Eos % (Auto) (1.0-3.0) % Baso % (Auto) (0.0-1.0) % Sodium 130 L (136-145) mmol/L Potassium 3.5 (3.5-5.1) mmol/L Chloride 94 L (98-107) mmol/L Carbon Dioxide 27 (21-32) mmol/L Anion Gap 12.5 (7-13) mEq/L BUN 15 (7-18) mg/dL Creatinine 1.03 H (0.55-1.02) mg/dL Est Cr Clr Drug Dosing 40.75 Estimated GFR (MDRD) 52 BUN/Creatinine Ratio (No establ ref range) Glucose 108 H (70-99) mg/dL Lactic Acid (0.4-2.0) mmol/L Calcium 8.2 L (8.5-10.1) mg/dL Magnesium (1.8-2.4) mg/dL Total Bilirubin (0.2-1.0) mg/dL AST (15-37) U/L ALT (14-59) U/L Alkaline Phosphatase (46-116) U/L Troponin I High Sens > 200 H* (<=51) pg/mL C-Reactive Protein (0.0-0.9) mg/dL B-Natriuretic Peptide (0-100) pg/ml Total Protein (6.4-8.2) g/dL Albumin (3.4-5.0) g/dL Globulin Albumin/Globulin Ratio Urine Color (YELLOW) Urine Appearance (CLEAR) Urine pH (5.0-9.0) Ur Specific [place] (1.005-1.030) Urine Protein (NEGATIVE) Urine Glucose (UA) (NEGATIVE) Urine Ketones (NEGATIVE) Urine Occult Blood (NEGATIVE) Urine Nitrite (NEGATIVE) Urine Bilirubin (NEGATIVE) Urine Urobilinogen (0.2-1.0) mg/dL Ur Leukocyte Esterase (NEGATIVE) Urine Opiates Screen (NEGATIVE) Ur Oxycodone Screen (NEGATIVE) Urine Methadone Screen (NEGATIVE) Ur Barbiturates Screen (NEGATIVE) U Tricyclic Antidepress (NEGATIVE) Ur Phencyclidine Scrn (NEGATIVE) Ur Amphetamine Screen (NEGATIVE) U Methamphetamines Scrn (NEGATIVE) Urine MDMA Screen (NEGATIVE) U Benzodiazepines Scrn (NEGATIVE) Urine Cocaine Screen (NEGATIVE) U Marijuana (THC) Screen (NEGATIVE) Influenza Type A RNA (NEGATIVE) Influenza Type B RNA (NEGATIVE) SARS-CoV-2 RNA (SKY) (NEGATIVE) 03/25/21 Range/Units 06:30 WBC (5.0-10.0) 10^3/uL RBC (4.2-5.4) 10^6/uL Hgb (12.0-16.0) g/dL Hct (37.0-47.0) % MCV (80-100) fL MCH (27.0-34.0) pg MCHC (33.0-35.0) g/dL Plt Count (150-450) 10^3/uL Neut % (Auto) (42.2-75.2) % Lymph % (Auto) (20.5-50.1) % Cobb % (Auto) (2-8) % Eos % (Auto) (1.0-3.0) % Baso % (Auto) (0.0-1.0) % Sodium (136-145) mmol/L Potassium (3.5-5.1) mmol/L Chloride (98-107) mmol/L Carbon Dioxide (21-32) mmol/L Anion Gap (7-13) mEq/L BUN (7-18) mg/dL Creatinine (0.55-1.02) mg/dL Est Cr Clr Drug Dosing Estimated GFR (MDRD) BUN/Creatinine Ratio (No establ ref range) Glucose (70-99) mg/dL Lactic Acid (0.4-2.0) mmol/L Calcium (8.5-10.1) mg/dL Magnesium (1.8-2.4) mg/dL Total Bilirubin (0.2-1.0) mg/dL AST (15-37) U/L ALT (14-59) U/L Alkaline Phosphatase (46-116) U/L Troponin I High Sens 1696 H* (<=51) pg/mL C-Reactive Protein (0.0-0.9) mg/dL B-Natriuretic Peptide (0-100) pg/ml Total Protein (6.4-8.2) g/dL Albumin (3.4-5.0) g/dL Globulin Albumin/Globulin Ratio Urine Color (YELLOW) Urine Appearance (CLEAR) Urine pH (5.0-9.0) Ur Specific [place] (1.005-1.030) Urine Protein (NEGATIVE) Urine Glucose (UA) (NEGATIVE) Urine Ketones (NEGATIVE) Urine Occult Blood (NEGATIVE) Urine Nitrite (NEGATIVE) Urine Bilirubin (NEGATIVE) Urine Urobilinogen (0.2-1.0) mg/dL Ur Leukocyte Esterase (NEGATIVE) Urine Opiates Screen (NEGATIVE) Ur Oxycodone Screen (NEGATIVE) Urine Methadone Screen (NEGATIVE) Ur Barbiturates Screen (NEGATIVE) U Tricyclic Antidepress (NEGATIVE) Ur Phencyclidine Scrn (NEGATIVE) Ur Amphetamine Screen (NEGATIVE) U Methamphetamines Scrn (NEGATIVE) Urine MDMA Screen (NEGATIVE) U Benzodiazepines Scrn (NEGATIVE) Urine Cocaine Screen (NEGATIVE) U Marijuana (THC) Screen (NEGATIVE) Influenza Type A RNA (NEGATIVE) Influenza Type B RNA (NEGATIVE) SARS-CoV-2 RNA (SKY) (NEGATIVE) BEBE Results - Last 24 hrs: Microbiology 03/24/21 23:45 Anaerobic Blood Culture - Final Blood - Arm, Left Med Orders - Current: Current Medications Acetaminophen (Acetaminophen 325 Mg Tab) 650 mg PO Q6H PRN PRN Reason: Pain Last Admin: 03/25/21 03:18 Dose: 650 mg Documented by: Albuterol/Ipratropium (Albuterol/Ipratropium 3.0-0.5 Mg/3 Ml Neb Soln) 3 ml NEB Q4H PRN PRN Reason: shortness of breath/wheezing Enoxaparin Sodium (Enoxaparin 40 Mg/0.4 Ml Syringe) 40 mg SUBCUT DAILY BLAZE Norepinephrine Bitartrate 4 mg (/ Dextrose/Water) 250 mls @ 7.5 mls/hr IV TITRATE BLAZE; Protocol Last Titration: 03/25/21 09:01 Dose: 4 mcg/min, 15 mls/hr Documented by: Nicotine (Nicotine 7 Mg/24 Hr Patch) 7 mg TRDERM DAILY BLAZE Ondansetron HCl (Ondansetron 4 Mg/2 Ml Sdv) 4 mg IVPUSH Q6H PRN PRN Reason: Nausea/Vomiting Polyethylene Glycol (Polyethylene Glycol 3350 Powder 17 Gm Packet) 17 gm PO DAILY PRN PRN Reason: Constipation Discontinued Medications Acetaminophen (Acetaminophen 325 Mg Tab) 650 mg PO Q4H PRN PRN Reason: Pain (Mild 1-3)/fever Furosemide (Furosemide 40 Mg/4 Ml Vial) 40 mg IVPUSH ONETIME ONE Stop: 03/25/21 00:34 Last Admin: 03/25/21 00:51 Dose: 40 mg Documented by: Furosemide (Furosemide 40 Mg/4 Ml Vial) 40 mg IVPUSH BIDDIURETIC BLAZE Magnesium Sulfate 2 gm/ Premix 50 mls @ 25 mls/hr IV ONETIME ONE Stop: 03/25/21 02:32 Last Admin: 03/25/21 00:51 Dose: 25 mls/hr Documented by: Levofloxacin/Dextrose 750 mg/ (Premix) 150 mls @ 100 mls/hr IV ONETIME ONE Stop: 03/25/21 03:15 Last Admin: 03/25/21 02:09 Dose: 100 mls/hr Documented by: - Exam Quality Assessment: Reports: Supplemental Oxygen, Urine Catheter, DVT Prophylaxis, Skin Breakdown (chronic ulcer to LLE medial aspect. stage II. CDI bandage) General: Reports: Alert, Oriented, Moderate Distress HEENT: Reports: Pupils Reactive, EOMI, Mucous Membr. Moist/[place] Neck: Reports: Supple, No JVD Lungs: Reports: Decreased Breath Sounds (throughout bilateral mid to lower lung beyer), Other (increased work of breathing). Denies: Rales, Rhonchi, Rub, Wheezing Cardiovascular: Reports: Regular Rhythm, No Murmurs, Tachycardia. Denies: Gallops GI/Abdominal Exam: Soft, Non-Tender (Female) Exam: Deferred Rectal (Female) Exam: Deferred Back Exam: Reports: Decreased Range of Motion ( kyphosis) Skin: Reports: Warm, Dry, Other (chronic stage II ulceration to medial aspect of LLE. bandage in place C/D/I) Wound/Incisions: Reports: Dressing Dry and Intact, No Drainage. Denies: Erythema Neurological: Reports: No New Focal Deficit Psy/Mental Status: Reports: Alert, Anxious *Q Meaningful Use (DIS) - VTE *Q VTE Mechanical Contraindications *Q: Tx/Proc Refused byPt VTE Pharmacological Contraindications *Q: Tx/Proc Refused by Pt VTE Anticoagulation Contraindications: Tx/proc Refused by PT - Stroke *Q Aspirin Contraindications Stroke *Q: Patient Refusal Anticoagulation Contraindications Stroke *Q: TX/PROC Refused by PT Antithrombotic Contraindications Stroke *Q: TX/PROC Refused by PT Statin Contraindications Stroke *Q: TX/PROC Refused by PT Rehabilitation Assessment Contraindication *Q: Tx/proc refused by pt - AMI *Q Aspirin Contraindications AMI *Q: TX/PROC Refused by PT Statin Contraindications AMI *Q: TX/Proc Refused by PT
[2021-03-25] MEDS ORDERED: Enoxaparin 60 MG/0.6 ML Syringe SUBCUT SCH (09:40)
[2021-03-25] MEDS: Aspirin 81 MG Tab.Chew PO ONE ×2 (09:47→09:51)
== END 2021-03-25 10:30 | DRG 280 ==
LOC: DL.ED 23:35 → DL.MS 03-25 01:48
PROVIDERS: ADMIT Hospitalist; ATTEND Hospitalist
DX: I50.33 Acute on chronic diastolic (congestive) heart failure (principal); R53.83 Other fatigue; I50.9 Heart failure, unspecified; J96.01 Acute respiratory failure with hypoxia; S81.802D Unspecified open wound, left lower leg, subsequent encounter; X58.XXXD Exposure to other specified factors, subsequent encounter; I21.A1 Myocardial infarction type 2; Z95.5 Presence of coronary angioplasty implant and graft; J18.9 Pneumonia, unspecified organism; J44.0 Chronic obstructive pulmonary disease with (acute) lower respiratory infection; L89.891 Pressure ulcer of other site, stage 1; I25.10 Atherosclerotic heart disease of native coronary artery without angina pectoris; I25.119 Atherosclerotic heart disease of native coronary artery with unspecified angina pectoris; F32.A Depression, unspecified; F41.9 Anxiety disorder, unspecified; D64.9 Anemia, unspecified; Z20.822 Contact with and (suspected) exposure to COVID-19; M79.7 Fibromyalgia; F41.8 Other specified anxiety disorders; F17.210 Nicotine dependence, cigarettes, uncomplicated; Z66 Do not resuscitate; Z79.51 Long term (current) use of inhaled steroids; E53.8 Deficiency of other specified B group vitamins; H54.7 Unspecified visual loss; M54.2 Cervicalgia; G89.29 Other chronic pain; M81.0 Age-related osteoporosis without current pathological fracture; E83.42 Hypomagnesemia; Z71.6 Tobacco abuse counseling; Z88.1 Allergy status to other antibiotic agents; Z88.6 Allergy status to analgesic agent; Z88.8 Allergy status to other drugs, medicaments and biological substances; Z88.0 Allergy status to penicillin; Z79.899 Other long term (current) drug therapy
CPT/HCPCS: 0240U; 36415; 51702; 71045; 80048; 80053; 80305; 81003; 83605; 83735; 83880; 84145; 84484; 85025; 85027; 86140; 87040; 93005; 96365; 96375; 99285-25; A9270-GY; J1650; J1940; J1956; J3475; J7060